=== PATIENT | female | born 1955 | race Caucasian/White ===

== ENCOUNTER → 2017-10-14 15:01 | Outpatient (REF) | payer MEDICAID, SELFPAY | LOC: NCHCN 15:01 | PROVIDERS: PCP Nurse Practitioner Family; Visit Provider Nurse Practitioner Family | DX: N39.0 Urinary tract infection, site not specified (principal) | CPT/HCPCS: 87086; 87186 ==

== ENCOUNTER → 2017-11-05 18:39 | Outpatient (REF) | payer MEDICAID, SELFPAY | LOC: NCHCN 18:39 | PROVIDERS: PCP Nurse Practitioner Family; Visit Provider Nurse Practitioner Family | DX: N39.0 Urinary tract infection, site not specified (principal); R21 Rash and other nonspecific skin eruption | CPT/HCPCS: 87077; 87086; 87186 ==

== ENCOUNTER 2017-11-29 13:40 | Outpatient (REF) | payer MEDICAID, SELFPAY | END 2017-11-29 14:00 | LOC: LBN 13:40 | PROVIDERS: PCP Nurse Practitioner Family; Visit Provider Nurse Practitioner Gerontology | DX: N39.0 Urinary tract infection, site not specified (principal) | CPT/HCPCS: 87077; 87086; 87186 ==

== ENCOUNTER 2018-02-11 18:44 | Outpatient (REF) | payer MEDICAID, SELFPAY ==
[2018-02-11 19:58] LABS: Anion Gap 9.3 mmol/L (3-11); BUN 20 mg/dL (7-18); CO2 28.7 mmol/L (21.0-32.0); CREATININE 1.63 mg/dL (0.55-1.02); Calcium 9.2 mg/dL (8.5-10.1); Chloride 102 mmol/L (98-107); Estimated GFR 31.76 (mL/min/1.73m2); Glucose 118 mg/dL (70-100); Potassium 3.3 mmol/L (3.5-5.1); Sodium 140 mmol/L (136-145)
== END 2018-02-11 19:04 ==
LOC: NCHCN 18:44
PROVIDERS: PCP Nurse Practitioner Family; Visit Provider Nurse Practitioner Family
DX: N39.0 Urinary tract infection, site not specified (principal); I10 Essential (primary) hypertension
CPT/HCPCS: 80048; 87086

== ENCOUNTER 2018-06-01 08:13 | Outpatient (CLI) | payer MEDICAID, SELFPAY ==
[2018-06-01 09:47] LABS: Anion Gap 8.4 mmol/L (3-11); BUN 18 mg/dL (7-18); CO2 28.6 mmol/L (21.0-32.0); CREATININE 1.28 mg/dL (0.55-1.02); Calcium 9.5 mg/dL (8.5-10.1); Chloride 105 mmol/L (98-107); Estimated GFR 41.98 (mL/min/1.73m2); Glucose 123 mg/dL (70-100); Potassium 4.3 mmol/L (3.5-5.1); Sodium 142 mmol/L (136-145)
== END 2018-06-01 08:33 ==
PROVIDERS: PCP Nurse Practitioner Family; Visit Provider Internal Medicine Nephrology
DX: N18.3 Chronic kidney disease, stage 3 (moderate) (principal)
CPT/HCPCS: 36415; 80048

== ENCOUNTER 2018-07-13 08:27 | Outpatient (CLI) | payer MEDICAID, SELFPAY ==
[2018-07-13 09:11] LABS: Anion Gap 7.3 mmol/L (3-11); BUN 19 mg/dL (7-18); CO2 31.7 mmol/L (21.0-32.0); CREATININE 1.22 mg/dL (0.55-1.02); Calcium 9.3 mg/dL (8.5-10.1); Chloride 102 mmol/L (98-107); Estimated GFR 44.37 (mL/min/1.73m2); Glucose 126 mg/dL (70-100); Potassium 4.1 mmol/L (3.5-5.1); Sodium 141 mmol/L (136-145)
[2018-07-13 11:43] LABS: C & S Indicated? Yes; WBC >50 HPF (0-5)
== END 2018-07-13 08:47 ==
PROVIDERS: Nurse Practitioner Gerontology; PCP Nurse Practitioner Family; Visit Provider Internal Medicine Nephrology
DX: N18.3 Chronic kidney disease, stage 3 (moderate) (principal); N39.0 Urinary tract infection, site not specified
CPT/HCPCS: 36415; 80048; 87077; 81015; 87086

== ENCOUNTER 2018-07-19 12:47 | Outpatient (REF) | payer MEDICAID, SELFPAY | END 2018-07-19 13:07 | LOC: LBN 12:47 | PROVIDERS: PCP Nurse Practitioner Family; Visit Provider Nurse Practitioner Gerontology | DX: N39.0 Urinary tract infection, site not specified (principal); N39.46 Mixed incontinence | CPT/HCPCS: 87086 ==

== ENCOUNTER 2018-08-04 18:00 | Outpatient (REF) | payer MEDICAID, SELFPAY ==
[2018-08-04 18:13] LABS: Anion Gap 8.8 mmol/L (3-11); BUN 19 mg/dL (7-18); CO2 29.2 mmol/L (21.0-32.0); CREATININE 1.26 mg/dL (0.55-1.02); Calcium 9.6 mg/dL (8.5-10.1); Chloride 102 mmol/L (98-107); Estimated GFR 42.75 (mL/min/1.73m2); Glucose 97 mg/dL (70-100); Potassium 3.8 mmol/L (3.5-5.1); Sodium 140 mmol/L (136-145)
[2018-08-04 18:15] LABS: Abs Immature Grans 0.01 k/cumm (0.0-0.09); Absolute Eosinophil Count 0.01 k/cumm (0.0-0.7); Absolute Lymphocyte Count 2.11 k/cumm (1.2-3.4); Absolute Monocyte Count 0.59 k/cumm (0.11-0.7); Absolute Neutrophil Count 3.34 k/cumm (1.2-6.7); Eosinophils % 0.2; HCT 40.6 % (36.0-46.0); HGB 13.6 g/dL (12.0-15.5); Immature Grans % 0.2; Lymphocytes % 34.8; Mean Corp. HGB Concentration 33.5 g/dL (32.0-36.0); Mean Corpuscular Hemoglobin 28.9 pg (27.0-33.0); Mean Corpuscular Volume 86.4 fL (80-95); Mean Platelet Volume 10.3 fL (8.0-11.0); Monocytes % 9.7; Neutrophils % 55.1; Platelet Count 167 x1000/uL (130-400); RBC Distribution Width 13.4 % (11.7-14.6); White Blood Cell Count 6.06 k/cumm (4.4-10.8)
== END 2018-08-04 18:20 ==
LOC: NCHCN 18:00
PROVIDERS: PCP Nurse Practitioner Family; Visit Provider Nurse Practitioner Family
DX: N18.3 Chronic kidney disease, stage 3 (moderate) (principal)
CPT/HCPCS: 80048; 85025

== ENCOUNTER 2018-08-17 00:57 | Outpatient (CLI) | payer MEDICAID, SELFPAY ==
--- NOTE | 2018-08-17 12:20 | DI.MAMMO_ITS ---
SYMPTOMS/DIAGNOSIS: SCREENING, Z12.31 MAMMOGRAM: Mammograms were interpreted according to the usual protocol including computer analysis with CAD system, tomosynthesis and C view imaging. Comparison with prior examinations. Breast density B. There is patient motion artifact on the right mediolateral oblique view. This patient should return for repeat right MLO view at no additional expense. There is a focal asymmetric density in the outer right breast seen on the craniocaudad view. Spot compression view is requested. Ultrasound may be indicated at that time. No suspicious masses or microcalcifications are seen in the left breast. IMPRESSION: 1. Additional view of the right breast. 2 Repeat right MLO view due to patient motion artifact. Category 0. MQSA ASSESSMENT OF FINDINGS: Incomplete: Needs additional imaging evaluation. Category 0. Patient will receive a letter notifying them of these results. BI-RADS category B. There are scattered areas of fibroglandular density.
== END 2018-08-17 01:17 ==
PROVIDERS: PCP Nurse Practitioner Family; Visit Provider Obstetrics & Gynecology Gynecology
DX: Z12.31 Encounter for screening mammogram for malignant neoplasm of breast (principal); R92.8 Other abnormal and inconclusive findings on diagnostic imaging of breast
CPT/HCPCS: 77063; 77067

== ENCOUNTER 2018-08-17 12:22 | Outpatient (CLI) | payer MEDICAID, SELFPAY ==
[2018-08-17 13:46] LABS: Anion Gap 8.1 mmol/L (3-11); BUN 16 mg/dL (7-18); CO2 28.9 mmol/L (21.0-32.0); CREATININE 1.36 mg/dL (0.55-1.02); Calcium 9.5 mg/dL (8.5-10.1); Chloride 103 mmol/L (98-107); Estimated GFR 39.15 (mL/min/1.73m2); Glucose 100 mg/dL (70-100); Sodium 140 mmol/L (136-145)
== END 2018-08-17 12:42 ==
PROVIDERS: PCP Nurse Practitioner Family; Visit Provider Internal Medicine Nephrology
DX: N18.3 Chronic kidney disease, stage 3 (moderate) (principal)
CPT/HCPCS: 36415; 80048

== ENCOUNTER 2018-08-26 01:43 | Outpatient (CLI) | payer MEDICAID, SELFPAY ==
--- NOTE | 2018-08-26 09:00 | DI.COMBO_ITS ---
SYMPTOM/DIAGNOSIS: REPEAT VIEW FOR MOTION ARTIFACT RT MEDIOLATERAL OBLIQUE VIEW AND FOCAL ASYMMETRIC DENSITY RT OUTER BREAST RIGHT BREAST ADDITIONAL VIEWS AND RIGHT BREAST ULTRASOUND: Additional images are interpreted according to the usual protocol including tomosynthesis and 2D imaging. Additional views of the right breast fail to show a persistent discrete mass. Repeat right mediolateral oblique views were obtained and are appropriate in technique. A right breast ultrasound was performed of the upper outer quadrant of the right breast. No suspicious cystic or solid masses are seen sonographically. IMPRESSION: No evidence for malignancy. Yearly mammography is recommended. Category 1. Breast density, Category B. MQSA ASSESSMENT OF FINDINGS: Negative. Category 1. Patient will receive a letter notifying them of these results. BI-RADS category B. There are scattered areas of fibroglandular density. The findings were discussed with the patient on the date of the examination.
== END 2018-08-26 02:03 ==
PROVIDERS: PCP Nurse Practitioner Family; Visit Provider Obstetrics & Gynecology Gynecology
DX: Z12.31 Encounter for screening mammogram for malignant neoplasm of breast (principal); R92.8 Other abnormal and inconclusive findings on diagnostic imaging of breast; N64.59 Other signs and symptoms in breast
CPT/HCPCS: 76642; 77063; 77067

== ENCOUNTER 2018-11-03 13:49 | Outpatient (CLI) | payer MEDICAID, SELFPAY ==
[2018-11-03 14:54] LABS: Hemoglobin A1C 5.8 % (4.5-6.2)
[2018-11-03 16:58] LABS: Calcium 9.3 mg/dL (8.5-10.1); Glucose 116 mg/dL (70-100)
[2018-11-03 16:59] LABS: Albumin 3.8 g/dL (3.4-5.0); Alkaline Phosphatase 108 U/L (46-116); Anion Gap 7.9 mmol/L (3-11); BUN 15 mg/dL (7-18); Bilirubin, Total 0.5 mg/dL (0.2-1.0); CO2 30.1 mmol/L (21.0-32.0); CREATININE 1.28 mg/dL (0.55-1.02); Chloride 104 mmol/L (98-107); Estimated GFR 41.98 (mL/min/1.73m2); Potassium 3.9 mmol/L (3.5-5.1); Sodium 142 mmol/L (136-145); Total Protein 7.5 g/dL (6.4-8.2)
[2018-11-03 17:00] LABS: ALT 36 U/L (12-78); AST 25 U/L (15-37)
[2018-11-03 17:01] LABS: Calculated LDL 103 mg/dL; Cholesterol 196 mg/dL (50-200); HDL Cholesterol 43 mg/dL (40-60); Triglyceride 250 mg/dL (30-150)
== END 2018-11-03 14:09 ==
PROVIDERS: PCP Nurse Practitioner Family; Visit Provider Psychiatry & Neurology Psychiatry
DX: Z79.899 Other long term (current) drug therapy (principal); N18.3 Chronic kidney disease, stage 3 (moderate)
CPT/HCPCS: 36415; 80053; 80061; 83721; 83036

== ENCOUNTER 2019-02-20 16:06 | Outpatient (REF) | payer MEDICARE, MEDICAID, SELFPAY | END 2019-02-20 16:26 | LOC: LBN 16:06 | PROVIDERS: PCP Nurse Practitioner Family; Visit Provider Nurse Practitioner Gerontology | DX: N39.0 Urinary tract infection, site not specified (principal) | CPT/HCPCS: 87077; 87086; 87186 ==

== ENCOUNTER 2019-03-10 09:36 | Outpatient (REF) | payer MEDICARE, MEDICAID, SELFPAY ==
[2019-03-10 13:00] LABS: HCT 44.9 % (36.0-46.0); HGB 14.4 g/dL (12.0-15.5); Mean Corp. HGB Concentration 32.1 g/dL (32.0-36.0); Mean Corpuscular Hemoglobin 27.9 pg (27.0-33.0); Mean Corpuscular Volume 86.8 fL (80-95); Mean Platelet Volume 10.5 fL (8.0-11.0); Platelet Count 196 x1000/uL (130-400); RBC 5.17 m/cumm (4.00-5.20); RBC Distribution Width 13.6 % (11.7-14.6); White Blood Cell Count 5.15 k/cumm (4.4-10.8)
[2019-03-10 13:04] LABS: Anion Gap 7.1 mmol/L (3-11); BUN 14 mg/dL (7-18); CO2 31.9 mmol/L (21.0-32.0); CREATININE 1.05 mg/dL (0.55-1.02); Calcium 9.6 mg/dL (8.5-10.1); Chloride 105 mmol/L (98-107); Glucose 106 mg/dL (74-106); Potassium 4.1 mmol/L (3.5-5.1); Sodium 144 mmol/L (136-145); TSH (W/Ref FT4) 5.11 uIU/mL (0.36-3.74)
[2019-03-10 13:21] LABS: FREE T4 0.78 ng/dL (0.76-1.46)
== END 2019-03-10 09:56 ==
LOC: NCHCN 09:36
PROVIDERS: PCP Nurse Practitioner Family; Visit Provider Nurse Practitioner Family
DX: I10 Essential (primary) hypertension (principal); E03.9 Hypothyroidism, unspecified; N18.3 Chronic kidney disease, stage 3 (moderate)
CPT/HCPCS: 80048; 85027; 84439; 84443

== ENCOUNTER 2019-05-11 01:57 | Outpatient (CLI) | payer MEDICARE, MEDICAID, SELFPAY ==
--- NOTE | 2019-05-11 | DI.DEXA_ITS ---
EXAM: XR DEXA BONE DENSITY W/WO SUNDAR INDICATION: POSTMENOPAUSAL Z78.0, SCREENING OSTEOPOROSIS Z13.820. COMPARISON: No exams were available for comparison TECHNIQUE: Hologic densitometer FINDINGS: SUNDAR image could not be performed due to patient weight. Bone mineral density measurements of the lum bar spine correspond to a total T-score of -3.5, in the osteoporotic range. The bone mineral density measurements of the left forearm correspond to a T-score of the distal 3rd of -2.2. Bone mineral de nsity measurements of the left hip correspond to a total T-score of -1.0 and femoral neck T-score of -0.4. IMPRESSION: Normal bone mineral density of the left hip. Osteoporosis of the lumbar spine. Osteopenia of the le ft forearm. DATA REPOSITORY: RADIATION DOSE DELIVERED:
== END 2019-05-11 02:17 ==
PROVIDERS: PCP Nurse Practitioner Family; Visit Provider Nurse Practitioner Family
DX: M81.0 Age-related osteoporosis without current pathological fracture (principal); M85.88 Other specified disorders of bone density and structure, other site; Z78.0 Asymptomatic menopausal state
CPT/HCPCS: 77080

== ENCOUNTER 2019-09-01 11:10 | Outpatient (REF) | payer MEDICARE, MEDICAID, SELFPAY ==
[2019-09-01 18:34] LABS: PHOSPHORUS 3.2 mg/dL (2.6-4.7)
[2019-09-01 20:47] LABS: Bilirubin Negative (Negative); Blood Trace-intact (Negative); Clarity Clear (Clear); Glucose Negative (Negative); Ketones Negative (Negative); Leukocyte Esterase Small (Negative); Nitrite Negative (Negative); Urobilinogen 0.2 EU/dL (Up TO 0.2); pH 5.5 (5-8)
[2019-09-01 21:01] LABS: Bacteria Few HPF (Negative); C & S Indicated? Yes; Casts Negative LPF (Negative); Crystals Negative HPF (Negative); Epithelial Cells Few HPF (Negative); Mucus Negative (Negative); RBC 0-2 HPF (0-2)
[2019-09-04 06:52] LABS: Vitamin D 25 Total 25.7 ng/ml (30-100)
[2019-09-04 10:42] LABS: Parathyroid Hormone,Intact 64 pg/mL (19-88)
== END 2019-09-01 11:30 ==
LOC: NCHCN 11:10
PROVIDERS: PCP Nurse Practitioner Family; Visit Provider Nurse Practitioner Family
DX: R31.9 Hematuria, unspecified (principal); N39.41 Urge incontinence; M81.0 Age-related osteoporosis without current pathological fracture
CPT/HCPCS: 82306; 87077; 81003; 81015; 83970; 84100; 87086; 87186

== ENCOUNTER 2019-09-22 09:56 | Outpatient (REF) | payer MEDICARE, MEDICAID, SELFPAY ==
[2019-09-22 18:24] LABS: Creatinine,Urine 88.57 mg/dL
[2019-09-22 18:25] LABS: PROTEIN 10.2 mg/dL
[2019-09-22 18:27] LABS: COMMENT (LAB VIEW ONLY) 87.49 mg/dL; Microalb ug/mg Crea 23.4 ug/mg Cr
[2019-09-22 18:47] LABS: COMMENT (LAB VIEW ONLY) 87.22 mg/dL; Prot/Crea Ur Ratio 0.11
[2019-09-22 20:24] LABS: Bacteria Many HPF (Negative); C & S Indicated? Yes; Casts Negative LPF (Negative); Crystals Negative HPF (Negative); Epithelial Cells Rare HPF (Negative); Mucus Negative (Negative); Other Cells Rare Renal (Negative); RBC 0-2 HPF (0-2); WBC >50 HPF (0-5)
== END 2019-09-22 10:16 ==
LOC: NCHCN 09:56
PROVIDERS: PCP Nurse Practitioner Family; Visit Provider Nurse Practitioner Family
DX: R31.9 Hematuria, unspecified (principal)
CPT/HCPCS: 87077; 81015; 82043; 82565; 82570; 84156; 87086; 87186

== ENCOUNTER 2019-09-28 14:13 | Outpatient (REF) | payer MEDICARE, MEDICAID, SELFPAY ==
[2019-09-28 18:58] LABS: Bilirubin Negative (Negative); Blood Trace-intact (Negative); Clarity Clear (Clear); Glucose Negative (Negative); Ketones Negative (Negative); Leukocyte Esterase Trace (Negative); Nitrite Negative (Negative); Specific Gravity 1.025 (1.005-1.025); Urobilinogen 0.2 EU/dL (Up TO 0.2); pH 5.5 (5-8)
[2019-09-28 19:07] LABS: BUN 16 mg/dL (7-18); CREATININE 1.27 mg/dL (0.55-1.02); Calcium 9.4 mg/dL (8.5-10.1); Chloride 104 mmol/L (98-107); Estimated GFR 42.23 (mL/min/1.73m2); Glucose 118 mg/dL (74-106); Potassium 3.9 mmol/L (3.5-5.1); Sodium 142 mmol/L (136-145)
[2019-09-28 19:28] LABS: Bacteria Few HPF (Negative); Epithelial Cells Few HPF (Negative); Other Cells Few Renal (Negative)
[2019-09-28 19:29] LABS: C & S Indicated? C&S Done As Ordered; Casts Negative LPF (Negative); Crystals Negative HPF (Negative); Mucus Negative (Negative)
== END 2019-09-28 14:33 ==
LOC: NCHCN 14:13
PROVIDERS: PCP Nurse Practitioner Family; Visit Provider Nurse Practitioner Family
DX: R31.9 Hematuria, unspecified (principal); N18.3 Chronic kidney disease, stage 3 (moderate)
CPT/HCPCS: 80048; 87077; 81003; 81015; 87086; 87186

== ENCOUNTER 2019-10-05 00:17 | Outpatient (CLI) | payer MEDICARE, MEDICAID, SELFPAY ==
--- NOTE | 2019-10-05 16:31 | DI.MAMMO_ITS ---
EXAM: MG MAMMO SCREENING CLINICAL HISTORY: SCREENING, FAMILY H/O BREAST CA, [facility],Z00.00 TECHNIQUE: Bilateral full field digital CC and MLO mammographic images were obtained with 3D tomosyn thesis and utilizing computer aided detection (CAD). COMPARISON: Available for comparison. FINDINGS: The patient was unable to hold completely still. Masses/Architectural Distortion: None seen. Microcalcifications: No suspicious pleomorphic-type are seen. Skin Thickening/Nipple Retraction: None. IMPRESSION: 1. No significant interval change with no specific features of malignancy noted. 2. Unless there is more urgent need, screening mammography is recommended, as per [employer] guidelines. BI-RADS Category 1 - Negative Breast Density - Category B - Scattered areas of fibroglandular density A negative radiographic report should not delay biopsy if a dominant or clinically suspicious mass is present. Up to ten percent of cancers are not identified on mammography. A negative report may reinforce clinical impression. Adenosis and dense breasts may obscure an underlying neoplasm. False positive reports average 6 to 10%. Patient will receive a letter notifying them of these results.
== END 2019-10-05 00:37 ==
PROVIDERS: PCP Nurse Practitioner Family; Visit Provider Nurse Practitioner Family
DX: Z12.31 Encounter for screening mammogram for malignant neoplasm of breast (principal); Z00.00 Encounter for general adult medical examination without abnormal findings; Z80.3 Family history of malignant neoplasm of breast; R92.2 Inconclusive mammogram
CPT/HCPCS: 77063; 77067

== ENCOUNTER 2019-11-22 02:30 | Outpatient (CLI) | payer MEDICARE, MEDICAID, SELFPAY ==
[2019-11-22 13:05] LABS: Anion Gap 11.1 mmol/L (3-11); BUN 17 mg/dL (7-18); CO2 25.9 mmol/L (21.0-32.0); CREATININE 1.34 mg/dL (0.55-1.02); Calcium 9.7 mg/dL (8.5-10.1); Chloride 102 mmol/L (98-107); Glucose 126 mg/dL (74-106); Potassium 3.9 mmol/L (3.5-5.1); Sodium 139 mmol/L (136-145)
== END 2019-11-22 02:50 ==
PROVIDERS: PCP Nurse Practitioner Family; Visit Provider Internal Medicine Nephrology
DX: N18.3 Chronic kidney disease, stage 3 (moderate) (principal)
CPT/HCPCS: 36415; 80048

== ENCOUNTER 2020-02-19 22:15 | Outpatient (REF) | payer MEDICARE, MEDICAID, SELFPAY ==
[2020-02-19 19:39] LABS: Bilirubin Negative (Negative); Blood Negative (Negative); Clarity Clear (Clear); Glucose Negative (Negative); Ketones Negative (Negative); Leukocyte Esterase Small (Negative); Nitrite Negative (Negative); Specific Gravity 1.025 (1.005-1.025); Urobilinogen 0.2 EU/dL (Up TO 0.2); pH 5.5 (5-8)
[2020-02-19 21:03] LABS: Bacteria Rare HPF (Negative); C & S Indicated? Yes; Crystals Negative HPF (Negative); Epithelial Cells Few HPF (Negative); Mucus Negative (Negative); RBC 0-2 HPF (0-2); WBC >50 HPF (0-5)
== END 2020-02-19 22:35 ==
LOC: NCHCN 22:15
PROVIDERS: PCP Nurse Practitioner Family; Visit Provider Nurse Practitioner Family
DX: N31.9 Neuromuscular dysfunction of bladder, unspecified (principal); N39.41 Urge incontinence
CPT/HCPCS: 87077; 81003; 81015; 87086; 87186

== ENCOUNTER 2020-03-11 16:23 | Outpatient (REF) | payer MEDICARE, MEDICAID, SELFPAY ==
[2020-03-11 15:25] LABS: BUN 13 mg/dL (7-18); CREATININE 1.18 mg/dL (0.55-1.02); Calcium 9.7 mg/dL (8.5-10.1); Chloride 103 mmol/L (98-107); Estimated GFR 45.83 (mL/min/1.73m2); Glucose 99 mg/dL (74-106); Potassium 4.1 mmol/L (3.5-5.1); Sodium 141 mmol/L (136-145)
== END 2020-03-11 16:43 ==
LOC: NCHCN 16:23
PROVIDERS: PCP Nurse Practitioner Family; Visit Provider Nurse Practitioner Family
DX: N18.30 Chronic kidney disease, stage 3 unspecified (principal)
CPT/HCPCS: 80048

== ENCOUNTER 2020-04-16 21:40 | Outpatient (REF) | payer MEDICARE, MEDICAID, SELFPAY ==
[2020-04-16 13:41] LABS: Bilirubin Negative (Negative); Blood Trace-intact (Negative); Clarity Sl Cloudy (Clear); Glucose Negative (Negative); Ketones Negative (Negative); Leukocyte Esterase Moderate (Negative); Nitrite Negative (Negative); Urobilinogen 0.2 EU/dL (Up TO 0.2); pH 5.5 (5-8)
[2020-04-16 13:59] LABS: Bacteria Few HPF (Negative); Epithelial Cells Moderate HPF (Negative); Other Cells Few Renal (Negative); RBC 0-2 HPF (0-2)
[2020-04-16 14:00] LABS: C & S Indicated? No/Sq. Contamination; Casts Negative LPF (Negative); Crystals Negative HPF (Negative); Mucus Negative (Negative); WBC 20-50 HPF (0-5)
== END 2020-04-16 21:41 | disposition home or self-care (01) ==
LOC: NCHCN 21:40
PROVIDERS: PCP Nurse Practitioner Family; Visit Provider Nurse Practitioner Family
DX: R31.9 Hematuria, unspecified (principal)
CPT/HCPCS: 81003; 81015

== ENCOUNTER 2020-04-22 14:31 | Outpatient (REF) | payer MEDICARE, MEDICAID, SELFPAY ==
[2020-04-22 19:54] LABS: Bacteria Few HPF (Negative); C & S Indicated? C&S Done As Ordered; Casts Negative LPF (Negative); Crystals Negative HPF (Negative); Epithelial Cells Few HPF (Negative); Mucus Negative (Negative)
== END 2020-04-22 14:32 | disposition home or self-care (01) ==
LOC: NCHCN 14:31
PROVIDERS: PCP Nurse Practitioner Family; Visit Provider Nurse Practitioner Family
DX: R31.9 Hematuria, unspecified (principal); N93.8 Other specified abnormal uterine and vaginal bleeding
CPT/HCPCS: 81015; 87086

== ENCOUNTER 2020-05-03 19:06 | Outpatient (CLI) | payer MEDICARE, MEDICAID, SELFPAY ==
--- NOTE | 2020-05-03 | DI.US_ITS ---
EXAM: US PELVIS TRANSVAGINAL CLINICAL HISTORY: VAGINAL BLEEDING, N93.9 TECHNIQUE: Transabdominal and transvaginal imaging was performed using standard protocol. COMPARISON: No exams were available for comparison FINDINGS: KIDNEYS: Kidneys are symmetric in size. No evidence of renal calculi. No evidence of hydronephrosis. Cyst midpole left kidney. UTERUS: Anteverted. 7.6 x 4.3 x 5.9 cm. Endometrium: Markedly thickened for the patient's age at 12.6 millimeters. It appears homogeneous. No focal mass is seen. Myometrium: 2.6 centimeter anterior lower uterine segment fibroid with calcifications. Cervix: Unremarkable. OVARIES: Right: Cyst or mass: None. Left: Cyst or mass: None. Seen only transabdominally. DOPPLER: Color: Symmetric and uniform flow to both ovaries. No hyperemia. Duplex: Normal ovarian arterial waveforms visualized. CUL-DE-SAC: Free fluid: None. IMPRESSION: Abnormally thickened endometrium. Small fibroid. DATA REPOSITORY:
== END 2020-05-03 19:07 ==
LOC: DI 05-09 19:06
PROVIDERS: PCP Nurse Practitioner Family; Visit Provider Nurse Practitioner Family
DX: N93.9 Abnormal uterine and vaginal bleeding, unspecified (principal); D25.9 Leiomyoma of uterus, unspecified; R93.89 Abnormal findings on diagnostic imaging of other specified body structures
CPT/HCPCS: 76830; 76856

== ENCOUNTER 2020-05-16 15:43 | Outpatient (REF) | payer MEDICARE, MEDICAID, SELFPAY ==
[2020-05-16 13:38] LABS: HCT 43.2 % (36.0-46.0); HGB 14.3 g/dL (11.2-15.7); MCH 29.4 pg (27.0-33.0); MCHC 33.1 % (32.0-36.0); MCV 88.9 fL (80-95); MPV 10.1 fL (8.0-11.0); Platelet Count 162 10^3/uL (130-400); RBC 4.86 10^6/uL (3.93-5.22); RDW 13.2 % (11.7-14.6); RDW-SD 42.6 fL; WBC 6.19 10^3/uL (4.4-10.8)
[2020-05-16 14:00] LABS: ALT 45 U/L (14-59); AST 29 U/L (15-37); Albumin 3.8 g/dL (3.4-5.0); Alkaline Phosphatase 91 U/L (46-116); Anion Gap 7.3 mmol/L (3-11); BUN 18 mg/dL (7-18); Bilirubin, Total 0.5 mg/dL (0.2-1.0); CO2 29.7 mmol/L (21.0-32.0); CREATININE 1.2 mg/dL (0.55-1.02); Calcium 9.3 mg/dL (8.5-10.1); Chloride 103 mmol/L (98-107); Estimated GFR 44.95 (mL/min/1.73m2); Glucose 147 mg/dL (74-106); Potassium 4.5 mmol/L (3.5-5.1); Sodium 140 mmol/L (136-145); Total Protein 7.4 g/dL (6.4-8.2)
== END 2020-05-16 15:44 | disposition home or self-care (01) ==
LOC: NCHCN 15:43
PROVIDERS: PCP Nurse Practitioner Family; Visit Provider Nurse Practitioner Family
DX: I10 Essential (primary) hypertension (principal); N18.30 Chronic kidney disease, stage 3 unspecified; N93.9 Abnormal uterine and vaginal bleeding, unspecified
CPT/HCPCS: 80053; 85027

== ENCOUNTER 2020-05-27 03:13 | Outpatient (CLI) | payer MEDICARE, MEDICAID, SELFPAY ==
[2020-05-27 10:54] LABS: HCT 42.7 % (36.0-46.0); HGB 13.8 g/dL (11.2-15.7); MCH 28.7 pg (27.0-33.0); MCHC 32.3 % (32.0-36.0); MCV 88.8 fL (80-95); MPV 9.7 fL (8.0-11.0); Platelet Count 169 10^3/uL (130-400); RBC 4.81 10^6/uL (3.93-5.22); RDW 13.2 % (11.7-14.6); RDW-SD 43.2 fL; WBC 5.62 10^3/uL (4.4-10.8)
[2020-05-27 11:47] LABS: Source Nasal/Nares
[2020-05-27 16:11] LABS: COVID-19 PCR Negative (Negative)
== END 2020-05-27 03:14 | disposition home or self-care (01) ==
LOC: LBO 03:14
PROVIDERS: PCP Nurse Practitioner Family; Visit Provider Obstetrics & Gynecology
DX: N95.0 Postmenopausal bleeding (principal); R93.89 Abnormal findings on diagnostic imaging of other specified body structures; Z01.818 Encounter for other preprocedural examination; Z01.812 Encounter for preprocedural laboratory examination
CPT/HCPCS: 36415; 85027; 86850; 86900; 86901

== ENCOUNTER 2020-05-29 06:02 | Day surgery (SDC) | payer MEDICARE, MEDICAID, SELFPAY ==
[2020-05-29] VITALS (7 sets, daily range): BP systolic 96–109; BP diastolic 57–72; PULSE 70–78; RESP 14–23; TEMP 36–36.7; O2SAT 93–100
[2020-05-29] MEDS: Lactated Ringers 1,000 ML 125 ML IV (07:10)
--- NOTE | 2020-05-29 07:57 | ENDO_PTH ---
PATIENT: Belle Jonas LOC: [facility] U#:[id number] AGE/SX: 65/F ROOM: RE05/29/[address]: Nanci Mercado DO : 1955 BED: DIS: 05/29/2020 SPEC #: [id number] RECD: 05/29/20 12:27 STATUS: RACH REQ #: [id number] DIGNA: 05/29/20 07:[address]: Nanci Mercado DEPT: Surgical Specimen RECD BY: Cris Han ENTERED: 05/29/20 12:30 SP TYPE: Endo OTHR DR: Víctor Golden Tissues: 1 - ENDOCERVICAL BX/CURRETTE 2 - ENDOMETRIUM BX/CURRETTE Procedures: GROSS AND MICRO LEVEL 4 Comments: [id number]
--- NOTE | 2020-05-29 08:22 | W.PM.OP ---
Date of service: 05/29/20 Time of Service: 08:22 Operative Note Operative Note DATE OF PROCEDURE: 05/29/20 PRE-OP DIAGNOSIS: Postmenopausal bleeding PROCEDURE: Hysteroscopy with dilation and curettage, fractional. Placement of a Mirena IUD ANESTHESIA TYPE: General:No Airway Refer to Anesthesia Record ESTIMATED BLOOD LOSS: 20 PATHOLOGY: other (1. Endocervical curetting 2. Endometrial curetting) COMPLICATIONS: Other (Oxygen desaturation, possible aspiration) Patient was transported to: PACU Patient's condition: stable Implants: Mirena IUD, Expiration 06/2022 Lot # [id number] Indications: Postmenopausal bleeding Findings: Significantly anteflexed uterus, normal-appearing cervix, atrophic appearing endometrium, endometrial polyp, fundal. Procedure Description: Patient was taken the operating suite with IV running where she is placed in the dorsal supine position and anesthesia reviewed monitored anesthesia care performed. She was prepped and draped in usual sterile fashion and exam under anesthesia revealed a uterus that is somewhat fixed anteriorly and significantly anteverted. She has atrophic vaginal mucosa and normal-appearing cervix. Speculum was placed and single-tooth tenaculum used to grasp the anterior and posterior lips of the cervix and assistance of stabilization of the uterus. Cervical os was dilated to the point that a 5 mm hysteroscope could be passed with ease. With visualization of the endometrial and endocervical cavity cavity appeared smooth and regular with a very smooth regular appearing fundal uterine polyp. At this point endocervical curettage was performed with sharp curette and followed by endometrial curettage. Attempt was made to grasp the endometrial polyp, however during that time patient had a significant coughing episode and the potential for aspiration. At this point Trendelenburg was reversed and due to respiratory issues decision was made to place the Mirena system and not attempted to retrieve benign-appearing fundal polyp. At this point Mirena system inserted to the previously sounding depth of 7 cm and deployed. Strings were cut at 3 cm. Patient was then returned to the dorsal supine position in reverse Trendelenburg after instrumentation was removed. Patient was transferred to postanesthesia care unit for observation, supplemental oxygen and was alert and oriented post procedure. EBL: 20 mL Pathology: 1. Endocervical curetting 2. Endometrial curetting Implant: Mirena intrauterine device with lot number: [id number] expiration: June 2022. Complications: Inability to retrieve Endo atrial polyp due to respiratory status, possible aspiration
[2020-05-29] MEDS: Acetaminophen 500 MG TAB 1000 MG PO (10:08)
[2020-05-29] MEDS: Ketorolac 15 MG/ML VIAL 10 MG IVP (10:11)
[2020-05-29] MEDS: Normal Saline Flush 10 ML SYR IV (10:11)
== END 2020-05-29 10:51 | disposition home or self-care (01) ==
PROVIDERS: PCP Nurse Practitioner Family; Visit Provider Obstetrics & Gynecology
PROC: 0UDB8ZZ Extraction of Endometrium, Via Natural or Artificial Opening Endoscopic (ICD-10-PCS; CPT 58558; principal; 2020-05-29 07:30)
PROC: (CPT 58558; 2020-05-29 07:30)
DX: N84.0 Polyp of corpus uteri (principal); N95.0 Postmenopausal bleeding; R93.89 Abnormal findings on diagnostic imaging of other specified body structures; E03.9 Hypothyroidism, unspecified; I10 Essential (primary) hypertension; G47.33 Obstructive sleep apnea (adult) (pediatric); J95.88 Other intraoperative complications of respiratory system, not elsewhere classified; R09.02 Hypoxemia
CPT/HCPCS: 58558; 58300; 88305; J1885; J2001; J2405

== ENCOUNTER 2020-07-10 15:26 | Outpatient (REF) | payer MEDICARE, MEDICAID, SELFPAY ==
[2020-07-10 19:18] LABS: Anion Gap 6.3 mmol/L (3-11); BUN 16 mg/dL (7-18); CO2 27.7 mmol/L (21.0-32.0); CREATININE 1.1 mg/dL (0.55-1.02); Calcium 9.3 mg/dL (8.5-10.1); Chloride 107 mmol/L (98-107); Estimated GFR 49.69 (mL/min/1.73m2); Glucose 104 mg/dL (74-106); Potassium 4.3 mmol/L (3.5-5.1); Sodium 141 mmol/L (136-145); Uric Acid 9.1 mg/dL (2.6-6.0)
[2020-07-10 19:20] LABS: Hemoglobin A1C 5.8 % (<5.7)
== END 2020-07-10 15:27 | disposition home or self-care (01) ==
LOC: NCHCN 15:26
PROVIDERS: PCP Nurse Practitioner Family; Visit Provider Family Medicine
DX: M10.9 Gout, unspecified (principal); R73.09 Other abnormal glucose; I10 Essential (primary) hypertension
CPT/HCPCS: 80048; 83036; 84550

== ENCOUNTER 2020-08-09 09:20 | Outpatient (REF) | payer MEDICARE, MEDICAID, SELFPAY ==
[2020-08-09 15:44] LABS: Anion Gap 6.3 mmol/L (3-11); BUN 16 mg/dL (7-18); CO2 30.7 mmol/L (21.0-32.0); CREATININE 1.2 mg/dL (0.55-1.02); Calcium 9.3 mg/dL (8.5-10.1); Chloride 105 mmol/L (98-107); Estimated GFR 44.95 (mL/min/1.73m2); Glucose 127 mg/dL (74-106); Potassium 3.9 mmol/L (3.5-5.1); Sodium 142 mmol/L (136-145); Uric Acid 5.7 mg/dL (2.6-6.0)
== END 2020-08-09 09:21 | disposition home or self-care (01) ==
LOC: NCHCN 09:20
PROVIDERS: PCP Nurse Practitioner Family; Visit Provider Family Medicine
DX: I10 Essential (primary) hypertension (principal); M10.9 Gout, unspecified
CPT/HCPCS: 80048; 84550

== ENCOUNTER → 2020-09-11 14:18 | Outpatient (BNVA) | payer MEDICARE, MEDICAID, SELFPAY | PROVIDERS: PCP Family Medicine; Referring Provider Nurse Practitioner Family; Visit Provider Nurse Practitioner Gerontology | DX: N32.81 Overactive bladder (principal); N39.46 Mixed incontinence; N39.0 Urinary tract infection, site not specified; R31.29 Other microscopic hematuria; Z79.899 Other long term (current) drug therapy | CPT/HCPCS: 81003; 99214 ==

== ENCOUNTER 2020-09-12 10:09 | Outpatient (REF) | payer MEDICARE, MEDICAID, SELFPAY ==
[2020-09-11 22:52] LABS: Bilirubin Negative (Negative); Blood Large (Negative); Clarity Clear (Clear); Glucose Negative (Negative); Ketones Negative (Negative); Leukocyte Esterase Large (Negative); Nitrite Negative (Negative); Urobilinogen 0.2 EU/dL (Up TO 0.2); pH 5.5 (5-8)
[2020-09-11 23:07] LABS: Bacteria Many HPF (Negative); C & S Indicated? C&S Done As Ordered; Casts Negative LPF (Negative); Crystals Negative HPF (Negative); Mucus Negative (Negative); RBC Negative HPF (0-2); WBC >50 HPF (0-5)
[2020-09-11 23:08] LABS: Epithelial Cells Rare HPF (Negative); Other Cells Rare Renal (Negative)
== END 2020-09-12 10:10 | disposition home or self-care (01) ==
LOC: LBN 10:09
PROVIDERS: PCP Family Medicine; Visit Provider Nurse Practitioner Gerontology
DX: N39.0 Urinary tract infection, site not specified (principal)
CPT/HCPCS: 87077; 81003; 81015; 87086; 87186

== ENCOUNTER → 2020-10-09 08:15 | Outpatient (BNVA) | payer MEDICARE, MEDICAID, SELFPAY | PROVIDERS: PCP Family Medicine; Referring Provider Family Medicine; Visit Provider Nurse Practitioner Gerontology | DX: N39.46 Mixed incontinence (principal); N39.0 Urinary tract infection, site not specified | CPT/HCPCS: 99214 ==

== ENCOUNTER 2020-11-06 01:18 | Outpatient (CLI) | payer MEDICARE, MEDICAID, SELFPAY ==
--- NOTE | 2020-11-06 | DI.CT_ITS ---
Exam(s) CT SINUS WO EXAM: CT SINUS WO CLINICAL HISTORY: POSTNASAL DRIP, ALLERGIC RHINITIS, NASAL SINUS CYST, R09.82, J30.9, J34.1. TECHNIQUE: Imaging Protocol: Axial computed tomography images with coronal and sagittal reformatted images were created and reviewed. No IV Contrast COMPARISON: No exams were available for comparison FINDINGS: MAXILLARY SINUSES: There are no endoscopic surgical defects evident. There is a large post inflammatory retention cysts in the left maxillary sinus, this measuring 2.5 cm craniocaudal by 2.0 cm wide by 3 cm AP. This exhibits typical con vx superior surface and homogeneo us density. There is no associated fluid level in the maxillary sinus. There is no evidence of bone dehiscence. The opposite-right maxillary sinus is clear. OSTIOMEATAL UNITS: Patent bilaterally ETHMOIDAL AIR CELLS: Well aerated. No mucosal thickening nor fluid levels. SPHENOID SINUSES: Well aerated. No mucosal thickening nor fluid levels. FRONTAL SINUSES: Well aerated. No mucosal thickening nor fluid levels. NASAL SEPTUM AND TURBINATES:Nasal septum is midline with no evidence of significant nasal septal spur . There is no evidence of sridhar bullosa. MASTOID AIR CELLS: There is sclerosis of the right mastoid air cells, probably related to the chronic mastoiditis. Left mastoid air cells are aerated. IMPRESSION: 1. There is a 25 x 20 x 30 millimeter post inflammatory retention cyst in the left maxillary sinus, not associated with fluid level nor other mucosal thickening in the left maxillary sinus nor evidence of bone dehiscence. The opposite-right maxillary sinus is clear. Both ostiomeatal units are widely patent as are the nasal passages. 2. Ethmoidal air cells, sphenoid sinuses, and frontal sinuses are clear. There is sclerosis of right mastoid air cells, probably related to remote chronic inflammatory change . There is no fluid in the middle ear cavities. RADIATION DOSE DELIVERED: 145.85mGy.cm Total DLP DATA REPOSITORY: All CT scans at this facility are submitted to the National Radiology Data Registry (NRDR) Dose Index Registry (DIR) with the [employer] (A[employer]). RADIATION OPTIMIZATION: All CT scans at this facility use at least one of these dose optimization te chniques: automated exposure control; mA and/or kV adjustment per patient size (includes targeted exa ms where dose is matched to clinical indication); or iterative reconstruction.
== END 2020-11-06 01:38 ==
PROVIDERS: PCP Family Medicine; Visit Provider Physician Assistant
DX: J34.1 Cyst and mucocele of nose and nasal sinus (principal); J30.9 Allergic rhinitis, unspecified; R09.82 Postnasal drip; H70.11 Chronic mastoiditis, right ear
CPT/HCPCS: 70486

== ENCOUNTER 2020-12-09 02:00 | Outpatient (CLI) | payer MEDICARE, MEDICAID, SELFPAY ==
--- NOTE | 2020-12-09 09:07 | DI.MAMMO_ITS ---
Exam(s) MG MAMMO SCREENING 60 MIN DUR EXAM: MG MAMMO SCREENING 60 MIN DUR CLINICAL HISTORY: SCREENING,Z12.39. TECHNIQUE: Bilateral full field digital CC and MLO mammographic images were obtained with 3D tomosyn thesis and utilizing computer aided detection (CAD). COMPARISON: Prior mammograms dating back to 2018, the most recent being September 2019. Mammograms prior to 2019 are not in the PACS system. FINDINGS: There has been no significant change in the appearance and distribution of the fibroglandular tissue. Skin retraction in the right breast is unchanged and related to prior surgery. There are no new spiculated masses nor malignant appearing microcalcification groups. There is no significant architectural distortion nor skin thickening-retraction. IMPRESSION: Stable benign findings. No radiographic evidence of malignancy. BI-RADS Category 2 - Benign Findings Breast Density - Category B - Scattered areas of fibroglandular density Breast density Category C or D implies that the patient has dense breast tissue. Dense breast tissue can make it harder to find cancer on a mammogram. Dense breast tissue is also associated with an incr eased risk of breast cancer. This information about the result of the mammogram report was provided to the patient to raise their awareness. Use this report when you speak with the patient about their risks for breast cancer, which includes their family history. At that time, you may recommend additional screening tests (Ultrasoun d or MRI) as these tests may add significant information. A negative radiographic report should not delay biopsy if a dominant or clinically suspicious mass is present. Up to ten percent of cancers are not identified on mammography. A negative report may reinforce clinical impression. Adenosis and dense breasts may obscure an underlying neoplasm. False positive reports average 6 to 10%. Patient will receive a letter notifying them of these results.
== END 2020-12-09 02:20 ==
PROVIDERS: PCP Family Medicine; Visit Provider Nurse Practitioner
DX: Z12.31 Encounter for screening mammogram for malignant neoplasm of breast (principal)
CPT/HCPCS: 77063; 77067

== ENCOUNTER 2020-12-09 02:01 | Outpatient (CLI) | payer MEDICARE, MEDICAID, SELFPAY ==
--- NOTE | 2020-12-09 06:40 | DI.US_ITS ---
Exam(s) US PELVIS TRANSVAGINAL EXAM: US PELVIS TRANSVAGINAL CLINICAL HISTORY: re-check STRIPE,IUD,MIXED INCONTINENCE,POSTMENOPAUSAL BLEEDING,N95.0,N39.46 TECHNIQUE: Ultrasound of the pelvis was performed both transabdominal and transvaginal. COMPARISON: US US PELVIS TRANSVAGINAL from 05/03/2020 FINDINGS: UTERUS: There is an IUD which is noted in the lower uterine segment. Measures 7.9 cm length x 3.8 cm AP x 5.9 cm wide. There are no uterine fibroids. Endometrial thickness measures 12 mm. There is no fluid in the endometrial canal. CERVIX: Tiny nabothian cysts noted RIGHT OVARY: Measures 1.3 x 0.6 x 1.3 cm No significant cysts nor masses evident in the right ovary. Vascular flow is demonstrated in the rig ht ovary. LEFT OVARY: Left ovary was not identified on this study CUL-DE-SAC: No free fluid evident. IMPRESSION: 1. There is an IUD noted in the lower uterine segment. Slightly thickened endometrium, measuring 12 millimeters. No fluid in the endometrial canal. 2. Left ovary was not identified on this study. Right ovary appears unremarkable. 3. No free fluid evident in the adnexal regions and cul-de-sac. DATA REPOSITORY:
== END 2020-12-09 02:21 ==
PROVIDERS: PCP Family Medicine; Visit Provider Obstetrics & Gynecology
DX: N39.46 Mixed incontinence (principal); N95.0 Postmenopausal bleeding; Z97.5 Presence of (intrauterine) contraceptive device
CPT/HCPCS: 76830; 76856

== ENCOUNTER 2021-01-29 01:12 | Outpatient (CLI) | payer MEDICARE, MEDICAID, SELFPAY ==
--- NOTE | 2021-01-29 | DI.RAD_ITS ---
Exam(s) XR KNEE RT 3V AP,LAT,ENRIQUE EXAM: XR KNEE RT 3V AP,LAT,ENRIQUE CLINICAL HISTORY: RT KNEE PAIN, M25.561 TECHNIQUE: COMPARISON: No exams were available for comparison FINDINGS: Three views were obtained. There is a question of narrowing of the cartilaginous joint space of the patellofemoral joint, additional evaluation Merchant view could be obtained to evaluate this joint. There are mild marginal osteophytes at the patellofemoral joint noted as well. No gross joint effusion seen. No other significant bony abnormality. 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 Additional evaluation with Merchant view may be obtained if clinically appropriate. RADIATION DOSE DELIVERED: Total DLP
== END 2021-01-29 01:32 ==
PROVIDERS: PCP Family Medicine; Visit Provider Nurse Practitioner
DX: M25.561 Pain in right knee (principal); M17.11 Unilateral primary osteoarthritis, right knee
CPT/HCPCS: 73562

== ENCOUNTER 2021-03-10 22:12 | Emergency (ER) | payer MEDICARE, MEDICAID, SELFPAY ==
[2021-03-10] VITALS (19 sets, daily range): BP systolic 94–128; BP diastolic 52–93; PULSE 94–106; RESP 8–31; TEMP 37–37.7; O2SAT 91–97
--- NOTE | 2021-03-10 22:30 | RT.EKG_ITS ---
APPROVED REPORT Exam: Resting ECG Reason for Exam: short of breath Patient Location: E HR:103 bpm ECG Measurements Heart Rate 103 AXIS MI 193 P 27 QRSd 94 QRS 43 QT 343 T 57 QTc 449 Conclusion Sinus tachycardia...rate> 99. Sinus. No STEMI. I have reviewed and interpreted ECG and agree with software generated interpretation.
--- NOTE | 2021-03-10 23:00 | DI.RAD_ITS ---
Exam(s) XR PORTABLE CHEST AP EXAM: XR PORTABLE CHEST AP CLINICAL HISTORY: cough, sob, r/o acute disease TECHNIQUE: COMPARISON: No exams were available for comparison FINDINGS: Portable AP chest at 2318 hours. The heart appears mildly enlarged. The lungs are grossly clear. P robable under penetration of the lungs due to the patient's size, minimal peripheral infiltrates not entirely excluded. PA and lateral chest may be obtained for follow up if clinically indicated. IMPRESSION: Probably negative chest radiograph. Underpenetration due to the patient's body habitus. RADIATION DOSE DELIVERED: Total DLP
--- NOTE | 2021-03-10 23:03 | ED.GENADUL_ITS ---
Discharge Plan Disposition Patient Disposition: HOME Condition: Stable Discharge Details Clinical Impression: Shortness of breath, Headache, Diarrhea, Acute UTI, Respiratory syncytial virus (RSV) infection Primary Care Provider: Perla Bae ED Provider: Eben Caal [place] Meds and New Rx's Prescriptions: New levofloxacin 750 mg tablet 750 mg PO DAILY Qty: 5 RF: 0 Continued furosemide [Lasix] 20 mg tablet 20 mg PO DAILY RF: 0 levothyroxine 75 mcg tablet 100 mcg PO DAILY RF: 0 pantoprazole 40 mg tablet,delayed release (DR/EC) 40 mg PO HS RF: 0 allopurinol 100 mg tablet 100 mg PO DAILY RF: 0 Myrbetriq 50 mg tablet extended release 24 hr 50 mg PO HS Qty: 90 RF: 3 aspirin [Aspirin Low-Strength] 81 MG tablet,chewable 81 mg PO DAILY RF: 0 metoprolol succinate 25 MG tablet extended release 24 hr 50 mg PO DAILY RF: 0 multivitamin [Daily Multiple] 1 EACH tablet 1 ea PO DAILY RF: 0 sumatriptan succinate [Imitrex] 100 MG tablet 100 mg PO DIRECTED PRNQty: 12 RF: 0 triamterene-hydrochlorothiazid 1 EACH tablet 1 tab-cap PO DAILY Qty: 90 RF: 0 paroxetine HCl [Paxil] 10 MG/5 ML suspension 37.5 mg PO HS RF: 0 trazodone 50 mg Tablet 100 mg PO QHS RF: 0 quetiapine 200 mg Tablet 200 mg PO QHS RF: 0 cholecalciferol (vitamin D3) [Vitamin D3] 25 mcg (1,000 unit) Tablet 1,000 unit PO DAILY RF: 0 Discharge Instructions Instructions: Urinary Tract Infection in Women (ED) Additional Instructions: your xray showed a small amount of fluid in the lung and you have evidence of a urinary tract infection increase your lasix (furosemide) to 40mg daily and follow up with your primary care provider within a week if you feel more ill, have worsening shortness of breath or fevers return to the emergency department Medical Decision Making <Pamela Guevara DO - Last Filed: 03/10/21 23:15> 66-year-old female with a history of hypertension, migraines, depression, OCD, obesity, recurrent UTI, hypothyroidism, and obstructive sleep apnea on CPAP at night presents for dry cough, shortness of breath, headache, nausea and diarrhea since yesterday. She lives with multiple residents who had a positive Covid contacts. Patient has had 2 Covid vaccines but no booster yet. Heart rate mid 100s. Oral temp 99.9. Oxygen saturation 91% on room air. She has diminished breath sounds throughout. No focal deficits. No meningeal signs. Differential diagnosis includes bronchitis, viral illness, coronavirus, pneumonia, electrolyte abnormality, dehydration, UTI. Will place an IV, bolus IV fluids, screening labs, urinalysis, portable chest x-ray and give nebs, steroids and IV toradol and tylenol. In-house Covid swab already obtained by nursing. Case endorsed to Dr. Caal to follow-up on labs and imaging and final disposition. Medical Records Medical records reviewed: Yes I reviewed the patient's medical records. <Eben Caal MD - Last Filed: 03/11/21 00:26> Patient's xray shows faint ill defined peripheral opacities likely due to edema, blood work unremarkable and does have evidence of a uti and has had some urinary burning per patient, will treat with antibiotics given symptomatic. Her covid was negative and lab called and reported she is positive for rsv which would explain her mild temp and cough/uri symptoms. She is stable, feels better now and has no headache and o2 ranges from 90-94%. She is stable for outpatient management, will have her increase her furosemide and have her follow up with her pcp, return precautions given Imaging Data Radiologic Study: Attestation: I personally reviewed and interpreted this imaging study as follows: Imaging: X-Ray Radiologist's impression: PROCEDURE INFORMATION: Exam: XR Chest Exam date and time: 03/10/2021 11:03 PM Age: 66 years old Clinical indication: Cough and shortness of breath; Patient HX: Cough, SOB, R/O acute disease TECHNIQUE: Imaging protocol: XR of the chest. Views: 1 view. COMPARISON: No relevant prior studies available. FINDINGS: Lungs: Mild cephalization of pulmonary vasculature. Faint ill-defined opacities peripherally are favored to represent edema. Pleural spaces: Unremarkable. No pleural effusion. No pneumothorax. Heart/Mediastinum: Mild cardiac enlargement. Bones/joints: Unremarkable. IMPRESSION: Faint ill-defined opacities peripherally are favored to represent edema. Lab Data Lab results reviewed: Yes I reviewed the patient's lab results. HPI <Pamela Guevara DO - Last Filed: 03/10/21 23:15> General Mode of arrival: ambulatory . Date/Time Provider Initiated Documentation: 03/10/21 22:18 . Limitations to Documentation: no limitations . Information obtained by: patient . HPI Narrative: Pt is a 66yo F w/ a h/o hypertension, depression, hypothyroidism, OCD, migraine, obesity, recurrent UTI, obstructive sleep apnea who presents to the ED with a complaint of dry cough, shortness of breath, headache, nausea and diarrhea since yesterday. Patient states the shortness of breath is bothering her the most. She states she feels more short of breath with exertion. She states she uses a walker for ambulation at times. She states she has had a few episodes of watery brown diarrhea. She admits to nausea but denies any vomiting or loss of sense of smell or taste. She states she has a history of chronic migraines and has headaches most days but states her headache is worse this evening. He states the headache is in her forehead which is her usual and location just more intense than usual. She did take Imitrex this evening with some relief of her headache. She also admits to some lightheadedness. She denies known fever, chest pain, abdominal pain. She did admit to the nurse that she had some urinary frequency recently. Patient was seen at [facility] last week for a polypectomy and IUD placement. Patient lives in a care home with 6 other residents and she states one of the resident's was diagnosed with Covid last week. Patient states she has 2 Covid vaccines but has not yet received her booster Related Data Home Medications Medication Instructions Recorded Confirmed aspirin [Aspirin Low-Strength] 81 mg PO DAILY tab-cap 09/02/12 03/10/21 metoprolol succinate 50 mg PO DAILY tab-cap 09/02/12 03/10/21 multivitamin [Daily Multiple] 1 ea PO DAILY 02/01/17 03/10/21 sumatriptan succinate [Imitrex] 100 mg PO DIRECTED PRN #12 tab 03/18/17 03/10/21 triamterene-hydrochlorothiazid 1 tab-cap PO DAILY #90 tab-cap 03/18/17 03/10/21 furosemide 20 mg tablet 20 mg PO DAILY 08/28/19 03/10/21 levothyroxine 75 mcg tablet 100 mcg PO DAILY tab-cap 08/28/19 03/10/21 pantoprazole 40 mg tablet,delayed 40 mg PO HS 08/28/19 03/10/21 release paroxetine HCl [Paxil] 37.5 mg PO HS 05/27/20 03/10/21 cholecalciferol (vitamin D3) 1,000 unit PO DAILY 05/29/20 03/10/21 [Vitamin D3] quetiapine 200 mg PO QHS 05/29/20 03/10/21 trazodone 100 mg PO QHS 05/29/20 03/10/21 allopurinol 100 mg tablet 100 mg PO DAILY 09/11/20 03/10/21 mirabegron 50 mg tablet,extended 50 mg PO HS #90 tab 09/11/20 10/09/20 release 24 hr levofloxacin 750 mg PO DAILY #5 tab 03/11/21 Previous Rx's Medication Instructions Recorded triamterene-hydrochlorothiazid 1 tab-cap PO DAILY #90 tab-cap 03/18/17 mirabegron 50 mg tablet,extended 50 mg PO HS #90 tab 09/11/20 release 24 hr levofloxacin 750 mg PO DAILY #5 tab 03/11/21 Allergies Allergy/AdvReac Type Severity Reaction Status Date / Time perphenazine [From Trilafon] AdvReac Severe Other (See Verified 03/10/21 22:34 Comment) General Stated Complaint: SOB YUKI: 2 Review of Systems <Pamela Guevara DO - Last Filed: 03/10/21 23:15> All systems reviewed & are unremarkable except as noted in HPI and below Constitutional Constitutional: Reports as per HPI, Denies chills, Denies fever(s) and Reports headache(s) Eyes Eyes: Denies blurry vision ENT Ears, Nose, Mouth, and Throat: Reports dizziness, Reports headache(s), Denies sore throat and Denies throat swelling Cardiovascular Cardiovascular: Denies chest pain and Reports dyspnea Respiratory Respiratory: Reports cough and Reports dyspnea Gastrointestinal Gastrointestinal: Denies abdominal pain, Reports diarrhea, Reports nausea and Denies vomiting Genitourinary Genitourinary: Denies hematuria and Denies dysuria Musculoskeletal Musculoskeletal: Denies back pain and Denies numbness Integumentary/Breasts Skin/Breast: Denies lesions and Denies rash Neurologic Neurologic: Reports dizziness, Reports headache(s), Denies localized weakness and Denies numbness Allergic/Immunologic Allergic/Immunologic: Denies throat swelling PFSH <Pamela Guevara DO - Last Filed: 03/10/21 23:15> All Active Problems (Updated 03/11/21 @ 00:15 by Eben Caal MD) Shortness of breath (Acute) Headache (Acute) Diarrhea (Acute) Acute UTI (Acute) Respiratory syncytial virus (RSV) infection (Acute) IUD complication (Acute) Sleep apnea (Acute) Tongue lesion (Acute) Mixed incontinence (Chronic) Atrophic vaginitis (Chronic) Recurrent major depressive disorder (Acute 06/01/17) Psoriasis (Acute 06/01/17) Post-menopausal bleeding (Acute 02/01/17) D&C 03/10/17. Inactive endometrium. No episodes since. Headache (Acute 06/01/17) Functional urinary incontinence (Acute 06/01/17) Essential hypertension (Acute 06/01/17) Chronic nonintractable headache (Acute 06/01/17) BMI 45.0-49.9, adult (Acute 06/01/17) Acquired hypothyroidism (Acute 06/01/17) Endometrial thickening on ultrasound (Acute) BMI 45.0-49.9, adult (Acute) 07/2018 BMI 48 Chronic pruritus (Chronic) Insomnia (Chronic) Overactive bladder (Chronic) Wears adult diapers. Bilateral lower extremity edema (Chronic) Depression (Chronic) External hemorrhoids (Chronic) Gait disturbance (Chronic) Migraine (Chronic) Hypothyroidism (Chronic) Recurrent UTI (Chronic) Obsessive-compulsive disorder (Chronic) Panic disorder (Chronic) Psoriasis (Chronic) Urge incontinence (Chronic) Hypertension (Chronic) Obesity (Chronic) Medical History (Updated 03/11/21 @ 00:15 by Eben Caal MD) Dermatosis Functional urinary incontinence Obstructive sleep apnea Does not use CPAP Surgical History (Updated 05/29/20 @ 06:41 by Laly Hernandez) Hx of dilation and curettage 2016 Social History Smoking/Tobacco Use Status: Never Smoking risk assessment performed?: Yes Alcohol Intake: current Alcohol Intake frequency: a few times a month Drug use: Never Substance use type: does not use Caregiver/Support person: Yes (Accompanies her to her office visits) Number of Children: 3 current occupation: Disabled Seatbelt use: always Do you feel safe at home: Yes Do you feel safe in your relationship?: Yes Additional Social history: Unable to asses privately. Female Reproductive History Menstrual Menopause type: natural History History 5 Para 3 Hx # Term Pregnancies 3 Multiple births Hx # Pregnancies Ectopic pregnancies AB induced Hx Number of Living Children 3 AB spontaneous 2 Exam <Pamela Guevara DO - Last Filed: 03/10/21 23:15> Const General: cooperative and no acute distress HENMT Head: normal to inspection Ears: hearing grossly normal bilaterally, external ears normal and TM's normal bilaterally Face and sinus: normal facial exam Mouth: mucous membranes dry Throat: posterior oropharynx normal Eyes General: appearance normal, both eyes and all related structures Pupils: PERRL EOM: EOM intact bilaterally Neck Neck: normal visual inspection and No submandibular swelling Lymphatic: no lymphadenopathy noted Chest Chest: normal inspection of the chest and no tenderness Resp Effort & Inspection: normal respiratory effort and able to speak in complete sentences Auscultation: diminished lung sounds bilaterally throughout Cardio Rate: tachycardic Rhythm: regular rhythm GI Inspection: normal to inspection and obesity Palpation: soft, not firm, not rigid and nontender Auscultation: no hypoactive bowel sounds Skin General skin exam: no rashes or lesions noted Neuro General: patient alert, patient awake, patient oriented x3, moves all extremities, no meningeal signs and no focal motor deficits Cranial Nerves: CN's II-XI intact bilaterally Cognition: normal cognition Speech: speech normal Motor: muscle tone normal throughout and strength not 5/5 throughout Sensory Exam: no sensory deficits noted Extrem General: normal to inspection, full ROM, capillary refill normal, no calf tenderness bilaterally and no edema Psych Appearance: grossly normal Mental Status: mental status grossly normal Speech and Movement: speech and movement normal Affect: normal affect Course <Pamela Guevara DO - Last Filed: 03/10/21 23:15> Vital Signs Vital signs: Vital Signs Temperature 98.6 F 03/10/21 22:23 Pulse 106 H 03/10/21 22:23 Respiratory Rate 28 H 03/10/21 22:23 Blood Pressure 117/52 L 03/10/21 22:23 Pulse Oximetry 93 03/10/21 22:23 Temperature 98.6 F 03/10/21 22:23 Temperature Source Skin 03/10/21 22:23 Pulse 106 H 03/10/21 22:23 Respiratory Rate 28 H 03/10/21 22:23 Respiratory Effort Non-Labored 03/10/21 22:52 Respiratory Depth Normal 03/10/21 22:52 Respiratory Pattern Normal 03/10/21 22:52 Blood Pressure 117/52 L 03/10/21 22:23 Blood Pressure Position Supine 03/10/21 22:23 Pulse Oximetry 93 03/10/21 22:23 Oxygen Delivery Method Room Air 03/10/21 22:23 Oxygen Flow Rate 0 03/10/21 22:23 Pain Level 6 03/10/21 22:23 Sign Out <Pamela Guevara DO - Last Filed: 03/10/21 23:15> Sign Out Data: Sign Out Comment: Follow-up on labs and imaging and final disposition. Last updated by Pamela Guevara DO at 03/10/21 23:15
[2021-03-10 23:10] LABS: Source Nasal/Nares
[2021-03-10] MEDS: Normal Saline 500 ML IV (23:11)
[2021-03-10 23:12] LABS: Abs Immature Grans 0.02 10^3/uL (0.0-0.06); Absolute Lymphocyte Count 1.15 10^3/uL (1.2-3.4); Absolute Monocyte Count 0.49 10^3/uL (0.1-0.8); Absolute Neutrophil Count 4.19 10^3/uL (1.2-6.7); HCT 41.7 % (36.0-46.0); HGB 13.6 g/dL (11.2-15.7); Immature Grans % 0.3; Lymphocytes % 19.7; MCH 28.7 pg (27.0-33.0); MCHC 32.6 % (32.0-36.0); MPV 9.7 fL (8.0-11.0); Monocytes % 8.4; Neutrophils % 71.6; Nucleated RBC 0 %; Platelet Count 162 10^3/uL (130-400); RBC 4.74 10^6/uL (3.93-5.22); RDW 13.1 % (11.7-14.6); RDW-SD 41.8 fL; WBC 5.85 10^3/uL (4.4-10.8)
[2021-03-10] MEDS: methylPREDNISolone SUCC 125 MG VIAL IVP (23:12)
[2021-03-10 23:13] LABS: Bilirubin Negative (Negative); Blood Moderate (Negative); Clarity Sl Cloudy (Clear); Glucose Negative (Negative); Ketones 15 mg/dL (Negative); Leukocyte Esterase Small (Negative); Nitrite Negative (Negative); Specific Gravity 1.025 (1.005-1.025)
[2021-03-10] MEDS: ACETAMINOPHEN 1,000 MG/100 ML BTL 400 MG IVPB (23:14)
[2021-03-10] MEDS: Albuterol/Ipratropium 3 ML UPD VIAL UPD (23:20)
[2021-03-10] MEDS: Albuterol 2.5 MG/3 ML INH SOLN VIAL 5 MG UPD (23:21)
[2021-03-10 23:24] LABS: Bacteria Few HPF (Negative); C & S Indicated? No/Sq. Contamination; Casts Negative LPF (Negative); Crystals Negative HPF (Negative); Epithelial Cells Many HPF (Negative); Mucus Trace (Negative); WBC >50 HPF (0-5)
[2021-03-10 23:32] LABS: ALT 46 U/L (14-59); AST 31 U/L (15-37); Albumin 3.5 g/dL (3.4-5.0); Alkaline Phosphatase 99 U/L (46-116); Anion Gap 9.2 mmol/L (3-11); BUN 16 mg/dL (7-18); Bilirubin, Total 0.7 mg/dL (0.2-1.0); CO2 25.8 mmol/L (21.0-32.0); CREATININE 1.2 mg/dL (0.55-1.02); Calcium 8.5 mg/dL (8.5-10.1); Chloride 102 mmol/L (98-107); Estimated GFR 44.81 (mL/min/1.73m2); Glucose 157 mg/dL (74-106); Magnesium 1.9 mg/dL (1.8-2.4); Potassium 3.5 mmol/L (3.5-5.1); Sodium 137 mmol/L (136-145); Total Protein 7.1 g/dL (6.4-8.2); Troponin I < 50 ng/L (<or=60)
[2021-03-10] MEDS: Ketorolac 30 MG/ML VIAL IVP (23:35)
--- NOTE | 2021-03-10 23:41 | DI.VRAD_ITS ---
PROCEDURE INFORMATION: Exam: XR Chest Exam date and time: 03/10/2021 11:03 PM Age: 66 years old Clinical indication: Cough and shortness of breath; Patient HX: Cough, SOB, R/O acute disease TECHNIQUE: Imaging protocol: XR of the chest. Views: 1 view. COMPARISON: No relevant prior studies available. FINDINGS: Lungs: Mild cephalization of pulmonary vasculature. Faint ill-defined opacities peripherally are favored to represent edema. Pleural spaces: Unremarkable. No pleural effusion. No pneumothorax. Heart/Mediastinum: Mild cardiac enlargement. Bones/joints: Unremarkable. IMPRESSION: Faint ill-defined opacities peripherally are favored to represent edema. Dictated and Authenticated by: Tirso Barrios MD. Ordering:DAWIT Santiago MD
[2021-03-10 23:50] LABS: COVID-19 PCR Negative (Negative)
[2021-03-11] VITALS: BP 110/76; PULSE 100; PULSE 95; RESP 30; O2SAT 91
[2021-03-11 00:01] VITALS: PULSE 97; RESP 30; O2SAT 92
[2021-03-11 00:10] VITALS: PULSE 101; RESP 29; O2SAT 90
[2021-03-11 00:15] VITALS: BP 125/112; PULSE 101; PULSE 91; RESP 29; O2SAT 87
[2021-03-11 00:20] VITALS: PULSE 99; RESP 30; O2SAT 89
[2021-03-11] MEDS: levoFLOXacin 500 MG, levoFLOXacin 250 MG 750 MG PO (00:23)
[2021-03-11] MEDS: Furosemide 20 MG TAB PO (00:27)
--- NOTE | 2021-03-13 09:25 | NUR.NOTE ---
Nursing Note: Sharon Gonzalez called stating she is the public guardian for this patient and that she was not contacted and did not give permission to treat for this visit. She is calling to find out information about the visit. There is a guardianship form in scanned documents and America Hobbs RN spoke with her and gave her the information of diagnosis. Eboni Almodovar
--- NOTE | 2021-03-13 09:26 | NUR.NOTE ---
Sharon Gonzalez (legal guardian) called. wanted to know why pt was here. she was not contacted for permisson to treat.Nursing Note:
== END 2021-03-11 00:44 | disposition home or self-care (01) ==
PROVIDERS: Physician Assistant; Emergency Provider Emergency Medicine; PCP Family Medicine
DX: R06.02 Shortness of breath (principal); R51.9 Headache, unspecified; R19.7 Diarrhea, unspecified; N39.0 Urinary tract infection, site not specified; B96.20 Unspecified Escherichia coli [E. coli] as the cause of diseases classified elsewhere; B97.4 Respiratory syncytial virus as the cause of diseases classified elsewhere; R05.1 Acute cough
CPT/HCPCS: 36415; 51701; 80053; 87077; 87635; 93005; 94640; 96361; 96365; 96375; 99284; 71045; 81003; 81015; 83735; 84484; 85025; 87086; 87186; 93010; J0131; J1885; J2930; J7613; J7620

== ENCOUNTER 2021-03-14 14:49 | Outpatient (REF) | payer MEDICARE, MEDICAID, SELFPAY ==
[2021-03-14 13:29] LABS: Anion Gap 8.4 mmol/L (3-11); BUN 18 mg/dL (7-18); CO2 28.6 mmol/L (21.0-32.0); CREATININE 1.3 mg/dL (0.55-1.02); Calcium 9.2 mg/dL (8.5-10.1); Chloride 104 mmol/L (98-107); Estimated GFR 40.86 (mL/min/1.73m2); Glucose 104 mg/dL (74-106); Potassium 4.1 mmol/L (3.5-5.1); Sodium 141 mmol/L (136-145)
== END 2021-03-14 14:50 | disposition home or self-care (01) ==
LOC: LBN 14:49
PROVIDERS: PCP Family Medicine; Visit Provider Physician Assistant Medical
DX: Z13.228 Encounter for screening for other metabolic disorders (principal)
CPT/HCPCS: 80048

== ENCOUNTER 2021-04-01 01:25 | Outpatient (CLI) | payer MEDICARE, MEDICAID, SELFPAY ==
[2021-04-01 08:39] VITALS: BP 135/81; PULSE 82; RESP 24; TEMP 36.6; O2SAT 95
[2021-04-01 08:41] VITALS: BP 135/81; PULSE 82; RESP 24; TEMP 36.6; O2SAT 95
[2021-04-01] MEDS: Normal Saline 250 ML 30 ML IV (08:44)
[2021-04-01] MEDS: Normal Saline Flush 10 ML SYR IVP (08:45)
[2021-04-01 08:52] VITALS: BP 101/71; PULSE 80; RESP 18; TEMP 36.7; O2SAT 95
[2021-04-01 10:00] VITALS: BP 121/74; PULSE 69; RESP 20; TEMP 36.9; O2SAT 92
== END 2021-04-01 01:26 | disposition home or self-care (01) ==
LOC: INF 01:25
PROVIDERS: PCP Family Medicine; Visit Provider Family Medicine
DX: U07.1 COVID-19 (principal)
CPT/HCPCS: 96365; Q0047

== ENCOUNTER 2021-04-09 09:39 | Outpatient (CLI) | payer MEDICARE, MEDICAID, SELFPAY ==
--- NOTE | 2021-04-09 09:50 | DI.RAD_ITS ---
Exam(s) XR LUMBAR SPINE AP, LAT EXAM: XR LUMBAR SPINE AP, LAT CLINICAL HISTORY: low back pain. TECHNIQUE: 2D digital imaging was performed. COMPARISON: CR XR DEXA BONE DENSITY W/WO SUNDAR from 05/11/2019 FINDINGS: No evidence of fracture. Advanced disc space narrowing at L5-S1 level is noted as well as vacuum phe nomenon seen within this diminished disc space. Also anterior osseous lipping at this level evident. Other disc spaces exhibit preserved height although there is mild anterolisthesis of L4 upon L5, this related to facet arthropathy. There is mild scoliosis convex right in the upper lumbar spine noted. Mild disc space narrowing at L1-2 level noted. No osseous lesions. Sacroiliac joints appear unrem arkable. IUD noted in the central pelvis. IMPRESSION: Degenerative findings as above. IUD is noted in the pelvis DATA REPOSITORY: RADIATION DOSE DELIVERED:
== END 2021-04-09 09:40 | disposition home or self-care (01) ==
LOC: DIORS 09:39
PROVIDERS: PCP Family Medicine; Referring Provider Nurse Practitioner; Visit Provider Student in an Organized Health Care Education/Training Program
DX: M54.50 Low back pain, unspecified (principal); M25.561 Pain in right knee; M48.061 Spinal stenosis, lumbar region without neurogenic claudication; M23.91 Unspecified internal derangement of right knee
CPT/HCPCS: 20610; 99214; 72100; J1040

== ENCOUNTER 2021-04-14 00:27 | Outpatient (CLI) | payer MEDICARE, MEDICAID, SELFPAY ==
--- NOTE | 2021-04-14 06:30 | DI.MRI_ITS ---
Exam(s) MR LUMBAR SPINE WO EXAM: MR LUMBAR SPINE WO CLINICAL HISTORY: LOW BACK PAIN,spinal stenosis, m48.061. TECHNIQUE: Multiplanar multisequence MRI of the Lumbar spine was performed. COMPARISON: CR XR LUMBAR SPINE AP, LAT from 04/09/2021 FINDINGS: Bones: The last intervertebral disc space is designated the L5/S1 level for the numbering purpose of this examination. The vertebral body heights are well maintained. There is mild dextroscoliosis. Th e signal characteristics are unremarkable. Cord: The conus tip ends at the T12 level. It is of normal size and signal intensity. T12-L1: No disc herniations or bulges are present. L1-2: No disc herniations or bulges are present. L2-3: Minimal right-sided disc bulging. L3-4: No disc herniations or bulges are present. L4-5: No disc herniations or bulges are present. Facet degenerative changes, mild. L5-S1: Moderate loss of disc height. Endplate osteophytes and degenerative signal changes. Focal ro unded area of low signal seen inferior to the disc level, eccentric toward the right measuring 10 mil limeters transverse by 6 millimeters AP x 9 millimeters cephalo caudad. Findings are suspicious for a n extruded disc fragment. It appears to impinge on the right S1 nerve root. There are facet degenerat johny changes but no significant central canal stenosis. There is mild right neural foraminal narrowing secondary to a combination of disc osteophyte and facet degenerative changes. Soft tissues: The visualized SI joints and sacrum are well maintained. The paraspinal soft tissues ar e unremarkable. IMPRESSION: Degenerative disc changes at L5-S1. Inferior extruded disc fragment with impingement on the right S1 nerve root. mild rightneural foraminal narrowing. DATA REPOSITORY:
== END 2021-04-14 00:47 ==
PROVIDERS: PCP Family Medicine; Visit Provider Student in an Organized Health Care Education/Training Program
DX: M51.17 Intervertebral disc disorders with radiculopathy, lumbosacral region (principal); M48.061 Spinal stenosis, lumbar region without neurogenic claudication; M47.27 Other spondylosis with radiculopathy, lumbosacral region
CPT/HCPCS: 72148

== ENCOUNTER → 2021-04-22 13:53 | Outpatient (BNVA) | payer MEDICARE, MEDICAID, SELFPAY | PROVIDERS: PCP Family Medicine; Referring Provider Family Medicine; Visit Provider Nurse Practitioner Gerontology | DX: R30.0 Dysuria (principal); B37.9 Candidiasis, unspecified | CPT/HCPCS: 51702; 81003; 99213 ==

== ENCOUNTER 2021-05-05 09:15 | Outpatient (CLI) | payer MEDICARE, MEDICAID, SELFPAY ==
--- NOTE | 2021-05-05 08:45 | DI.RAD_ITS ---
Exam(s) XR HIP RT COMPLETE AP PELVIS EXAM: XR HIP RT COMPLETE AP PELVIS CLINICAL HISTORY: Right leg pain, ?hip pathology. TECHNIQUE: 2D digital imaging was performed. COMPARISON: CR XR DEXA BONE DENSITY W/WO SUNDAR from 05/11/2019 FINDINGS: No evidence of pelvic nor hip fracture. Additional lateral view of the right hip does not reveal sig nificant findings. There are no degenerative changes in the hips. Visualized sacroiliac joints appe ar unremarkable. Incidentally noted is an IUD in the central pelvis in this 66-year-old patient IMPRESSION: DATA REPOSITORY: RADIATION DOSE DELIVERED:
== END 2021-05-05 09:16 | disposition home or self-care (01) ==
LOC: DIORS 09:16
PROVIDERS: PCP Family Medicine; Referring Provider Family Medicine; Visit Provider Student in an Organized Health Care Education/Training Program
DX: M79.604 Pain in right leg (principal); M23.91 Unspecified internal derangement of right knee; R53.81 Other malaise; E66.9 Obesity, unspecified; Z68.42 Body mass index [BMI] 45.0-49.9, adult; M79.605 Pain in left leg
CPT/HCPCS: 99213; 73502

== ENCOUNTER 2021-06-17 14:59 | Outpatient (REF) | payer MEDICARE, MEDICAID, SELFPAY ==
[2021-06-17 15:52] LABS: Anion Gap 5.4 mmol/L (3-11); BUN 13 mg/dL (7-18); CO2 30.6 mmol/L (21.0-32.0); CREATININE 1.1 mg/dL (0.55-1.02); Calcium 9.5 mg/dL (8.5-10.1); Chloride 104 mmol/L (98-107); Estimated GFR 49.54 (mL/min/1.73m2); Glucose 87 mg/dL (74-106); Potassium 4.1 mmol/L (3.5-5.1); Sodium 140 mmol/L (136-145); TSH (W/Ref FT4) 2.17 uIU/mL (0.36-3.74); Uric Acid 7.6 mg/dL (2.6-6.0)
== END 2021-06-17 15:00 | disposition home or self-care (01) ==
LOC: NCHCN 14:59
PROVIDERS: PCP Family Medicine; Visit Provider Nurse Practitioner Family
DX: E03.9 Hypothyroidism, unspecified (principal); N18.30 Chronic kidney disease, stage 3 unspecified; M10.9 Gout, unspecified
CPT/HCPCS: 80048; 84443; 84550

== ENCOUNTER 2021-08-01 02:18 | Outpatient (CLI) | payer MEDICARE, MEDICAID, SELFPAY ==
[2021-08-01 09:47] LABS: Abs Immature Grans 0.02 10^3/uL (0.0-0.06); Absolute Basophil Count 0.01 10^3/uL (0.0-0.2); Absolute Eosinophil Count 0.02 10^3/uL (0.0-0.7); Absolute Lymphocyte Count 2.42 10^3/uL (1.2-3.4); Absolute Monocyte Count 0.63 10^3/uL (0.1-0.8); Absolute Neutrophil Count 3.87 10^3/uL (1.2-6.7); Basophils % 0.1; Eosinophils % 0.3; HCT 43.7 % (36.0-46.0); HGB 14.2 g/dL (11.2-15.7); Immature Grans % 0.3; Lymphocytes % 34.7; MCH 28.3 pg (27.0-33.0); MCHC 32.5 % (32.0-36.0); MCV 87 fL (80-95); MPV 9.8 fL (8.0-11.0); Neutrophils % 55.6; Platelet Count 201 10^3/uL (130-400); RBC 5.01 10^6/uL (3.93-5.22); RDW 12.9 % (11.7-14.6); RDW-SD 40.9 fL; WBC 6.97 10^3/uL (4.4-10.8)
[2021-08-01 10:08] LABS: Hemoglobin A1C 5.6 % (<5.7)
[2021-08-01 10:51] LABS: ALT 37 U/L (14-59); AST 22 U/L (15-37); Albumin 3.9 g/dL (3.4-5.0); Alkaline Phosphatase 102 U/L (46-116); Anion Gap 10.1 mmol/L (3-11); BUN 17 mg/dL (7-18); Bilirubin, Total 0.5 mg/dL (0.2-1.0); CO2 27.9 mmol/L (21.0-32.0); CREATININE 1.2 mg/dL (0.55-1.02); Calcium 9.2 mg/dL (8.5-10.1); Calculated LDL 91 mg/dL (<100); Chloride 106 mmol/L (98-107); Cholesterol 187 mg/dL (<200); Estimated GFR 44.81 (mL/min/1.73m2); Glucose 94 mg/dL (74-106); HDL Cholesterol 47 mg/dL (40-60); Potassium 4.4 mmol/L (3.5-5.1); Sodium 144 mmol/L (136-145); TSH 2.36 uIU/mL (0.36-3.74); Total Protein 7.2 g/dL (6.4-8.2); Triglyceride 249 mg/dL (<150)
[2021-08-01 11:16] LABS: FREE T4 1.03 ng/dL (0.76-1.46)
== END 2021-08-01 02:19 | disposition home or self-care (01) ==
LOC: LBO 02:18
PROVIDERS: PCP Family Medicine
DX: Z79.899 Other long term (current) drug therapy (principal)
CPT/HCPCS: 36415; 80053; 80061; 83036; 84439; 84443; 85025

== ENCOUNTER 2021-09-19 02:15 | Outpatient (CLI) | payer MEDICARE, MEDICAID, SELFPAY ==
[2021-09-19 13:58] LABS: Abs Immature Grans 0.01 10^3/uL (0.0-0.06); Absolute Eosinophil Count 0.01 10^3/uL (0.0-0.7); Absolute Lymphocyte Count 2.06 10^3/uL (1.2-3.4); Absolute Monocyte Count 0.46 10^3/uL (0.1-0.8); Absolute Neutrophil Count 2.93 10^3/uL (1.2-6.7); Eosinophils % 0.2; HCT 41.5 % (36.0-46.0); HGB 13.7 g/dL (11.2-15.7); Immature Grans % 0.2; Lymphocytes % 37.7; MCH 28.4 pg (27.0-33.0); MCV 86 fL (80-95); Monocytes % 8.4; Neutrophils % 53.5; Platelet Count 168 10^3/uL (130-400); RBC 4.83 10^6/uL (3.93-5.22); RDW-SD 39.8 fL; WBC 5.47 10^3/uL (4.4-10.8)
[2021-09-19 14:25] LABS: Albumin 3.7 g/dL (3.4-5.0); Anion Gap 9.9 mmol/L (3-11); BUN 17 mg/dL (7-18); CO2 28.1 mmol/L (21.0-32.0); CREATININE 1.2 mg/dL (0.55-1.02); Calcium 9.1 mg/dL (8.5-10.1); Chloride 104 mmol/L (98-107); Estimated GFR 44.81 (mL/min/1.73m2); Glucose 122 mg/dL (74-106); PHOSPHORUS 3.1 mg/dL (2.6-4.7); Sodium 142 mmol/L (136-145)
[2021-09-22 05:59] LABS: Vitamin D 25 Total 32.2 ng/mL (30-100)
[2021-09-22 10:23] LABS: Parathyroid Hormone,Intact 176 pg/mL (19-88)
== END 2021-09-19 02:16 | disposition home or self-care (01) ==
LOC: LBO 02:15
PROVIDERS: PCP Family Medicine; Visit Provider Nurse Practitioner
DX: N18.31 Chronic kidney disease, stage 3a (principal)
CPT/HCPCS: 36415; 80048; 82306; 82040; 83970; 84100; 85025

== ENCOUNTER 2021-09-22 10:20 | Outpatient (CLI) | payer MEDICARE, MEDICAID, SELFPAY ==
--- NOTE | 2021-09-22 10:00 | DI.RAD_ITS ---
Exam(s) XR KNEE LT 3V AP,LAT,ENRIQUE EXAM: XR KNEE LT 3V AP,LAT,ENRIQUE CLINICAL HISTORY: pain. TECHNIQUE: 2D digital imaging was performed. COMPARISON: CR XR KNEE RT 3V AP,LAT,ENRIQUE from 01/29/2021 FINDINGS: 3 views No evidence of fracture nor prominent joint effusion. There is some degenerative changes in the late ral patellofemoral compartments, and there is a bony excrescence coming off of the lateral aspect of patella, measuring 1.7 x 1.4 cm. IMPRESSION: Degenerative changes the lateral patellofemoral compartments. Also bony excrescence off the lateral aspect of the patella. DATA REPOSITORY: RADIATION DOSE DELIVERED:
== END 2021-09-22 10:21 | disposition home or self-care (01) ==
LOC: DIORS 10:20
PROVIDERS: PCP Family Medicine; Referring Provider Family Medicine; Visit Provider Physician Assistant Surgical
DX: M23.92 Unspecified internal derangement of left knee (principal); M23.91 Unspecified internal derangement of right knee
CPT/HCPCS: 20610; 73562; J1040

== ENCOUNTER 2021-10-20 12:21 | Outpatient (REF) | payer MEDICARE, MEDICAID, SELFPAY ==
[2021-10-20 13:18] LABS: Bilirubin Negative (Negative); Blood Trace-intact (Negative); Clarity Sl Cloudy (Clear); Glucose Negative (Negative); Ketones Negative (Negative); Leukocyte Esterase Small (Negative); Nitrite Negative (Negative); Urobilinogen 0.2 EU/dL (Up TO 0.2)
[2021-10-20 13:27] LABS: Bacteria Rare HPF (Negative); C & S Indicated? C&S Done As Ordered; Casts Negative LPF (Negative); Crystals Negative HPF (Negative); Epithelial Cells Few HPF (Negative); Mucus Negative (Negative); RBC 0-2 HPF (0-2)
== END 2021-10-20 12:22 | disposition home or self-care (01) ==
LOC: LBN 12:21
PROVIDERS: PCP Family Medicine; Visit Provider Nurse Practitioner Gerontology
DX: R30.0 Dysuria (principal)
CPT/HCPCS: 81003; 81015; 87086

== ENCOUNTER → 2021-10-22 12:43 | Outpatient (BNVA) | payer MEDICARE, MEDICAID, SELFPAY | PROVIDERS: PCP Family Medicine; Referring Provider Family Medicine; Visit Provider Nurse Practitioner Gerontology | DX: N39.46 Mixed incontinence (principal); N39.0 Urinary tract infection, site not specified | CPT/HCPCS: 51798; 99214 ==

== ENCOUNTER → 2022-01-13 02:37 | Outpatient (CLI) | payer MEDICARE, MEDICAID, SELFPAY ==
--- NOTE | 2022-01-13 11:29 | DI.MAMMO_ITS ---
Exam(s) MG MAMMO SCREENING 60 MIN DUR EXAM: MG MAMMO SCREENING 60 MIN DUR CLINICAL HISTORY: SCREENING, Z12.39. TECHNIQUE: Bilateral full field digital CC and MLO mammographic images were obtained with 3D tomosyn thesis and utilizing computer aided detection (CAD). COMPARISON: Prior mammograms were reviewed. These date back to 2019 in our PACS FINDINGS: There has been no significant change in the appearance and distribution of the fibroglandular tissue. Indrawing of the anterior right breast-right breast nipple is unchanged from prior mammograms dating back to 2019. This is not associated with no obvious mass. No new spiculated masses in the left breast. There is a group of microcalcifications in left breast noted, more prominent than previous. Six-julio h follow-up recommended. No significant architectural distortion or skin thickening-traction in the left breast. IMPRESSION: 1. Left breast microcalcification group which requires repeat mammogram follow-up in 6 months. 2. Chronic retraction of the anterior aspect of the right breast which is unchanged from prior mammog zyada dating back to 2019, with the 2019 mammogram being the most remote mammogram in our PACS. Corre lation with past surgical history in the right breast recommended. BI-RADS Category 3 - 6 month - Probably Benign Finding: Recommend follow-up mammography in 6 months Breast Density - Category B - Scattered areas of fibroglandular density Breast density Category C or D implies that the patient has dense breast tissue. Dense breast tissue can make it harder to find cancer on a mammogram. Dense breast tissue is also associated with an incr eased risk of breast cancer. This information about the result of the mammogram report was provided to the patient to raise their awareness. Use this report when you speak with the patient about their risks for breast cancer, which includes their family history. At that time, you may recommend additional screening tests (Ultrasoun d or MRI) as these tests may add significant information. A negative radiographic report should not delay biopsy if a dominant or clinically suspicious mass is present. Up to ten percent of cancers are not identified on mammography. A negative report may reinforce clinical impression. Adenosis and dense breasts may obscure an underlying neoplasm. False positive reports average 6 to 10%. Patient will receive a letter notifying them of these results.
== END ==
PROVIDERS: PCP Family Medicine; Visit Provider Nurse Practitioner Family
DX: Z12.31 Encounter for screening mammogram for malignant neoplasm of breast (principal); R92.0 Mammographic microcalcification found on diagnostic imaging of breast; N60.81 Other benign mammary dysplasias of right breast
CPT/HCPCS: 77063; 77067

== ENCOUNTER → 2022-02-11 10:29 | Outpatient (BNVA) | payer MEDICARE, MEDICAID, SELFPAY | PROVIDERS: PCP Family Medicine; Referring Provider Family Medicine; Visit Provider Nurse Practitioner Gerontology | DX: Z87.440 Personal history of urinary (tract) infections (principal); N39.46 Mixed incontinence | CPT/HCPCS: 81003; 99214 ==

== ENCOUNTER 2022-02-11 15:36 | Outpatient (REF) | payer MEDICARE, MEDICAID, SELFPAY | END 2022-02-11 15:37 | disposition home or self-care (01) | LOC: LBN 15:36 | PROVIDERS: PCP Family Medicine; Visit Provider Nurse Practitioner Gerontology | DX: N39.0 Urinary tract infection, site not specified (principal) | CPT/HCPCS: 87077; 87086; 87186 ==

== ENCOUNTER 2022-03-17 19:02 | Outpatient (REF) | payer MEDICARE, MEDICAID, SELFPAY ==
[2022-03-17 20:02] LABS: HCT 42.5 % (36.0-46.0); HGB 14.5 g/dL (11.2-15.7); MCH 29.1 pg (27.0-33.0); MCHC 34.1 % (32.0-36.0); MCV 85 fL (80-95); MPV 10.9 fL (8.0-11.0); Platelet Count 346 10^3/uL (130-400); RBC 4.98 10^6/uL (3.93-5.22); RDW 13.2 % (11.7-14.6); RDW-SD 40.1 fL
[2022-03-17 20:36] LABS: ALT 44 U/L (14-59); AST 31 U/L (15-37); Albumin 3.9 g/dL (3.4-5.0); Alkaline Phosphatase 101 U/L (46-116); Anion Gap 11.5 mmol/L (3-11); BUN 15 mg/dL (7-18); Bilirubin, Total 0.7 mg/dL (0.2-1.0); CO2 27.5 mmol/L (21.0-32.0); CREATININE 1.4 mg/dL (0.55-1.02); Calcium 9.5 mg/dL (8.5-10.1); Chloride 103 mmol/L (98-107); Estimated GFR 40.98 (mL/min/1.73m2); Glucose 144 mg/dL (74-106); Potassium 3.8 mmol/L (3.5-5.1); Sodium 142 mmol/L (136-145); Total Protein 7.2 g/dL (6.4-8.2); Vitamin B12 606 pg/mL (193-986)
[2022-03-17 21:13] LABS: Vitamin D 25 Total 36.1 ng/mL (30-100)
[2022-03-17 22:24] LABS: Hemoglobin A1C 5.7 % (<5.7)
== END 2022-03-17 19:03 | disposition home or self-care (01) ==
LOC: NCHCN 19:02
PROVIDERS: PCP Family Medicine; Visit Provider Nurse Practitioner Family
DX: E03.9 Hypothyroidism, unspecified (principal); N18.31 Chronic kidney disease, stage 3a; R79.89 Other specified abnormal findings of blood chemistry; R60.0 Localized edema; Z79.899 Other long term (current) drug therapy; Z00.00 Encounter for general adult medical examination without abnormal findings
CPT/HCPCS: 80053; 82306; 85027; 82607; 83036

== ENCOUNTER → 2022-04-22 10:13 | Outpatient (BNVA) | payer MEDICARE, MEDICAID, SELFPAY | PROVIDERS: PCP Family Medicine; Referring Provider Family Medicine; Visit Provider Nurse Practitioner Gerontology | DX: Z87.440 Personal history of urinary (tract) infections (principal); N89.8 Other specified noninflammatory disorders of vagina; N39.46 Mixed incontinence | CPT/HCPCS: 81003; 99214 ==

== ENCOUNTER 2022-08-04 01:11 | Outpatient (CLI) | payer MEDICARE, MEDICAID, SELFPAY ==
--- NOTE | 2022-08-04 10:22 | DI.MAMMO_ITS ---
Exam(s) MAMMO DIAGNOSTIC UNI EXAM: MAMMO DIAGNOSTIC UNI CLINICAL HISTORY: MAMMOGRAPHIC LT BREAST MICROCALCIFICATION, R92.0, 6-MO F/U. TECHNIQUE: Craniocaudal and mediolateral oblique Full Field Digital Mammography views of the left br east with Computer Aided Diagnosis followed by Tomosynthesis. COMPARISON: Comparison is made with prior examinations. FINDINGS: Mammography/Tomosynthesis: Masses/Architectural Distortion: None seen. Microcalcifictions: No suspicious pleomorphic-type are seen. The tiny punctate benign-type calcificat ions in the retroareolar region of the left breast are unchanged. Skin Thickening/Nipple Retraction: None. IMPRESSION: 1. No evidence of malignancy is noted. 2. Unless there is more urgent need, follow-up screening mammography is recommended, as per [place] [employer] guidelines. 3. The findings were discussed with the patient on the date of the examination. BI-RADS Category 2 - Benign Findings Breast Density - Category B - Scattered areas of fibroglandular density Breast density Category C or D implies that the patient has dense breast tissue. Dense breast tissue can make it harder to find cancer on a mammogram. Dense breast tissue is also associated with an incr eased risk of breast cancer. This information about the result of the mammogram report was provided to the patient to raise their awareness. Use this report when you speak with the patient about their risks for breast cancer, which includes their family history. At that time, you may recommend additional screening tests (Ultrasoun d or MRI) as these tests may add significant information. A negative radiographic report should not delay biopsy if a dominant or clinically suspicious mass is present. Up to ten percent of cancers are not identified on mammography. A negative report may reinforce clinical impression. Adenosis and dense breasts may obscure an underlying neoplasm. False positive reports average 6 to 10%. Patient will receive a letter notifying them of these results.
== END 2022-08-04 01:31 ==
LOC: DI 01:11
PROVIDERS: PCP Family Medicine; Visit Provider Family Medicine
DX: R92.0 Mammographic microcalcification found on diagnostic imaging of breast (principal)
CPT/HCPCS: 77061; 77065; G0279

== ENCOUNTER 2022-08-06 14:39 | Outpatient (REF) | payer MEDICARE, MEDICAID, SELFPAY ==
[2022-08-06 19:05] LABS: Abs Immature Grans 0.01 10^3/uL (0.0-0.06); Absolute Eosinophil Count 0.02 10^3/uL (0.0-0.7); Absolute Lymphocyte Count 1.91 10^3/uL (1.2-3.4); Absolute Monocyte Count 0.47 10^3/uL (0.1-0.8); Absolute Neutrophil Count 2.82 10^3/uL (1.2-6.7); Eosinophils % 0.4; HCT 42.9 % (36.0-46.0); Immature Grans % 0.2; Lymphocytes % 36.5; MCH 28.3 pg (27.0-33.0); MCHC 32.6 % (32.0-36.0); MCV 87 fL (80-95); MPV 10.5 fL (8.0-11.0); Neutrophils % 53.9; Platelet Count 160 10^3/uL (130-400); RBC 4.95 10^6/uL (3.93-5.22); RDW 13.2 % (11.7-14.6); RDW-SD 41.1 fL; WBC 5.23 10^3/uL (4.4-10.8)
[2022-08-06 19:28] LABS: ALT 38 U/L (14-59); AST 26 U/L (15-37); Albumin 3.6 g/dL (3.4-5.0); Alkaline Phosphatase 87 U/L (46-116); Anion Gap 9.8 mmol/L (3-11); BUN 16 mg/dL (7-18); Bilirubin, Total 0.6 mg/dL (0.2-1.0); CO2 27.2 mmol/L (21.0-32.0); CREATININE 1.3 mg/dL (0.55-1.02); Calcium 9.3 mg/dL (8.5-10.1); Chloride 104 mmol/L (98-107); Estimated GFR 44.79 (mL/min/1.73m2); Glucose 127 mg/dL (74-106); Potassium 4.1 mmol/L (3.5-5.1); Sodium 141 mmol/L (136-145); TSH (W/Ref FT4) 2.86 uIU/mL (0.36-3.74); Total Protein 6.8 g/dL (6.4-8.2)
== END 2022-08-06 14:40 | disposition home or self-care (01) ==
LOC: LBN 14:39
PROVIDERS: PCP Family Medicine; Visit Provider Nurse Practitioner Family
DX: R06.09 Other forms of dyspnea (principal)
CPT/HCPCS: 80053; 84443; 85025

== ENCOUNTER → 2022-08-24 10:23 | Outpatient (BNVA) | payer MEDICARE, MEDICAID, SELFPAY | PROVIDERS: PCP Family Medicine; Referring Provider Family Medicine | DX: M23.91 Unspecified internal derangement of right knee (principal); M23.92 Unspecified internal derangement of left knee | CPT/HCPCS: 20610; J1040 ==

== ENCOUNTER 2022-10-08 18:38 | Outpatient (REF) | payer MEDICARE, MEDICAID, SELFPAY ==
[2022-10-08 19:43] LABS: Bilirubin Negative (Negative); Blood Negative (Negative); Clarity Clear (Clear); Glucose Negative (Negative); Ketones Negative (Negative); Leukocyte Esterase Small (Negative); Nitrite Negative (Negative); Specific Gravity 1.025 (1.005-1.025); Urobilinogen 0.2 mg/dL (Up to 0.2); pH 5.5 (5-8)
[2022-10-08 19:45] LABS: Anion Gap 9.5 mmol/L (3-11); BUN 20 mg/dL (7-18); CO2 27.5 mmol/L (21.0-32.0); CREATININE 1.2 mg/dL (0.55-1.02); Calcium 9.7 mg/dL (8.5-10.1); Chloride 106 mmol/L (98-107); Estimated GFR 49.31 (mL/min/1.73m2); Glucose 122 mg/dL (74-106); Potassium 3.9 mmol/L (3.5-5.1); Sodium 143 mmol/L (136-145)
[2022-10-08 19:47] LABS: Bacteria Rare HPF (Negative); C & S Indicated? Yes; Casts Negative LPF (Negative); Crystals Negative HPF (Negative); Epithelial Cells Rare HPF (Negative); Mucus Negative (Negative); RBC Negative HPF (0-2)
== END 2022-10-08 18:39 | disposition home or self-care (01) ==
LOC: NCHCN 18:38
PROVIDERS: PCP Family Medicine; Visit Provider Nurse Practitioner Family
DX: I10 Essential (primary) hypertension (principal); N39.41 Urge incontinence; R82.998 Other abnormal findings in urine; R79.89 Other specified abnormal findings of blood chemistry
CPT/HCPCS: 80048; 87077; 81003; 81015; 87086; 87186

== ENCOUNTER → 2023-03-17 08:58 | Outpatient (BNVA) | payer MEDICARE, MEDICAID, SELFPAY | PROVIDERS: PCP Nurse Practitioner Family; Referring Provider Nurse Practitioner Family; Visit Provider Podiatrist | DX: N18.1 Chronic kidney disease, stage 1 (principal); L60.3 Nail dystrophy; M10.072 Idiopathic gout, left ankle and foot; R60.0 Localized edema; R20.2 Paresthesia of skin; R23.1 Pallor; R09.89 Other specified symptoms and signs involving the circulatory and respiratory systems; L65.9 Nonscarring hair loss, unspecified | CPT/HCPCS: 11721 ==

== ENCOUNTER → 2023-03-22 08:21 | Outpatient (BNVA) | payer MEDICARE, MEDICAID, SELFPAY | PROVIDERS: PCP Nurse Practitioner Family; Referring Provider Family Medicine; Visit Provider Student in an Organized Health Care Education/Training Program | DX: M23.91 Unspecified internal derangement of right knee (principal); M23.92 Unspecified internal derangement of left knee | CPT/HCPCS: 20610; J1040 ==

== ENCOUNTER 2023-04-03 17:36 | Inpatient (IN) | payer MEDICARE, MEDICAID, SELFPAY ==
[2023-04-03] VITALS (119 sets, daily range): BP systolic 84–155; BP diastolic 24–119; PULSE 72–106; RESP 10–40; TEMP 36.3; O2SAT 88–97
--- NOTE | 2023-04-03 17:45 | ED.GENADUL_ITS ---
[facility] General Date/Time Provider Initiated Documentation: 04/03/23 17:38 . Information obtained by: patient . HPI Narrative: Time seen was on arrival in bed 4. The history was obtained primarily from the caregiver. The patient is a 68-year-old female with a history of chronic kidney disease, OCD panic disorder migraines hypertension and acquired hypothyroidism and no prior history of heart disease who presents with 2 days of diarrhea and heartburn as well as right upper quadrant pain. She has also had fatigue and shakiness. She has had decreased p.o. intake as well as diarrhea. She has no known sick contacts or foreign travel. No unusual foods. She is also noted shortness of breath with exertion. According to her old records she does have a history of pulmonary hypertension but did not give that history to me. 911 was called and when they arrived they noticed that her room air O2 sat was 88%. She does not use home O2. She does have a history of sleep apnea but has not used her CPAP in over a year. She does take 20 mg of Lasix in the morning and 40 mg of Lasix at night for fluid retention in her legs. She does have a history of hypertension but no diabetes. Her mother of a heart attack in her 70s. She denies any sick contacts. She does not smoke. She has never had any tests on her heart including stress testing. She does have chronic fluid retention which is unchanged. She has had 3 doses of her COVID-vaccine but not the most recent immunization. She has had subjective fever and has had a headache which feels like her usual migraine but has not responded to sumatriptan which she has been taking at home. She has had increased sleepiness and fatigue. She is keeping down liquids but has decreased p.o. solid intake. She has had 2-3 episodes of diarrhea and has taken Pepto-Bismol. She says that spicy food aggr avates her abdominal pain. She tells me she had a similar episode last year. Her shortness of breath is worse with exertion but not worse with recumbency. She has had a nonproductive cough as well. She denies any past abdominal surgeries. She has not tested for COVID at home. She is not currently experiencing any heartburn. Related Data Home Medications Medication Instructions Recorded Confirmed aspirin 81 mg chewable tablet 81 mg PO DAILY 09/02/12 04/03/23 (Aspirin Low-Strength) multivitamin (Daily Multiple 1 ea PO DAILY 02/01/17 04/03/23 tablet) sumatriptan succinate 100 mg 100 mg PO DIRECTED PRN #12 tabs 03/18/17 04/03/23 tablet (Imitrex) levothyroxine 75 mcg tablet 100 mcg PO DAILY 08/28/19 04/03/23 pantoprazole 40 mg tablet,delayed 40 mg PO HS 08/28/19 04/03/23 release cholecalciferol (vitamin D3) 25 1,000 unit PO DAILY 05/29/20 04/03/23 mcg (1,000 unit) tablet (Vitamin D3) allopurinol 100 mg tablet 100 mg PO DAILY 09/11/20 04/03/23 metoprolol succinate 25 mg 25 mg PO DAILY 10/22/21 04/03/23 tablet,extended release 24 hr calcitriol 0.25 mcg capsule 0.25 mcg PO Q OTHER DAY 01/09/22 04/03/23 albuterol sulfate 90 mcg/actuation 2 puff inhalation Q6H PRN 04/07/22 04/03/23 aerosol inhaler aripiprazole 2 mg tablet 2 mg PO DAILY 04/07/22 04/03/23 docusate sodium 100 mg capsule 100 mg PO BID PRN 07/07/22 04/03/23 (DOK) furosemide 20 mg tablet (Lasix) See Rx Instructions PO BID 07/07/22 04/03/23 loratadine 10 mg tablet 10 mg PO DAILY PRN 07/07/22 04/03/23 quetiapine 50 mg tablet 50 mg PO DAILY 07/07/22 04/03/23 trazodone 50 mg tablet 100 mg PO QHS 07/07/22 04/03/23 conjugated estrogens 0.625 mg/gram See Rx Instructions .Route 08/24/22 04/03/23 vaginal cream (Premarin) .COMPLEX #60 grams paroxetine HCl 30 mg tablet 30 mg PO DAILY 12/17/22 04/03/23 Previous Rx's Medication Instructions Recorded conjugated estrogens 0.625 mg/gram See Rx Instructions .Route 08/24/22 vaginal cream (Premarin) .COMPLEX #60 grams Allergies Allergy/AdvReac Type Severity Reaction Status Date / Time sulfamethoxazole Allergy Intermediate rash Verified 04/03/23 18:53 [From Sulfamethoxazole-Trimethoprim] trimethoprim Allergy Intermediate rash Verified 04/03/23 18:53 [From Sulfamethoxazole-Trimethoprim] perphenazine [From Trilafon] AdvReac Severe Other (See Verified 04/03/23 18:53 Comment) General Stated Complaint: Abd Prob YUKI: 2 Review of Systems Narrative: see hpi Integumentary/Breasts Comments: The patient has a history of picking at her skin and has been taking her legs. The patient attributed this to fleabites but her caregiver says that although they have animals they do not have any fleas, Psychiatric Comments: Please see past medical history Exam Narrative Exam Narrative: The patient is a well-developed well-nourished female who does not appear in acute distress. She is mildly hypertensive. She is slightly tachycardic with a heart rate of 105. Respiratory rate is 22 she is afebrile and her room air O2 sat is 89%. She is able to speak in full sentences. She is awake and alert. Const General: comfortable Nutritional Appearance: obese Orientation: alert, awake and oriented x3 HENMT Face and sinus: normal facial exam and face symmetric Mouth: other (Poor dentition. Slightly dry mucous membranes. Mucous membranes are sligh) Teeth and gingiva: poor dentition Throat: posterior oropharynx normal, uvula midline and no peritonsillar masses Eyes Periorbital: periorbital findings normal Eyelids: eyelids normal Conjunctivae: conjunctivae normal Direct ophthalmoscopy: normal light reflex, no photophobia and no papilledema Other: Discs are sharp Neck Neck: normal visual inspection, full ROM, no lymphadenopathy, no meningeal signs, trachea midline and supple Lymphatic: no lymphadenopathy noted Chest Chest: normal inspection of the chest Resp Effort & Inspection: normal respiratory effort and able to speak in complete sentences Auscultation: no rales, no rhonchi, no wheezes and no rubs Tactile Fremitus: tactile fremitus absent Cardio Jugular venous pressure: no JVD Palpation: normal PMI Rate: tachycardic Rhythm: regular rhythm Heart Sounds: S1 normal, S2 normal, normal, physiologic split S2, no gallops, no murmurs and no rubs Pulses: normal peripheral pulses GI Other: Her abdomen is obese soft nontender, mildly distended. No rebound no guarding n o masses normal active bowel sounds Other: No CVA tenderness Skin Other: Her skin is warm and dry normal for ethnicity. She has some superficial 3 mm lacerations that appear to be healing well on the anterior aspects of both legs on the lower part of the right leg and on the upper part of the left leg Neuro General: patient alert, patient awake, patient oriented x3 and CN's II-XI intact bilaterally DTR's: Rt Biceps: 2+, Lt Biceps: 2+, Rt Brachioradialis: 1+, Lt Brachioradialis: 1+, Rt Patellar: 2+, Lt Patellar: 2+ and Rt Ankle: 1+ Plantar Reflexes: Downgoing: bilateral Pupils: Normal pupillary reactivity/response: bilateral Extrem Other: Please see above. No edema cyanosis or clubbing. She is moving all of her extremities normally Psych Appearance: grossly normal Other: The patient appears to have some mild cognitive delay. Course The patient remained stable in the emergency department. Medical Decision Making This is a 68-year-old female who presents for shortness of breath and chest discomfort which she describes as heartburn. I am concerned because her shortness of breath is worse with exertion and she does have some risk factors including hypertension and family history. Her O2 sats levels in the upper 80s. She also has a headache but has sharp disks and her lungs are clear to auscultation. This certainly could be a viral or bacterial pneumonia. She has also had diarrhea and could have colitis. She will likely require admission because she has an oxygen requirement.. She does appear slightly dehydrated. My plan is to obtain blood work and an EKG we will check cardiac enzymes. Will check a CBC for anemia and leukocytosis. I will order a CT of the chest abdomen pelvis with IV contrast if she has normal renal function and noncontrast head CT for her headache. She does have a normal neurologic exam but does appear to have some mild cognitive impairment at baseline. We will also check her for COVID flu and RSV. I will also check a BNP and D-dimer. I will cover her with Zosyn and we will get a catheterized urinalysis to check for urinary tract infection. Differential Diagnosis Differential Diagnosis: Viral respiratory infection, viral gastroenteritis, colitis, diverticulitis Medical Records Medical records reviewed: Yes I reviewed the patient's medical records. Imaging Data Radiologic Study: Imaging: CT Scan (CT head Noncon) Radiologist's impression: No hydrocephalus, acute intracranial hemorrhage, or mass effect. Radiologic Study #2: Imaging: CT Scan (CTA chest abdomen and pelvis) Radiologist's impression: 1. No pulmonary embolism or aortic dissection. 2. Diffuse inner mucosal enhancement of the large bowel which contains fluid suspicious of mild pancolitis. There is no bowel obstruction. 3. Mild mucosal thickening of the bladder wall suspicious of cystitis. 4. Mild nonspecific hazy ground-glass densities in the bilateral lungs, possibly due to images acquired in expiration and atelectasis, mild pneumonitis or edema cannot be excluded. No pleural effusion or gross consolidation. 5. Hepatic steatosis. 6. Pulmonary arteries are mildly dilated suspicious of pulmonary hypertension. Lab Data Lab results reviewed: Yes I reviewed the patient's lab results. Lab results narrative: Elevated lactate, decreased renal function. Elevated D-dimer. Hypokalemia. Hypomagnesemia ECG Data Attestation: I personally reviewed and interpreted this ECG (s) as follows: Prior ECG tracings: available for review Quality:SDOH Health Related Social Needs: No Data to Display Critical Care Time Critical Care Time Critical Care Time: Yes Total Critical Care Time: 45 Attestation: This includes time at the bedside, discussion with combat systems engineer, review of EKG and labs. Review of radiographs, discussion with hospitalist and multiple reassessments. PFSH All Active Problems Hypokalemia (Acute) Hypomagnesemia (Acute) Pneumonitis (Acute) UTI (urinary tract infection) (Acute) Pancolitis (Acute) Headache (Acute) Colitis (Acute) Pulmonary hypertension (Chronic) Hypoxemia (Acute) Acute pyelonephritis (Acute) Estrogen deficiency (Acute) CKD (chronic kidney disease), stage III (Chronic) Obstructive sleep apnea (Chronic) Does not use CPAP Osteoporosis (Chronic) Vitamin D deficiency (Acute) Prediabetes (Acute) Gout (Chronic) Venous stasis dermatitis (Acute) Cellulitis (Acute) PVD (peripheral vascular disease) (Chronic) Idiopathic gout, unspecified site (Acute) Edema (Chronic) Nail dystrophy (Acute) Physical deconditioning (Acute) Sleep apnea (Acute) BMI 45.0-49.9, adult (Acute) 07/2018 BMI 48 Acquired hypothyroidism (Acute 06/01/17) Chronic nonintractable headache (Acute 06/01/17) Essential hypertension (Chronic 06/01/17) Psoriasis (Acute 06/01/17) Recurrent major depressive disorder (Acute 06/01/17) Mixed incontinence (Chronic) Obesity (Chronic) Hypertension (Chronic) Panic disorder (Chronic) Obsessive-compulsive disorder (Chronic) Hypothyroidism (Chronic) Migraine (Chronic) Gait disturbance (Chronic) Depression (Chronic) Bilateral lower extremity edema (Chronic) Overactive bladder (Chronic) Wears adult diapers. Insomnia (Chronic) Chronic pruritus (Chronic) Medical History TMJ tenderness, bilateral Paronychia of great toe, left Toe pain, left Internal derangement of left knee DEPO MEDROL 08/24/2022; 09/22/21 Right leg pain Internal derangement of right knee DEPO MEDROL 08/24/2022; 09/22/21 IUD complication Tongue lesion Endometrial thickening on ultrasound PMB (postmenopausal bleeding) 2016. D&C for postmenopausal bleeding. Benign inactive endometrium. No recurrences. Functional urinary incontinence (06/01/17) Headache (06/01/17) Post-menopausal bleeding (02/01/17) D&C 03/10/17. Inactive endometrium. No episodes since. Atrophic vaginitis Urge incontinence Psoriasis Recurrent UTI External hemorrhoids Hematuria Dermatosis Surgical History Colonoscopy - MAC (07/12/17) Hx of dilation and curettage 2016 Social History Smoking/Tobacco Use Status: Never Smoking risk assessment performed?: Yes Alcohol Intake: current Alcohol Intake frequency: a few times a month Drug use: Never Substance use type: does not use Caregiver/Support person: Yes (Accompanies her to her office visits) Number of Children: 3 current occupation: Disabled Current gender identity: female Seatbelt use: always Do you feel safe at home: Yes Do you feel safe in your relationship?: Yes Additional Social history: Unable to asses privately. Female Reproductive History Menstrual Menopause type: natural History History 5 Para 3 Hx # Term Pregnancies 3 Multiple births Hx # Pregnancies Ectopic pregnancies AB induced Hx Number of Living Children 3 AB spontaneous 2 Discharge Plan Disposition Patient Disposition: Admit to [facility] Discharge Details Clinical Impression: CKD (chronic kidney disease), stage III, Acute pyelonephritis, Hypoxemia, Pulmonary hypertension, Colitis, Headache Admit Date/Time: 04/03/23 22:24 Primary Care Provider: Vianca Gilmore ED Provider: Priscila Falk Home Meds and New Rx's Prescriptions: No Action levothyroxine 75 mcg tablet 100 mcg PO DAILY Rx Instructions: 1 tab PO daily pantoprazole 40 mg tablet,delayed release (DR/EC) 40 mg PO HS allopurinol 100 mg tablet 100 mg PO DAILY aripiprazole 2 mg tablet 2 mg PO DAILY albuterol sulfate 90 mcg/actuation HFA aerosol inhaler 2 puff inhalation Q6H PRN calcitriol 0.25 mcg capsule 0.25 mcg PO Q OTHER DAY furosemide [Lasix] 20 mg tablet See Rx Instructions PO BID Rx Instructions: orally twice a day; 40 mg AM, 20 MG PM loratadine 10 mg tablet 10 mg PO DAILY PRN docusate sodium [DOK] 100 mg capsule 100 mg PO BID PRN trazodone 50 mg tablet 100 mg PO QHS quetiapine 50 mg tablet 50 mg PO DAILY paroxetine HCl 30 mg tablet 30 mg PO DAILY aspirin [Aspirin Low-Strength] 81 MG tablet,chewable 81 mg PO DAILY multivitamin [Daily Multiple] 1 EACH tablet 1 ea PO DAILY sumatriptan succinate [Imitrex] 100 MG tablet 100 mg PO DIRECTED PRNQty: 12 Rx Instructions: 1 tab PO q6h prn headache metoprolol succinate 25 mg tablet extended release 24 hr 25 mg PO DAILY Premarin 0.625 mg/gram cream See Rx Instructions .ROUTE .COMPLEX Qty: 60 0RF Dose Instruction: APPLY A PEA SIZED AMOUNT OF CREAM TO VAGINAL AREA NEEDED Rx Instructions: APPLY A PEA SIZED AMOUNT OF CREAM TO VAGINAL AREA NEEDED cholecalciferol (vitamin D3) [Vitamin D3] 25 mcg (1,000 unit) Tablet 1,000 unit PO DAILY Discharge Data Discharge Physician: Priscila Falk
--- NOTE | 2023-04-03 18:15 | RT.EKG_ITS ---
APPROVED REPORT Exam: Resting ECG Reason for Exam: HEART BURN Patient Location: E HR:99 bpm ECG Measurements Heart Rate 99 AXIS NC 239 P 68 QRSd 100 QRS 52 QT 364 T 261 QTc 467 Conclusion Sinus rhythm...normal P axis, V-rate 60- 99 Ventricular premature complex...V complex w/ short R-R interval Prolonged NC interval...NC >215, V-rate 91-120 Nonspecific repol abnormality, diffuse leads...ST dep, T flat/neg, ant/lat/inf significant artifact, diffuse ST TW flattening , normal axis , no STEMI, mild changes noted from prev ious
--- NOTE | 2023-04-03 18:15 | DI.CT_ITS ---
Exam(s) CT THORAX ABD/PEL CTA EXAM: CT THORAX ABD/PEL CTA CLINICAL HISTORY: short of breath, chest pain, abdominal pain. TECHNIQUE: Imaging Protocol: Axial CT angiography was performed with multi-slice acquisition and mu lti-planar and/or 3D reconstructions. CONTRAST MATERIAL: Intravenous: Omnipaque 350 Contrast volume:100 ml COMPARISON: No exams were available for comparison FINDINGS: CHEST: Limited by respiratory motion. Pulmonary Arteries: No evidence of filling defects to suggest pulmonary emboli. Dilated main pulmon jc artery with some maximal dimension 3.8 cm. Tracheobronchial tree: No bronchiectasis or mucus plugging. Mediastinum and Thalia: No dominant adenopathy or fluid collection. Small hiatal hernia. Pulmonary parenchyma: Limited evaluation due to respiratory motion and expiratory changes. No consol idation or dominant measurable mass. Pleura: No effusion. No pneumothorax. Heart: The heart is mildly dilated. No coronary artery calcifications are seen. Aorta: Thoracic aorta non-dilated. No significant atherosclerotic changes. Bones: Mild dextro scoliosis. Degenerative changes with prominent at anteriorly projecting osteophyt es. Tubes, Catheters, and Lines: None. Soft tissues: Small fatty containing umbilical hernia. ABDOMEN and PELVIS: Exam somewhat limited by body habitus. Liver: Normal size. Mild hepatic steatosis. No suspicious measurable mass. Portal, Superior Mesenteric, and Splenic Veins: Unremarkable. Gallbladder and Biliary Tract: No radiodense calculus. No biliary dilatation. Pancreas: Normal density, no abnormal calcifications or inflammatory process. Spleen: Normal. Adrenals: No masses seen. Kidneys: Normal size, contour and axis. No radiodense stones. No obstructive uropathy. No masses seen . Vasculature: Abdominal aorta non-dilated. Bowel: The colon is distended with fluid, consistent with diarrheal illness. There is mural enhancem ent. No visible mass. No obstruction or bowel wall thickening. Appendix is unremarkable. Peritoneal Cavity: No ascites, collection or mesenteric inflammatory response. Lymph Nodes: Within normal limits. Soft Tissues: Unremarkable. Bladder: Empty. Unable to be evaluated. Reproductive Organs: IUD present within uterus. Bones: Degenerative changes, greatest at L5-S1. Mild scoliosis. IMPRESSION: 1. Chest CT: No evidence of pulmonary embolism. No significant atherosclerotic changes. Dilated pu lmonary artery could indicate pulmonary hypertension. Lungs not well evaluated due to respiratory mo tion and dependent changes. 2. Abdomen pelvic CT: Distended, fluid-filled colon with mural enhancement which could be secondary t o a diarrheal type illness. No evidence of obstruction. RADIATION DOSE DELIVERED: Total DLP DATA REPOSITORY: All CT scans at this facility are submitted to the National Radiology Data Registry (NRDR) Dose Index Registry (DIR) with the [employer] (A[employer]). RADIATION OPTIMIZATION: All CT scans at this facility use at least one of these dose optimization te chniques: automated exposure control; mA and/or kV adjustment per patient size (includes targeted exa ms where dose is matched to clinical indication); or iterative reconstruction.
--- NOTE | 2023-04-03 18:15 | DI.CT_ITS ---
Exam(s) CT HEAD WO EXAM: CT HEAD WO CLINICAL HISTORY: headache. TECHNIQUE: Imaging Protocol: Axial computed tomography images with coronal and sagittal reformatted images were created and reviewed COMPARISON: CT CT SINUS WO from 11/06/2020 FINDINGS: Ventricles and Extra axial spaces: Normal in size and morphology for the patient's age. Hemorrhage: None. Cerebral parenchyma: No evidence of acute infarct or mass. Midline shift: None. Brainstem/Cerebellum: Normal. Calvarium: Normal. Visualized Paranasal sinuses/Mastoids: Large mucous retention cyst in the right maxillary sinus. Sma ll mucous retention cyst floor of left maxillary sinus. Soft Tissues: Sebaceous cyst in high right parietal scalp. IMPRESSION: No acute intracranial process. RADIATION DOSE DELIVERED: Total DLP DATA REPOSITORY: All CT scans at this facility are submitted to the National Radiology Data Registry (NRDR) Dose Index Registry (DIR) with the [employer] (ACR). RADIATION OPTIMIZATION: All CT scans at this facility use at least one of these dose optimization te chniques: automated exposure control; mA and/or kV adjustment per patient size (includes targeted exa ms where dose is matched to clinical indication); or iterative reconstruction.
--- NOTE | 2023-04-03 18:15 | RT.EKG_ITS ---
APPROVED REPORT Exam: Resting ECG Reason for Exam: heart burn Patient Location: E HR:95 bpm ECG Measurements Heart Rate 95 AXIS AR 168 P 36 QRSd 93 QRS 46 QT 299 T 223 QTc 376 Conclusion Sinus rhythm...normal P axis, V-rate 60- 99 Diffuse STTW changes, and T wave flattening. Minor changes from previous, no STEMI
[2023-04-03 18:43] LABS: Lactate 2.2 mmol/L (0.6-1.4)
[2023-04-03 18:44] LABS: Abs Immature Grans 0.03 10^3/uL (0.0-0.06); Absolute Basophil Count 0.01 10^3/uL (0.0-0.2); Absolute Lymphocyte Count 1.34 10^3/uL (1.2-3.4); Absolute Monocyte Count 0.77 10^3/uL (0.1-0.8); Absolute Neutrophil Count 7.61 10^3/uL (1.2-6.7); Basophils % 0.1; HGB 14.8 g/dL (11.2-15.7); Immature Grans % 0.3; Lymphocytes % 13.7; MCH 28.4 pg (27.0-33.0); MCHC 33.6 % (32.0-36.0); MCV 84 fL (80-95); MPV 10.3 fL (8.0-11.0); Monocytes % 7.9; Platelet Count 144 10^3/uL (130-400); RBC 5.22 10^6/uL (3.93-5.22); RDW 13.3 % (11.7-14.6); RDW-SD 41.1 fL; WBC 9.76 10^3/uL (4.4-10.8)
[2023-04-03 18:56] LABS: INR 1.1 (0.9-1.1); PTT Activated 28.2 sec (23.6-32.8); Prothrombin Time 11.3 sec (9.1-11.1)
[2023-04-03] MEDS: Aspirin 81 MG CHEW 243 MG CH (19:04)
[2023-04-03 19:07] LABS: ALT 29 U/L (14-59); AST 24 U/L (15-37); Albumin 3.5 g/dL (3.4-5.0); Alkaline Phosphatase 90 U/L (46-116); Anion Gap 10.5 mmol/L (3-11); BUN 15 mg/dL (7-18); CO2 26.5 mmol/L (21.0-32.0); CREATININE 1.6 mg/dL (0.55-1.02); Calcium 9.4 mg/dL (8.5-10.1); Chloride 100 mmol/L (98-107); Glucose 148 mg/dL (74-106); Magnesium 1.6 mg/dL (1.8-2.4); Potassium 3.1 mmol/L (3.5-5.1); Sodium 137 mmol/L (136-145); Total Protein 7.4 g/dL (6.4-8.2); Troponin I < 50 ng/L (< or =60)
[2023-04-03 19:09] LABS: Bilirubin Small (Negative); Blood Moderate (Negative); Clarity Sl Cloudy (Clear); Glucose Negative (Negative); Ketones Trace mg/dL (Negative); Leukocyte Esterase Small (Negative); Nitrite Negative (Negative); Urobilinogen 0.2 mg/dL (Up to 0.2); pH 5.5 (5-8)
[2023-04-03] MEDS: Normal Saline 1,000 ML 1000 ML IV ×2 (19:11→21:15)
[2023-04-03 19:13] LABS: NT-proBNP 967 pg/mL (<300)
[2023-04-03 19:14] LABS: Bacteria Few HPF (Negative); C & S Indicated? Yes; Casts Negative LPF (Negative); Crystals Negative HPF (Negative); Epithelial Cells Few HPF (Negative); Mucus Heavy (Negative); WBC >50 HPF (0-5)
[2023-04-03 19:16] LABS: D-Dimer 4992 ng/mlFEU (<500)
[2023-04-03 19:21] LABS: Procalcitonin 0.2 ng/mL
[2023-04-03] MEDS: PIPERACILLIN/TAZO 4.5 GM in Normal Saline 100 ML IVPB (19:34)
[2023-04-03 19:55] LABS: COVID-19 PCR Negative (Negative); Influenza A PCR Negative (Negative); Influenza B PCR Negative (Negative); RSV PCR Negative (Negative)
[2023-04-03] MEDS: Omnipaque 350 MG/ML 100 ML BTL IJ (20:05)
[2023-04-03] MEDS: Normal Saline - Diluent 50 ML VIAL IJ (20:08)
[2023-04-03 20:09] LABS: Source Nasopharynx
--- NOTE | 2023-04-03 20:34 | DI.VRAD_ITS ---
PROCEDURE INFORMATION: Exam: CT Head Without Contrast Exam date and time: 04/03/2023 7:54 PM Age: 68 years old Clinical indication: Headache TECHNIQUE: Imaging protocol: Computed tomography of the head without contrast. COMPARISON: CT SINUS WO 11/06/2020 12:57 PM FINDINGS: Brain: Age-related involutional changes and chronic microvascular ischemic disease. No evidence for acute transcortical infarct. No mass effect or midline shift. No extra-axial collection. No acute intracranial hemorrhage. Basal cisterns are patent. Cerebral ventricles: No ventriculomegaly. Paranasal sinuses: Visualized sinuses are unremarkable. No fluid levels. Mastoid air cells: Visualized mastoid air cells are well aerated. Bones/joints: Unremarkable. No acute fracture. Soft tissues: Unremarkable. IMPRESSION: No hydrocephalus, acute intracranial hemorrhage, or mass effect. Dictated and Authenticated by: Ole Teixeira MD. Ordering:REBECCA Francois MD
[2023-04-03] MEDS: Furosemide 40 MG/4 ML VIAL IVP (20:37)
[2023-04-03] MEDS: MAGNESIUM SULFATE 1 GM/100 ML BAG IVPB (20:42)
--- NOTE | 2023-04-03 20:58 | DI.VRAD_ITS ---
PROCEDURE INFORMATION: Exam: CTA Chest With Contrast CTA Abdomen and Pelvis With Contrast Exam date and time: 04/03/2023 7:56 PM Age: 68 years old Clinical indication: Shortness of breath and other: SOB, chest pain, abd pain TECHNIQUE: Imaging protocol: Computed tomographic angiography of the chest with contrast. Exam focused on the arteries. Computed tomographic angiography of the abdomen and pelvis with contrast. Exam focused on the arteries. 3D rendering (Not supervised by radiologist): MIP and/or 3D reconstructed images were created by the technologist. Contrast material: OMNIPAQUE 350; Contrast volume: 125 ml; Contrast route: INTRAVENOUS (IV); COMPARISON: CR XR PORTABLE CHEST AP 03/10/2021 11:09 PM FINDINGS: VASCULATURE: Pulmonary arteries: Pulmonary artery is dilated measuring up to 3.8 cm. No pulmonary embolism identified. Aorta: No aortic aneurysm. No aortic dissection. Celiac trunk and mesenteric arteries: No occlusion or significant stenosis. Renal arteries: No occlusion or significant stenosis. Right iliac arteries: No occlusion or significant stenosis. Left iliac arteries: No occlusion or significant stenosis. CHEST: Lungs: Mild ground-glass densities in the bilateral lungs and posterior lungs which may represent atelectasis or images acquired in expiration. There is subsegmental atelectasis in the lingula. No focal consolidation. Pleural spaces: Unremarkable. No pneumothorax. No pleural effusion. Heart: Heart at the upper limits of normal in size. Diaphragm: There is small hiatal hernia. ABDOMEN AND PELVIS: Liver: Mild hepatic steatosis. Gallbladder and bile ducts: Gallbladder is mildly distended, otherwise unremarkable. Pancreas: Unremarkable. No mass. No ductal dilation. Spleen: Unremarkable. No splenomegaly. Adrenal glands: Unremarkable. No mass. Kidneys and ureters: Unremarkable. No solid mass. No hydronephrosis. Stomach and bowel: There is fluid noted throughout the large bowel with mild inner mucosal enhancement suspicious of colitis. There is no bowel obstruction. Appendix: No evidence of appendicitis. Intraperitoneal space: Unremarkable. No free air. No significant fluid collection. Urinary bladder: Urinary bladder is under distended with mild thickening of the wall. Reproductive: There is IUD in the endometrial cavity. Lymph nodes: Unremarkable. No enlarged lymph nodes. Bones/joints: There is mild dextroscoliosis of the thoracic spine and mild dextroscoliosis of the lumbar spine. Disc degenerative changes with severe loss disc height at L5-S1. And a heart at the upper limits of normal in size. Soft tissues: Small fat containing umbilical hernia. IMPRESSION: 1. No pulmonary embolism or aortic dissection. 2. Diffuse inner mucosal enhancement of the large bowel which contains fluid suspicious of mild pancolitis. There is no bowel obstruction. 3. Mild mucosal thickening of the bladder wall suspicious of cystitis. 4. Mild nonspecific hazy ground-glass densities in the bilateral lungs, possibly due to images acquired in expiration and atelectasis, mild pneumonitis or edema cannot be excluded. No pleural effusion or gross consolidation. 5. Hepatic steatosis. 6. Pulmonary arteries are mildly dilated suspicious of pulmonary hypertension. Dictated and Authenticated by: Paul Mcmahon MD. Ordering:REBECCA Francois MD
[2023-04-03 21:18] LABS: Lactate 0.7 mmol/L (0.6-1.4)
[2023-04-03 21:38] LABS: Troponin I < 50 ng/L (< or =60)
[2023-04-03] MEDS: Potassium Chloride Liquid 20 MEQ PKT PO (21:46)
--- NOTE | 2023-04-03 22:09 | W.PM.HP.N ---
Date of service: 04/03/23 Time of Service: 22:09 Assessment and Plan Assessment and plan (1) Pancolitis: Start date: 04/03/23 Status: Acute Assessment and plan: This is a 68-year-old lady who has had symptoms of diarrhea and abdominal symptoms several days along with a headache and imaging revealed possible pancolitis. Zosyn was initiated and will be continued. Follow-up cultures. Convert to oral therapy as appropriate. Patient will continue on clear fluid diet for now with GI symptoms prior to admission (2) UTI (urinary tract infection): Start date: 04/03/23 Status: Acute Assessment and plan: Urinalysis was positive for possible UTI with patient on Zosyn recovering abdominal process. Follow-up cultures and adjust to oral medications for Qualifiers: Hematuria presence: with hematuria Urinary tract infection type: acute cystitis Qualified Code(s): N30.01 - Acute cystitis with hematuria (3) Hypoxemia: Start date: 04/03/23 Status: Acute Assessment and plan: Patient did have symptoms of chills and cough with borderline imaging or pneumonitis if not pneumonia. Oxygen supplementation as needed and wean to room air the patient chronically not on home O2. Weight loss would be appropriate and will also treat her STEPHEN. (4) Pneumonitis: Start date: 04/03/23 Status: Acute Assessment and plan: Suggestion of infiltrates on CT imaging but no definite consolidations. Patient will be covered with Zosyn for treatment of other possible infections and follow-up imaging of chest as needed. Respiratory care with nebulizer treatments with patient chronically on handheld inhalers. (5) Hypomagnesemia: Start date: 04/03/23 Status: Acute Assessment and plan: Repleted with IV magnesium in the ED and follow-up lab with further repletion IV or orally as needed. (6) Hypokalemia: Start date: 04/03/23 Status: Acute Assessment and plan: Patient is chronically on Lasix and not potassium supplementation. Oral potassium was given and follow-up lab with further oral supplementation if needed on chronic diuretic as mentioned. (7) CKD (chronic kidney disease), stage III: Status: Chronic Assessment and plan: Slightly exacerbated with present situation and patient will have gentle IV hydration with follow-up echocardiogram and monitoring lab. Qualifiers: Chronic kidney disease stage 3 subtype: stage 3b (GFR 30-44) Qualified Code(s): N18.32 - Chronic kidney disease, stage 3b (8) Pulmonary hypertension: Status: Chronic Assessment and plan: Patient elevated BNP most likely secondary to pulmonary hypertension and lung disease. She has no echocardiogram on record and this should be updated. (9) Edema: Status: Chronic Assessment and plan: Lasix will be held for now with patient appearing slightly dry but will be restarted once stabilized. She was given a one-time dose of Lasix in the ED. Qualifiers: Edema type: localized Qualified Code(s): R60.0 - Localized edema (10) Essential hypertension: Status: Chronic Assessment and plan: Continue outpatient medical therapy while hospitalized. (11) Obstructive sleep apnea: Status: Chronic Assessment and plan: Not on CPAP treatment at night with obesity still an issue. (12) Obsessive-compulsive disorder: Status: Chronic Assessment and plan: On multiple medical therapy which will be continued during her hospital stay. She does live in a supervised living situation chronically. Qualifiers: Obsessive-compulsive disorder type: other Qualified Code(s): F42.8 - Other obsessive-compulsive disorder History of Present Illness History of Present Illness Chief Complaint: Chills and shortness of breath with decreased oxygen saturations, diarrhea Narrative: This is a 68-year-old female patient who lives with a assembly line leader because of chronic psychiatric disease who presents with a several day history of diarrhea with abdominal discomfort and nausea as well as headache which was unrelenting and not responding to treatment for migraine headaches. She also had cough with some chills the day prior to presentation and in the ED was evaluated and found to have possible pneumonitis at least with oxygen needs which were new along with pancolitis by CT and UTI with labs performed on cath urine specimen though she has no urinary complaints. Urine culture is pending. Patient was initiated on Zosyn which will be continued. At the time I saw the patient she was doing somewhat better with no vomiting with less nausea and abdominal symptoms. She will be on IV hydration with slight exacerbation of her CKD but because of history of pulmonary hypertension she will need an echocardiogram with one of the thing until the first of next week. The patient has had no fever measured in the ED and her procalcitonin and lactate were normal along with a normal WBC. This all may be a viral process that is being treated bacterial infection until cultures are obtained. The patient appears chronically deconditioned and morbidly obese with STEPHEN untreated. She has been compliant with medical therapy with patient. She is a full code Review of Systems Narrative: 13 point review of systems otherwise unrevealing or stable. PFSH All Active Problems Hypokalemia (Acute) Hypomagnesemia (Acute) Pneumonitis (Acute) UTI (urinary tract infection) (Acute) Pancolitis (Acute) Headache (Acute) Colitis (Acute) Pulmonary hypertension (Chronic) Hypoxemia (Acute) Acute pyelonephritis (Acute) Estrogen deficiency (Acute) CKD (chronic kidney disease), stage III (Chronic) Obstructive sleep apnea (Chronic) Does not use CPAP Osteoporosis (Chronic) Vitamin D deficiency (Acute) Prediabetes (Acute) Gout (Chronic) Venous stasis dermatitis (Acute) Cellulitis (Acute) PVD (peripheral vascular disease) (Chronic) Idiopathic gout, unspecified site (Acute) Edema (Chronic) Nail dystrophy (Acute) Physical deconditioning (Acute) Sleep apnea (Acute) BMI 45.0-49.9, adult (Acute) 07/2018 BMI 48 Acquired hypothyroidism (Acute 06/01/17) Chronic nonintractable headache (Acute 06/01/17) Essential hypertension (Chronic 06/01/17) Psoriasis (Acute 06/01/17) Recurrent major depressive disorder (Acute 06/01/17) Mixed incontinence (Chronic) Obesity (Chronic) Hypertension (Chronic) Panic disorder (Chronic) Obsessive-compulsive disorder (Chronic) Hypothyroidism (Chronic) Migraine (Chronic) Gait disturbance (Chronic) Depression (Chronic) Bilateral lower extremity edema (Chronic) Overactive bladder (Chronic) Wears adult diapers. Insomnia (Chronic) Chronic pruritus (Chronic) Medical History TMJ tenderness, bilateral Paronychia of great toe, left Toe pain, left Internal derangement of left knee DEPO MEDROL 08/24/2022; 09/22/21 Right leg pain Internal derangement of right knee DEPO MEDROL 08/24/2022; 09/22/21 IUD complication Tongue lesion Endometrial thickening on ultrasound PMB (postmenopausal bleeding) 2016. D&C for postmenopausal bleeding. Benign inactive endometrium. No recurrences. Functional urinary incontinence (06/01/17) Headache (06/01/17) Post-menopausal bleeding (02/01/17) D&C 03/10/17. Inactive endometrium. No episodes since. Atrophic vaginitis Urge incontinence Psoriasis Recurrent UTI External hemorrhoids Hematuria Dermatosis Surgical History Colonoscopy - MAC (07/12/17) Hx of dilation and curettage 2016 Social History Smoking/Tobacco Use Status: Never Smoking risk assessment performed?: Yes Alcohol Intake: current Alcohol Intake frequency: a few times a month Drug use: Never Substance use type: does not use Caregiver/Support person: Yes (Accompanies her to her office visits) Housing: house Number of Children: 3 current occupation: Disabled Current gender identity: female Seatbelt use: always Do you feel safe at home: Yes Do you feel safe in your relationship?: Yes Additional Social history: Unable to asses privately. Female Reproductive History Menstrual Menopause type: natural History History 5 Para 3 Hx # Term Pregnancies 3 Multiple births Hx # Pregnancies Ectopic pregnancies AB induced Hx Number of Living Children 3 AB spontaneous 2 Meds Allergies and Home Medications Allergies Allergy/AdvReac Type Severity Reaction Status Date / Time sulfamethoxazole Allergy Intermediate rash Verified 04/03/23 18:53 [From Sulfamethoxazole-Trimethoprim] trimethoprim Allergy Intermediate rash Verified 04/03/23 18:53 [From Sulfamethoxazole-Trimethoprim] perphenazine [From Trilafon] AdvReac Severe Other (See Verified 04/03/23 18:53 Comment) Home Medications Medication Instructions Recorded Confirmed Type aspirin 81 mg chewable tablet 81 mg PO DAILY 09/02/12 04/03/23 History (Aspirin Low-Strength) multivitamin (Daily Multiple 1 ea PO DAILY 02/01/17 04/03/23 History tablet) sumatriptan succinate 100 mg 100 mg PO DIRECTED PRN #12 tabs 03/18/17 04/03/23 History tablet (Imitrex) levothyroxine 75 mcg tablet 100 mcg PO DAILY 08/28/19 04/03/23 History pantoprazole 40 mg tablet,delayed 40 mg PO HS 08/28/19 04/03/23 History release cholecalciferol (vitamin D3) 25 1,000 unit PO DAILY 05/29/20 04/03/23 History mcg (1,000 unit) tablet (Vitamin D3) allopurinol 100 mg tablet 100 mg PO DAILY 09/11/20 04/03/23 History metoprolol succinate 25 mg 25 mg PO DAILY 10/22/21 04/03/23 History tablet,extended release 24 hr calcitriol 0.25 mcg capsule 0.25 mcg PO Q OTHER DAY 01/09/22 04/03/23 History albuterol sulfate 90 mcg/actuation 2 puff inhalation Q6H PRN 04/07/22 04/03/23 History aerosol inhaler aripiprazole 2 mg tablet 2 mg PO DAILY 04/07/22 04/03/23 History docusate sodium 100 mg capsule 100 mg PO BID PRN 07/07/22 04/03/23 History (DOK) furosemide 20 mg tablet (Lasix) See Rx Instructions PO BID 07/07/22 04/03/23 History loratadine 10 mg tablet 10 mg PO DAILY PRN 07/07/22 04/03/23 History quetiapine 50 mg tablet 50 mg PO DAILY 07/07/22 04/03/23 History trazodone 50 mg tablet 100 mg PO QHS 07/07/22 04/03/23 History conjugated estrogens 0.625 mg/gram See Rx Instructions .Route 08/24/22 04/03/23 Rx vaginal cream (Premarin) .COMPLEX #60 grams paroxetine HCl 30 mg tablet 30 mg PO DAILY 12/17/22 04/03/23 History Exam Narrative Exam Narrative: General: Patient appears older than stated age. She is alert and oriented x 3 in no acute distress. She is morbidly obese. HEENT: Normocephalic, coarsened facial features. Eyes with pupils equal and react to light symmetrically, extraocular movement intact and sclera anicteric. Oropharynx with dry mucosa and poor dentition with spaced and missing teeth with remaining teeth discolored. Neck: Supple without JVD. Back: Kyphotic without CVA tenderness. Patient has difficulty sitting up in bed. Lungs: Fair aeration and clear to auscultation with bronchovesicular breath sounds diffusely. No focalizing rales or rhonchi. No expiratory wheeze. Breast: Exam deferred. Heart: Regular rate and rhythm with no murmurs or gallops appreciated. Distant heart sounds. Abdomen: Obese contour, soft nontender palpation no palpable hepatosplenomegaly. Bowel sounds positive all quadrants and slightly hyperactive. No guarding or rebound with deep palpation over the epigastrium. Genitalia/rectal: Exam deferred. Extremities: Nonpitting edema with obesity over lower extremities having trace pitting over the ankles and feet. Capillary refill. No cyanosis or clubbing. Skin: Normal color, warm and dry. Neuro: Cranial nerves II through XII gross intact, no focal motor deficits. No tremor. Psych: Normal affect and mood. No abnormal thought processes manifested. Remote risk memory. Grossly intact. Results Imaging Imaging Studies: Exam: CTA Chest With Contrast CTA Abdomen and Pelvis With Contrast Exam date and time: 04/03/2023 7:56 PM Age: 68 years old Clinical indication: Shortness of breath and other: SOB, chest pain, abd pain TECHNIQUE: Imaging protocol: Computed tomographic angiography of the chest with contrast. Exam focused on the arteries. Computed tomographic angiography of the abdomen and pelvis with contrast. Exam focused on the arteries. 3D rendering (Not supervised by radiologist): MIP and/or 3D reconstructed images were created by the technologist. Contrast material: OMNIPAQUE 350; Contrast volume: 125 ml; Contrast route: INTRAVENOUS (IV); COMPARISON: CR XR PORTABLE CHEST AP 03/10/2021 11:09 PM FINDINGS: VASCULATURE: Pulmonary arteries: Pulmonary artery is dilated measuring up to 3.8 cm. No pulmonary embolism identified. Aorta: No aortic aneurysm. No aortic dissection. Celiac trunk and mesenteric arteries: No occlusion or significant stenosis. Renal arteries: No occlusion or significant stenosis. Right iliac arteries: No occlusion or significant stenosis. Left iliac arteries: No occlusion or significant stenosis. CHEST: Lungs: Mild ground-glass densities in the bilateral lungs and posterior lungs which may represent atelectasis or images acquired in expiration. There is subsegmental atelectasis in the lingula. No focal consolidation. Pleural spaces: Unremarkable. No pneumothorax. No pleural effusion. Heart: Heart at the upper limits of normal in size. Diaphragm: There is small hiatal hernia. ABDOMEN AND PELVIS: Liver: Mild hepatic steatosis. Gallbladder and bile ducts: Gallbladder is mildly distended, otherwise unremarkable. Pancreas: Unremarkable. No mass. No ductal dilation. Spleen: Unremarkable. No splenomegaly. Adrenal glands: Unremarkable. No mass. Kidneys and ureters: Unremarkable. No solid mass. No hydronephrosis. Stomach and bowel: There is fluid noted throughout the large bowel with mild inner mucosal enhancement suspicious of colitis. There is no bowel obstruction. Appendix: No evidence of appendicitis. Intraperitoneal space: Unremarkable. No free air. No significant fluid collection. Urinary bladder: Urinary bladder is under distended with mild thickening of the wall. Reproductive: There is IUD in the endometrial cavity. Lymph nodes: Unremarkable. No enlarged lymph nodes. Bones/joints: There is mild dextroscoliosis of the thoracic spine and mild dextroscoliosis of the lumbar spine. Disc degenerative changes with severe loss disc height at L5-S1. And a heart at the upper limits of normal in size. Soft tissues: Small fat containing umbilical hernia. IMPRESSION: 1. No pulmonary embolism or aortic dissection. 2. Diffuse inner mucosal enhancement of the large bowel which contains fluid suspicious of mild pancolitis. There is no bowel obstruction. 3. Mild mucosal thickening of the bladder wall suspicious of cystitis. 4. Mild nonspecific hazy ground-glass densities in the bilateral lungs, possibly due to images acquired in expiration and atelectasis, mild pneumonitis or edema cannot be excluded. No pleural effusion or gross consolidation. 5. Hepatic steatosis. 6. Pulmonary arteries are mildly dilated suspicious of pulmonary hypertension. Exam: CT Head Without Contrast Exam date and time: 04/03/2023 7:54 PM Age: 68 years old Clinical indication: Headache TECHNIQUE: Imaging protocol: Computed tomography of the head without contrast. COMPARISON: CT SINUS WO 11/06/2020 12:57 PM FINDINGS: Brain: Age-related involutional changes and chronic microvascular ischemic disease. No evidence for acute transcortical infarct. No mass effect or midline shift. No extra-axial collection. No acute intracranial hemorrhage. Basal cisterns are patent. Cerebral ventricles: No ventriculomegaly. Paranasal sinuses: Visualized sinuses are unremarkable. No fluid levels. Mastoid air cells: Visualized mastoid air cells are well aerated. Bones/joints: Unremarkable. No acute fracture. Soft tissues: Unremarkable. IMPRESSION: No hydrocephalus, acute intracranial hemorrhage, or mass effect. Labs 04/03/23 18:10 04/03/23 18:10 Labs: Laboratory Results - last 24 hr 04/03/23 04/03/23 04/03/23 18:10 18:24 18:55 WBC 9.76 RBC 5.22 Hgb 14.8 Hct 44.0 MCV 84 MCH 28.4 MCHC 33.6 RDW 13.3 Plt Count 144 MPV 10.3 Immature Gran % 0.3 Neutrophils % 78.0 Lymphocytes % 13.7 Monocytes % 7.9 Eosinophils % 0.0 Basophils % 0.1 Nucleated RBC % 0.0 Absolute Neutrophils 7.61 H Absolute Lymphocytes 1.34 Absolute Monocytes 0.77 Absolute Eosinophils 0.00 Absolute Basophils 0.01 PT 11.3 H INR 1.1 APTT 28.2 D-Dimer 4992 H VBG Lactate 2.2 H* Sodium 137 Potassium 3.1 L Chloride 100 Carbon Dioxide 26.5 Anion Gap 10.5 BUN 15 Creatinine 1.6 H Est GFR (CKD-EPI 2020) 34.70 Glucose 148 H Calcium 9.4 Magnesium 1.6 L Total Bilirubin 1.0 AST 24 ALT 29 Alkaline Phosphatase 90 Troponin I < 50 NT-Pro-B Natriuret Pep 967 H Total Protein 7.4 Albumin 3.5 Procalcitonin 0.2 Urine Color Dark Yellow Urine Clarity Sl Cloudy Urine pH 5.5 Ur Specific [place] 1.020 Urine Protein 100 H Urine Ketones Trace H Urine Blood Moderate H Urine Nitrite Negative Urine Bilirubin Small H Urine Urobilinogen 0.2 Ur Leukocyte Esterase Small H Urine RBC 5-10 H Urine WBC >50 H Ur Epithelial Cells Few Urine Crystals Negative Urine Bacteria Few Urine Casts Negative Urine Mucus Heavy Ur Culture Indicated? Yes Urine Glucose Negative COVID-19 Source Cancelled SARS-CoV-2 (PCR) Cancelled Influenza Type A (PCR) Cancelled Influenza Type B (PCR) Cancelled RSV (PCR) Cancelled 04/03/23 04/03/23 19:12 21:10 WBC RBC Hgb Hct MCV MCH MCHC RDW Plt Count MPV Immature Gran % Neutrophils % Lymphocytes % Monocytes % Eosinophils % Basophils % Nucleated RBC % Absolute Neutrophils Absolute Lymphocytes Absolute Monocytes Absolute Eosinophils Absolute Basophils PT INR APTT D-Dimer VBG Lactate 0.7 Sodium Potassium Chloride Carbon Dioxide Anion Gap BUN Creatinine Est GFR (CKD-EPI 2020) Glucose Calcium Magnesium Total Bilirubin AST ALT Alkaline Phosphatase Troponin I < 50 NT-Pro-B Natriuret Pep Total Protein Albumin Procalcitonin Urine Color Urine Clarity Urine pH Ur Specific [place] Urine Protein Urine Ketones Urine Blood Urine Nitrite Urine Bilirubin Urine Urobilinogen Ur Leukocyte Esterase Urine RBC Urine WBC Ur Epithelial Cells Urine Crystals Urine Bacteria Urine Casts Urine Mucus Ur Culture Indicated? Urine Glucose COVID-19 Source Nasopharynx SARS-CoV-2 (PCR) Negative Influenza Type A (PCR) Negative Influenza Type B (PCR) Negative RSV (PCR) Negative Last Vital Signs Temp 36.3 C L 04/03/23 17:53 Pulse 90 04/03/23 21:46 Resp 27 H 04/03/23 22:00 BP 117/87 04/03/23 21:46 Pulse Ox 96 04/03/23 21:50 Time Spent Time spent with Patient: >75 minutes Time was spent: preparing to see the patient(eg.review tests), obtaining and/or reviewing separately otained hiistory, ordering medications,tests, procedures, referring, communicating with other health assistant child care teacher, indepentently interpreting results and counseling the patient
[2023-04-04] VITALS (25 sets, daily range): BP systolic 101–129; BP diastolic 68–85; PULSE 21–86; RESP 16–35; TEMP 36.6–37.9; O2SAT 92–95
[2023-04-04 00:17] LABS: TSH (W/Ref FT4) 1.74 uIU/mL (0.36-3.74)
[2023-04-04] MEDS: Normal Saline 1,000 ML 125 ML IV (01:39)
[2023-04-04] MEDS: Enoxaparin 40 MG/0.4 ML SYR SC (01:40)
[2023-04-04] MEDS: Pantoprazole 40 MG TABCR PO ×2 (01:58→20:56)
[2023-04-04] MEDS: traZODone 50 MG TAB 100 MG PO ×2 (01:58→20:48)
[2023-04-04] MEDS: QUEtiapine 50 MG TAB PO ×2 (01:59→20:47)
[2023-04-04] MEDS: PIPERACILLIN/TAZO 2.25 GM in Normal Saline 50 ML IVPB (02:05)
[2023-04-04] MEDS: Levothyroxine 75 MCG TAB 100 MCG PO (06:19)
[2023-04-04 06:49] LABS: HCT 39.6 % (36.0-46.0); HGB 12.9 g/dL (11.2-15.7); MCH 27.9 pg (27.0-33.0); MCHC 32.6 % (32.0-36.0); MCV 86 fL (80-95); MPV 9.7 fL (8.0-11.0); Platelet Count 123 10^3/uL (130-400); RBC 4.63 10^6/uL (3.93-5.22); RDW 13.4 % (11.7-14.6); RDW-SD 41.8 fL; WBC 5.43 10^3/uL (4.4-10.8)
[2023-04-04 07:16] LABS: ALT 23 U/L (14-59); AST 23 U/L (15-37); Alkaline Phosphatase 77 U/L (46-116); Anion Gap 10.7 mmol/L (3-11); BUN 15 mg/dL (7-18); Bilirubin, Total 0.9 mg/dL (0.2-1.0); CO2 26.3 mmol/L (21.0-32.0); CREATININE 1.4 mg/dL (0.55-1.02); Calcium 8.5 mg/dL (8.5-10.1); Chloride 103 mmol/L (98-107); Estimated GFR 40.73 (mL/min/1.73m2); Glucose 118 mg/dL (74-106); Magnesium 1.9 mg/dL (1.8-2.4); NT-proBNP 801 pg/mL (<300); Sodium 140 mmol/L (136-145); Total Protein 6.5 g/dL (6.4-8.2)
[2023-04-04 07:20] LABS: Potassium 2.7 mmol/L (3.5-5.1)
[2023-04-04] MEDS: POTASSIUM CHLORIDE 20 MEQ/100 ML BAG 50 MEQ IVPB ×3 (08:23→14:09)
[2023-04-04] MEDS: PARoxetine 10 MG TAB 30 MG PO (08:24)
[2023-04-04] MEDS: Metoprolol CR 25 MG TABCR PO (08:24)
[2023-04-04] MEDS: Aspirin 81 MG CHEW PO (08:24)
[2023-04-04] MEDS: Cholecalciferol (Vitamin D3) 1,000 UNIT TAB 1000 UNITS PO (08:24)
[2023-04-04] MEDS: Allopurinol 100 MG TAB PO (08:24)
[2023-04-04] MEDS: Calcitriol 0.25 MCG CAP PO (08:24)
[2023-04-04] MEDS: Multivitamin TAB 1 TAB PO (08:24)
[2023-04-04] MEDS: ARIPiprazole 2 MG TAB PO (08:24)
[2023-04-04] MEDS: Normal Saline Flush 10 ML SYR ×2 (09:01→20:48)
[2023-04-04] MEDS: PIPERACILLIN/TAZO 3.375 GM in Normal Saline 50 ML IV ×3 (09:55→20:48)
--- NOTE | 2023-04-04 11:12 | INITIAL_ITS ---
Date of service: 04/04/23 Time of Service: 11:12 Care Management Initial Assmt Initial Assessment REASON FOR HOSPITALIZATION:: pancolitis, UTI, pneumonitis with hypoxemia PREVIOUS FUNCTIONAL STATUS/SOCIAL/FAMILY SUPPORTS:: Lenore lives in an AFC home with AUTOMATIC LINE SET UP MECHANIC Jenelle, who provides all necessary care. Lenore has three children. She has a state appointed guardian, Sharon Gonzalez, who should be consulted for any medical decision making. CURRENT FUNCTIONAL STATUS:: Lenore was sitting up in bed when CM met with her. She stated that she is doing ok today. She remains on 4LO2; she confirms that she is not on supplemental O2 at home. Lenore reports that she is working with her continuous pillowcase cutter, Desiree, from [facility] [employer] [facility] to be transitioned to a different AF home. CM discussed her discharge plan with her, stated that o nce she is medically cleared, she will return to her current AFC home; she expressed understanding and is agreeable to this plan. CM called Sharon Gonzalez, her guardian, to provide an update; CM left message. CM will continue to follow. ADVANCE DIRECTIVES:: On file. Need review due to concerns about validity. Has patient been provided with info about the portal/API?: Yes Did the patient sign up for the portal?: Yes CODE STATUS:: Full Code INSURANCE COVERAGE / FINANCIAL ISSUES:: [facility] MCR replacement. [place]. CURRENT HOME/COMMUNITY SERVICES/EQUIPMENT:: AFC home with 24/ care PRIMARY CARE PHYSICIAN:: Vianca Gilmore POTENTIAL DISCHARGE NEEDS:: Evaluations for further needs, follow up appointments. PATIENT/FAMILY EDUCATION NEEDS:: Review discharge instructions and limitations, discussion of self care needs including ask me three. ANTICIPATED BARRIERS TO DISCHARGE:: None identified. TRANSPORTATION:: Via private vehicle by AUTOMAT[employer] SET UP MECHANIC/caregiver. PLAN:: Anticipate Lenore will return home once medically cleared. Her caregiver will drive her home via private vehicle when ready. She will follow up with her PCP and discharge plan of care. CM will continue to follow. PFSH All Active Problems Hypokalemia (Acute) Hypomagnesemia (Acute) Pneumonitis (Acute) UTI (urinary tract infection) (Acute) Pancolitis (Acute) Headache (Acute) Colitis (Acute) Pulmonary hypertension (Chronic) Hypoxemia (Acute) Acute pyelonephritis (Acute) Estrogen deficiency (Acute) CKD (chronic kidney disease), stage III (Chronic) Obstructive sleep apnea (Chronic) Does not use CPAP Osteoporosis (Chronic) Vitamin D deficiency (Acute) Prediabetes (Acute) Gout (Chronic) Venous stasis dermatitis (Acute) Cellulitis (Acute) PVD (peripheral vascular disease) (Chronic) Idiopathic gout, unspecified site (Acute) Edema (Chronic) Nail dystrophy (Acute) Physical deconditioning (Acute) Sleep apnea (Acute) BMI 45.0-49.9, adult (Acute) 07/2018 BMI 48 Acquired hypothyroidism (Acute 06/01/17) Chronic nonintractable headache (Acute 06/01/17) Essential hypertension (Chronic 06/01/17) Psoriasis (Acute 06/01/17) Recurrent major depressive disorder (Acute 06/01/17) Mixed incontinence (Chronic) Obesity (Chronic) Hypertension (Chronic) Panic disorder (Chronic) Obsessive-compulsive disorder (Chronic) Hypothyroidism (Chronic) Migraine (Chronic) Gait disturbance (Chronic) Depression (Chronic) Bilateral lower extremity edema (Chronic) Overactive bladder (Chronic) Wears adult diapers. Insomnia (Chronic) Chronic pruritus (Chronic) Medical History TMJ tenderness, bilateral Paronychia of great toe, left Toe pain, left Internal derangement of left knee DEPO MEDROL 08/24/2022; 09/22/21 Right leg pain Internal derangement of right knee DEPO MEDROL 08/24/2022; 09/22/21 IUD complication Tongue lesion Endometrial thickening on ultrasound PMB (postmenopausal bleeding) 2016. D&C for postmenopausal bleeding. Benign inactive endometrium. No recurrences. Functional urinary incontinence (06/01/17) Headache (06/01/17) Post-menopausal bleeding (02/01/17) D&C 03/10/17. Inactive endometrium. No episodes since. Atrophic vaginitis Urge incontinence Psoriasis Recurrent UTI External hemorrhoids Hematuria Dermatosis Surgical History Colonoscopy - MAC (07/12/17) Hx of dilation and curettage 2016 Social History Smoking/Tobacco Use Status: Never Smoking risk assessment performed?: Yes Alcohol Intake: current Alcohol Intake frequency: a few times a month Drug use: Never Substance use type: does not use Caregiver/Support person: Yes (Accompanies her to her office visits) Housing: house Number of Children: 3 current occupation: Disabled Current gender identity: female Seatbelt use: always Do you feel safe at home: Yes Do you feel safe in your relationship?: Yes Additional Social history: Unable to asses privately. Female Reproductive History Menstrual Menopause type: natural History History 5 Para 3 Hx # Term Pregnancies 3 Multiple births Hx # Pregnancies Ectopic pregnancies AB induced Hx Number of Living Children 3 AB spontaneous 2 SDOH(Care Management) Screening Will the Patient Participate in the Screening?: Yes Do you worry about having a steady place to live?: choose not to answer In the past 12 months, have you had to go without electric, gas, oil or water in your home?: no Have you or anyone in your house had to go without enough food to eat?: no Has lack of transportation kept you from medical appointments or from doing things needed for daily living?: no Has anyone in your support network made you feel unsafe for any reason?: no Social Determinants of Health Comments(SDOH Details): refused to answer some personal questions, patient stated that she has a counsellor. Health Related Social Needs Health related social needs details: choose not to answer this time.
--- NOTE | 2023-04-04 17:13 | W.PM.PROGNOT ---
Date of Service Date of service: 04/04/23 Time of Service: 17:13 Assessment and Plan Assessment and plan (1) Acute hypoxemic respiratory failure: Status: Acute Assessment and plan: In setting of pneumonia/pneumonitis clinically, though this was not well seen on CT. Also, in setting of pulmonary hypertension. Continue diuresis, continue furosemide. Encourage pulmonary toilet, provide mucinex. Wean O2 as tolerated. PE ruled out. Obtain an echocardiogram. (2) Pancolitis: Start date: 04/03/23 Status: Acute Assessment and plan: Continue zosyn. Obtain stool studies. Start probiotics. Rx loperamide (3) UTI (urinary tract infection): Start date: 04/03/23 Status: Acute Assessment and plan: Present on admission. Await urine C&S. Continue empiric zosyn. Qualifiers: Urinary tract infection type: acute cystitis Hematuria presence: with hematuria Qualified Code(s): N30.01 - Acute cystitis with hematuria (4) Pneumonitis: Start date: 04/03/23 Status: Suspected Assessment and plan: Final CT read is not definitive on this. Continue abx as above. Diurese. Would not start steroids at this time. As above. (5) Hypomagnesemia: Start date: 04/03/23 Status: Resolved Assessment and plan: Recheck in am (6) Hypokalemia: Start date: 04/03/23 Status: Acute Assessment and plan: Repleted. Recheck level. (7) CKD (chronic kidney disease), stage III: Status: Chronic Assessment and plan: Cr now near baseline, 1.4. Monitor with diuresis. Qualifiers: Chronic kidney disease stage 3 subtype: stage 3b (GFR 30-44) Qualified Code(s): N18.32 - Chronic kidney disease, stage 3b (8) Pulmonary hypertension: Status: Chronic Assessment and plan: As above - diurese, obtain echo. (9) Edema: Status: Chronic Assessment and plan: Diurese. Obtain echo and venos dopplers of BLEs. Qualifiers: Edema type: localized Qualified Code(s): R60.0 - Localized edema (10) Essential hypertension: Status: Chronic Assessment and plan: Not written for any antihypertensives currently. Will monitor. (11) Obstructive sleep apnea: Status: Chronic Assessment and plan: Will need a sleep study as outpatient. (12) Obsessive-compulsive disorder: Status: Chronic Assessment and plan: Continue outpatient therapy. Qualifiers: Obsessive-compulsive disorder type: other Qualified Code(s): F42.8 - Other obsessive-compulsive disorder (13) DVT prophylaxis: Status: Acute Assessment and plan: SC enoxaparin (14) Discharge planning issues: Status: Acute Assessment and plan: Full code C/s PT Continues to require hospitalization. Subjective Subjective Interval history since last seen: Ms Jonas says she is still having a lot of diarrhea. She felt dizzy earlier today, feels better now. No CP. Does feel SOB. Has been coughing but unable to bring up sputum - feels like it's in her throat. Denies n/v. Continues to have diarrhea. Requests that her diet be advanced. Exam Narrative Exam Narrative: General: A pleasant obese female who is sitting up in bed, on 3.5 L of O2 by NC (does not use at home), HEENT: EOMI, MMM, a large lower lip Heart: RRR, no m/r/g Lungs: Crackles at B bases Abdomen: soft, nontender, nondistended Extremities: trace edema BLEs, L>R. Objective Last Vital Signs Temp 37.9 C H 04/04/23 15:51 Pulse 86 04/04/23 15:51 Resp 19 04/04/23 15:51 BP 123/80 04/04/23 15:51 Pulse Ox 95 04/04/23 15:51 Laboratory Results - last 24 hr 04/03/23 04/03/23 04/03/23 18:10 18:24 18:55 WBC 9.76 RBC 5.22 Hgb 14.8 Hct 44.0 MCV 84 MCH 28.4 MCHC 33.6 RDW 13.3 Plt Count 144 MPV 10.3 Immature Gran % 0.3 Neutrophils % 78.0 Lymphocytes % 13.7 Monocytes % 7.9 Eosinophils % 0.0 Basophils % 0.1 Nucleated RBC % 0.0 Absolute Neutrophils 7.61 H Absolute Lymphocytes 1.34 Absolute Monocytes 0.77 Absolute Eosinophils 0.00 Absolute Basophils 0.01 PT 11.3 H INR 1.1 APTT 28.2 D-Dimer 4992 H VBG Lactate 2.2 H* Sodium 137 Potassium 3.1 L Chloride 100 Carbon Dioxide 26.5 Anion Gap 10.5 BUN 15 Creatinine 1.6 H Est GFR (CKD-EPI 2020) 34.70 Glucose 148 H Calcium 9.4 Magnesium 1.6 L Total Bilirubin 1.0 AST 24 ALT 29 Alkaline Phosphatase 90 Troponin I < 50 NT-Pro-B Natriuret Pep 967 H Total Protein 7.4 Albumin 3.5 Procalcitonin 0.2 TSH Urine Color Dark Yellow Urine Clarity Sl Cloudy Urine pH 5.5 Ur Specific [place] 1.020 Urine Protein 100 H Urine Ketones Trace H Urine Blood Moderate H Urine Nitrite Negative Urine Bilirubin Small H Urine Urobilinogen 0.2 Ur Leukocyte Esterase Small H Urine RBC 5-10 H Urine WBC >50 H Ur Epithelial Cells Few Urine Crystals Negative Urine Bacteria Few Urine Casts Negative Urine Mucus Heavy Ur Culture Indicated? Yes Urine Glucose Negative COVID-19 Source Cancelled SARS-CoV-2 (PCR) Cancelled Influenza Type A (PCR) Cancelled Influenza Type B (PCR) Cancelled RSV (PCR) Cancelled 04/03/23 04/03/23 04/04/23 19:12 21:10 06:39 WBC 5.43 RBC 4.63 Hgb 12.9 Hct 39.6 MCV 86 MCH 27.9 MCHC 32.6 RDW 13.4 Plt Count 123 L MPV 9.7 Immature Gran % Neutrophils % Lymphocytes % Monocytes % Eosinophils % Basophils % Nucleated RBC % Absolute Neutrophils Absolute Lymphocytes Absolute Monocytes Absolute Eosinophils Absolute Basophils PT INR APTT D-Dimer VBG Lactate 0.7 Sodium 140 Potassium 2.7 L* Chloride 103 Carbon Dioxide 26.3 Anion Gap 10.7 BUN 15 Creatinine 1.4 H Est GFR (CKD-EPI 2020) 40.73 Glucose 118 H Calcium 8.5 Magnesium 1.9 Total Bilirubin 0.9 AST 23 ALT 23 Alkaline Phosphatase 77 Troponin I < 50 NT-Pro-B Natriuret Pep 801 H Total Protein 6.5 Albumin 3.0 L Procalcitonin TSH 1.74 Urine Color Urine Clarity Urine pH Ur Specific [place] Urine Protein Urine Ketones Urine Blood Urine Nitrite Urine Bilirubin Urine Urobilinogen Ur Leukocyte Esterase Urine RBC Urine WBC Ur Epithelial Cells Urine Crystals Urine Bacteria Urine Casts Urine Mucus Ur Culture Indicated? Urine Glucose COVID-19 Source Nasopharynx SARS-CoV-2 (PCR) Negative Influenza Type A (PCR) Negative Influenza Type B (PCR) Negative RSV (PCR) Negative Time Spent with Patient Time Spent with Patient: 35-49 minutes Time was spent: preparing to see the patient(eg.review tests), obtaining and/or reviewing separately otained hiistory, ordering medications,tests, procedures, referring, communicating with other health healthcare marketer, indepentently interpreting results, counseling the patient and care coordination
[2023-04-04] MEDS: Loperamide 2 MG CAP PO (17:55)
[2023-04-04] MEDS: guaiFENesin 600 MG TABCR PO (20:47)
[2023-04-04] MEDS: traZODone 100 MG TAB (20:49)
--- NOTE | 2023-04-05 | DI.US_ITS ---
Exam(s) US EXTREMITY VENOUS BI EXAM: US EXTREMITY VENOUS BI CLINICAL HISTORY: elevated d-dimer, concern for DVT. TECHNIQUE: Bilateral lower extremity venous ultrasound performed using grayscale, color-flow, and sp ectral Doppler analysis. COMPARISON: No exams were available for comparison FINDINGS: Right lower extremity: The bilateral common femoral, femoral and popliteal veins demonstrate normal c ompressibility, augmentation, and color Doppler. The posterior tibial veins are patent. The saphenou s vein is free of thrombus. Left lower extremity: The bilateral common femoral, femoral and popliteal veins demonstrate normal c ompressibility, augmentation, and color Doppler. Thrombus is visible in 1 of the posterior tibial ve ins and both peroneal veins. The saphenous vein is free of thrombus. IMPRESSION: Right: Negative for DVT Left: Thrombus in the peroneal veins and 1 of the posterior tibial veins. DATA REPOSITORY:
[2023-04-05 03:25] VITALS: BP 115/76; PULSE 82; RESP 16; TEMP 37; O2SAT 92
[2023-04-05] MEDS: PIPERACILLIN/TAZO 3.375 GM in Normal Saline 50 ML IV ×4 (04:28→21:05)
[2023-04-05] MEDS: Enoxaparin 40 MG/0.4 ML SYR SC (05:37)
[2023-04-05] MEDS: Levothyroxine 100 MCG TAB PO (05:37)
[2023-04-05] MEDS: SUMAtriptan 50 MG TAB 100 MG PO (06:23)
[2023-04-05 07:03] LABS: Abs Immature Grans 0.01 10^3/uL (0.0-0.06); Absolute Basophil Count 0.01 10^3/uL (0.0-0.2); Absolute Eosinophil Count 0.01 10^3/uL (0.0-0.7); Absolute Lymphocyte Count 1.45 10^3/uL (1.2-3.4); Absolute Monocyte Count 0.79 10^3/uL (0.1-0.8); Absolute Neutrophil Count 1.47 10^3/uL (1.2-6.7); Basophils % 0.3; Eosinophils % 0.3; HCT 36.4 % (36.0-46.0); HGB 12.4 g/dL (11.2-15.7); Immature Grans % 0.3; Lymphocytes % 38.8; MCH 28.8 pg (27.0-33.0); MCHC 34.1 % (32.0-36.0); MCV 85 fL (80-95); MPV 10.1 fL (8.0-11.0); Monocytes % 21.1; Neutrophils % 39.2; Platelet Count 115 10^3/uL (130-400); RDW 13.4 % (11.7-14.6); RDW-SD 41.6 fL; WBC 3.74 10^3/uL (4.4-10.8)
[2023-04-05 07:19] LABS: Anion Gap 10.5 mmol/L (3-11); BUN 12 mg/dL (7-18); CO2 25.5 mmol/L (21.0-32.0); CREATININE 1.3 mg/dL (0.55-1.02); Calcium 8.8 mg/dL (8.5-10.1); Chloride 103 mmol/L (98-107); Estimated GFR 44.51 (mL/min/1.73m2); Glucose 128 mg/dL (74-106); Magnesium 1.8 mg/dL (1.8-2.4); Potassium 3.1 mmol/L (3.5-5.1); Sodium 139 mmol/L (136-145)
--- NOTE | 2023-04-05 08:00 | DI.US_ITS ---
APPROVED REPORT EXAM: Comprehensive 2D, Doppler, and color-flow Echocardiogram Patient Location: In-Patient Room/Bed: 226 [employer]otive Consultant: Se Hein RDCS (AE) Indications: pulmonary HTN Other Information Study Quality: Technically Limited. Technically limited study due to body habitus, inability to posit ion patient. Conclusion A technically limited study. 1. LA appears upper limits, other chambers normal sizes. 2. Normal LV function, EF estimated at 55%. Normal RV function. 3. Valves not optimally visualized. No significant regurgitation or stenosis. Unable to estimate righ t heart pressures. 4. No pericardial effusion. Wall motion Left Ventricle The left ventricle is grossly normal size. Left ventricular systolic function is borderline. Unable t o assess LV wall thickness. There is no ventricular septal defect visualized. LVEF is 50-52%. Right Ventricle The right ventricle is normal size. Right ventricular systolic function could not be assessed. Atria Left atrium is borderline dilated. The right atrium size is normal. The interatrial septum is intact with no evidence for an atrial septal defect. Aortic Valve Aortic valve is grossly normal in structure. The aortic valve is not well visualized. Number of aorti c valve leaflets could not be assessed. There is no aortic valvular stenosis. No aortic regurgitation is present. Mitral Valve The mitral valve is normal in structure. No evidence of mitral valve stenosis. There is no mitral bobbi ve regurgitation noted. Tricuspid Valve The tricuspid valve is normal in structure. There is no tricuspid valve stenosis. Trace tricuspid reg urgitation. Unable to assess PA pressure. Pulmonic Valve Pulmonic valve is not well visualized. There is no pulmonic valvular stenosis. There is no pulmonic v alvular regurgitation. Great Vessels Aortic root is not well visualized. Ascending aorta is not well visualized. Aortic arch is normal in caliber. The IVC collapses <50% with inspiration. Pericardium There is no pericardial effusion.
[2023-04-05] MEDS: PARoxetine 10 MG TAB 30 MG PO (08:29)
[2023-04-05] MEDS: Furosemide 40 MG/4 ML VIAL IVP ×2 (08:29→16:46)
[2023-04-05] MEDS: Cholecalciferol (Vitamin D3) 1,000 UNIT TAB 1000 UNITS PO (08:30)
[2023-04-05] MEDS: Metoprolol CR 25 MG TABCR PO (08:30)
[2023-04-05] MEDS: Allopurinol 100 MG TAB PO (08:30)
[2023-04-05] MEDS: guaiFENesin 600 MG TABCR PO ×2 (08:30→20:58)
[2023-04-05] MEDS: ARIPiprazole 2 MG TAB PO (08:30)
[2023-04-05] MEDS: Multivitamin TAB 1 TAB PO (08:30)
[2023-04-05] MEDS: Aspirin 81 MG CHEW PO (08:30)
[2023-04-05 08:45] VITALS: BP 121/82; PULSE 82; RESP 16; TEMP 37.3; O2SAT 92
[2023-04-05] MEDS: Potassium Chloride Liquid 20 MEQ PKT 40 MEQ PO (10:09)
[2023-04-05] MEDS: Loperamide 2 MG CAP PO ×2 (10:14→17:40)
[2023-04-05 11:00] LABS: C Diff PCR Negative (Negative)
[2023-04-05 11:44] VITALS: BP 124/76; PULSE 65; RESP 17; TEMP 37.2; O2SAT 92
[2023-04-05 14:47] VITALS: BP 108/68; PULSE 82; RESP 18; TEMP 37.3; O2SAT 92
--- NOTE | 2023-04-05 15:51 | PDOC.CMPRO ---
Date of service: 04/05/23 Time of Service: 15:51 Care Management Progress Note Progress Note Text Progress Note Text: S/O: Lenore was sitting up in bed when CM met with her. She stated that she is doing ok today. Per report, her O2 has been weaned down to 2LO2, which is an improvement from yesterday. Earlier today, CM attempted to meet with her and she was having an echo. She was tested for C.Diff today, due to her diarrhea, which was negative. Lenore stated that she spoke to her guardian today over the phone. CM reviewed her discharge plan, which will be for her to return to her AF home with her shared living provider, Jenelle. CM will continue to follow. A: Lenore is a 68 year old female admitted to [facility] on 04/03/23 with pancolitis, UTI, pneumonitis. P: Anticipate Lenore will return home once medically cleared. Her caregiver will drive her home via private vehicle when ready. She will follow up with her PCP and discharge plan of care. CM will continue to follow.
[2023-04-05] MEDS: Mylanta Suspension 30 ML CUP PO (17:40)
[2023-04-05 20:15] VITALS: BP 129/85; PULSE 93; RESP 18; TEMP 37.8; O2SAT 88
[2023-04-05] MEDS: QUEtiapine 50 MG TAB PO (20:58)
[2023-04-05] MEDS: traZODone 50 MG TAB 100 MG PO (20:59)
[2023-04-05] MEDS: Pantoprazole 40 MG TABCR PO (20:59)
--- NOTE | 2023-04-05 22:12 | W.PM.PROGNOT ---
Date of Service Date of service: 04/05/23 Time of Service: 18:45 Assessment and Plan Assessment and plan (1) Acute hypoxemic respiratory failure: Status: Acute Assessment and plan: In setting of pneumonia/pneumonitis clinically, though this was not well seen on CT. Also, in setting of pulmonary hypertension, though echo today was unable to estimate pressure RV pressures. Continue diuresis. Encourage pulmonary toilet, continue mucinex. Wean O2 as tolerated. PE ruled out. (2) Pancolitis: Status: Acute Assessment and plan: Continue zosyn. C. Diff negative. Remainder of stool studies pending. Continue probiotics, loperamide (3) UTI (urinary tract infection): Status: Acute Assessment and plan: Present on admission. Urine C&S with 2 spp of E. Coli, only 1 onf them >100,000 CFU. Await sensitivities. Continue empiric zosyn. Qualifiers: Urinary tract infection type: acute cystitis Hematuria presence: with hematuria Qualified Code(s): N30.01 - Acute cystitis with hematuria (4) Pneumonitis: Status: Suspected Assessment and plan: Final CT read is not definitive on this. Continue abx as above. Diurese. Would not start steroids at this time. As above. (5) Hypomagnesemia: Status: Resolved Assessment and plan: Recheck in am (6) Hypokalemia: Status: Acute Assessment and plan: Repleted. Recheck level. (7) CKD (chronic kidney disease), stage III: Status: Chronic Assessment and plan: Cr at baseline. Monitor with diuresis. Qualifiers: Chronic kidney disease stage 3 subtype: stage 3b (GFR 30-44) Qualified Code(s): N18.32 - Chronic kidney disease, stage 3b (8) Pulmonary hypertension: Status: Chronic Assessment and plan: As above Echo was unable to estimate RV pressures. (9) Edema: Status: Chronic Assessment and plan: Diurese. Venous doppler w/ thrombus in the peroneal vein and 1 of the posterior tibial veins. Typically, distal LE thrombi do not require anticoagulation. Will need follow up ultrasound. Qualifiers: Edema type: localized Qualified Code(s): R60.0 - Localized edema (10) Essential hypertension: Status: Chronic Assessment and plan: Not written for any antihypertensives currently. Will monitor. (11) Obstructive sleep apnea: Status: Chronic Assessment and plan: Will need a sleep study as outpatient. (12) Obsessive-compulsive disorder: Status: Chronic Assessment and plan: Continue outpatient therapy. Qualifiers: Obsessive-compulsive disorder type: other Qualified Code(s): F42.8 - Other obsessive-compulsive disorder (13) DVT prophylaxis: Status: Acute Assessment and plan: SC enoxaparin (14) Discharge planning issues: Status: Acute Assessment and plan: Full code Continue PT. Continues to require hospitalization. Subjective Subjective Interval history since last seen: Ms Jonas states that she is still having diarrhea. She denies dizziness, chest pain, states that the shortness of breath is better, denies n/v. She would like to walk but not while attached to the IV pole. Exam Narrative Exam Narrative: General: A pleasant obese female who is sitting up in bed, on 2 L of O2 by NC (does not use at home), HEENT: EOMI, MMM, a large lower lip Heart: RRR, no m/r/g Lungs: Diminished breath sounds B Abdomen: soft, nontender, nondistended Extremities: trace edema BLEs, L>R. Objective Last Vital Signs Temp 37.8 C H 04/05/23 20:15 Pulse 93 H 04/05/23 20:15 Resp 18 04/05/23 20:15 BP 129/85 04/05/23 20:15 Pulse Ox 88 L 04/05/23 20:15 Laboratory Results - last 24 hr 04/05/23 04/05/23 06:45 09:15 WBC 3.74 L RBC 4.30 Hgb 12.4 Hct 36.4 MCV 85 MCH 28.8 MCHC 34.1 RDW 13.4 Plt Count 115 L MPV 10.1 Immature Gran % 0.3 Neutrophils % 39.2 Lymphocytes % 38.8 Monocytes % 21.1 Eosinophils % 0.3 Basophils % 0.3 Nucleated RBC % 0.0 Absolute Neutrophils 1.47 Absolute Lymphocytes 1.45 Absolute Monocytes 0.79 Absolute Eosinophils 0.01 Absolute Basophils 0.01 Sodium 139 Potassium 3.1 L Chloride 103 Carbon Dioxide 25.5 Anion Gap 10.5 BUN 12 Creatinine 1.3 H Est GFR (CKD-EPI 2020) 44.51 Glucose 128 H Calcium 8.8 Magnesium 1.8 Stl C.difficile Tox PCR Negative Time Spent with Patient Time Spent with Patient: 35-49 minutes Time was spent: preparing to see the patient(eg.review tests), obtaining and/or reviewing separately otained hiistory, ordering medications,tests, procedures, referring, communicating with other health health care facilities inspector, indepentently interpreting results, counseling the patient and care coordination
[2023-04-06] VITALS (10 sets, daily range): BP systolic 113–133; BP diastolic 70–85; PULSE 74–83; RESP 18–20; TEMP 36.3–37; O2SAT 90–94
[2023-04-06] MEDS: Normal Saline Flush 10 ML SYR (00:10)
[2023-04-06] MEDS: PIPERACILLIN/TAZO 3.375 GM in Normal Saline 50 ML IV ×3 (04:55→15:26)
[2023-04-06] MEDS: Levothyroxine 100 MCG TAB PO (05:07)
[2023-04-06] MEDS: Enoxaparin 40 MG/0.4 ML SYR SC (05:08)
[2023-04-06 07:55] LABS: Abs Immature Grans 0.01 10^3/uL (0.0-0.06); Absolute Basophil Count 0.01 10^3/uL (0.0-0.2); Absolute Lymphocyte Count 1.56 10^3/uL (1.2-3.4); Absolute Monocyte Count 0.71 10^3/uL (0.1-0.8); Absolute Neutrophil Count 1.47 10^3/uL (1.2-6.7); Basophils % 0.3; HCT 38.7 % (36.0-46.0); HGB 12.9 g/dL (11.2-15.7); Immature Grans % 0.3; Lymphocytes % 41.5; MCH 27.9 pg (27.0-33.0); MCHC 33.3 % (32.0-36.0); MCV 84 fL (80-95); MPV 10.3 fL (8.0-11.0); Monocytes % 18.9; Platelet Count 141 10^3/uL (130-400); RBC 4.62 10^6/uL (3.93-5.22); RDW 13.2 % (11.7-14.6); WBC 3.76 10^3/uL (4.4-10.8)
[2023-04-06 08:14] LABS: Anion Gap 9.9 mmol/L (3-11); BUN 12 mg/dL (7-18); CO2 30.1 mmol/L (21.0-32.0); CREATININE 1.2 mg/dL (0.55-1.02); Calcium 9.3 mg/dL (8.5-10.1); Chloride 99 mmol/L (98-107); Glucose 133 mg/dL (74-106); Magnesium 1.9 mg/dL (1.8-2.4); Sodium 139 mmol/L (136-145)
[2023-04-06 08:18] LABS: Potassium 2.8 mmol/L (3.5-5.1)
[2023-04-06] MEDS: SUMAtriptan 50 MG TAB 100 MG PO (09:02)
[2023-04-06] MEDS: Potassium Chloride Liquid 20 MEQ PKT 40 MEQ PO (09:03)
[2023-04-06] MEDS: PARoxetine 10 MG TAB 30 MG PO (09:03)
[2023-04-06] MEDS: Calcitriol 0.25 MCG CAP PO (09:03)
[2023-04-06] MEDS: Cholecalciferol (Vitamin D3) 1,000 UNIT TAB 1000 UNITS PO (09:03)
[2023-04-06] MEDS: Loperamide 2 MG CAP PO ×2 (09:04→15:25)
[2023-04-06] MEDS: guaiFENesin 600 MG TABCR PO (09:04)
[2023-04-06] MEDS: Furosemide 40 MG/4 ML VIAL IVP ×2 (09:04→15:26)
[2023-04-06] MEDS: Metoprolol CR 25 MG TABCR PO (09:04)
[2023-04-06] MEDS: Aspirin 81 MG CHEW PO (09:04)
[2023-04-06] MEDS: Multivitamin TAB 1 TAB PO (09:04)
[2023-04-06] MEDS: POTASSIUM CHLORIDE 20 MEQ/100 ML BAG 25 MEQ IVPB ×2 (09:04→12:55)
[2023-04-06] MEDS: ARIPiprazole 2 MG TAB PO (09:04)
[2023-04-06] MEDS: Allopurinol 100 MG TAB PO (09:04)
--- NOTE | 2023-04-06 11:12 | IN_ITS ---
PT Notes Visit Reasons: Pancolitis, UTI, Pneumonitis with hypoxemia Physical Therapy Inpatient Initial Evaluation Date: 04/06/2023 Referring Doctor: Karen Murillo MD PT Orders: PT CONSULT: Limited ability Precautions: Fall. Standard. Activity as tolerated. Patient Profile/Admitting Diagnosis: Lenore is a 68-year-old female admitted to the ED on 04/03/2023 due to 2 days worth of diarrhea and heartburn, abdominal pain, fatigue, increased shakiness, decreased p.o. intake, shortness of breath with exertion, and generalized weakness. Patient is admitted to [facility] of care for management of acute hypoxemic respiratory failure, UTI, hypoxemia, pneumonitis, hypomagnesemia, and hypokalemia. PMHX: All Active Problems Hypokalemia (Acute) Hypomagnesemia (Acute) Pneumonitis (Acute) UTI (urinary tract infection) (Acute) Pancolitis (Acute) Headache (Acute) Colitis (Acute) Pulmonary hypertension (Chronic) Hypoxemia (Acute) Acute pyelonephritis (Acute) Estrogen deficiency (Acute) CKD (chronic kidney disease), stage III (Chronic) Obstructive sleep apnea (Chronic) Does not use CPAPOsteoporosis (Chronic) Vitamin D deficiency (Acute) Prediabetes (Acute) Gout (Chronic) Venous stasis dermatitis (Acute) Cellulitis (Acute) PVD (peripheral vascular disease) (Chronic) Idiopathic gout, unspecified site (Acute) Edema (Chronic) Nail dystrophy (Acute) Physical deconditioning (Acute) Sleep apnea (Acute) BMI 45.0-49.9, adult (Acute) 07/2018 BMI 48Acquired hypothyroidism (Acute 06/01/17) Chronic nonintractable headache (Acute 06/01/17) Essential hypertension (Chronic 06/01/17) Psoriasis (Acute 06/01/17) Recurrent major depressive disorder (Acute 06/01/17) Mixed incontinence (Chronic) Obesity (Chronic) Hypertension (Chronic) Panic disorder (Chronic) Obsessive-compulsive disorder (Chronic) Hypothyroidism (Chronic) Migraine (Chronic) Gait disturbance (Chronic) Depression (Chronic) Bilateral lower extremity edema (Chronic) Overactive bladder (Chronic) Wears adult diapers.Insomnia (Chronic) Chronic pruritus (Chronic) Medical History TMJ tenderness, bilateral Paronychia of great toe, left Toe pain, left Internal derangement of left knee DEPO MEDROL 08/24/2022; 09/22/21 Right leg pain Internal derangement of right knee DEPO MEDROL 08/24/2022; 09/22/21 IUD complication Tongue lesion Endometrial thickening on ultrasound PMB (postmenopausal bleeding) 2016. D&C for postmenopausal bleeding. Benign inactive endometrium. No recurrences. Functional urinary incontinence (06/01/17) Headache (06/01/17) Post-menopausal bleeding (02/01/17) D&C 03/10/17. Inactive endometrium. No episodes since. Atrophic vaginitis Urge incontinence Psoriasis Recurrent UTI External hemorrhoids Hematuria Dermatosis Surgical History Colonoscopy - MAC (07/12/17) Hx of dilation and curettage 2016 Social History/Home Situation: Lives in an [facility] home in [place] with 24/7 caregivers, been here for over 6 years. Modified independent with use of four-wheeled walker indoors. No falls in the past 12 months. Able to navigate household distances of about 20-25 feet using 4WW. Equipment Owned/DME: 4WW Subjective: Patient states that she is on the process of moving to another [facility] home. Agreeable to getting out of bed this morning. Reported being mildly dizzy upon sitting up and standing up but did not worsen with completion of tasks. Objective: General Observation: Resting in bed. Oxygen supplementation at 4 L/min via NC. IV through right UE. High BMI. Mental Status: Alert and oriented as to person, place, time, and purpose. Able to pay attention, focus, and respond appropriately. Pain: Denies Vital Signs: Oxygen saturation between 90-93% on oxygen supp ROM: Right Upper Extremity: Shoulder Flexion lacks the last 25% of AROM. Shoulder abduction lacks the last 25% of AROM. Elbow flexion WFL. Wrist flexion WFL. Functional opening and closing of hand WFL. Left Upper Extremity: Shoulder Flexion lacks the last 25% of AROM. Shoulder abduction lacks the last 25% of AROM. Elbow flexion WFL. Wrist flexion WFL. Functional opening and closing of hand WFL. Right Lower Extremity: Hip flexion lacks the last 50% of AROM. Hip abduction lacks the last 25% of AROM. Knee flexion 20 degrees to 90 degrees. Knee extension -20 degrees. Ankle dorsiflexion to neutral only. Ankle plantarflexion WFL. Left Lower Extremity: Hip flexion lacks the last 50% of AROM. Hip abduction lacks the last 25% of AROM. Knee flexion 20 degrees to 90 degrees. Knee extension -20 degrees. Ankle dorsiflexion to neutral only. Ankle plantarflexion WFL. Strength: Right Upper Extremity: Shoulder flexors 3-/5. Shoulder abductors 3-/5. Elbow flexors 4-/5. Elbow extensors 4-/5. Tattoo And Body Artist strong. Left Upper Extremity: Shoulder flexors 3-/5. Shoulder abductors 3-/5. Elbow flexors 4-/5. Elbow extensors 4-/5. Tattoo And Body Artist strong. Right Lower Extremity: Hip flexors 3-/5. Hip abductors 3-/5. Knee flexors 4-/5. Knee extensors 4-/5. Ankle dorsiflexors 3-/5. Ankle plantarflexors 4-/5. Left Lower Extremity: Hip flexors 3-/5. Hip abductors 3-/5. Knee flexors 4-/5. Knee extensors 4-/5. Ankle dorsiflexors 3-/5. Ankle plantarflexors 4-/5. Bed Mobility/Transfers: Moderate cueing provided for use of B hands as needed for support, movement sequence, Ad management, and and posture to reduce fall risk and minimize pain report Rolling minimal assist Supine to sit minimal assist with HOB at 30 degrees Sit to supine minimal assist Sit to stand minimal assist Stand to sit minimal assist Bed to reclining minimal assist Gait: Tolerated 5 small steps requiring minimal assist of 2 using bariatric front wheeled walker with a noticeable increase shakiness, anxiety, and generalized weakness throughout but no LOB. Steps small and cautious. Balance: Static Sitting: Fair Dynamic Sitting: Fair Static Standing: Poor Dynamic Standing: Poor Special Tests: Mobility Limitations Standardized Measure [facility] AM-PAC 6 clicks Basic Mobility Inpatient Short Form: Raw Score: 18 CMS Score: 47% deficit Informed Consent/Education: Patient was instructed in purpose of PT consult and plan of care. Agreeable to proceed with established PT POC to achieve personal goals. ASSESSMENT: Patient requires the use of a front-wheeld walker for transfers and short distance ambulation. Patient presents with clinical signs and symptoms consistent with current/admitting diagnoses that have resulted to mobility limitations, gait instability, generalized weakness, and overall ADL decline as demonstrated by the following impairment level findings: 1. Generalized weakness 2. Impaired sitting/standing balance 3. Impaired activity tolerance 4. Limitation of joint range of motion in B shoulders and B hips 5. Shortness of breath 6. Shakiness in B legs Impairments are contributing to the following functional limitations: 1. Decline in bed mobility skills 2. Decline in transfer skills 3. Difficulty with ambulation without assistive device and physical assistance 4. Increased completion time for mobility ADL performance 5. Increased risk for falls 6. Difficulty with managing steps alone safely Patient is assessed as a 80372 moderate complexity based on the following: History: 68-year-old female with past medical history as indicated above Examination: Demonstrable impairment in strength, balance, and mobility level with underlying impairments and functional limitations as exhibited above as well as deficit score of 47% utilizing the [facility] Mobility I npatient Short Form Presentation: Evolving Decision Makin moderate complexity Goals: Goals X1 week 1. Supine-Sit independent 2. Sit-Supine independent 3. Sit-Stand independent 4. Stand-Sit independent with bariatric FWW 5. Bed-Chair independent with bariatric FWW 6. Chair-Bed independent with bariatric FWW 7. Independent gait on level surface with use of with bariatric FWW for at least 30 feet without report of pain nor dyspnea 8. Fair static and dynamic standing balance/tolerance Plan of Care/Treatment Plan: 1-2x/day, 7 days/week x 1 week. Plan of care has been reviewed with the POLICY DIRECTOR providing the service under Physical Therapy direction. Initiate Physical Therapy intervention for pain management as needed, strengthening, bed mobility, transfers, gait, stairs, balance training, and use of assistive device. DISCHARGE RECOMMENDATIONS: [] Home with no services [] [X] Home with services. Patient will benefit from home health PT services in order to progress mobility level using least restrictive assistive ambulatory device, assess home safety, identify additional equipment needs, and establish a functional maintenance program that will increase ability of patient to remain at home. [] Home with outpatient PT [] [] SNF for continued rehabilitation [] [] Temporary Staff Accountant Care [] [] SNF versus LTC based on ability to participate and progress [] TREATMENT CODE/TIME: 96174 x 27 minutes for 1 unit beginning at 10:44 AM. Thank you for the opportunity to participate in the care of this patient. Belle Garcia PT, DPT, CLT [facility] [place], [place]
--- NOTE | 2023-04-06 13:56 | CMPROGNOTE_ITS ---
Date of service: 04/06/23 Time of Service: 13:56 Care Management Progress Note Progress Note Text Progress Note Text: S/O: Lenore continues to improve, she was evaluated by PT who are recommending home health for discharge. Sorin called for update, CM forwarded to MD. CM spoke with guardianSharon who shared concerns re: discharge planning reportedly due to information in patient chart. Upon further discussion, Sharon advised that Lenore's home provider had given her notice last November, and Lenore's team was feeling it may be time to look at LTC placement. CM reviewed difference in drying unit felting machine operator care-vs-LTC Facility as Lenore will not have one-on-one care in a detention setting. CM agreeable to sending referral to begin process as aligned with patient wishes; [facility] to [facility], [facility], as well as [facility] though admission reports they are not reviewing senior living referrals at this time. CM will continue to follow. A: Lenore is a 68 year old female admitted to [facility] on 04/03/23 with pancolitis, UTI, pneumonitis. P: Anticipate Lenore will return home once medically cleared to her [facility] home with her shared living provider, Jenelle. Her caregiver will drive her home via private vehicle when ready. Physical Therapy recommending home PT for discharge. She will also follow up with her PCP and discharge plan of care. CM will continue to follow.
--- NOTE | 2023-04-06 14:21 | PTTR_ITS ---
Date of service: 04/06/23 Time of Service: 14:00 PT Notes Visit Reasons: Pancolitis, UTI, Pneumonitis with hypoxemia Inpatient Physical Therapy Treatment Note [facility] Date: 04/06/23 PRECAUTIONS: Fall, standard, activity as tolerated. SUBJECTIVE: Patient reports feeling spent, fatigued. States that she already worked with PT once today, doesn't think she requires a second session. Inquires what causes our legs to get weak as we get older? Reports getting plenty of exercise when she runs errands once or sometimes twice a month. Education provided on necessity of daily activity to build or preserve strength. OBJECTIVE: Supine in bed, agreeable to therapy but not to walking too far. Clarifies that 12 feet to the door and 12 feet back is too far. ? PAIN: none reported. VITALS: monitored by nursing staff. ? BED MOBILITY/TRANSFERS? Rolling L/R: modified independent with bilateral side rails Supine-sit: modified independent with elevated HOB? Sit-supine: Min assist to raise trailing leg (left leg) into bed. Max assist of one with HOB tilted downward and verbal cues for patient to push with legs to scoot up in bed. ? Sit-stand: CGA with extra time. Patient takes multiple attempts to stand up. ? Stand-sit: CGA? Bed-Chair: CGA, assist managing O2 tubing and IV pole ? Chair-bed: CGA, assist managing O2 tubing and IV pole ? Therapeutic Exercises ([id number]): Direct one-on-one instruction in therapeutic exercises to develop strength, endurance, range of motion and flexibility. ? Exercises: * LAQ's x10 * seated marching x10 * seated heel/toe raises x10 * sit to stand x2 Ambulation ? Assistive Device: bariatric FWW? Weight bearing: full Assist: ? ? CGA, assist managing O2 tubing and IV pole ? Distance:? 5 feet, 5 feet? Deviation: posture hinged forward at hip, patient becomes noticeably short of breath. Reduced step height, reduced step length. ? Provided skilled instruction in proper exercise performance Provided skilled manual cues to facilitate proper muscle recruitment and/or form. ASSESSMENT:? Patient reports fatigue, some muscle soreness at close of treatment session. Education provided around building strength and how part of that process is fatiguing the muscles, and then allowing them to rest and repair. Patient verbalizes understanding. PLAN: Continue global strengthening, patient education per plan of care until patient is medically cleared for discharge. TREATMENT CODE/TIME: 19 minutes beginning at 14:00
--- NOTE | 2023-04-06 16:39 | CHAPLAIN ---
Lenore was sitting up in bed doing word searches when I stopped in. I introduced myself and explained my role. Lenore told me she is fine and doesn't need anything. Lenore lives at [facility] home and will be returning there. She has a legal guardian who makes medical decision with her.
--- NOTE | 2023-04-06 17:15 | PGE_ITS ---
Date of Service Date of service: 04/06/23 Time of Service: 17:23 Assessment and Plan Assessment and plan (1) Acute hypoxemic respiratory failure: Status: Acute Assessment and plan: In setting of pneumonia/pneumonitis clinically, though this was not well seen on CT. CT does show evidence of pulmonary hypertension, which the echo did not. Continue diuresis. Encourage pulmonary toilet, increase mucinex. I do not see an acapella in her room - she should have it - discussed with her nurse. Wean O2 as tolerated. PE ruled out. (2) Pancolitis: Status: Acute Assessment and plan: Change abx to ceftriaxone + flagyl. C. Diff negative. Apparently, the rest of the stool studies are still showing up as not received in the computer - I discussed this with the nurse. Continue probiotics, trial lomotil instead of loperamide. (3) UTI (urinary tract infection): Status: Acute Assessment and plan: Present on admission. Urine C&S with 2 spp of E. Coli, only 1 onf them >100,000 CFU. Pansensitive. Change abx to ceftriaxone (+ flagyl) Qualifiers: Urinary tract infection type: acute cystitis Hematuria presence: with hematuria Qualified Code(s): N30.01 - Acute cystitis with hematuria (4) Pneumonitis: Status: Suspected Assessment and plan: Final CT read is not definitive on this. Continue abx as above. Diurese. ?role for steroids. As above. (5) Hypomagnesemia: Status: Resolved Assessment and plan: Recheck in am (6) Hypokalemia: Status: Acute Assessment and plan: Repleted. Recheck level. (7) CKD (chronic kidney disease), stage III: Status: Chronic Assessment and plan: Cr at baseline. Monitor with diuresis. Qualifiers: Chronic kidney disease stage 3 subtype: stage 3b (GFR 30-44) Qualified Code(s): N18.32 - Chronic kidney disease, stage 3b (8) Pulmonary hypertension: Status: Chronic Assessment and plan: As above Echo was unable to estimate RV pressures. (9) Edema: Status: Chronic Assessment and plan: Diurese. Venous doppler w/ thrombus in the peroneal vein and 1 of the posterior tibial veins. Typically, distal LE thrombi do not require anticoagulation. Will need follow up ultrasound in a couple of days. Qualifiers: Edema type: localized Qualified Code(s): R60.0 - Localized edema (10) Essential hypertension: Status: Chronic Assessment and plan: Not written for any antihypertensives currently. Will monitor. (11) Obstructive sleep apnea: Status: Chronic Assessment and plan: Will need a sleep study as outpatient. (12) Obsessive-compulsive disorder: Status: Chronic Assessment and plan: Continue outpatient therapy. Qualifiers: Obsessive-compulsive disorder type: other Qualified Code(s): F42.8 - Other obsessive-compulsive disorder (13) DVT prophylaxis: Status: Acute Assessment and plan: SC enoxaparin (14) Discharge planning issues: Status: Acute Assessment and plan: Full code Continue PT. Continues to require hospitalization. Subjective Subjective Interval history since last seen: Ms Jonas states that she is still having a lot of diarrhea and is still queezy. She, however, does not want me to downgrade her diet. Her breathing is ok except with exertion. She is on 2L of O2. She told me about her provoked PE in the past after a surgery and how she had to be on coumadin. We discussed her ultrasound results. We spoke about how not all blood clots require anticoagulation and that she would need a follow up ultrasound. Denies dizziness, CP, abdominal pain. Would like something to help with the cough. Exam Narrative Exam Narrative: General: A pleasant obese female who is sitting up in bed, on 2 L of O2 by NH (does not use at home), appears comfortable, eating dinner. HEENT: EOMI, MMM, a large lower lip Heart: RRR, no m/r/g Lungs: Diminished breath sounds B Abdomen: soft, nontender, nondistended Extremities: trace edema BLEs, L>R. Objective Last Vital Signs Temp 37.0 C 04/06/23 15:36 Pulse 82 04/06/23 15:36 Resp 18 04/06/23 15:36 BP 113/77 04/06/23 15:36 Pulse Ox 94 04/06/23 15:36 Laboratory Results - last 24 hr 04/06/23 07:04 WBC 3.76 L RBC 4.62 Hgb 12.9 Hct 38.7 MCV 84 MCH 27.9 MCHC 33.3 RDW 13.2 Plt Count 141 MPV 10.3 Immature Gran % 0.3 Neutrophils % 39.0 Lymphocytes % 41.5 Monocytes % 18.9 Eosinophils % 0.0 Basophils % 0.3 Nucleated RBC % 0.0 Absolute Neutrophils 1.47 Absolute Lymphocytes 1.56 Absolute Monocytes 0.71 Absolute Eosinophils 0.00 Absolute Basophils 0.01 Sodium 139 Potassium 2.8 L* Chloride 99 Carbon Dioxide 30.1 Anion Gap 9.9 BUN 12 Creatinine 1.2 H Est GFR (CKD-EPI 2020) 49.00 Glucose 133 H Calcium 9.3 Magnesium 1.9 Time Spent with Patient Time Spent with Patient: 35-49 minutes Time was spent: preparing to see the patient(eg.review tests), obtaining and/or reviewing separately otained hiistory, ordering medications,tests, procedures, referring, communicating with other health behavioral health care manager, indepentently interpreting results, counseling the patient and care coordination
[2023-04-06] MEDS: cefTRIAXone 2 GM/50 ML BAG IVPB (18:03)
[2023-04-06] MEDS: metroNIDAZOLE 500 MG/100 ML BAG 100 MG IVPB (18:53)
[2023-04-06] MEDS: traZODone 50 MG TAB 100 MG PO (20:25)
[2023-04-06] MEDS: guaiFENesin 600 MG TABCR 1200 MG PO (20:25)
[2023-04-06] MEDS: QUEtiapine 50 MG TAB PO (20:26)
[2023-04-06] MEDS: Pantoprazole 40 MG TABCR PO (20:26)
[2023-04-06] MEDS: Benzonatate 200 MG CAP PO (20:26)
--- NOTE | 2023-04-06 20:33 | RESPIRATORY ---
RT seen pt. for STEPHEN diagnosis. pt. advised rt that currently, pt. does not use any CPAP machine, had one but quited 2-3 years ago due to discomfort.
[2023-04-07] VITALS (11 sets, daily range): BP systolic 107–127; BP diastolic 68–95; PULSE 70–88; RESP 2–20; TEMP 35.7–36.8; O2SAT 90–94
[2023-04-07] MEDS: Levalbuterol 1.25 MG/3 ML UPD VIAL UPD (00:46)
[2023-04-07] MEDS: metroNIDAZOLE 500 MG/100 ML BAG 100 MG IVPB ×3 (02:43→19:03)
[2023-04-07] MEDS: Levothyroxine 100 MCG TAB PO (05:12)
[2023-04-07] MEDS: Enoxaparin 40 MG/0.4 ML SYR SC (05:12)
[2023-04-07 07:09] LABS: Abs Immature Grans 0.03 10^3/uL (0.0-0.06); Absolute Basophil Count 0.01 10^3/uL (0.0-0.2); Absolute Eosinophil Count 0.01 10^3/uL (0.0-0.7); Absolute Lymphocyte Count 1.56 10^3/uL (1.2-3.4); Absolute Monocyte Count 0.45 10^3/uL (0.1-0.8); Absolute Neutrophil Count 2.52 10^3/uL (1.2-6.7); Basophils % 0.2; Eosinophils % 0.2; HCT 37.6 % (36.0-46.0); HGB 12.5 g/dL (11.2-15.7); Immature Grans % 0.7; Lymphocytes % 34.1; MCH 28.1 pg (27.0-33.0); MCHC 33.2 % (32.0-36.0); MCV 85 fL (80-95); MPV 10.7 fL (8.0-11.0); Monocytes % 9.8; Platelet Count 155 10^3/uL (130-400); RBC 4.45 10^6/uL (3.93-5.22); RDW 13.2 % (11.7-14.6); WBC 4.58 10^3/uL (4.4-10.8)
[2023-04-07 07:30] LABS: Anion Gap 8.9 mmol/L (3-11); BUN 13 mg/dL (7-18); CO2 30.1 mmol/L (21.0-32.0); Calcium 9.3 mg/dL (8.5-10.1); Chloride 100 mmol/L (98-107); Estimated GFR 60.98 (mL/min/1.73m2); Glucose 161 mg/dL (74-106); Magnesium 1.8 mg/dL (1.8-2.4); Sodium 139 mmol/L (136-145)
[2023-04-07] MEDS: Furosemide 40 MG/4 ML VIAL IVP ×2 (07:52→15:45)
[2023-04-07] MEDS: Pantoprazole 40 MG TABCR PO ×2 (07:52→21:27)
[2023-04-07] MEDS: SUMAtriptan 50 MG TAB 100 MG PO (07:55)
[2023-04-07] MEDS: Normal Saline Flush 10 ML SYR ×3 (07:55→18:11)
[2023-04-07] MEDS: Cholecalciferol (Vitamin D3) 1,000 UNIT TAB 1000 UNITS PO (09:10)
[2023-04-07] MEDS: Aspirin 81 MG CHEW PO (09:10)
[2023-04-07] MEDS: PARoxetine 10 MG TAB 30 MG PO (09:10)
[2023-04-07] MEDS: guaiFENesin 600 MG TABCR 1200 MG PO ×2 (09:11→21:27)
[2023-04-07] MEDS: Multivitamin TAB 1 TAB PO (09:11)
[2023-04-07] MEDS: Metoprolol CR 25 MG TABCR PO (09:11)
[2023-04-07] MEDS: Benzonatate 200 MG CAP PO ×3 (09:11→21:27)
[2023-04-07] MEDS: ARIPiprazole 2 MG TAB PO (09:12)
[2023-04-07] MEDS: Allopurinol 100 MG TAB PO (09:12)
[2023-04-07] MEDS: Potassium Chloride Liquid 20 MEQ PKT 40 MEQ PO (10:49)
--- NOTE | 2023-04-07 12:06 | PT.INTREAT ---
Date of service: 04/07/23 Time of Service: 11:36 PT Notes Visit Reasons: Pancolitis, UTI, Pneumonitis with hypoxemia Inpatient Physical Therapy Treatment Note [facility] Date: 04/07/23 PRECAUTIONS: Fall, standard, activity as tolerated. SUBJECTIVE: Patient reports having just gotten back from a bath, feels much better. OBJECTIVE: Patient sitting in transport chair, nasal cannula in place. Agreeable to transfer only. ? PAIN: none reported. VITALS: monitored by nursing staff. Therapeutic Activities ([id number]): Direct one-on-one instruction in dynamic activities to improve functional performance. ? BED MOBILITY/TRANSFERS? Rolling L/R: not assessed Supine-sit: not assessed ? Sit-supine: not assessed ? Sit-stand x3: CGA with extended time, verbal cues for limb placement.? Stand-sit: CGA ? Transport chair-Bedside chair: CGA, assist managing O2 tubing, verbal cues for safe task sequencing and limb placement. Patient ambulates ~8 feet from transport chair to bedside chair. Patient declines to participate in therapy further, stating that she was worn out from her shower. Agreeable to participate in therapy further this afternoon. Provided skilled cues and instruction on performance and technique throughout. ASSESSMENT:? Patient lacks motivation to participate in therapy. Further exploration needed to find additional ways to motivate patient to participate. PLAN: Continue global strengthening per plan of care until patient is medically cleared for discharge and obtains a safe discharge plan. Currently patient is only willing to ambulate <10 feet, which would make most houses inaccessible. TREATMENT CODE/TIME: 8 minutes beginning at 11:36
[2023-04-07] MEDS: Potassium Chloride Liquid 20 MEQ PKT PO ×2 (13:29→21:26)
[2023-04-07 14:32] LABS: Potassium 4.2 mmol/L (3.5-5.1)
--- NOTE | 2023-04-07 14:49 | PDOC.CMPRO ---
Date of service: 04/07/23 Time of Service: 14:49 Care Management Progress Note Progress Note Text Progress Note Text: S/O: Lenore was offered a bed at the [facility]; Rosalie of admissions reports submitting prior authorization to Lenore's insurance for review. CM notified Guardian, Sharon who was agreeable to this plan, CM will continue to follow. Home provider: Lolis: Eloina# called to inquire about discharge plan, CM will update once plan is known, CM continues to follow. A: Lenore is a 68 year old female admitted to [facility] on 04/03/23 with pancolitis, UTI, pneumonitis. P: Anticipate Lenore will return home once medically cleared to her [facility] home with her shared living provider, [id number] to SNF for ongoing short term rehab, transitioning to predatory animal exterminator care. Her caregiver will drive her home via private vehicle when ready. She will also follow up with her PCP and discharge plan of care. CM will continue to follow.
--- NOTE | 2023-04-07 15:33 | PTTR_ITS ---
PT Notes Visit Reasons: Pancolitis, UTI, Pneumonitis with hypoxemia Pt in bed when approached for therapy tis afternoon, pt refused all attempts from this therapist to get pt to participate wit session, reports she already exercised this morning and that se is not interested in doing anything else. pt nasal cannula at pt chin, with wall O2 supply at zero, reported pt refusal to participate with transplant case manager Rachel and oxygen status to nurse White. pt Sa02 at 89% at room air and at rest.
--- NOTE | 2023-04-07 15:38 | NT_ITS ---
PT Notes Visit Reasons: Pancolitis, UTI, Pneumonitis with hypoxemia Pt in bed when approached for therapy this afternoon, pt refused all attempts from this therapist to get pt to participate with session, reports she already exercised this morning and that she is not interested in doing anything else. pt nasal cannula at pt chin, with wall O2 supply at zero, reported pt refusal to participate with PT to telehealth case manager Rachel and oxygen status to nurse Christopher. pt Sa02 at 89% at room air and at rest. Pt reports she would be willing to partic ipate tomorrow morning.
[2023-04-07] MEDS: Ondansetron 4 MG/2 ML VIAL IVP (15:45)
--- NOTE | 2023-04-07 17:04 | PGE_ITS ---
Date of Service Date of service: 04/07/23 Time of Service: 17:04 Assessment and Plan Assessment and plan (1) Acute hypoxemic respiratory failure: Status: Acute Assessment and plan: multiple contributing factors including STEPHEN/OHS; doubt pnuemonitis (not supported by CT findings), +/- CHF, she apparently was edematous and in hypervolemic state on admission; hard to determine how well she is diuresing as she has no gaffney, she is incontinent, daily weights are not being recorded and d/t her obesity and difficult echo it is difficult to record her LV inflow velocities to estimate her LA pressures; will try to clinically correlate based on her exam findings; ask nursing to weigh daily and place gaffney continue diuresis, oxgyen, use of IS; I will ask RT to trial her on nocturnal CPAP (2) Obstructive sleep apnea: Status: Chronic (3) Pulmonary hypertension: Status: Suspected Assessment and plan: echo technically difficult and right heart pressures could not be estimated. (4) Pneumonitis: Status: Suspected Assessment and plan: but not supported by CT findings, suspect her hypoxemia is secondary to STEPHEN/OHS, may or may not have PHTN, (can not diagnose this based on CT findings, can only dx w/ right heart cath or echo doppler findings which were not able to be obtained on most recent echo. (5) Pancolitis: Status: Acute Assessment and plan: no recorded diarrhea documented today. (6) UTI (urinary tract infection): Status: Acute Assessment and plan: blood cultures no growth, urine positive for E coli. currently on Rocephin but can transition to oral antibiotic and dc home tomorrow. Qualifiers: Hematuria presence: with hematuria Urinary tract infection type: acute cystitis Qualified Code(s): N30.01 - Acute cystitis with hematuria (7) Hypomagnesemia: Status: Resolved Assessment and plan: corrected, on supplementation (8) Hypokalemia: Status: Acute Assessment and plan: corrected and on supplementation (9) Essential hypertension: Status: Chronic (10) Obsessive-compulsive disorder: Status: Chronic Qualifiers: Obsessive-compulsive disorder type: other Qualified Code(s): F42.8 - Other obsessive-compulsive disorder (11) DVT prophylaxis: Status: Acute Assessment and plan: SC enoxaparin (12) Discharge planning issues: Status: Acute Assessment and plan: Full code Continue PT. Continues to require hospitalization. Anticipate dc home tomorrow Objective Last Vital Signs Temp 35.7 C L 04/07/23 12:10 Pulse 88 04/07/23 12:10 Resp 20 04/07/23 12:10 BP 120/90 04/07/23 12:10 Pulse Ox 92 04/07/23 12:15 Laboratory Results - last 24 hr 04/07/23 04/07/23 06:08 14:10 WBC 4.58 RBC 4.45 Hgb 12.5 Hct 37.6 MCV 85 MCH 28.1 MCHC 33.2 RDW 13.2 Plt Count 155 MPV 10.7 Immature Gran % 0.7 Neutrophils % 55.0 Lymphocytes % 34.1 Monocytes % 9.8 Eosinophils % 0.2 Basophils % 0.2 Nucleated RBC % 0.0 Absolute Neutrophils 2.52 Absolute Lymphocytes 1.56 Absolute Monocytes 0.45 Absolute Eosinophils 0.01 Absolute Basophils 0.01 Sodium 139 Potassium 3.0 L 4.2 D Chloride 100 Carbon Dioxide 30.1 Anion Gap 8.9 BUN 13 Creatinine 1.0 Est GFR (CKD-EPI 2020) 60.98 Glucose 161 H Calcium 9.3 Magnesium 1.8 Time Spent with Patient Time Spent with Patient: 25-34 minutes Time was spent: preparing to see the patient(eg.review tests), ordering medications,tests, procedures, referring, communicating with other health health care / medical job titles, indepentently interpreting results, counseling the patient and care coordination
[2023-04-07] MEDS: cefTRIAXone 2 GM/50 ML BAG IVPB (17:39)
[2023-04-07] MEDS: Spironolactone 25 MG TAB PO (17:59)
[2023-04-07] MEDS: Normal Saline Flush 10 ML SYR IVP (21:26)
[2023-04-07] MEDS: traZODone 50 MG TAB 100 MG PO (21:26)
[2023-04-07] MEDS: QUEtiapine 50 MG TAB PO (21:27)
[2023-04-08] VITALS (7 sets, daily range): BP systolic 103–133; BP diastolic 57–79; PULSE 83–94; RESP 18–24; TEMP 36.1–37.6; O2SAT 90–97
[2023-04-08] MEDS: metroNIDAZOLE 500 MG/100 ML BAG 100 MG IVPB ×3 (03:18→18:20)
[2023-04-08] MEDS: Levothyroxine 100 MCG TAB PO (05:55)
[2023-04-08] MEDS: Enoxaparin 40 MG/0.4 ML SYR SC (05:56)
[2023-04-08 06:30] LABS: Abs Immature Grans 0.06 10^3/uL (0.0-0.06); Absolute Basophil Count 0.02 10^3/uL (0.0-0.2); Absolute Eosinophil Count 0.01 10^3/uL (0.0-0.7); Absolute Lymphocyte Count 1.63 10^3/uL (1.2-3.4); Absolute Monocyte Count 0.61 10^3/uL (0.1-0.8); Basophils % 0.3; Eosinophils % 0.2; HCT 39.2 % (36.0-46.0); HGB 12.9 g/dL (11.2-15.7); Lymphocytes % 28.4; MCH 28.1 pg (27.0-33.0); MCHC 32.9 % (32.0-36.0); MCV 85 fL (80-95); MPV 11.1 fL (8.0-11.0); Monocytes % 10.6; Neutrophils % 59.5; RBC 4.59 10^6/uL (3.93-5.22); RDW-SD 41.1 fL; WBC 5.73 10^3/uL (4.4-10.8)
[2023-04-08 06:40] LABS: Anion Gap 8.2 mmol/L (3-11); BUN 14 mg/dL (7-18); CO2 29.8 mmol/L (21.0-32.0); CREATININE 0.9 mg/dL (0.55-1.02); Calcium 9.5 mg/dL (8.5-10.1); Chloride 100 mmol/L (98-107); Glucose 136 mg/dL (74-106); Sodium 138 mmol/L (136-145)
[2023-04-08 06:51] LABS: Diff Comment Diff Reviewed; RBC Morphology Normal
[2023-04-08] MEDS: guaiFENesin 600 MG TABCR 1200 MG PO ×2 (08:37→19:38)
[2023-04-08] MEDS: Cholecalciferol (Vitamin D3) 1,000 UNIT TAB 1000 UNITS PO (08:37)
[2023-04-08] MEDS: Furosemide 40 MG/4 ML VIAL IVP (08:37)
[2023-04-08] MEDS: SUMAtriptan 50 MG TAB 100 MG PO ×2 (08:38→19:37)
[2023-04-08] MEDS: Aspirin 81 MG CHEW PO (08:38)
[2023-04-08] MEDS: Spironolactone 25 MG TAB PO ×2 (08:38→14:17)
[2023-04-08] MEDS: Pantoprazole 40 MG TABCR PO ×2 (08:38→19:38)
[2023-04-08] MEDS: Metoprolol CR 25 MG TABCR PO (08:38)
[2023-04-08] MEDS: ARIPiprazole 2 MG TAB PO (08:39)
[2023-04-08] MEDS: Multivitamin TAB 1 TAB PO (08:39)
[2023-04-08] MEDS: Calcitriol 0.25 MCG CAP PO (08:39)
[2023-04-08] MEDS: Allopurinol 100 MG TAB PO (08:39)
[2023-04-08] MEDS: Benzonatate 200 MG CAP PO ×3 (08:39→19:38)
[2023-04-08] MEDS: Potassium Chloride Liquid 20 MEQ PKT PO (08:39)
[2023-04-08] MEDS: Normal Saline Flush 10 ML SYR IVP ×2 (08:41→14:19)
--- NOTE | 2023-04-08 09:46 | CMDISCH_ITS ---
Date of service: 04/09/23 Time of Service: 12:23 LACE Index Scoring Tool Questions: Length of Stay (in days): 4 - 6 Was the patient admitted via the E.D.?: Yes Comorbidities: Liver or Renal Disease E.D. Visits: 0 Answers: Total Score: 12 Risk of Readmission: High Risk Care Management Discharge Plan Reason for Hospitalization: pancolitis, UTI, pneumonitis with hypoxemia Discharge Plan: Lenore will transfer to the [facility] today for short term rehab prior to returning home. CM informed her guardian of her discharge. She will transport via private vehicle by her caregiver, coordinated by DONELL. She will follow up with her PCP and discharge plan of care. She is happy to be going to [facility]. Patient/Family Education Needs: Review discharge instructions and limitations, discussion of self care needs including ask me three. Services Needed at Discharge: Nursing Home Facility ([facility]) and Transportation ([facility] w/c [place]) SDOH Health Related Social Needs: Health related social needs details choose not to answ er this time. Health related social needs details: choose not to answer this time.
--- NOTE | 2023-04-08 10:29 | PT.INTREAT ---
PT Notes Visit Reasons: Pancolitis, UTI, Pneumonitis with hypoxemia Date: 04/08/23 PRECAUTIONS: Fall. Standard. Activity as tolerated. SUBJECTIVE: Pt approached for therapy at 8am, 9am, and 10am with pt finally agreeing to participate, pt initially trying to avoid getting out of bed was able to motivate after multiple extensive motivating from this therapist. OBJECTIVE: ? NC @ 0.5L 02, IV line @ Left antecubital ? PAIN: BLE moderate pain VITALS: monitored by nursing. Therapeutic Activities [id number] 25mins: Direct one-on-one instruction in dynamic activities to improve functional performance. ?? BED MOBILITY/TRANSFERS? Rolling L/R: min A Supine-sit: ? min A? Sit-supine: ? ?min A ? Sit-stand: ? ? min A? Stand-sit: ??min A ? Bed-Chair:? Stand pivot transfer min A ? Chair-bed: Stand pivot transfer min a Room Commode Transfer: min A Provided skilled cues and instruction on performance and technique throughout. Gait Training [id number] 10mins: Direct one-on-one instruction and skilled instruction in: Employing an assistive device Modified weight-bearing status Movement sequencing Turning and movement with proper form Provided verbal cues for equipment management and technique Provided instruction in gait pattern Patient education regarding pacing and breathing techniques to maximize activity tolerance? GAIT? Assistive Device: ?? FWW? Weight bearing: WBAT Assist: ?Min A ? Distance:?? 15'x2 seated rest break in between distance? Deviation: ? WBOS, slow shuffling, stoop forward posture, tube management for IV and O2 support.? ASSESSMENT:?pt very resistant to participating with therapy earlier in the morning, pt questioning why she needs PT when she did not come here for it. pt eventually agreed and was able to show good effort wit accomplishing distance pre-establish by pt and therapist. PLAN: Continue with global strengthening and general conditioning for improved mobility and activity tolerance until pt is ready for DC TREATMENT CODE/TIME: [id number], [id number] 25mins ( 10:10-10:35am)
--- NOTE | 2023-04-08 12:44 | W.PM.PROGNOT ---
Date of Service Date of service: 04/08/23 Time of Service: 12:44 Assessment and Plan Assessment and plan (1) Acute hypoxemic respiratory failure: Status: Acute Assessment and plan: multiple contributing factors including STEPHEN/OHS; doubt pnuemonitis (not supported by CT findings), POCUS lungs shows diffuse bilateral B line patter, w/ only some sparing in apices bilaterally. Give her edema and her lung findings, she needs further diuresis prior to dc to SNF. [facility] a bed [facility] her but I told CM and nursing supervisor speech that we need another day of iv diuretics. I got nursing to get a weight on her today. She is 133.4 kg which is only 1 kg below her admission weight. She now has a gaffney in place since last night so we can monitor her U.O. more accurately. Per RT, patient has refused CPAP, apparently was tried on this at home and could not tolerate. I have increased her lasix to 80 mg IV q12h and given one time dose of Diuril 1000 mg and increased her spironolactone. She should also go on Jardiance and a trial of Entresto once she is euvolemic. (2) Obstructive sleep apnea: Status: Chronic (3) Pulmonary hypertension: Status: Suspected Assessment and plan: echo technically difficult and right heart pressures could not be estimated. (4) Pneumonitis: Status: Suspected Assessment and plan: but not supported by CT findings, suspect her hypoxemia is secondary to STEPHEN/OHS, may or may not have PHTN, (can not diagnose this based on CT findings, can only dx w/ right heart cath or echo doppler findings which were not able to be obtained on most recent echo. (5) Pancolitis: Status: Acute Assessment and plan: no recorded diarrhea documented today. currently on flagyl and ceftriaxone. (6) UTI (urinary tract infection): Status: Acute Assessment and plan: blood cultures no growth, urine positive for E coli. currently on Rocephin but can transition to oral antibiotic , hopefully dc to SNF in the next 24 to 48 hr. Qualifiers: Urinary tract infection type: acute cystitis Hematuria presence: with hematuria Qualified Code(s): N30.01 - Acute cystitis with hematuria (7) Hypomagnesemia: Status: Resolved Assessment and plan: corrected, on supplementation (8) Hypokalemia: Status: Acute Assessment and plan: corrected and on supplementation (9) Essential hypertension: Status: Chronic (10) Obsessive-compulsive disorder: Status: Chronic Qualifiers: Obsessive-compulsive disorder type: other Qualified Code(s): F42.8 - Other obsessive-compulsive disorder (11) DVT prophylaxis: Status: Acute Assessment and plan: SC enoxaparin (12) Discharge planning issues: Status: Acute Assessment and plan: Full code Continue PT. Continues to require hospitalization. dc to [facility] once she is euvolemic. hopefully can wean her off oxygen before discharge. Objective Last Vital Signs Temp 36.1 C L 04/08/23 07:35 Pulse 84 04/08/23 07:35 Resp 22 04/08/23 07:35 BP 133/79 04/08/23 07:35 Pulse Ox 92 04/08/23 08:28 Laboratory Results - last 24 hr 04/07/23 04/08/23 14:10 06:05 WBC 5.73 RBC 4.59 Hgb 12.9 Hct 39.2 MCV 85 MCH 28.1 MCHC 32.9 RDW Plt Count MPV 11.1 H Immature Gran % 1.0 Neutrophils % 59.5 Lymphocytes % 28.4 Monocytes % 10.6 Eosinophils % 0.2 Basophils % 0.3 Nucleated RBC % 0.0 Absolute Neutrophils 3.40 Absolute Lymphocytes 1.63 Absolute Monocytes 0.61 Absolute Eosinophils 0.01 Absolute Basophils 0.02 RBC Morphology Normal Sodium 138 Potassium 4.2 D 4.0 Chloride 100 Carbon Dioxide 29.8 Anion Gap 8.2 BUN 14 Creatinine 0.9 Est GFR (CKD-EPI 2020) 69.20 Glucose 136 H Calcium 9.5 Time Spent with Patient Time Spent with Patient: 35-49 minutes Time was spent: preparing to see the patient(eg.review tests), ordering medications,tests, procedures, referring, communicating with other health med care manager, indepentently interpreting results, counseling the patient and care coordination
--- NOTE | 2023-04-08 12:58 | W.POCUS ---
Pocus Exam Limited Thoracic Lung Exam DATE OF EXAM: 04/08/23 TIME OF EXAM: 12:22 PROVIDER THAT PERFORMED THE STUDY: Cedric Lewis IS THIS A REPEAT EXAM DURING THIS ENCOUNTER: No REASON FOR EXAM: Hypoxia and Shortness ofBreath VISUALIZED STRUCTURES: right anterior, left anterior, right lateral, left lateral, right posterior, left posterior, right subcostal and left subcostal PERTINENT FINDINGS/IMPRESSION: B-lines/left side thoracis location: lateral and posterior and B-lines/right side thoracis location: lateral and posterior; no pneumonia noted, no pleural effusion on the left and no pleural effusion on the right
[2023-04-08] MEDS: Potassium Chloride 10 MEQ CAPCR 20 MEQ PO ×2 (14:17→19:37)
[2023-04-08] MEDS: Fosfomycin Tromethamine 3 GM PACKET PO (14:17)
--- NOTE | 2023-04-08 14:52 | PT.INNT ---
Date of service: 04/08/23 Time of Service: 14:47 PT Notes Visit Reasons: Pancolitis, UTI, Pneumonitis with hypoxemia Patient refuses to work with this clinician this date because she has been up moving around with nursing. Per LAVELL Simon, patient has refused hygiene care stating that physical therapy cleaned her up and got her back into bed. DONELL Zavala and LAVELL Simon aware. Will resume therapy in the morning.
--- NOTE | 2023-04-08 16:06 | PDOC.CMPRO ---
Date of service: 04/08/23 Time of Service: 16:06 Care Management Progress Note Progress Note Text Progress Note Text: S/O: Lenore was sitting up in her chair when CM met with her. She engaged in conversation, as CM discussed her potential discharge today to [facility], where she will go to short term rehab. [facility] admissions stated that her PA was approved today. Per MD, she is not ready for discharge today, as she remains on 0.5LO2, and she will likely be weaned off supplemental O2. She will likely be ready for discharge tomorrow. CM notified [facility], who stated that her PA is good through tomorrow. CM informed her guardian of the update to her plan. CM will continue to follow. A: Lenore is a 68 year old female admitted to [facility] on 04/03/23 with pancolitis, UTI, pneumonitis. P: Anticipate Lenore will return home once medically cleared to her [facility] home with her shared living provider, [id number] SNF for ongoing short term rehab, transitioning to shelter care. Her caregiver will drive her home via private vehicle when ready. She will also follow up with her PCP and discharge plan of care. CM will continue to follow.
[2023-04-08] MEDS: Furosemide 40 MG/4 ML VIAL 80 MG IVP (16:09)
[2023-04-08] MEDS: cefTRIAXone 2 GM/50 ML BAG IVPB (17:46)
[2023-04-08] MEDS: traZODone 50 MG TAB 100 MG PO (21:04)
[2023-04-08] MEDS: QUEtiapine 50 MG TAB PO (21:04)
[2023-04-08] MEDS: PARoxetine 10 MG TAB 30 MG PO (21:04)
[2023-04-09] MEDS: metroNIDAZOLE 500 MG/100 ML BAG 100 MG IVPB ×2 (01:37→10:06)
[2023-04-09] MEDS: Enoxaparin 40 MG/0.4 ML SYR SC (05:11)
[2023-04-09] MEDS: Levothyroxine 100 MCG TAB PO (05:11)
[2023-04-09 07:36] VITALS: BP 117/77; PULSE 81; RESP 17; TEMP 36.3; O2SAT 93
[2023-04-09 07:41] LABS: Anion Gap 4.4 mmol/L (3-11); BUN 14 mg/dL (7-18); CO2 36.6 mmol/L (21.0-32.0); CREATININE 1.2 mg/dL (0.55-1.02); Chloride 97 mmol/L (98-107); Glucose 133 mg/dL (74-106); NT-proBNP 355 pg/mL (<300); Potassium 3.4 mmol/L (3.5-5.1); Sodium 138 mmol/L (136-145)
--- NOTE | 2023-04-09 08:00 | DI.RAD_ITS ---
Exam(s) XR CHEST 2V PA LATERAL EXAM: XR CHEST 2V PA LATERAL CLINICAL HISTORY: follow up CHF, hypoxemia TECHNIQUE: 2D digital imaging was performed. COMPARISON: CR,XR XR PORTABLE CHEST AP from 03/10/[address] THORAX ABD/PEL CTA from 04/03/2023 FINDINGS: Exam limited by under penetration and poor pulmonary inflation. HEART: Normal size. Aorta: Not dilated. PULMONARY VASCULATURE: Mildly prominent. LUNGS: No visible focal infiltrate. No overt pulmonary edema. PLEURAL SPACE: No pleural effusion or pneumothorax. BONE:Unremarkable for age. Soft tissues: Unremarkable. IMPRESSION: Limited exam. No acute abnormality. DATA REPOSITORY: RADIATION DOSE DELIVERED:
[2023-04-09 08:20] VITALS: O2SAT 97
[2023-04-09] MEDS: Furosemide 40 MG/4 ML VIAL 80 MG IVP (08:28)
[2023-04-09] MEDS: ARIPiprazole 2 MG TAB PO (08:29)
[2023-04-09] MEDS: Aspirin 81 MG CHEW PO (08:29)
[2023-04-09] MEDS: Spironolactone 25 MG TAB 50 MG PO (08:29)
[2023-04-09] MEDS: Pantoprazole 40 MG TABCR PO (08:29)
[2023-04-09] MEDS: guaiFENesin 600 MG TABCR 1200 MG PO (08:29)
[2023-04-09] MEDS: Potassium Chloride 10 MEQ CAPCR 20 MEQ PO (08:30)
[2023-04-09] MEDS: Multivitamin TAB 1 TAB PO (08:30)
[2023-04-09] MEDS: Allopurinol 100 MG TAB PO (08:30)
[2023-04-09] MEDS: Benzonatate 200 MG CAP PO (08:30)
[2023-04-09] MEDS: Metoprolol CR 25 MG TABCR PO (08:30)
[2023-04-09] MEDS: Cholecalciferol (Vitamin D3) 1,000 UNIT TAB 1000 UNITS PO (08:30)
[2023-04-09] MEDS: Normal Saline Flush 10 ML SYR IVP (08:31)
[2023-04-09 09:10] VITALS: O2SAT 93
[2023-04-09 09:33] VITALS: O2SAT 97
[2023-04-09 09:54] VITALS: PULSE 108; PULSE 94; PULSE 96; RESP 16; RESP 20; RESP 22; O2SAT 89; O2SAT 92; O2SAT 93
[2023-04-09 10:01] VITALS: O2SAT 92
--- NOTE | 2023-04-09 10:05 | PTTR_ITS ---
PT Notes Visit Reasons: Pancolitis, UTI, Pneumonitis with hypoxemia Date: 04/09/23 PRECAUTIONS: Fall. Standard. Activity as tolerated. SUBJECTIVE: Scheduled PT session for 929 with patient, to allow for Respiratory Therapy to monitor O2 sats during ambulation. OBJECTIVE: ? PT session performed without supplemental O2, with RT present for O2 monitoring. ? PAIN: BLE moderate pain VITALS: monitored by nursing. Therapeutic Activities [id number]: Direct one-on-one instruction in dynamic activities to improve functional performance. ?? BED MOBILITY/TRANSFERS? Sit-stand: ? ?CGA and cues? Stand-sit: ??min A. Cues for hand placement. ? Provided skilled cues and instruction on performance and technique throughout. Therapeutic Exercises ([id number]): ?Instructed in seated exercises: seated march 10x seated LAQ 10x each ankle pumps 10x each shoulder press 10x bicep curls 10x Declines standing exercises. ? Ambulation for improved activity tolerance: Assistive Device: ?? FWW? Weight bearing: WBAT Assist: ?Min A initially, CGA as she progresses? Distance:?? 10'x1, declines further ambulation Deviation: ? WBOS, slow shuffling, stoop forward posture? ASSESSMENT:?Continues to require assist for ambulation. Was more agreeable to participating in PT today to a point; encouraged participation for necessary gains in mobility. PLAN: Continue with global strengthening and general conditioning for improved mobility and activity tolerance until pt is medically ready for DC TREATMENT CODE/TIME: 35745 ([id number]) Kyung Dixon, PT, DPT [facility]
--- NOTE | 2023-04-09 12:02 | DSE_ITS ---
Date of service: 04/09/23 Time of Service: 12:03 DS: Diagnosis Discharge Diagnosis (1) Acute hypoxemic respiratory failure: Status: Acute Asessment and Plan: multifactorial including STEPHEN/OHS, and CHF from suspected diastolic heart failure and suspected pulmonary hypertension. Echocardiogram was of poor quality and therefore unable to rule out either of these diagnoses. Pulmonary HTN suspected based on her long standing hx of STEPHEN and inability to correct w/ CPAP. (2) Obstructive sleep apnea: Status: Chronic (3) Pulmonary hypertension: Status: Suspected Asessment and Plan: CTA chest demonstrated enlarge PA but echocardiogram was technically limited and did not obtain estimated right heart pressures. See below: Study Quality: Technically Limited. Technically limited study due to body habitus, inability to position patient. Conclusion A technically limited study. 1. LA appears upper limits, other chambers normal sizes. 2. Normal LV function, EF estimated at 55%. Normal RV function. 3. Valves not optimally visualized. No significant regurgitation or stenosis. Unable to estimate right heart pressures. 4. No pericardial effusion. Wall motion Left Ventricle The left ventricle is grossly normal size. Left ventricular systolic function is borderline. Unable to assess LV wall thickness. There is no ventricular septal defect visualized. LVEF is 50-52%. Right Ventricle The right ventricle is normal size. Right ventricular systolic function could not be assessed. Atria Left atrium is borderline dilated. The right atrium size is normal. The interatrial septum is intact with no evidence for an atrial septal defect. Aortic Valve Aortic valve is grossly normal in structure. The aortic valve is not well visualized. Number of aortic valve leaflets could not be assessed. There is no aortic valvular stenosis. No aortic regurgitation is present. Mitral Valve The mitral valve is normal in structure. No evidence of mitral valve stenosis. There is no mitral valve regurgitation noted. Tricuspid Valve The tricuspid valve is normal in structure. There is no tricuspid valve stenosis. Trace tricuspid regurgitation. Unable to assess PA pressure. Pulmonic Valve Pulmonic valve is not well visualized. There is no pulmonic valvular stenosis. There is no pulmonic valvular regurgitation. Great Vessels Aortic root is not well visualized. Ascending aorta is not well visualized. Aortic arch is normal in caliber. The IVC collapses <50% with inspiration. Pericardium There is no pericardial effusion. Patient was diuresed w/ iv lasix, now converted back to her oral lasix but at increased dosing along w/ spironolactone. Recommend daily weights and monitor her BMP watching her electrolytes and any sign of azotemia. May need to decrease diuretics if losing too much weight or if she complains of dizziness or has low BP. (4) Pancolitis: Status: Acute Asessment and Plan: treated w/ iv zosyn > iv rocephin and flagyl, symptoms have resolved. (5) UTI (urinary tract infection): Status: Acute Asessment and Plan: E coli (two organisms) both senstive to all antibiotics tested. Treated w/ antibiotics as above. suggest repeat UA next week. (6) Hypomagnesemia: Status: Resolved Asessment and Plan: treated w/ supplementation. check follow up labs in one week (7) Hypokalemia: Status: Acute Asessment and Plan: treated w/ oral and iv replacements. being dc on oral supplements. also on spironolactone to treat her edema and to prevent hypokalemia from her lasix. recheck BMP in one week. (8) Essential hypertension: Status: Chronic Asessment and Plan: continue her Toprol XL along w/ spironolactone and lasix. (9) Obsessive-compulsive disorder: Status: Chronic (10) Discharge planning issues: Status: Acute Asessment and Plan: discharged to [facility] for continued rehab to improve her gait/strength, ambulation and ability to perform her own ADL's. Discharge Plan Disposition Patient Disposition: [facility]) Condition: Improving Discharge Details Reason For Visit: Pancolitis, UTI, Pneumonitis with hypoxemia Admit Date/Time: 04/03/23 22:24 Admit Provider: Hadley Marie Attending Provider: Hadley Marie Primary Care Provider: Vianca Gilmore Hospital Course Hospital Course: 68-year-old female with history of obstructive sleep apnea who has been intolerant of various CPAP devices also has a history of essential hypertension, obsessive-compulsive disorder, chronic kidney disease stage III who presented with several days of diarrhea and abdominal discomfort and nausea and headaches. She also reportedly had a cough and some chills. She underwent evaluation emergency department which included CT of the chest abdomen pelvis. CT of the chest showed no pulmonary embolism she does have a dilated pulmonary artery suggestive of pulmonary hypertension. She had no lung consolidation or masses. CT was limited due to patient movement. Abdomen pelvic CT showed distended fluid-filled colon with mural enhancement suggestive of an enterocolitis. Head CT was done because of her headaches showed no acute intracranial process. Because of her bilateral leg edema venous duplex scan was performed and showed no DVT but the left leg does did have a superficial thrombus in the peroneal vein and one of the posterior tibial veins. As part of her workup for possible pulmonary hypertension echocardiogram was performed. It was a technically limited study due to body habitus and inability to position the patient. Left atrium appeared to be upper limits of normal otherwise the rest of her chambers appear to be normal size. She had normal LV function with an ejection fraction of 55% and normal RV function. Valves were not optimally visualized. There is no significant regurgitation or stenosis and therefore right heart pressures cannot be measured. Patient was treated with Zosyn and then later changed to Flagyl and ceftriaxone to treat her colitis. Blood cultures came back no growth. Urine culture was obtained and she grew 2 organisms of E. coli which were pansensitive. She completed course of treatment with ceftriaxone which she was on for 3 days and the day prior to discharge she was given a dose of fosfomycin. She was on metronidazole from April 06 through April 09. Her diarrhea resolved. Because of the congestive failure changes as exhibited by significant bilateral leg edema along with her increased oxygen requirements and elevated proBNP of 967 it was decided to put her on IV Lasix. When she did not achieve adequate diuresis she was given Diuril and spironolactone was added to her regimen. Her net intake and output was difficult to estimate as the patient was incontinent of urine. The last [address] a Gaffney catheter so we can more accurately monitor urine output. Daily weights were ordered but they were not consistently recorded. However her admission weight of 136.4 kg came down to a weight of 131.5 kg at the time of discharge. She was feeling markedly better from her dyspnea standpoint and respiratory therapy performed an exercise pulse oximetry test on the day of discharge. Her resting oxygen saturation was 93% and with exercise which only included about 15 feet of walking over 5-minute. Her lowest saturation was 89% and she quickly recovered to 92% with rest. It was noted that with slow deep breaths her oxygen level came up to 93 to 94% on room air. It is recommended that the patient remain on oxygen with any physical activity or during sleep. Patient has been followed in the sleep lab and has been tried on various masks and appliances to try to treated with CPAP she has been intolerant of anything with been tried. Therefore patient should remain on nocturnal oxygen and also supplemental oxygen with any kind of activity. Home Meds and New Rx's Prescriptions: New furosemide [Lasix] 80 mg tablet 80 mg PO BID Qty: 60 0RF spironolactone 50 mg tablet 50 mg PO DAILY Qty: 30 0RF potassium chloride 20 mEq packet 20 meq PO BID Qty: 100 0RF enoxaparin 40 mg/0.4 mL syringe 40 mg subcut DAILY 7 Days Qty: 2.8 0RF Continued levothyroxine 75 mcg tablet 100 mcg PO DAILY Rx Instructions: 1 tab PO daily pantoprazole 40 mg tablet,delayed release (DR/EC) 40 mg PO HS allopurinol 100 mg tablet 100 mg PO DAILY aripiprazole 2 mg tablet 2 mg PO DAILY albuterol sulfate 90 mcg/actuation HFA aerosol inhaler 2 puff inhalation Q6H PRN calcitriol 0.25 mcg capsule 0.25 mcg PO Q OTHER DAY loratadine 10 mg tablet 10 mg PO DAILY PRN trazodone 50 mg tablet 100 mg PO QHS quetiapine 50 mg tablet 50 mg PO DAILY paroxetine HCl 30 mg tablet 30 mg PO HS aspirin [Aspirin Low-Strength] 81 MG tablet,chewable 81 mg PO DAILY multivitamin [Daily Multiple] 1 EACH tablet 1 ea PO DAILY sumatriptan succinate [Imitrex] 100 MG tablet 100 mg PO DIRECTED PRNQty: 12 Rx Instructions: 1 tab PO q6h prn headache metoprolol succinate 25 mg tablet extended release 24 hr 25 mg PO DAILY Premarin 0.625 mg/gram cream See Rx Instructions .ROUTE .COMPLEX Qty: 60 0RF Dose Instruction: APPLY A PEA SIZED AMOUNT OF CREAM TO VAGINAL AREA NEEDED Rx Instructions: APPLY A PEA SIZED AMOUNT OF CREAM TO VAGINAL AREA NEEDED cholecalciferol (vitamin D3) [Vitamin D3] 25 mcg (1,000 unit) Tablet 1,000 unit PO DAILY Discontinued furosemide [Lasix] 20 mg tablet See Rx Instructions PO BID Rx Instructions: orally twice a day; 40 mg AM, 20 MG PM docusate sodium [DOK] 100 mg capsule 100 mg PO BID PRN Discharge Instructions Instructions: Heart Failure (DC), Sleep Apnea (DC), Infectious Colitis (GEN), Urinary Tract Infection in Older Adults (DC) Additional Instructions: Get repeat BMP and magesium labs in one week to follow up renal function and electrolytes. results to go to nurses medical assistants phlebotomists at [facility] or to patient PCP. Weigh patient daily. Patient to wear oxy mask at 5 liter per minute while asleep, and 2 lpm NC w/ any actitivy, use pulse oximeter to titrate to SPO2 >90%, patient to follow up in sleep lab regarding her STEPHEN. continue enoxaparin 40 mg SC x one week then patient should have follow up venous duplex in one week to assess the stability of her superficial left lower leg peroneal and posterior tibial vein thrombosis. Stand Alone Forms: Nursing Discharge Form Activity:: Activity as Tolerated Equipment/Supplies:: 5 liter face mask at [facility] Diet:: Low Sodium Discharge Orders Discharge Orders: Discharge Order (Routine); Ordered 04/09/23 Ordered By: Cedric Duvall Ambulatory Orders: Basic Metabolic Panel (Routine) Timeframe: 1 Week Facility: [facility] - Location: Laboratory Outpatient - [facility] Ordered By: Cedric Lewis US lower extremity venous LT (Routine) Timeframe: 1 Week Facility: [facility] - Location: DIAGNOSTIC IMAGING DEPT Ordered By: Cedric Lewis Magnesium (Routine) Timeframe: 1 Week Facility: [facility] - Location: Laboratory Outpatient - [facility] Ordered By: Cedric Lewis DS: Summary Time Spent with Patient providing and/or coordinating discharge services: Greater than 30 minutes Status at Discharge Functional status at discharge: uses cane/walker Overall status at discharge: patient is progressing back to baseline Mental Status: mental status grossly normal Speech and Movement: speech and movement normal Mood: congruent mood Affect: normal affect Quality:SDOH Health Related Social Needs: Health related social needs details choose not to answ er this time. Health related social needs details: choose not to answer this time. Exam Narrative Exam Narrative: Belle sitting up in her bed she is alert and oriented x 3 no acute distress. Lungs are clear to auscultation anteriorly posteriorly there is some diminished breath sounds at the bases no rhonchi or wheezing Heart is regular rate and rhythm no appreciable murmur rub Abdomen obese soft and nontender Lower extremities no pitting edema Psych Mental Status: mental status grossly normal Speech and Movement: speech and movement normal Mood: congruent mood Affect: normal affect DS: Data Vitals/I&O Vitals and I&O: Vital Signs Temperature 36.3 C L 04/09/23 07:36 Temperature Source Tympanic 04/09/23 07:36 Pulse 81 04/09/23 07:36 Pulse Rhythm Regular 04/09/23 08:30 Pulse 87 04/03/23 23:00 Respiratory Rate 17 04/09/23 07:36 Respiratory Effort Normal 04/09/23 08:30 Respiratory Depth Shallow 04/09/23 08:30 Respiratory Pattern Normal 04/09/23 08:30 Blood Pressure 117/77 04/09/23 07:36 Blood Pressure Mean 95 04/03/23 21:46 Blood Pressure Position Supine 04/03/23 17:53 Pulse Oximetry 92 04/09/23 10:01 Oxygen Delivery Method Room Air 04/09/23 10:01 Oxygen Flow Rate 0 04/09/23 10:01 Pain Level 0 04/09/23 07:36 Comment 88% on RA, 1L NC was necessary 04/09/23 09:10 Intake & Output 04/08/23 04/09/23 04/09/23 23:59 11:59 23:59 Intake Total 340 / 550 100 / 100 Output Total 1775 / 3225 1900 / 1900 Balance -1435 / -2675 -1800 / -1800 Weight 133.4 kg 131.5 kg Intake: IV 100 / 310 100 / 100 Oral 240 / 240 Output: Urine 1775 / 3225 1900 / 1900 Stool 0 / 0 Other: Urine Color Pale Light Sarah Urine Appearance Clear Clear Comment gaffney leaking, RN notified Voiding Methods Diaper Incontinent Data Completed and Pending Labs on day of discharge: Labs from last 24 hours 04/09/23 06:30 Sodium 138 Potassium 3.4 L Chloride 97 L Carbon Dioxide 36.6 H Anion Gap 4.4 BUN 14 Creatinine 1.2 H Est GFR (CKD-EPI 2020) 49.00 Glucose 133 H Calcium 10.0 NT-Pro-B Natriuret Pep 355 H PFSH All Active Problems (Updated 04/09/23 @ 12:25 by Cedric Lewis MD) Phlebitis of left posterior tibial vein (Acute) Diastolic heart failure (Acute) Discharge planning issues (Acute) DVT prophylaxis (Acute) Acute hypoxemic respiratory failure (Acute) Hypokalemia (Acute) UTI (urinary tract infection) (Acute) Pancolitis (Acute) Headache (Acute) Colitis (Acute) Hypoxemia (Acute) Acute pyelonephritis (Acute) Estrogen deficiency (Acute) CKD (chronic kidney disease), stage III (Chronic) Obstructive sleep apnea (Chronic) Does not use CPAP Osteoporosis (Chronic) Vitamin D deficiency (Acute) Prediabetes (Acute) Gout (Chronic) Venous stasis dermatitis (Acute) Cellulitis (Acute) PVD (peripheral vascular disease) (Chronic) Idiopathic gout, unspecified site (Acute) Edema (Chronic) Nail dystrophy (Acute) Physical deconditioning (Acute) Sleep apnea (Acute) BMI 45.0-49.9, adult (Acute) 07/2018 BMI 48 Acquired hypothyroidism (Acute 06/01/17) Chronic nonintractable headache (Acute 06/01/17) Essential hypertension (Chronic 06/01/17) Psoriasis (Acute 06/01/17) Recurrent major depressive disorder (Acute 06/01/17) Mixed incontinence (Chronic) Obesity (Chronic) Hypertension (Chronic) Panic disorder (Chronic) Obsessive-compulsive disorder (Chronic) Hypothyroidism (Chronic) Migraine (Chronic) Gait disturbance (Chronic) Depression (Chronic) Bilateral lower extremity edema (Chronic) Overactive bladder (Chronic) Wears adult diapers. Insomnia (Chronic) Chronic pruritus (Chronic) Medical History TMJ tenderness, bilateral Paronychia of great toe, left Toe pain, left Internal derangement of left knee DEPO MEDROL 08/24/2022; 09/22/21 Right leg pain Internal derangement of right knee DEPO MEDROL 08/24/2022; 09/22/21 IUD complication Tongue lesion Endometrial thickening on ultrasound PMB (postmenopausal bleeding) 2016. D&C for postmenopausal bleeding. Benign inactive endometrium. No recurrences. Functional urinary incontinence (06/01/17) Headache (06/01/17) Post-menopausal bleeding (02/01/17) D&C 03/10/17. Inactive endometrium. No episodes since. Atrophic vaginitis Urge incontinence Psoriasis Recurrent UTI External hemorrhoids Hematuria Dermatosis Surgical History Colonoscopy - MAC (07/12/17) Hx of dilation and curettage 2017 Social History Smoking/Tobacco Use Status: Never Smoking risk assessment performed?: Yes Alcohol Intake: current Alcohol Intake frequency: a few times a month Drug use: Never Substance use type: does not use Caregiver/Support person: Yes (Accompanies her to her office visits) Housing: house Number of Children: 3 current occupation: Disabled Current gender identity: female Seatbelt use: always Do you feel safe at home: Yes Do you feel safe in your relationship?: Yes Additional Social history: Unable to asses privately. Female Reproductive History Menstrual Menopause type: natural History History 5 Para 3 Hx # Term Pregnancies 3 Multiple births Hx # Pregnancies Ectopic pregnancies AB induced Hx Number of Living Children 3 AB spontaneous 2 Time Spent with Patient Time Spent with Patient: 45-69 minutes Time was spent: preparing to see the patient(eg.review tests), ordering medications,tests, procedures, referring, communicating with other health career development counselor, indepentently interpreting results, counseling the patient and care coordination
== END 2023-04-09 13:18 | disposition skilled nursing facility (03) | DRG 385 ==
LOC: ER 23:04 → MS 04-04 00:25
PROVIDERS: Internal Medicine; Admitting Provider Family Medicine; Emergency Provider Emergency Medicine Emergency Medical Services; PCP Nurse Practitioner Family; Visit Provider Family Medicine
DX: K51.00 Ulcerative (chronic) pancolitis without complications (principal); J96.01 Acute respiratory failure with hypoxia; N30.01 Acute cystitis with hematuria; I13.0 Hypertensive heart and chronic kidney disease with heart failure and stage 1 through stage 4 chronic kidney disease, or unspecified chronic kidney disease; I50.30 Unspecified diastolic (congestive) heart failure; I82.812 Embolism and thrombosis of superficial veins of left lower extremity; Z68.41 Body mass index [BMI] 40.0-44.9, adult; E83.42 Hypomagnesemia; E87.6 Hypokalemia; N18.32 Chronic kidney disease, stage 3b; R60.0 Localized edema; G47.33 Obstructive sleep apnea (adult) (pediatric); F42.8 Other obsessive-compulsive disorder; M81.0 Age-related osteoporosis without current pathological fracture; E55.9 Vitamin D deficiency, unspecified; R73.03 Prediabetes; M10.9 Gout, unspecified; I87.2 Venous insufficiency (chronic) (peripheral); I73.9 Peripheral vascular disease, unspecified; E03.9 Hypothyroidism, unspecified; L40.9 Psoriasis, unspecified; E66.9 Obesity, unspecified; F41.0 Panic disorder [episodic paroxysmal anxiety]; B96.20 Unspecified Escherichia coli [E. coli] as the cause of diseases classified elsewhere
CPT/HCPCS: 00123; 36410; 36415; 51701; 71275; 80048; 80053; 84145; 85027; 87040; 87077; 87493; 87637; 93005; 94618; 96365; 96366; 96367; 96375; 97110; 97116; 97161; 97162; 97530; 99285; J1650; 70450; 71046; 74174; 81003; 81015; 83605; 83735; 83880; 84132; 84443; 84484; 85025; 85379; 85610; 85730; 87086; 87186; 93010; 93306; 93970; 94640; 94668; 94760; 99223; 99232; 99233; 99239; J0696; J1205; J1836; J1940; J2405; J2543; J3475; J3480; J3490; J7614

== ENCOUNTER 2023-04-12 17:18 | Outpatient (REF) | payer MEDICARE, MEDICAID, SELFPAY ==
[2023-04-12 19:03] LABS: HCT 43.7 % (36.0-46.0); HGB 13.7 g/dL (11.2-15.7); MCHC 31.4 % (32.0-36.0); MCV 89 fL (80-95); MPV 9.9 fL (8.0-11.0); Platelet Count 286 10^3/uL (130-400); RBC 4.89 10^6/uL (3.93-5.22); RDW 14.1 % (11.7-14.6); RDW-SD 45.1 fL; WBC 8.13 10^3/uL (4.4-10.8)
[2023-04-12 19:21] LABS: Iron 59 ug/dL (50-170); Total Iron Binding Capacity 279 ug/dL (250-450); Transferrin Sat 21 % (15-50)
[2023-04-12 19:45] LABS: Vitamin D 25 Total 38.4 ng/mL (30-100)
[2023-04-12 19:58] LABS: ALT 40 U/L (14-59); AST 36 U/L (15-37); Albumin 3.5 g/dL (3.4-5.0); Alkaline Phosphatase 84 U/L (46-116); Anion Gap 6.7 mmol/L (3-11); BUN 18 mg/dL (7-18); Bilirubin, Total 0.6 mg/dL (0.2-1.0); CO2 33.3 mmol/L (21.0-32.0); CREATININE 1.3 mg/dL (0.55-1.02); Calcium 10.2 mg/dL (8.5-10.1); Chloride 99 mmol/L (98-107); Estimated GFR 44.51 (mL/min/1.73m2); Glucose 105 mg/dL (74-106); Magnesium 2.2 mg/dL (1.8-2.4); NT-proBNP 341 pg/mL (<300); Potassium 4.3 mmol/L (3.5-5.1); Sodium 139 mmol/L (136-145); TSH (W/Ref FT4) 5.79 uIU/mL (0.36-3.74); Total Protein 7.1 g/dL (6.4-8.2)
[2023-04-12 20:04] LABS: Hemoglobin A1C 5.7 % (<5.7)
[2023-04-12 20:59] LABS: Ferritin 141 ng/mL (8-252); Folate > 20.0 ng/mL (8.6-20.0); Vitamin B12 628 pg/mL (193-986)
[2023-04-12 21:24] LABS: FREE T4 1.37 ng/dL (0.76-1.46)
== END 2023-04-12 17:19 | disposition home or self-care (01) ==
LOC: LBN 17:18
PROVIDERS: PCP Nurse Practitioner Family; Visit Provider Nurse Practitioner Gerontology
DX: I50.30 Unspecified diastolic (congestive) heart failure (principal); R53.82 Chronic fatigue, unspecified; N18.30 Chronic kidney disease, stage 3 unspecified; E87.6 Hypokalemia; E83.42 Hypomagnesemia
CPT/HCPCS: 80053; 82306; 85027; 82607; 82728; 82746; 83036; 83540; 83550; 83735; 83880; 84439; 84443

== ENCOUNTER → 2023-04-16 01:16 | Outpatient (CLI) | payer MEDICARE, MEDICAID, SELFPAY ==
--- NOTE | 2023-04-16 08:00 | DI.US_ITS ---
Exam(s) US LOWER EXTREMITY VENOUS LT EXAM: US LOWER EXTREMITY VENOUS LT CLINICAL HISTORY: left calf venous thrombosis,I80.232,phlebitis tibial vein TECHNIQUE: Left lower extremity venous ultrasound performed using grayscale, color-flow, and spectra l Doppler analysis. COMPARISON: US US EXTREMITY VENOUS BI from 04/05/2023 FINDINGS: The left common femoral, femoral and popliteal veins demonstrate normal compressibility, augmentation , and color Doppler. There is again seen occlusive thrombus in both peroneal veins and 1 of the poste rior tibialis veins. There is also now thrombus in a deep intramuscular vein in the calf. The saphe nofemoral junction is unremarkable. There is no evidence of a Nash cyst. The soft tissues are unre markable. IMPRESSION: Persistent thrombus seen in the peroneal veins and 1 of the posterior tibialis veins. There is now v isualized thrombus and a deep intramuscular vein in the calf. DATA REPOSITORY:
== END ==
PROVIDERS: PCP Nurse Practitioner Family; Visit Provider Internal Medicine
DX: I80.232 Phlebitis and thrombophlebitis of left tibial vein (principal)
CPT/HCPCS: 93971

== ENCOUNTER 2023-05-31 17:48 | Outpatient (REF) | payer MEDICARE, MEDICAID, SELFPAY ==
[2023-05-31 19:10] LABS: TSH (W/Ref FT4) 0.27 uIU/mL (0.36-3.74)
[2023-05-31 20:03] LABS: FREE T4 1.14 ng/dL (0.76-1.46)
== END 2023-05-31 17:49 | disposition home or self-care (01) ==
LOC: LBN 17:48
PROVIDERS: Visit Provider Nurse Practitioner Gerontology
DX: E03.9 Hypothyroidism, unspecified (principal); I50.30 Unspecified diastolic (congestive) heart failure
CPT/HCPCS: 84439; 84443

== ENCOUNTER 2023-07-19 18:10 | Outpatient (REF) | payer MEDICARE, MEDICAID, SELFPAY ==
[2023-07-19 19:23] LABS: TSH (W/Ref FT4) 1.72 uIU/mL (0.36-3.74)
[2023-07-19 20:31] LABS: Vitamin D 25 Total 36.5 ng/mL (30-100)
== END 2023-07-19 18:11 | disposition home or self-care (01) ==
LOC: LBN 18:10
PROVIDERS: Visit Provider Nurse Practitioner Gerontology
DX: E03.9 Hypothyroidism, unspecified (principal); E55.9 Vitamin D deficiency, unspecified; R53.82 Chronic fatigue, unspecified; G89.4 Chronic pain syndrome
CPT/HCPCS: 82306; 84443

== ENCOUNTER → 2023-08-10 11:18 | Outpatient (BNVA) | payer MEDICARE, MEDICAID, SELFPAY | PROVIDERS: Referring Provider Podiatrist; Visit Provider Physical Therapy Assistant | DX: I73.9 Peripheral vascular disease, unspecified (principal) | CPT/HCPCS: 93922 ==

== ENCOUNTER → 2023-11-05 09:05 | Outpatient (BNVA) | payer MEDICARE, MEDICAID, SELFPAY | PROVIDERS: Visit Provider Physician Assistant | DX: M23.91 Unspecified internal derangement of right knee (principal); M23.92 Unspecified internal derangement of left knee; M25.561 Pain in right knee; M25.562 Pain in left knee | CPT/HCPCS: 20610; J1010 ==

== ENCOUNTER 2023-12-27 18:26 | Outpatient (REF) | payer MEDICARE, MEDICAID, SELFPAY ==
[2023-12-27 19:51] LABS: Abs Immature Grans 0.04 10^3/uL (0.0-0.06); Absolute Basophil Count 0.02 10^3/uL (0.0-0.2); Absolute Eosinophil Count 0.01 10^3/uL (0.0-0.7); Absolute Lymphocyte Count 1.74 10^3/uL (1.2-3.4); Absolute Monocyte Count 0.56 10^3/uL (0.1-0.8); Absolute Neutrophil Count 4.24 10^3/uL (1.2-6.7); Basophils % 0.3 %; Eosinophils % 0.2 %; HCT 42.3 % (36.0-46.0); HGB 13.7 g/dL (11.2-15.7); Immature Grans % 0.6 %; Lymphocytes % 26.3 %; MCHC 32.4 % (32.0-36.0); MCV 89 fL (80-95); MPV 9.7 fL (8.0-11.0); Monocytes % 8.5 %; Neutrophils % 64.1 %; Platelet Count 224 10^3/uL (130-400); RBC 4.73 10^6/uL (3.93-5.22); RDW 13.8 % (11.7-14.6); RDW-SD 44.8 fL; WBC 6.61 10^3/uL (4.4-10.8)
[2023-12-27 20:05] LABS: ALT 21 U/L (14-59); AST 18 U/L (15-37); Albumin 3.8 g/dL (3.4-5.0); Alkaline Phosphatase 102 U/L (46-116); Anion Gap 7.9 mmol/L (3-11); BUN 15 mg/dL (7-18); Bilirubin, Total 0.63 mg/dL (0.2-1.0); CO2 33.1 mmol/L (21.0-32.0); CREATININE 1.1 mg/dL (0.55-1.02); Calcium 10.1 mg/dL (8.5-10.1); Chloride 102 mmol/L (98-107); Estimated GFR 54.39 (mL/min/1.73m2); Glucose 160 mg/dL (74-106); Magnesium 1.9 mg/dL (1.8-2.4); Potassium 4.1 mmol/L (3.5-5.1); Sodium 143 mmol/L (136-145); Total Protein 7.1 g/dL (6.4-8.2)
== END 2023-12-27 18:27 | disposition home or self-care (01) ==
LOC: LBN 18:26
PROVIDERS: Visit Provider Nurse Practitioner Gerontology
DX: I82.409 Acute embolism and thrombosis of unspecified deep veins of unspecified lower extremity (principal)
CPT/HCPCS: 80053; 83735; 85025

== ENCOUNTER 2024-02-24 17:43 | Outpatient (REF) | payer MEDICARE, MEDICAID, SELFPAY ==
[2024-02-24 17:58] LABS: Abs Immature Grans 0.07 10^3/uL (0.0-0.06); Absolute Basophil Count 0.01 10^3/uL (0.0-0.2); Absolute Lymphocyte Count 1.63 10^3/uL (1.2-3.4); Absolute Monocyte Count 0.58 10^3/uL (0.1-0.8); Absolute Neutrophil Count 4.27 10^3/uL (1.2-6.7); Basophils % 0.2 %; HCT 41.7 % (36.0-46.0); HGB 13.5 g/dL (11.2-15.7); Immature Grans % 1.1 %; Lymphocytes % 24.8 %; MCH 28.3 pg (27.0-33.0); MCHC 32.4 % (32.0-36.0); MCV 87 fL (80-95); MPV 9.7 fL (8.0-11.0); Monocytes % 8.8 %; Neutrophils % 65.1 %; Platelet Count 233 10^3/uL (130-400); RBC 4.77 10^6/uL (3.93-5.22); RDW 13.6 % (11.7-14.6); RDW-SD 43.3 fL; WBC 6.56 10^3/uL (4.4-10.8)
[2024-02-24 18:16] LABS: Sodium, Urine 78 mmol/L
[2024-02-24 18:19] LABS: ALT 23 U/L (14-59); AST 21 U/L (15-37); Albumin 2.9 g/dL (3.4-5.0); Alkaline Phosphatase 87 U/L (46-116); Anion Gap 9.3 mmol/L (3-11); BUN 12 mg/dL (7-18); Bilirubin, Total 0.49 mg/dL (0.2-1.0); CO2 30.7 mmol/L (21.0-32.0); CREATININE 1.2 mg/dL (0.55-1.02); Calcium 8.8 mg/dL (8.5-10.1); Chloride 100 mmol/L (98-107); Glucose 143 mg/dL (74-106); Potassium 3.5 mmol/L (3.5-5.1); Sodium 140 mmol/L (136-145); TSH (W/Ref FT4) 5.56 uIU/mL (0.36-3.74); Total Protein 5.7 g/dL (6.4-8.2)
[2024-02-24 18:35] LABS: FREE T4 1.19 ng/dL (0.76-1.46)
[2024-02-25 17:49] LABS: Osmolality, Urine 296 mOsm/kg (150-1150)
[2024-03-04 01:30] LABS: Creatinine, Random Ur 50 mg/dL (16 - 326)
== END 2024-02-24 17:44 | disposition home or self-care (01) ==
LOC: LBN 17:43
PROVIDERS: Visit Provider Nurse Practitioner Gerontology
DX: E03.9 Hypothyroidism, unspecified (principal); E87.8 Other disorders of electrolyte and fluid balance, not elsewhere classified
CPT/HCPCS: 80053; 82530; 83935; 84300; 84439; 84443; 85025

== ENCOUNTER 2024-05-01 19:25 | Outpatient (REF) | payer MEDICARE, MEDICAID, SELFPAY ==
[2024-05-01 19:30] LABS: ALT 20 U/L (14-59); AST 13 U/L (15-37); Albumin 3.4 g/dL (3.4-5.0); Alkaline Phosphatase 92 U/L (46-116); Anion Gap 5.1 mmol/L (3-11); BUN 14 mg/dL (7-18); Bilirubin, Total 0.54 mg/dL (0.2-1.0); CO2 31.9 mmol/L (21.0-32.0); CREATININE 1.1 mg/dL (0.55-1.02); Calcium 9.4 mg/dL (8.5-10.1); Chloride 104 mmol/L (98-107); Estimated GFR 54.06 (mL/min/1.73m2); Glucose 177 mg/dL (74-106); NT-proBNP 369 pg/mL (<300); Potassium 4.1 mmol/L (3.5-5.1); Sodium 141 mmol/L (136-145); TSH (W/Ref FT4) 1.85 uIU/mL (0.36-3.74); Total Protein 6.3 g/dL (6.4-8.2)
== END 2024-05-01 19:26 | disposition home or self-care (01) ==
LOC: LBN 19:25
PROVIDERS: Visit Provider Nurse Practitioner Gerontology
DX: I27.20 Pulmonary hypertension, unspecified (principal)
CPT/HCPCS: 80053; 83880; 84443

== ENCOUNTER → 2024-06-01 14:19 | Outpatient (BNVA) | payer MEDICARE, MEDICAID, SELFPAY | PROVIDERS: Visit Provider Student in an Organized Health Care Education/Training Program | DX: M23.91 Unspecified internal derangement of right knee (principal); M23.92 Unspecified internal derangement of left knee | CPT/HCPCS: 20610; J1010 ==

== ENCOUNTER 2024-06-26 17:48 | Outpatient (REF) | payer MEDICARE, MEDICAID, SELFPAY ==
[2024-06-26 17:59] LABS: Abs Immature Grans 0.03 10^3/uL (0.0-0.06); Absolute Basophil Count 0.02 10^3/uL (0.0-0.2); Absolute Eosinophil Count 0.01 10^3/uL (0.0-0.7); Absolute Lymphocyte Count 2.04 10^3/uL (1.2-3.4); Absolute Monocyte Count 0.63 10^3/uL (0.1-0.8); Absolute Neutrophil Count 5.51 10^3/uL (1.2-6.7); Basophils % 0.2 %; Eosinophils % 0.1 %; HCT 45.8 % (36.0-46.0); HGB 14.4 g/dL (11.2-15.7); Immature Grans % 0.4 %; Lymphocytes % 24.8 %; MCH 28.4 pg (27.0-33.0); MCHC 31.4 % (32.0-36.0); MCV 90 fL (80-95); Monocytes % 7.6 %; Neutrophils % 66.9 %; Platelet Count 221 10^3/uL (130-400); RBC 5.07 10^6/uL (3.93-5.22); RDW 13.9 % (11.7-14.6); RDW-SD 45.3 fL; WBC 8.24 10^3/uL (4.4-10.8)
[2024-06-26 18:23] LABS: ALT 29 U/L (14-59); AST 19 U/L (15-37); Albumin 4.2 g/dL (3.4-5.0); Alkaline Phosphatase 131 U/L (46-116); Anion Gap 8.6 mmol/L (3-11); BUN 27 mg/dL (7-18); Bilirubin, Total 0.6 mg/dL (0.2-1.0); CO2 32.4 mmol/L (21.0-32.0); CREATININE 1.4 mg/dL (0.55-1.02); Calcium 10.3 mg/dL (8.5-10.1); Chloride 103 mmol/L (98-107); Estimated GFR 40.47 (mL/min/1.73m2); Glucose 149 mg/dL (74-106); Magnesium 2.2 mg/dL (1.8-2.4); Potassium 3.9 mmol/L (3.5-5.1); Sodium 144 mmol/L (136-145); TSH (W/Ref FT4) 4.03 uIU/mL (0.36-3.74); Total Protein 7.6 g/dL (6.4-8.2)
[2024-06-26 18:46] LABS: FREE T4 0.96 ng/dL (0.76-1.46)
== END 2024-06-26 17:49 | disposition home or self-care (01) ==
LOC: LBN 17:48
PROVIDERS: Visit Provider Nurse Practitioner Gerontology
DX: I50.30 Unspecified diastolic (congestive) heart failure (principal); I11.0 Hypertensive heart disease with heart failure; E87.6 Hypokalemia; E03.9 Hypothyroidism, unspecified; N18.30 Chronic kidney disease, stage 3 unspecified
CPT/HCPCS: 80053; 83735; 84439; 84443; 85025

== ENCOUNTER 2024-07-20 00:31 | Outpatient (CLI) | payer MEDICARE, MEDICAID, SELFPAY ==
--- NOTE | 2024-07-20 | DI.RAD_ITS ---
Exam(s) XR CERVICAL SPINE COMP 4-5V EXAM: XR CERVICAL SPINE COMP 4-5V CLINICAL HISTORY: Kyphosis. TECHNIQUE: 2D digital imaging was performed. Five views were performed. COMPARISON: No exams were available for comparison FINDINGS: Exam is limited by a the patient's inability to stand and kyphosis. BONES: No fracture or destructive lesion. Vertebral bodies are unremarkable. DISKS: Mild narrowing of the C5-6 and C6-7 disc spaces. Small endplate osteophytes. No visible neur al foraminal narrowing. Intervertebral disc spaces are maintained. ALIGNMENT: Cervical spinal alignment is within normal limits. The odontoid and atlantoaxial articulat ions are normal. SOFT TISSUE: Normal. The lung apices are clear. IMPRESSION: Mild degenerative changes at C5-6 and C6-7. DATA REPOSITORY: RADIATION DOSE DELIVERED:
== END 2024-07-20 00:51 ==
PROVIDERS: PCP Nurse Practitioner Gerontology; Visit Provider Nurse Practitioner Gerontology
DX: M50.122 Cervical disc disorder at C5-C6 level with radiculopathy (principal)
CPT/HCPCS: 72050

== ENCOUNTER 2024-08-08 01:36 | Outpatient (CLI) | payer MEDICARE, MEDICAID, SELFPAY ==
--- NOTE | 2024-08-08 | DI.MAMMO_ITS ---
Exam(s) MG MAMMO SCREENING 60 MIN DUR EXAM: MG MAMMO SCREENING 60 MIN DUR CLINICAL HISTORY: Screening, Preventative. TECHNIQUE: Bilateral full field digital CC and MLO mammographic images were obtained with 3D tomosyn thesis and utilizing computer aided detection (CAD). COMPARISON: Prior mammograms dating back to 2019 were reviewed. FINDINGS: No new left breast findings. Retracted right breast nipple is unchanged from prior studies dating back to 2019 In the right breast there also 3 new microcalcification groups which are located quite laterally and probably within the skin although there are no truly discernible skin moles. There are no new spiculated masses evident There is no significant architectural distortion nor skin thickening-retraction. IMPRESSION: 1. No radiographic evidence of malignancy in left breast. 2. New microcalcifications in the right breast as described above. Spot views recommended. There i s a good possibly that these are in the skin such as within skin moles but discernible moles are not obvious on these images. Therefore recommend additional right breast imaging with mole markers place d over any moles seen lateral of center in the right breast. BI-RADS Category 0 - Incomplete: Need additional imaging evaluation Breast Density - Category B - There are scattered areas of fibroglandular density. Breast density Category C or D implies that the patient has dense breast tissue. Dense breast tissue can make it harder to find cancer on a mammogram. Dense breast tissue is also associated with an incr eased risk of breast cancer. This information about the result of the mammogram report was provided to the patient to raise their awareness. Use this report when you speak with the patient about their risks for breast cancer, which includes their family history. At that time, you may recommend additional screening tests (Ultrasoun d or MRI) as these tests may add significant information. A negative radiographic report should not delay biopsy if a dominant or clinically suspicious mass is present. Up to ten percent of cancers are not identified on mammography. A negative report may reinforce clinical impression. Adenosis and dense breasts may obscure an underlying neoplasm. False positive reports average 6 to 10%. Patient will receive a letter notifying them of these results.
== END 2024-08-08 01:56 ==
PROVIDERS: PCP Nurse Practitioner Gerontology; Visit Provider Nurse Practitioner Gerontology
DX: Z12.31 Encounter for screening mammogram for malignant neoplasm of breast (principal); R92.323 Mammographic fibroglandular density, bilateral breasts
CPT/HCPCS: 77063; 77067

== ENCOUNTER 2024-08-14 18:07 | Outpatient (REF) | payer MEDICARE, MEDICAID, SELFPAY ==
[2024-08-14 18:08] LABS: Abs Immature Grans 0.02 10^3/uL (0.0-0.06); Absolute Basophil Count 0.01 10^3/uL (0.0-0.2); Absolute Eosinophil Count 0.01 10^3/uL (0.0-0.7); Absolute Lymphocyte Count 1.86 10^3/uL (1.2-3.4); Absolute Neutrophil Count 3.94 10^3/uL (1.2-6.7); Basophils % 0.2 %; Eosinophils % 0.2 %; HCT 42.4 % (36.0-46.0); HGB 13.2 g/dL (11.2-15.7); Immature Grans % 0.3 %; Lymphocytes % 28.9 %; MCHC 31.1 % (32.0-36.0); MCV 90 fL (80-95); MPV 10.2 fL (8.0-11.0); Monocytes % 9.3 %; Neutrophils % 61.1 %; Platelet Count 212 10^3/uL (130-400); RBC 4.72 10^6/uL (3.93-5.22); RDW 13.9 % (11.7-14.6); RDW-SD 45.1 fL; WBC 6.44 10^3/uL (4.4-10.8)
[2024-08-14 18:30] LABS: ALT 23 U/L (14-59); AST 18 U/L (15-37); Alkaline Phosphatase 127 U/L (46-116); BUN 24 mg/dL (7-18); Bilirubin, Total 0.6 mg/dL (0.2-1.0); CREATININE 1.2 mg/dL (0.55-1.02); Calcium 9.6 mg/dL (8.5-10.1); Chloride 101 mmol/L (98-107); Glucose 139 mg/dL (74-106); Sodium 142 mmol/L (136-145); TSH (W/Ref FT4) 5.89 uIU/mL (0.36-3.74); Total Protein 7.2 g/dL (6.4-8.2)
[2024-08-14 18:45] LABS: FREE T4 0.99 ng/dL (0.76-1.46)
== END 2024-08-14 18:08 | disposition home or self-care (01) ==
LOC: LBN 18:07
PROVIDERS: PCP Nurse Practitioner Gerontology; Visit Provider Nurse Practitioner Gerontology
DX: R53.82 Chronic fatigue, unspecified (principal); D63.1 Anemia in chronic kidney disease; E87.8 Other disorders of electrolyte and fluid balance, not elsewhere classified
CPT/HCPCS: 80053; 84439; 84443; 85025

== ENCOUNTER 2024-08-21 18:10 | Outpatient (REF) | payer MEDICARE, MEDICAID, SELFPAY ==
[2024-08-21 18:34] LABS: Abs Immature Grans 0.08 10^3/uL (0.0-0.06); Absolute Basophil Count 0.02 10^3/uL (0.0-0.2); Absolute Eosinophil Count 0.02 10^3/uL (0.0-0.7); Absolute Lymphocyte Count 2.44 10^3/uL (1.2-3.4); Absolute Monocyte Count 0.73 10^3/uL (0.1-0.8); Absolute Neutrophil Count 4.16 10^3/uL (1.2-6.7); Basophils % 0.3 %; Eosinophils % 0.3 %; HCT 40.8 % (36.0-46.0); HGB 13.1 g/dL (11.2-15.7); Immature Grans % 1.1 %; Lymphocytes % 32.8 %; MCH 28.7 pg (27.0-33.0); MCHC 32.1 % (32.0-36.0); MCV 90 fL (80-95); MPV 10.2 fL (8.0-11.0); Monocytes % 9.8 %; Neutrophils % 55.7 %; Nucleated RBC 0.3 % (0.0-0.3); Platelet Count 195 10^3/uL (130-400); RBC 4.56 10^6/uL (3.93-5.22); RDW 13.8 % (11.7-14.6); RDW-SD 44.9 fL; WBC 7.45 10^3/uL (4.4-10.8)
[2024-08-21 19:01] LABS: ALT 63 U/L (14-59); AST 15 U/L (15-37); Albumin 3.8 g/dL (3.4-5.0); Alkaline Phosphatase 126 U/L (46-116); Anion Gap 7.9 mmol/L (3-11); BUN 23 mg/dL (7-18); Bilirubin, Total 0.6 mg/dL (0.2-1.0); CO2 33.1 mmol/L (21.0-32.0); CREATININE 1.4 mg/dL (0.55-1.02); Calcium 9.1 mg/dL (8.5-10.1); Chloride 96 mmol/L (98-107); Estimated GFR 40.47 (mL/min/1.73m2); Glucose 189 mg/dL (74-106); Magnesium 1.8 mg/dL (1.8-2.4); NT-proBNP 1693 pg/mL (<300); Potassium 3.7 mmol/L (3.5-5.1); Sodium 137 mmol/L (136-145)
== END 2024-08-21 18:11 | disposition home or self-care (01) ==
LOC: LBN 18:10
PROVIDERS: PCP Nurse Practitioner Gerontology; Visit Provider Nurse Practitioner Gerontology
DX: I50.22 Chronic systolic (congestive) heart failure (principal); E87.8 Other disorders of electrolyte and fluid balance, not elsewhere classified; D63.1 Anemia in chronic kidney disease; E83.42 Hypomagnesemia
CPT/HCPCS: 80053; 83735; 83880; 85025

== ENCOUNTER 2024-08-28 18:19 | Outpatient (REF) | payer MEDICARE, MEDICAID, SELFPAY ==
[2024-08-28 21:09] LABS: Iron 47 ug/dL (50-170); Total Iron Binding Capacity 358 ug/dL (250-450); Transferrin Sat 13 % (15-50)
[2024-08-28 21:17] LABS: Anion Gap 11.1 mmol/L (3-11); BUN 19 mg/dL (7-18); CO2 28.9 mmol/L (21.0-32.0); CREATININE 1.3 mg/dL (0.55-1.02); Calcium 9.5 mg/dL (8.5-10.1); Chloride 100 mmol/L (98-107); Estimated GFR 44.24 (mL/min/1.73m2); Glucose 235 mg/dL (74-106); NT-proBNP 377 pg/mL (<300); Potassium 3.8 mmol/L (3.5-5.1); Sodium 140 mmol/L (136-145)
[2024-08-28 21:42] LABS: Ferritin 49 ng/mL (8-252)
== END 2024-08-28 18:20 | disposition home or self-care (01) ==
LOC: LBN 18:19
PROVIDERS: PCP Nurse Practitioner Gerontology; Visit Provider Nurse Practitioner Gerontology
DX: E61.1 Iron deficiency (principal); I50.22 Chronic systolic (congestive) heart failure
CPT/HCPCS: 80048; 82728; 83540; 83550; 83880

== ENCOUNTER 2024-09-01 00:41 | Outpatient (CLI) | payer MEDICARE, MEDICAID, SELFPAY ==
--- NOTE | 2024-09-01 | DI.US_ITS ---
Exam(s) US BREAST RT LIMITED EXAM: US BREAST RT LIMITED CLINICAL HISTORY: RT breast calcifications TECHNIQUE: Ultrasound right breast performed using standard protocol. COMPARISON: MG MG mammo screening from 08/17/2018 MG MG MAMMO SCREENING from 10/05/2019 MG MG MAMMO SCREENING 60 MIN DUR from 12/09/2020 MG MG MAMMO SCREENING 60 MIN DUR from 01/13/2022 MG MG MAMMO DIAGNOSTIC UNI from 08/04/[address] THORAX ABD/PEL CTA from 04/03/2023 MG MG MAMMO SCREENING 60 MIN DUR from 08/08/2024 FINDINGS: Spot magnification views were recommended on the recent exam of 08 Aug 2024 for new calcifications. The patient was unable to be positioned for the magnification views today. No solid or cystic masses, hypoechoic foci, areas of abnormal shadowing, or areas of skin thickening. IMPRESSION: The patient was unable to be positioned within the mammography unit for magnification views of calcifications. No sonographically suspicious finding. BI-RADS Category 4 - Suspicious Abnormality: Biopsy should be considered Findings were discussed with Amy Gates referring provider. DATA REPOSITORY:
== END 2024-09-01 01:01 ==
LOC: DI 00:43
PROVIDERS: PCP Nurse Practitioner Gerontology; Visit Provider Nurse Practitioner Gerontology
DX: R92.8 Other abnormal and inconclusive findings on diagnostic imaging of breast (principal)
CPT/HCPCS: 76642

== ENCOUNTER → 2024-09-08 10:41 | Outpatient (BNVA) | payer MEDICARE, MEDICAID, SELFPAY | PROVIDERS: PCP Nurse Practitioner Gerontology; Referring Provider Nurse Practitioner Gerontology; Visit Provider Physician Assistant | DX: M17.0 Bilateral primary osteoarthritis of knee (principal); M23.91 Unspecified internal derangement of right knee; M23.92 Unspecified internal derangement of left knee | CPT/HCPCS: 20610; J1010 ==

== ENCOUNTER 2024-11-21 15:18 | Outpatient (REF) | payer MEDICARE, MEDICAID, SELFPAY ==
[2024-11-21 14:53] LABS: Abs Immature Grans 0.07 10^3/uL (0.0-0.06); HCT 45.5 % (36.0-46.0); HGB 14.0 g/dL (11.2-15.7); Immature Grans % 0.7 %; MCH 28.5 pg (27.0-33.0); MCHC 30.8 % (32.0-36.0); MCV 93 fL (80-95); MPV 11.1 fL (8.0-11.0); Platelet Count 210 10^3/uL (130-400); RBC 4.92 10^6/uL (3.93-5.22); RDW 14.6 % (11.7-14.6); RDW-SD 48.9 fL; WBC 9.50 10^3/uL (4.4-10.8)
[2024-11-21 15:15] LABS: ALT 20 U/L (14-59); AST 13 U/L (15-37); Albumin 4.0 g/dL (3.4-5.0); Alkaline Phosphatase 172 U/L (46-116); Anion Gap 12.5 mmol/L (3-11); BUN 37 mg/dL (7-18); Bilirubin, Total 1.0 mg/dL (0.2-1.0); CO2 27.5 mmol/L (21.0-32.0); Calcium 9.7 mg/dL (8.5-10.1); Chloride 79 mmol/L (98-107); Estimated GFR 21.20 (mL/min/1.73m2); NT-proBNP 597 pg/mL (<300); TSH (W/Ref FT4) 0.94 uIU/mL (0.36-3.74); Total Protein 7.5 g/dL (6.4-8.2); Uric Acid 8.2 mg/dL (2.6-6.0)
[2024-11-21 15:20] LABS: Glucose 1284 mg/dL (74-106)
[2024-11-21 15:21] LABS: Potassium 6.4 mmol/L (3.5-5.1); Sodium 119 mmol/L (136-145)
== END 2024-11-21 15:19 | disposition home or self-care (01) ==
LOC: LBN 15:18
PROVIDERS: PCP Nurse Practitioner Gerontology; Visit Provider Nurse Practitioner Gerontology
DX: R53.82 Chronic fatigue, unspecified (principal); I50.22 Chronic systolic (congestive) heart failure; E87.8 Other disorders of electrolyte and fluid balance, not elsewhere classified
CPT/HCPCS: 80053; 83880; 84443; 84550; 85025

== ENCOUNTER 2024-11-21 16:27 | Inpatient (IN) | payer MEDICARE, MEDICAID, SELFPAY ==
[2024-11-21] VITALS (62 sets, daily range): BP systolic 98–131; BP diastolic 41–84; PULSE 69–85; RESP 9–33; TEMP 36.7–37.1; O2SAT 86–97
--- NOTE | 2024-11-21 16:15 | DI.RAD_ITS ---
Exam(s) XR PORTABLE CHEST AP EXAM: XR PORTABLE CHEST AP CLINICAL HISTORY: weakness TECHNIQUE: 2D digital imaging was performed. COMPARISON: CR XR CHEST 2V PA LATERAL from 04/09/2023 FINDINGS: Exam is limited by rotation, semi upright positioning and poor pulmonary inflation. Overlying monitoring leads. LUNGS: Grossly clear where visualized.. No pleural abnormality seen. HEART: Grossly normal size. AORTA: Normal diameter. BONES: Unremarkable for age. Soft tissues: Unremarkable. IMPRESSION: No acute findings. DATA REPOSITORY: RADIATION DOSE DELIVERED:
--- NOTE | 2024-11-21 16:15 | RT.EKG_ITS ---
APPROVED REPORT Exam: Resting ECG Reason for Exam: hyperkalemia Patient Location: E HR:72 bpm ECG Measurements Heart Rate 72 AXIS ID 143 P 4 QRSd 98 QRS 51 QT 423 T 50 QTc 465 Conclusion Sinus rhythm...normal P axis, V-rate 60- 99 Normal Harmony/Interval Normal ST/T wave morphorlogy compared to 04/03/2023
[2024-11-21] MEDS: Normal Saline 1,000 ML 1000 ML IV (16:55)
[2024-11-21 16:59] LABS: BE (Venous) 5 mmol/L (-2-3); HCO3 (Venous) 30 mmol/L (23-28); O2 Sat (Venous) 86 %; TCO2 (Venous) 26 mmol/L (24-29); pCO2 (Venous) 49 mmHg (41-51); pO2 (Venous) 52 mmHg
[2024-11-21 17:06] LABS: Abs Immature Grans 0.04 10^3/uL (0.0-0.06); HCT 44.2 % (36.0-46.0); HGB 14.3 g/dL (11.2-15.7); Immature Grans % 0.5 %; MCH 28.8 pg (27.0-33.0); MCHC 32.4 % (32.0-36.0); MPV 10.7 fL (8.0-11.0); Platelet Count 220 10^3/uL (130-400); RBC 4.97 10^6/uL (3.93-5.22); RDW 14.2 % (11.7-14.6); RDW-SD 45.3 fL; WBC 7.58 10^3/uL (4.4-10.8)
[2024-11-21 17:07] LABS: Lab Add On Test DONE
[2024-11-21 17:13] LABS: MCV 89 fL (80-95)
[2024-11-21 17:15] LABS: Magnesium 3.1 mg/dL (1.8-2.4)
[2024-11-21 17:21] LABS: ALT 18 U/L (14-59); AST 12 U/L (15-37); Albumin 4.0 g/dL (3.4-5.0); Alkaline Phosphatase 170 U/L (46-116); Bilirubin, Direct 0.3 mg/dL (0.0-0.2); Bilirubin, Total 0.9 mg/dL (0.2-1.0); Total Protein 7.8 g/dL (6.4-8.2)
[2024-11-21 17:32] LABS: NT-proBNP 745 pg/mL (<300)
[2024-11-21 17:34] LABS: TSH (W/Ref FT4) 0.69 uIU/mL (0.36-3.74); Troponin I 14 ng/L (<or=51)
[2024-11-21 17:39] LABS: Lab Add On Test DONE
[2024-11-21 17:48] LABS: Anion Gap 11.7 mmol/L (3-11); BUN 42 mg/dL (7-18); CO2 30.3 mmol/L (21.0-32.0); Calcium 9.7 mg/dL (8.5-10.1); Chloride 85 mmol/L (98-107); Estimated GFR 24.88 (mL/min/1.73m2); Potassium 5.1 mmol/L (3.5-5.1); Sodium 127 mmol/L (136-145)
[2024-11-21 18:03] LABS: Glucose 1195 mg/dL (74-106)
--- NOTE | 2024-11-21 18:24 | W.ED.GENAD ---
Discharge Plan Discharge Details Chief Complaint: Diabetes Admit Date/Time: 11/21/24 18:57 Admit Provider: Roberto Cade Attending Provider: Roberto Cade Primary Care Provider: Allie Gates ED Provider: Cris Waite Discharge Data Discharge Date/Time-TO BE ENTERED AT DEPARTURE: 11/21/24 20:19 HPI General Date/Time Provider Initiated Documentation: 11/21/24 16:44. HPI Narrative: This 69-year-old female presents with past medical history significant for atherosclerosis hypertension hypokalemia colitis CKD hypothyroidism prediabetes with report of increased thirst over the past week and a blood sugar of 1100 on today's labs with an elevated potassium of 6.7. Patient was tired today but otherwise has been alert and at her baseline per the [facility]. Patient states she is quite thirsty but denies any additional complaints at this time. She denies any falls or injuries or upper respiratory symptoms. Related Data Home Medications ?Medication ?Instructions ?Recorded ?Confirmed multivitamin (Daily Multiple 1 ea PO DAILY 02/01/17 11/21/24 tablet) Held on 11/21/24. Instructions: Pt Stopped/Never Started sumatriptan succinate 100 mg 100 mg PO DIRECTED PRN #12 tabs 03/18/17 11/21/24 tablet (Imitrex) Held on 11/21/24. Instructions: Prescription Finished levothyroxine 75 mcg tablet 100 mcg PO DAILY 08/28/19 11/21/24 cholecalciferol (vitamin D3) 25 2,000 unit PO DAILY 05/29/20 11/21/24 mcg (1,000 unit) tablet (Vitamin D3) quetiapine 50 mg tablet 25 mg PO QHS 07/07/22 11/21/24 trazodone 50 mg tablet 100 mg PO QHS 07/07/22 11/21/24 potassium chloride 20 mEq oral 20 meq PO BID #100 ea 04/09/23 11/21/24 packet apixaban 2.5 mg tablet (Eliquis) 2.5 mg PO BID 11/02/23 11/21/24 acetaminophen 500 mg capsule 1,000 mg PO TID 11/05/23 11/21/24 aripiprazole 2 mg tablet 2 mg PO DAILY 03/10/24 11/21/24 cetirizine 10 mg tablet 10 mg PO DAILY PRN 03/10/24 11/21/24 Held on 11/21/24. Instructions: Pt Stopped/Never Started duloxetine 60 mg capsule,delayed 60 mg PO DAILY 03/10/24 11/21/24 release allopurinol 100 mg tablet 100 mg PO DAILY 05/22/24 11/21/24 aspirin 81 mg tablet,delayed 81 mg PO DAILY 05/22/24 11/21/24 release (Adult Aspirin Regimen) loperamide 2 mg tablet 2 mg PO Q6H PRN 05/22/24 11/21/24 loratadine 10 mg tablet 10 mg PO DAILY 05/22/24 11/21/24 magnesium glycinate mg PO 05/22/24 10/06/24 Held on 11/21/24. Instructions: Pt Stopped/Never Started pantoprazole 40 mg tablet,delayed 40 mg PO DAILY 05/22/24 11/21/24 release guaifenesin 100 mg/5 mL oral liquid 200 mg PO Q4H PRN 06/16/24 11/21/24 Held on 11/21/24. Instructions: Pt Stopped/Never Started ondansetron 4 mg disintegrating 4 mg PO Q8H 06/16/24 11/21/24 tablet Held on 11/21/24. Instructions: Pt Stopped/Never Started tizanidine 4 mg capsule 4 mg PO BID PRN 06/16/24 11/21/24 ferrous sulfate 325 mg (65 mg 325 mg PO DAILY 09/08/24 11/21/24 iron) tablet metoprolol succinate 50 mg 50 mg PO DAILY 09/08/24 11/21/24 tablet,extended release 24 hr topiramate 25 mg tablet 25 mg PO BID 09/08/24 11/21/24 torsemide 20 mg tablet 80 mg PO BID 09/08/24 11/21/24 albuterol sulfate 90 mcg/actuation 2 puff inhalation QID 10/06/24 11/21/24 aerosol inhaler (Ventolin HFA) calcitriol 0.25 mcg capsule 0.25 mcg PO Q OTHER DAY 11/21/24 11/21/24 fluticasone propionate 50 1 spray intranasal DAILY 11/21/24 11/21/24 mcg/actuation nasal spray,suspension (24 Hour Allergy Relief) loratadine 10 mg capsule (Allergy 10 mg PO DAILY 11/21/24 11/21/24 Relief (loratadine)) sennosides 8.6 mg-docusate sodium 1 tab-cap PO BID 11/21/24 11/21/24 50 mg tablet (Laxative Stool Softener With Senna) spironolactone 50 mg tablet 50 mg PO BID 11/21/24 11/21/24 Previous Rx's ?Medication ?Instructions ?Recorded potassium chloride 20 mEq oral 20 meq PO BID #100 ea 04/09/23 packet Allergies Allergy/AdvReac Type Severity Reaction Status Date / Time sulfamethoxazole (From Allergy Intermediate rash Verified 11/21/24 17:00 Sulfamethoxazole-Trimethoprim) trimethoprim (From Allergy Intermediate rash Verified 11/21/24 17:00 Sulfamethoxazole-Trimethoprim) perphenazine (From Trilafon) AdvReac Severe Other (See Verified 11/21/24 17:00 Comment) General YUKI: 2 Exam Narrative Exam Narrative: 69-year-old female presenting in no acute distress alert, oriented, 2+ edema to bilateral lower extremities lungs clear to auscultation cardiac rate rhythm regular no abdominal tenderness oropharynx with dry mucous membranes answering questions appropriately Course Vital Signs Vital signs: Vital Signs Pulse 76 11/21/24 16:31 Pulse Oximetry 89 L 11/21/24 16:31 Pulse 69 11/21/24 18:01 Pulse 71 11/21/24 18:20 Respiratory Rate 27 H 11/21/24 18:20 Blood Pressure 126/56 L 11/21/24 18:01 Blood Pressure Mean 79 11/21/24 18:01 Pulse Oximetry 93 11/21/24 18:01 Respiratory End-tidal CO2 12 11/21/24 18:20 Lab/Test Results Lab/Test Results: 11/21/24 18:14 Blood Blood Culture - Pending 11/21/24 16:51 Blood Blood Culture - Pending Laboratory Tests Range/Units 11/21/24 11/21/24 11/21/24 16:19 16:51 16:51 WBC (4.4-10.8) 10^3/uL 7.58 RBC (3.93-5.22) 10^6/uL 4.97 Hgb (11.2-15.7) g/dL 14.3 Hct (36.0-46.0) % 44.2 MCV (80-95) fL 89 D MCH (27.0-33.0) pg 28.8 MCHC (32.0-36.0) % 32.4 RDW (11.7-14.6) % 14.2 Plt Count (130-400) 10^3/uL 220 MPV (8.0-11.0) fL 10.7 Immature Gran % % 0.5 Neutrophils % % 79.7 Lymphocytes % % 12.8 Monocytes % % 6.9 Eosinophils % % 0.0 Basophils % % 0.1 Nucleated RBC % (0.0-0.3) % 0.0 Absolute Neutrophils (1.2-6.7) 10^3/uL 6.04 Absolute Lymphocytes (1.2-3.4) 10^3/uL 0.97 L Absolute Monocytes (0.1-0.8) 10^3/uL 0.52 Absolute Eosinophils (0.0-0.7) 10^3/uL 0.00 Absolute Basophils (0.0-0.2) 10^3/uL 0.01 VBG pH (7.31-7.41) 7.39 VBG pCO2 (41-51) mmHg 49 VBG pO2 mmHg 52 VBG HCO3 (23-28) mmol/L 30 H VBG Total CO2 (24-29) mmol/L 26 VBG O2 Saturation % 86 VBG Base Excess (-2-3) mmol/L 5 H VBG Lactate (<or=2.0) mmol/L 2.5 H* Sodium Cancelled Cancelled 127 L Potassium Cancelled Cancelled Chloride Cancelled Carbon Dioxide Cancelled Anion Gap Cancelled BUN Cancelled Creatinine Cancelled Est GFR (CKD-EPI 2020) Cancelled Glucose Cancelled Calcium Cancelled Magnesium (1.8-2.4) mg/dL Total Bilirubin Cancelled Conjugated Bilirubin (0.0-0.2) mg/dL AST Cancelled ALT Cancelled Alkaline Phosphatase Cancelled Troponin I (<or=51) ng/L NT-Pro-B Natriuret Pep (<300) pg/mL Total Protein Cancelled Albumin Cancelled TSH (0.36-3.74) uIU/mL Add-On Test Request Range/Units 11/21/24 11/21/24 11/21/24 16:51 16:51 16:51 WBC (4.4-10.8) 10^3/uL RBC (3.93-5.22) 10^6/uL Hgb (11.2-15.7) g/dL Hct (36.0-46.0) % MCV (80-95) fL MCH (27.0-33.0) pg MCHC (32.0-36.0) % RDW (11.7-14.6) % Plt Count (130-400) 10^3/uL MPV (8.0-11.0) fL Immature Gran % % Neutrophils % % Lymphocytes % % Monocytes % % Eosinophils % % Basophils % % Nucleated RBC % (0.0-0.3) % Absolute Neutrophils (1.2-6.7) 10^3/uL Absolute Lymphocytes (1.2-3.4) 10^3/uL Absolute Monocytes (0.1-0.8) 10^3/uL Absolute Eosinophils (0.0-0.7) 10^3/uL Absolute Basophils (0.0-0.2) 10^3/uL VBG pH (7.31-7.41) VBG pCO2 (41-51) mmHg VBG pO2 mmHg VBG HCO3 (23-28) mmol/L VBG Total CO2 (24-29) mmol/L VBG O2 Saturation % VBG Base Excess (-2-3) mmol/L VBG Lactate (<or=2.0) mmol/L Sodium Potassium 5.1 D Chloride Cancelled 85 L Carbon Dioxide Cancelled 30.3 Anion Gap Cancelled BUN Creatinine Est GFR (CKD-EPI 2020) Glucose Calcium Magnesium (1.8-2.4) mg/dL Total Bilirubin Conjugated Bilirubin (0.0-0.2) mg/dL AST ALT Alkaline Phosphatase Troponin I (<or=51) ng/L NT-Pro-B Natriuret Pep (<300) pg/mL Total Protein Albumin TSH (0.36-3.74) uIU/mL Add-On Test Request Range/Units 11/21/24 11/21/24 11/21/24 16:51 16:51 16:51 WBC (4.4-10.8) 10^3/uL RBC (3.93-5.22) 10^6/uL Hgb (11.2-15.7) g/dL Hct (36.0-46.0) % MCV (80-95) fL MCH (27.0-33.0) pg MCHC (32.0-36.0) % RDW (11.7-14.6) % Plt Count (130-400) 10^3/uL MPV (8.0-11.0) fL Immature Gran % % Neutrophils % % Lymphocytes % % Monocytes % % Eosinophils % % Basophils % % Nucleated RBC % (0.0-0.3) % Absolute Neutrophils (1.2-6.7) 10^3/uL Absolute Lymphocytes (1.2-3.4) 10^3/uL Absolute Monocytes (0.1-0.8) 10^3/uL Absolute Eosinophils (0.0-0.7) 10^3/uL Absolute Basophils (0.0-0.2) 10^3/uL VBG pH (7.31-7.41) VBG pCO2 (41-51) mmHg VBG pO2 mmHg VBG HCO3 (23-28) mmol/L VBG Total CO2 (24-29) mmol/L VBG O2 Saturation % VBG Base Excess (-2-3) mmol/L VBG Lactate (<or=2.0) mmol/L Sodium Potassium Chloride Carbon Dioxide Anion Gap 11.7 H BUN Cancelled 42 H Creatinine Cancelled 2.1 H Est GFR (CKD-EPI 2020) Cancelled Glucose Calcium Magnesium (1.8-2.4) mg/dL Total Bilirubin Conjugated Bilirubin (0.0-0.2) mg/dL AST ALT Alkaline Phosphatase Troponin I (<or=51) ng/L NT-Pro-B Natriuret Pep (<300) pg/mL Total Protein Albumin TSH (0.36-3.74) uIU/mL Add-On Test Request Range/Units 11/21/24 11/21/24 11/21/24 16:51 16:51 16:51 WBC (4.4-10.8) 10^3/uL RBC (3.93-5.22) 10^6/uL Hgb (11.2-15.7) g/dL Hct (36.0-46.0) % MCV (80-95) fL MCH (27.0-33.0) pg MCHC (32.0-36.0) % RDW (11.7-14.6) % Plt Count (130-400) 10^3/uL MPV (8.0-11.0) fL Immature Gran % % Neutrophils % % Lymphocytes % % Monocytes % % Eosinophils % % Basophils % % Nucleated RBC % (0.0-0.3) % Absolute Neutrophils (1.2-6.7) 10^3/uL Absolute Lymphocytes (1.2-3.4) 10^3/uL Absolute Monocytes (0.1-0.8) 10^3/uL Absolute Eosinophils (0.0-0.7) 10^3/uL Absolute Basophils (0.0-0.2) 10^3/uL VBG pH (7.31-7.41) VBG pCO2 (41-51) mmHg VBG pO2 mmHg VBG HCO3 (23-28) mmol/L VBG Total CO2 (24-29) mmol/L VBG O2 Saturation % VBG Base Excess (-2-3) mmol/L VBG Lactate (<or=2.0) mmol/L Sodium Potassium Chloride Carbon Dioxide Anion Gap BUN Creatinine Est GFR (CKD-EPI 2020) 24.88 Glucose Cancelled 1195 H* Calcium Cancelled 9.7 Magnesium (1.8-2.4) mg/dL 3.1 H Total Bilirubin 0.9 Conjugated Bilirubin (0.0-0.2) mg/dL 0.3 H AST 12 L ALT 18 Alkaline Phosphatase 170 H Troponin I (<or=51) ng/L 14 NT-Pro-B Natriuret Pep (<300) pg/mL Total Protein 7.8 Albumin 4.0 TSH (0.36-3.74) uIU/mL 0.69 Add-On Test Request DONE Range/Units 11/21/24 16:52 WBC (4.4-10.8) 10^3/uL RBC (3.93-5.22) 10^6/uL Hgb (11.2-15.7) g/dL Hct (36.0-46.0) % MCV (80-95) fL MCH (27.0-33.0) pg MCHC (32.0-36.0) % RDW (11.7-14.6) % Plt Count (130-400) 10^3/uL MPV (8.0-11.0) fL Immature Gran % % Neutrophils % % Lymphocytes % % Monocytes % % Eosinophils % % Basophils % % Nucleated RBC % (0.0-0.3) % Absolute Neutrophils (1.2-6.7) 10^3/uL Absolute Lymphocytes (1.2-3.4) 10^3/uL Absolute Monocytes (0.1-0.8) 10^3/uL Absolute Eosinophils (0.0-0.7) 10^3/uL Absolute Basophils (0.0-0.2) 10^3/uL VBG pH (7.31-7.41) VBG pCO2 (41-51) mmHg VBG pO2 mmHg VBG HCO3 (23-28) mmol/L VBG Total CO2 (24-29) mmol/L VBG O2 Saturation % VBG Base Excess (-2-3) mmol/L VBG Lactate (<or=2.0) mmol/L Sodium Potassium Chloride Carbon Dioxide Anion Gap BUN Creatinine Est GFR (CKD-EPI 2020) Glucose Calcium Magnesium (1.8-2.4) mg/dL Total Bilirubin Conjugated Bilirubin (0.0-0.2) mg/dL AST ALT Alkaline Phosphatase Troponin I (<or=51) ng/L NT-Pro-B Natriuret Pep (<300) pg/mL 745 H Total Protein Albumin TSH (0.36-3.74) uIU/mL Add-On Test Request DONE Medical Decision Making Results, assessment, plan, chest x-ray per radiology interpretation my review without acute abnormality pseudohyponatremia of 127 likely secondary to hyper per glycemia at 1195, creatinine 2.1 baseline per patient BUN is elevated at 42, chloride of 85 no leukocytosis lactate 2.5 likely secondary to dehydration will continue to hydrate and recheck, no evidence of obvious infectious cause of symptoms on today's exam so I do suspect there is dehydration and given patient's history of CHF and pulmonary hypertension I will use caution with fluid resuscitation. She will receive 500 cc an hour insulin of 1 L an hour and will monitor closely for volume overload status. Patient has been producing urine we will monitor intake and output. Will initiate insulin drip at 0.05 units/kg/h, will give 500 cc over the course of an hour x 3 will continue to monitor intake and output, negative troponin. Case discussed with Dr. Cade, patient will require admission to this facility for continued hydration secondary to WILLIE. Patient may be [facility], however unable to check urine osmolality at this facility. Low suspicion clinically for diabetic ketoacidosis given normal CO2 and gap ketones in urine likely consistent with dehydration lactic acidosis likely secondary to dehydration will recheck. No clinical findings suspicious for infectious cause of patient's presentation. Hyperkalemia that initially presented actually improved dramatically potassium at time of my assessment was 5.1, will continue to monitor will not start potassium with infusion of fluids at this time. Of note, patient is on both spironolactone and potassium which will likely need to be held. I spoke with Gracie, public guardian for [place] and she does state that patient is full CODE STATUS at this time. Critical care time 45 minutes critical care time secondary to glycemic possibly HHS requiring insulin drip telemetry monitoring IV fluid resuscitation and admission to the intensive care unit, WILLIE, diagnostic and imaging and lab interpretation and review EKG, normal sinus rhythm no dysrhythmia no ST elevation SD Quality:SDOH Health Related Social Needs: Health related social needs details choose not to answer this time. PFSH All Active Problems (Updated 11/21/24 @ 20:33 by Roberto Cade MD) Paroxysmal A-fib (Acute) Cognitive impairment (Acute) Pseudohyponatremia (Acute) Acute kidney injury superimposed on CKD (Acute) Hyperkalemia (Acute) Type 2 diabetes mellitus with hyperosmolar hyperglycemic state (HHS) (Acute) Hyperosmolar hyperglycemic state (HHS) (Acute) Chronic daily headache (Acute) Migraine (Chronic) TMJ dysfunction (Acute) Referred otalgia (Acute) Cerumen impaction (Acute) Internal derangement of right knee (Acute) DEPO MEDROL: 09/08/24; 11/05/2023; 03/22/2023; 08/24/2022; 09/22/21 Internal derangement of left knee (Acute) DEPO MEDROL 09/08/24; 06/01/24; 11/05/2023; 03/22/2023; 08/24/2022; 09/22/21 Atherosclerosis of artery of both lower extremities (Acute) Phlebitis of left posterior tibial vein (Acute) Diastolic heart failure (Acute) Discharge planning issues (Acute) DVT prophylaxis (Acute) Acute hypoxemic respiratory failure (Acute) Hypokalemia (Acute) UTI (urinary tract infection) (Acute) Pancolitis (Acute) Headache (Acute) Colitis (Acute) Hypoxemia (Acute) Acute pyelonephritis (Acute) Estrogen deficiency (Acute) CKD (chronic kidney disease), stage III (Chronic) Obstructive sleep apnea (Chronic) Does not use CPAP Osteoporosis (Chronic) Vitamin D deficiency (Acute) Prediabetes (Acute) Gout (Chronic) Venous stasis dermatitis (Acute) Cellulitis (Acute) PVD (peripheral vascular disease) (Chronic) Idiopathic gout, unspecified site (Acute) Edema (Chronic) Nail dystrophy (Acute) Physical deconditioning (Acute) Sleep apnea (Acute) BMI 45.0-49.9, adult (Acute) 07/2018 BMI 48 Acquired hypothyroidism (Acute 06/01/17) Chronic nonintractable headache (Acute 06/01/17) Essential hypertension (Chronic 06/01/17) Psoriasis (Acute 06/01/17) Recurrent major depressive disorder (Acute 06/01/17) Mixed incontinence (Chronic) Obesity (Chronic) Hypertension (Chronic) Panic disorder (Chronic) Obsessive-compulsive disorder (Chronic) Hypothyroidism (Chronic) Migraine (Chronic) Gait disturbance (Chronic) Depression (Chronic) Bilateral lower extremity edema (Chronic) Overactive bladder (Chronic) Wears adult diapers. Insomnia (Chronic) Chronic pruritus (Chronic) Medical History TMJ tenderness, bilateral Paronychia of great toe, left Toe pain, left Internal derangement of left knee DEPO MEDROL 08/24/2022; 09/22/21 Right leg pain Internal derangement of right knee DEPO MEDROL 08/24/2022; 09/22/21 IUD complication Tongue lesion Endometrial thickening on ultrasound PMB (postmenopausal bleeding) 2016. D&C for postmenopausal bleeding. Benign inactive endometrium. No recurrences. Functional urinary incontinence (06/01/17) Headache (06/01/17) Post-menopausal bleeding (02/01/17) D&C 03/10/17. Inactive endometrium. No episodes since. Atrophic vaginitis Urge incontinence Psoriasis Recurrent UTI External hemorrhoids Hematuria Dermatosis Surgical History Colonoscopy - MAC (07/12/17) Hx of dilation and curettage 2016 Social History Smoking/Tobacco Use Status: Never Smoking risk assessment performed?: Yes Alcohol Intake: current Alcohol Intake frequency: a few times a month Drug use: Never Substance use type: does not use Caregiver/Support person: Yes (Accompanies her to her office visits) Housing: house Number of Children: 3 current occupation: Disabled Current gender identity: female Seatbelt use: always Do you feel safe at home: Yes Do you feel safe in your relationship?: Yes Additional Social history: Unable to asses privately. Female Reproductive History Menstrual Menopause type: natural History History 5 Para 3 Hx # Term Pregnancies 3 Multiple births Hx # Pregnancies Ectopic pregnancies AB induced Hx Number of Living Children 3 AB spontaneous 2
[2024-11-21 18:46] LABS: Glucose 1061 mg/dL (74-106)
[2024-11-21] MEDS: INSULIN REGULAR IN 0.9 % NACL 100 UNIT/100 ML BAG 6.505 UNIT IVINF (18:49)
[2024-11-21] MEDS: Lactated Ringers 1,000 ML 500 ML IV (18:50)
[2024-11-21 19:08] LABS: Glucose >=1000 mg/dL (Negative)
--- NOTE | 2024-11-21 19:08 | W.PM.HP.N ---
Date of service: 11/21/24 Time of Service: 19:08 Assessment and Plan Assessment and plan (1) Type 2 diabetes mellitus with hyperosmolar hyperglycemic state (HHS): Status: Acute Assessment and plan: - Patient had increased thirst over the last week and outpatient labs drawn that showed a blood sugar level of about 1200 - Associated with hyperkalemia potassium of 6.7 and pseudohyponatremia with a sodium of 119 - Was started on insulin drip in the emergency department - Will place patient on HHS protocol, continuing insulin drip and IV fluids with a goal to decrease blood sugar levels to the low 200s to high 100s - Will give appropriate IV fluids - Every 2 hour BMP - Every hour fingerstick (2) Hyperkalemia: Status: Acute Assessment and plan: - Secondary to hyperglycemia as noted above - Initially 6.7, repeat down to 5.1 - Will continue to monitor with BMPs as noted above (3) Pseudohyponatremia: Status: Acute Assessment and plan: - Secondary to hyperglycemia as noted above - Initially 119, improved to 127 - Continue to monitor on BMP as noted above (4) Acute kidney injury superimposed on CKD: Status: Acute Assessment and plan: - Secondary to hyperglycemia - Creatinine 2.4 (baseline 1.3 - Will follow on BMPs (5) Diastolic heart failure: Status: Acute Assessment and plan: - History of, without acute exacerbation - Reportedly was allowed to drink as much sole manohar as she wanted recently, likely worsening her blood sugar - Patient supposed to be on fluid restriction which will be increased to 1200 mL/day - Will continue home medication regimen including aspirin, torsemide 80 twice daily, spironolactone 50 twice da, Toprol XL 50 daily - Patient may need additional diuresis given IV fluids while treating for HHS as noted above ly, (6) Cognitive impairment: Status: Acute Assessment and plan: - Continue home Abilify 2 mg daily, duloxetine 60 mg daily, Topamax 25 mg twice daily, and Seroquel 25 mg at bedtime (7) Paroxysmal A-fib: Status: Acute Assessment and plan: - Continue home Toprol XL and Eliquis History of Present Illness History of Present Illness Chief Complaint: elevated blood sugar Narrative: 69-year-old female with a past medical history of hypertension, CKD, hypothyroidism comes from half-way with complaints of increased thirst over the last week and labs checked this morning with a blood sugar of 1100 and potassium 6.7. Patient apparently has a history of prediabetes and due to her increased thirst she had labs drawn on the morning of 11/21/2024, when they showed blood glucose of 1100 and potassium was 6.7 she was brought to the emergency department. In the emergency department the patient had normal vital signs, normal CBC, and again a CMP that showed a blood glucose of 1284, potassium of 6.4, sodium of 119 (pseudohyponatremia), BUN of 19, creatinine of 2.4. Remainder of workup was negative. Patient was started on insulin drip, at which time emergency room provider paged hospitalist for admission for patient with new insulin-dependent type 2 diabetes and HHS. Review of Systems All systems reviewed & are unremarkable except as noted in HPI and below PFSH All Active Problems (Updated 11/21/24 @ 20:33 by Roberto Cade MD) Paroxysmal A-fib (Acute) Cognitive impairment (Acute) Pseudohyponatremia (Acute) Acute kidney injury superimposed on CKD (Acute) Hyperkalemia (Acute) Type 2 diabetes mellitus with hyperosmolar hyperglycemic state (HHS) (Acute) Hyperosmolar hyperglycemic state (HHS) (Acute) Chronic daily headache (Acute) Migraine (Chronic) TMJ dysfunction (Acute) Referred otalgia (Acute) Cerumen impaction (Acute) Internal derangement of right knee (Acute) DEPO MEDROL: 09/08/24; 11/05/2023; 03/22/2023; 08/24/2022; 09/22/21 Internal derangement of left knee (Acute) DEPO MEDROL 09/08/24; 06/01/24; 11/05/2023; 03/22/2023; 08/24/2022; 09/22/21 Atherosclerosis of artery of both lower extremities (Acute) Phlebitis of left posterior tibial vein (Acute) Diastolic heart failure (Acute) Discharge planning issues (Acute) DVT prophylaxis (Acute) Acute hypoxemic respiratory failure (Acute) Hypokalemia (Acute) UTI (urinary tract infection) (Acute) Pancolitis (Acute) Headache (Acute) Colitis (Acute) Hypoxemia (Acute) Acute pyelonephritis (Acute) Estrogen deficiency (Acute) CKD (chronic kidney disease), stage III (Chronic) Obstructive sleep apnea (Chronic) Does not use CPAP Osteoporosis (Chronic) Vitamin D deficiency (Acute) Prediabetes (Acute) Gout (Chronic) Venous stasis dermatitis (Acute) Cellulitis (Acute) PVD (peripheral vascular disease) (Chronic) Idiopathic gout, unspecified site (Acute) Edema (Chronic) Nail dystrophy (Acute) Physical deconditioning (Acute) Sleep apnea (Acute) BMI 45.0-49.9, adult (Acute) 07/2018 BMI 48 Acquired hypothyroidism (Acute 06/01/17) Chronic nonintractable headache (Acute 06/01/17) Essential hypertension (Chronic 06/01/17) Psoriasis (Acute 06/01/17) Recurrent major depressive disorder (Acute 06/01/17) Mixed incontinence (Chronic) Obesity (Chronic) Hypertension (Chronic) Panic disorder (Chronic) Obsessive-compulsive disorder (Chronic) Hypothyroidism (Chronic) Migraine (Chronic) Gait disturbance (Chronic) Depression (Chronic) Bilateral lower extremity edema (Chronic) Overactive bladder (Chronic) Wears adult diapers. Insomnia (Chronic) Chronic pruritus (Chronic) Medical History TMJ tenderness, bilateral Paronychia of great toe, left Toe pain, left Internal derangement of left knee DEPO MEDROL 08/24/2022; 09/22/21 Right leg pain Internal derangement of right knee DEPO MEDROL 08/24/2022; 09/22/21 IUD complication Tongue lesion Endometrial thickening on ultrasound PMB (postmenopausal bleeding) 2016. D&C for postmenopausal bleeding. Benign inactive endometrium. No recurrences. Functional urinary incontinence (06/01/17) Headache (06/01/17) Post-menopausal bleeding (02/01/17) D&C 03/10/17. Inactive endometrium. No episodes since. Atrophic vaginitis Urge incontinence Psoriasis Recurrent UTI External hemorrhoids Hematuria Dermatosis Surgical History Colonoscopy - MAC (07/12/17) Hx of dilation and curettage 2016 Social History Smoking/Tobacco Use Status: Never Smoking risk assessment performed?: Yes Alcohol Intake: current Alcohol Intake frequency: a few times a month Drug use: Never Substance use type: does not use Caregiver/Support person: Yes (Accompanies her to her office visits) Housing: house Number of Children: 3 current occupation: Disabled Current gender identity: female Seatbelt use: always Do you feel safe at home: Yes Do you feel safe in your relationship?: Yes Additional Social history: Unable to asses privately. Female Reproductive History Menstrual Menopause type: natural History History 5 Para 3 Hx # Term Pregnancies 3 Multiple births Hx # Pregnancies Ectopic pregnancies AB induced Hx Number of Living Children 3 AB spontaneous 2 Meds Allergies and Home Medications Allergies Allergy/AdvReac Type Severity Reaction Status Date / Time sulfamethoxazole (From Allergy Intermediate rash Verified 11/21/24 17:00 Sulfamethoxazole-Trimethoprim) trimethoprim (From Allergy Intermediate rash Verified 11/21/24 17:00 Sulfamethoxazole-Trimethoprim) perphenazine (From Trilafon) AdvReac Severe Other (See Verified 11/21/24 17:00 Comment) Home Medications ?Medication ?Instructions ?Recorded ?Confirmed ?Type multivitamin (Daily Multiple 1 ea PO DAILY 02/01/17 11/21/24 History tablet) Held on 11/21/24. Instructions: Pt Stopped/Never Started sumatriptan succinate 100 mg 100 mg PO DIRECTED PRN #12 tabs 03/18/17 11/21/24 History tablet (Imitrex) Held on 11/21/24. Instructions: Prescription Finished levothyroxine 75 mcg tablet 100 mcg PO DAILY 08/28/19 11/21/24 History cholecalciferol (vitamin D3) 25 2,000 unit PO DAILY 05/29/20 11/21/24 History mcg (1,000 unit) tablet (Vitamin D3) quetiapine 50 mg tablet 25 mg PO QHS 07/07/22 11/21/24 History trazodone 50 mg tablet 100 mg PO QHS 07/07/22 11/21/24 History potassium chloride 20 mEq oral 20 meq PO BID #100 ea 04/09/23 11/21/24 Rx packet apixaban 2.5 mg tablet (Eliquis) 2.5 mg PO BID 11/02/23 11/21/24 History acetaminophen 500 mg capsule 1,000 mg PO TID 11/05/23 11/21/24 History aripiprazole 2 mg tablet 2 mg PO DAILY 03/10/24 11/21/24 History cetirizine 10 mg tablet 10 mg PO DAILY PRN 03/10/24 11/21/24 History Held on 11/21/24. Instructions: Pt Stopped/Never Started duloxetine 60 mg capsule,delayed 60 mg PO DAILY 03/10/24 11/21/24 History release allopurinol 100 mg tablet 100 mg PO DAILY 05/22/24 11/21/24 History aspirin 81 mg tablet,delayed 81 mg PO DAILY 05/22/24 11/21/24 History release (Adult Aspirin Regimen) loperamide 2 mg tablet 2 mg PO Q6H PRN 05/22/24 11/21/24 History loratadine 10 mg tablet 10 mg PO DAILY 05/22/24 11/21/24 History magnesium glycinate mg PO 05/22/24 10/06/24 History Held on 11/21/24. Instructions: Pt Stopped/Never Started pantoprazole 40 mg tablet,delayed 40 mg PO DAILY 05/22/24 11/21/24 History release guaifenesin 100 mg/5 mL oral liquid 200 mg PO Q4H PRN 06/16/24 11/21/24 History Held on 11/21/24. Instructions: Pt Stopped/Never Started ondansetron 4 mg disintegrating 4 mg PO Q8H 06/16/24 11/21/24 History tablet Held on 11/21/24. Instructions: Pt Stopped/Never Started tizanidine 4 mg capsule 4 mg PO BID PRN 06/16/24 11/21/24 History ferrous sulfate 325 mg (65 mg 325 mg PO DAILY 09/08/24 11/21/24 History iron) tablet metoprolol succinate 50 mg 50 mg PO DAILY 09/08/24 11/21/24 History tablet,extended release 24 hr topiramate 25 mg tablet 25 mg PO BID 09/08/24 11/21/24 History torsemide 20 mg tablet 80 mg PO BID 09/08/24 11/21/24 History albuterol sulfate 90 mcg/actuation 2 puff inhalation QID 10/06/24 11/21/24 History aerosol inhaler (Ventolin HFA) calcitriol 0.25 mcg capsule 0.25 mcg PO Q OTHER DAY 11/21/24 11/21/24 History fluticasone propionate 50 1 spray intranasal DAILY 11/21/24 11/21/24 History mcg/actuation nasal spray,suspension (24 Hour Allergy Relief) loratadine 10 mg capsule (Allergy 10 mg PO DAILY 11/21/24 11/21/24 History Relief (loratadine)) sennosides 8.6 mg-docusate sodium 1 tab-cap PO BID 11/21/24 11/21/24 History 50 mg tablet (Laxative Stool Softener With Senna) spironolactone 50 mg tablet 50 mg PO BID 11/21/24 11/21/24 History Exam Narrative Exam Narrative: Fatigued appearing older female laying in bed in no acute distress, awake, alert, oriented to person only, which is baseline, heart regular rhythm, lungs good auscultation bilaterally, abdomen obese, soft, nontender, nondistended Results Labs 11/21/24 16:51 11/21/24 18:05 Labs: Laboratory Results - last 24 hr 11/21/24 11/21/24 11/21/24 16:19 16:51 16:51 WBC 7.58 RBC 4.97 Hgb 14.3 Hct 44.2 MCV 89 D MCH 28.8 MCHC 32.4 RDW 14.2 Plt Count 220 MPV 10.7 Immature Gran % 0.5 Neutrophils % 79.7 Lymphocytes % 12.8 Monocytes % 6.9 Eosinophils % 0.0 Basophils % 0.1 Nucleated RBC % 0.0 Absolute Neutrophils 6.04 Absolute Lymphocytes 0.97 L Absolute Monocytes 0.52 Absolute Eosinophils 0.00 Absolute Basophils 0.01 VBG pH 7.39 VBG pCO2 49 VBG pO2 52 VBG HCO3 30 H VBG Total CO2 26 VBG O2 Saturation 86 VBG Base Excess 5 H VBG Lactate 2.5 H* Sodium Cancelled Cancelled 127 L Potassium Cancelled Cancelled Chloride Cancelled Carbon Dioxide Cancelled Anion Gap Cancelled BUN Cancelled Creatinine Cancelled Est GFR (CKD-EPI 2020) Cancelled Glucose Cancelled Glucose 1 Hour Calcium Cancelled Magnesium Total Bilirubin Cancelled Conjugated Bilirubin AST Cancelled ALT Cancelled Alkaline Phosphatase Cancelled Troponin I NT-Pro-B Natriuret Pep Total Protein Cancelled Albumin Cancelled TSH Add-On Test Request 11/21/24 11/21/24 11/21/24 16:51 16:51 16:51 WBC RBC Hgb Hct MCV MCH MCHC RDW Plt Count MPV Immature Gran % Neutrophils % Lymphocytes % Monocytes % Eosinophils % Basophils % Nucleated RBC % Absolute Neutrophils Absolute Lymphocytes Absolute Monocytes Absolute Eosinophils Absolute Basophils VBG pH VBG pCO2 VBG pO2 VBG HCO3 VBG Total CO2 VBG O2 Saturation VBG Base Excess VBG Lactate Sodium Potassium 5.1 D Chloride Cancelled 85 L Carbon Dioxide Cancelled 30.3 Anion Gap Cancelled BUN Creatinine Est GFR (CKD-EPI 2020) Glucose Glucose 1 Hour Calcium Magnesium Total Bilirubin Conjugated Bilirubin AST ALT Alkaline Phosphatase Troponin I NT-Pro-B Natriuret Pep Total Protein Albumin TSH Add-On Test Request 11/21/24 11/21/24 11/21/24 16:51 16:51 16:51 WBC RBC Hgb Hct MCV MCH MCHC RDW Plt Count MPV Immature Gran % Neutrophils % Lymphocytes % Monocytes % Eosinophils % Basophils % Nucleated RBC % Absolute Neutrophils Absolute Lymphocytes Absolute Monocytes Absolute Eosinophils Absolute Basophils VBG pH VBG pCO2 VBG pO2 VBG HCO3 VBG Total CO2 VBG O2 Saturation VBG Base Excess VBG Lactate Sodium Potassium Chloride Carbon Dioxide Anion Gap 11.7 H BUN Cancelled 42 H Creatinine Cancelled 2.1 H Est GFR (CKD-EPI 2020) Cancelled Glucose Glucose 1 Hour Calcium Magnesium Total Bilirubin Conjugated Bilirubin AST ALT Alkaline Phosphatase Troponin I NT-Pro-B Natriuret Pep Total Protein Albumin TSH Add-On Test Request 11/21/24 11/21/24 11/21/24 16:51 16:51 16:51 WBC RBC Hgb Hct MCV MCH MCHC RDW Plt Count MPV Immature Gran % Neutrophils % Lymphocytes % Monocytes % Eosinophils % Basophils % Nucleated RBC % Absolute Neutrophils Absolute Lymphocytes Absolute Monocytes Absolute Eosinophils Absolute Basophils VBG pH VBG pCO2 VBG pO2 VBG HCO3 VBG Total CO2 VBG O2 Saturation VBG Base Excess VBG Lactate Sodium Potassium Chloride Carbon Dioxide Anion Gap BUN Creatinine Est GFR (CKD-EPI 2020) 24.88 Glucose Cancelled 1195 H* Glucose 1 Hour Calcium Cancelled 9.7 Magnesium 3.1 H Total Bilirubin 0.9 Conjugated Bilirubin 0.3 H AST 12 L ALT 18 Alkaline Phosphatase 170 H Troponin I 14 NT-Pro-B Natriuret Pep Total Protein 7.8 Albumin 4.0 TSH 0.69 Add-On Test Request DONE 11/21/24 11/21/24 16:52 18:05 WBC RBC Hgb Hct MCV MCH MCHC RDW Plt Count MPV Immature Gran % Neutrophils % Lymphocytes % Monocytes % Eosinophils % Basophils % Nucleated RBC % Absolute Neutrophils Absolute Lymphocytes Absolute Monocytes Absolute Eosinophils Absolute Basophils VBG pH VBG pCO2 VBG pO2 VBG HCO3 VBG Total CO2 VBG O2 Saturation VBG Base Excess VBG Lactate Sodium Potassium Chloride Carbon Dioxide Anion Gap BUN Creatinine Est GFR (CKD-EPI 2020) Glucose 1061 H* Glucose 1 Hour Cancelled Calcium Magnesium Total Bilirubin Conjugated Bilirubin AST ALT Alkaline Phosphatase Troponin I NT-Pro-B Natriuret Pep 745 H Total Protein Albumin TSH Add-On Test Request DONE Last Vital Signs Temp 98.8 F 11/21/24 16:47 Pulse 69 11/21/24 18:01 Resp 27 H 11/21/24 18:20 BP 126/56 L 11/21/24 18:01 Pulse Ox 93 11/21/24 18:01 Time Spent Time spent with Patient: >75 minutes Time was spent: preparing to see the patient(eg.review tests), obtaining and/or reviewing separately otained hiistory, ordering medications,tests, procedures, referring, communicating with other health aged or disabled care worker, indepentently interpreting results, counseling the patient and care coordination
[2024-11-21 19:10] LABS: Troponin I 13 ng/L (<or=51)
[2024-11-21 19:18] LABS: WBC Negative HPF (0-5)
[2024-11-21 19:19] LABS: C & S Indicated? No
[2024-11-21 20:29] LABS: Glucose 1005 mg/dL (74-106)
[2024-11-21 20:47] LABS: Anion Gap 11.1 mmol/L (3-11); BUN 41 mg/dL (7-18); CO2 30.9 mmol/L (21.0-32.0); Calcium 9.4 mg/dL (8.5-10.1); Chloride 91 mmol/L (98-107); Estimated GFR 23.53 (mL/min/1.73m2); Potassium 4.1 mmol/L (3.5-5.1); Sodium 133 mmol/L (136-145)
[2024-11-21] MEDS: POTASSIUM CHLORIDE/0.9% NACL 1,000 ML 150 MEQ IV (21:31)
[2024-11-21 21:54] LABS: Glucose 900 mg/dL (74-106)
[2024-11-21] MEDS: traZODone 50 MG TAB 100 MG PO (22:10)
[2024-11-21] MEDS: QUEtiapine 50 MG TAB 25 MG PO (22:10)
[2024-11-21] MEDS: Normal Saline Flush 10 ML SYR IVP (22:10)
[2024-11-21 22:41] LABS: Anion Gap 8.0 mmol/L (3-11); BUN 40 mg/dL (7-18); CO2 34.0 mmol/L (21.0-32.0); Calcium 9.6 mg/dL (8.5-10.1); Chloride 95 mmol/L (98-107); Estimated GFR 24.88 (mL/min/1.73m2); Potassium 4.2 mmol/L (3.5-5.1); Sodium 137 mmol/L (136-145)
[2024-11-21 22:43] LABS: Glucose 826 mg/dL (74-106)
[2024-11-21 23:54] LABS: Glucose 818 mg/dL (74-106)
[2024-11-22] VITALS (58 sets, daily range): BP systolic 88–144; BP diastolic 55–82; PULSE 75–108; RESP 10–32; TEMP 36.6; O2SAT 83–100
[2024-11-22 00:39] LABS: COVID-19 PCR Negative (Negative); RSV PCR Negative (Negative)
[2024-11-22 00:44] LABS: Anion Gap 9.7 mmol/L (3-11); BUN 41 mg/dL (7-18); CO2 33.3 mmol/L (21.0-32.0); Calcium 9.5 mg/dL (8.5-10.1); Chloride 97 mmol/L (98-107); Estimated GFR 26.38 (mL/min/1.73m2); Potassium 4.2 mmol/L (3.5-5.1); Sodium 140 mmol/L (136-145)
[2024-11-22 00:58] LABS: Glucose 778 mg/dL (74-106)
[2024-11-22 01:58] LABS: Glucose 716 mg/dL (74-106)
[2024-11-22 02:51] LABS: Anion Gap 8.2 mmol/L (3-11); BUN 39 mg/dL (7-18); CO2 33.8 mmol/L (21.0-32.0); Calcium 9.6 mg/dL (8.5-10.1); Chloride 99 mmol/L (98-107); Estimated GFR 28.06 (mL/min/1.73m2); Potassium 4.0 mmol/L (3.5-5.1); Sodium 141 mmol/L (136-145)
[2024-11-22 03:05] LABS: Glucose 662 mg/dL (74-106)
[2024-11-22 03:54] LABS: Glucose 618 mg/dL (74-106)
[2024-11-22] MEDS: Normal Saline Flush 10 ML SYR IVP ×3 (04:22→21:19)
[2024-11-22] MEDS: POTASSIUM CHLORIDE/0.9% NACL 1,000 ML 150 MEQ IV ×2 (04:22→11:30)
[2024-11-22 04:37] LABS: Anion Gap 6.7 mmol/L (3-11); BUN 38 mg/dL (7-18); CO2 34.3 mmol/L (21.0-32.0); Calcium 9.5 mg/dL (8.5-10.1); Chloride 100 mmol/L (98-107); Estimated GFR 29.94 (mL/min/1.73m2); Potassium 4.0 mmol/L (3.5-5.1); Sodium 141 mmol/L (136-145)
[2024-11-22 04:40] LABS: Glucose 562 mg/dL (74-106)
[2024-11-22] MEDS: Levothyroxine 75 MCG TAB 100 MCG PO (06:35)
[2024-11-22 07:02] LABS: BE (Venous) 8 mmol/L (-2-3); HCO3 (Venous) 32 mmol/L (23-28); O2 Sat (Venous) 99 %; TCO2 (Venous) 28 mmol/L (24-29); pCO2 (Venous) 44 mmHg (41-51); pO2 (Venous) 93 mmHg
[2024-11-22 07:03] LABS: HCT 40.9 % (36.0-46.0); HGB 13.4 g/dL (11.2-15.7); MCH 28.1 pg (27.0-33.0); MCHC 32.8 % (32.0-36.0); MCV 86 fL (80-95); MPV 10.0 fL (8.0-11.0); Platelet Count 213 10^3/uL (130-400); RBC 4.77 10^6/uL (3.93-5.22); RDW 14.5 % (11.7-14.6); RDW-SD 45.1 fL; WBC 8.96 10^3/uL (4.4-10.8)
[2024-11-22 07:27] LABS: Anion Gap 8.2 mmol/L (3-11); BUN 34 mg/dL (7-18); CO2 32.8 mmol/L (21.0-32.0); Calcium 9.6 mg/dL (8.5-10.1); Chloride 103 mmol/L (98-107); Estimated GFR 32.06 (mL/min/1.73m2); Glucose 448 mg/dL (74-106); Potassium 3.8 mmol/L (3.5-5.1); Sodium 144 mmol/L (136-145)
[2024-11-22] MEDS: INSULIN REGULAR IN 0.9 % NACL 100 UNIT/100 ML BAG 7 UNIT IVINF (07:30)
[2024-11-22] MEDS: Albuterol HFA 8 GM 60 PUFF INH IH ×2 (08:19→12:04)
[2024-11-22] MEDS: INSULIN REGULAR IN 0.9 % NACL 100 UNIT/100 ML BAG 8.5 UNIT IVINF (08:33)
--- NOTE | 2024-11-22 08:52 | INITIAL_ITS ---
Date of service: 11/22/24 Time of Service: 08:52 Care Management Initial Assmt Initial Assessment Reason for Hospitalization: diabetes, hyperosmolar hyperglycemic state Functional Status/Living Situation Patient Presentation: Lenore presented to the ED last evening with c/o increased thirst over the last week. She had a lab draw which showed a blood sugar level of about 1200. She was also noted to have hyperkalemia, with K+ of 6.7. She was started on an insulin drip in the ER and was transferred to ICU. 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 Lenore easily conversed and was able to answer all questions, but it is clear that she has a cognitive impairment. Lenore lives at [facility] for this reason. Lenore stated that she has lived at the [facility] for almost 2 years. She likes some things about it, and doesn't like some things. Her room mate is up most of the night watching TV, but she is nice. Lenore will sometimes invol ve herself in the activities provided, and most days has her meals in the dining room. When asked, Lenore stated that she has 2 children that are not involved with her. Her legal guardian, she stated, is the recreation activities coordinator at the [facility]. CM called the number listed for her guardian, as the guardianship paper work on file lists a different person. The number listed for Gracie is the office of public guardianship, Gracie is an employee. CM left a message asking to clarify guardianship. Town of Residence: To at [facility] Resides with: Other (resides at the [facility]) Significant Other/Family: Local (Gracie Geiger is legal guardian) Caregiver/Guardian: state Guardian is Gracierex Geiger Employment Status: Unemployed Instrumental Activities of Daily Living (ADLs): Requires support Advance Directives Advance Directives: Do you have an Advance Directive: Y , 14:39 AD On File at [facility]: Y 09/16/21, 14:39 Date Asked 05/20/20 Today, 07:40 AD Date Reviewed 11/21/24 Today, 07:40 COLST On File at [facility] COLST Date Scanned Code Status Resuscitation Status Full Code Insurance Coverage/Financial Issues Insurance: Medicare Part A & B - Medicaid [facility] -? Care Team Visit Care Team Role Provider Type Kyle Matute MD MD [facility] STAFF PHYSICIAN Allie Gates NP Primary Care Provider NURSE PRACTITIONER K[facility] PHYSICIANS STATISTICAL CONSULTANT Roberot Cade MD Admit Provider [facility] STAFF PHYSICIAN Attending Provider Discharge Potential Discharge Needs: Other (facility provider) Anticipated Barriers to Discharge: None Identified Patient/Family Education Needs: Review discharge instructions, discuss Ask Me Three Plan: Lenore will return to the [facility] once she is medically cleared. She will f/u with the facility PCP and continue per her plan of care. Lenore will likely transport via [facility] wheel chair van. CM will continue to follow Social Determinants of Health Screening Will the Patient Participate in the Screening?: Unable to obtain Do you worry about having a steady place to live?: no PFSH All Active Problems (Updated 11/21/24 @ 20:33 by Roberto Cade MD) Paroxysmal A-fib (Acute) Cognitive impairment (Acute) Pseudohyponatremia (Acute) Acute kidney injury superimposed on CKD (Acute) Hyperkalemia (Acute) Type 2 diabetes mellitus with hyperosmolar hyperglycemic state (HHS) (Acute) Hyperosmolar hyperglycemic state (HHS) (Acute) Chronic daily headache (Acute) Migraine (Chronic) TMJ dysfunction (Acute) Referred otalgia (Acute) Cerumen impaction (Acute) Internal derangement of right knee (Acute) DEPO MEDROL: 09/08/24; 11/05/2023; 03/22/2023; 08/24/2022; 09/22/21 Internal derangement of left knee (Acute) DEPO MEDROL 09/08/24; 06/01/24; 11/05/2023; 03/22/2023; 08/24/2022; 09/22/21 Atherosclerosis of artery of both lower extremities (Acute) Phlebitis of left posterior tibial vein (Acute) Diastolic heart failure (Acute) Discharge planning issues (Acute) DVT prophylaxis (Acute) Acute hypoxemic respiratory failure (Acute) Hypokalemia (Acute) UTI (urinary tract infection) (Acute) Pancolitis (Acute) Headache (Acute) Colitis (Acute) Hypoxemia (Acute) Acute pyelonephritis (Acute) Estrogen deficiency (Acute) CKD (chronic kidney disease), stage III (Chronic) Obstructive sleep apnea (Chronic) Does not use CPAP Osteoporosis (Chronic) Vitamin D deficiency (Acute) Prediabetes (Acute) Gout (Chronic) Venous stasis dermatitis (Acute) Cellulitis (Acute) PVD (peripheral vascular disease) (Chronic) Idiopathic gout, unspecified site (Acute) Edema (Chronic) Nail dystrophy (Acute) Physical deconditioning (Acute) Sleep apnea (Acute) BMI 45.0-49.9, adult (Acute) 07/2018 BMI 48 Acquired hypothyroidism (Acute 06/01/17) Chronic nonintractable headache (Acute 06/01/17) Essential hypertension (Chronic 06/01/17) Psoriasis (Acute 06/01/17) Recurrent major depressive disorder (Acute 06/01/17) Mixed incontinence (Chronic) Obesity (Chronic) Hypertension (Chronic) Panic disorder (Chronic) Obsessive-compulsive disorder (Chronic) Hypothyroidism (Chronic) Migraine (Chronic) Gait disturbance (Chronic) Depression (Chronic) Bilateral lower extremity edema (Chronic) Overactive bladder (Chronic) Wears adult diapers. Insomnia (Chronic) Chronic pruritus (Chronic) Medical History TMJ tenderness, bilateral Paronychia of great toe, left Toe pain, left Internal derangement of left knee DEPO MEDROL 08/24/2022; 09/22/21 Right leg pain Internal derangement of right knee DEPO MEDROL 08/24/2022; 09/22/21 IUD complication Tongue lesion Endometrial thickening on ultrasound PMB (postmenopausal bleeding) 2016. D&C for postmenopausal bleeding. Benign inactive endometrium. No recurrences. Functional urinary incontinence (06/01/17) Headache (06/01/17) Post-menopausal bleeding (02/01/17) D&C 03/10/17. Inactive endometrium. No episodes since. Atrophic vaginitis Urge incontinence Psoriasis Recurrent UTI External hemorrhoids Hematuria Dermatosis Surgical History Colonoscopy - MAC (07/12/17) Hx of dilation and curettage 2016 Social History Smoking/Tobacco Use Status: Never Smoking risk assessment performed?: Yes Alcohol Intake: current Alcohol Intake frequency: a few times a month Drug use: Never Substance use type: does not use Caregiver/Support person: Yes (Accompanies her to her office visits) Housing: snf Number of Children: 3 current occupation: Disabled Current gender identity: female Seatbelt use: always Do you feel safe at home: Yes Do you feel safe in your relationship?: Yes Additional Social history: Unable to asses privately. Female Reproductive History Menstrual Menopause type: natural History History 5 Para 3 Hx # Term Pregnancies 3 Multiple births Hx # Pregnancies Ectopic pregnancies AB induced Hx Number of Living Children 3 AB spontaneous 2
[2024-11-22 09:03] LABS: Anion Gap 10.7 mmol/L (3-11); BUN 35 mg/dL (7-18); CO2 31.3 mmol/L (21.0-32.0); Calcium 9.8 mg/dL (8.5-10.1); Chloride 103 mmol/L (98-107); Estimated GFR 34.48 (mL/min/1.73m2); Glucose 408 mg/dL (74-106); Potassium 3.6 mmol/L (3.5-5.1); Sodium 145 mmol/L (136-145)
[2024-11-22] MEDS: Pantoprazole 40 MG TABCR PO (09:30)
[2024-11-22] MEDS: Torsemide 20 MG TAB 80 MG PO ×2 (09:30→16:12)
[2024-11-22] MEDS: Spironolactone 50 MG TAB PO ×2 (09:30→21:18)
[2024-11-22] MEDS: Aspirin E.C. 81 MG TABEC PO (09:30)
[2024-11-22] MEDS: Apixaban 2.5 MG TAB PO ×2 (09:30→21:18)
[2024-11-22] MEDS: Metoprolol CR 50 MG TABCR PO (09:30)
[2024-11-22] MEDS: DULoxetine 30 MG CAP 60 MG PO (09:30)
[2024-11-22] MEDS: Allopurinol 100 MG TAB PO (09:30)
[2024-11-22] MEDS: Miconazole 2% Topical Powder 85 GM BTL (09:44)
[2024-11-22] MEDS: Fluticasone NASAL SPRAY 16 GM BTL NS (09:45)
[2024-11-22] MEDS: POTASSIUM CHLORIDE/0.45% NACL 1,000 ML 150 MEQ IV ×2 (13:11→20:34)
[2024-11-22] MEDS: Insulin Glargine 300 UNITS/3 ML PEN 15 UNITS SC (13:53)
[2024-11-22 13:58] LABS: Anion Gap 7.6 mmol/L (3-11); BUN 28 mg/dL (7-18); CO2 32.4 mmol/L (21.0-32.0); Calcium 10.0 mg/dL (8.5-10.1); Chloride 104 mmol/L (98-107); Estimated GFR 34.48 (mL/min/1.73m2); Glucose 275 mg/dL (74-106); Potassium 3.6 mmol/L (3.5-5.1); Sodium 144 mmol/L (136-145)
--- NOTE | 2024-11-22 16:00 | RT.EKG_ITS ---
APPROVED REPORT Exam: Resting ECG Reason for Exam: query QT / QTc Patient Location: I HR:103 bpm ECG Measurements Heart Rate 103 AXIS ND 206 P 50 QRSd 88 QRS 38 QT 355 T 207 QTc 465 Conclusion Sinus tachycardia...rate> 99 Abnormal R-wave progression, early transition...QRS area>0 in V2
--- NOTE | 2024-11-22 16:29 | W.SPSTE ---
Date of service: 11/22/24 Time of Service: 16:29 Subjective Clinical (Bedside) Swallow Evaluation - Inpatient Speech Language Pathology Referred by: Kyle Matute MD Referral Type: Routine Swallow Consult Precautions: Standard, Full Code Reason for Referral/HPI: Patient is a 69 y/o F with h/o cognitive impairment, OCD, STEPHEN, CKD, TMJ dysfunction, diastolic heart failure, and paroxysmal a-fib, who presented to the ED after lab check showed blood sugar this morning of 1100, admitted with hyperosmolar hyperglycemic state (HHS) and secondary hyperkalemia, pseudohyponatremia. She did not have a previous DM2 diagnosis but was prediabetic before this incident. BUSINESS REPORTING DEVELOPER consult was requested prior to patient's first meal due to nursing observing coughing with liquids at bedside. BUSINESS REPORTING DEVELOPER IMPRESSIONS & RECOMMENDATIONS: Lenore presents with primarily oral dysphagia in setting of impulsivity with fast rate of liquid intake, as well as largely edentulous status, and TMJ dysfunction making chewing difficult and painful. No s/sx aspiration were observed during BUSINESS REPORTING DEVELOPER evaluation with patient positioned at 90 degrees, patient taking up to 4 consecutive very large sips at a time without change in voice quality or cough/throat clear, change in breath sounds, etc. Given s/sx were observed earlier, however, patient was provided with education regarding aspiration risk and was able to demonstrate independent slowed rate of intake via straw after several reminders/practice sips. She also demonstrated good tolerance of single pills x4 in spoonful puree with nursing present, followed by liquid wash, which is how she takes medications at baseline. Patient also c/o difficulty with dry solid textures in setting of dry mouth, edentulousness, and TMJ. She does demonstrate at least moderate trismus with vertical jaw excursion only about 12-15mm without significant pain. She refused to trial regular solids at bedside due to dryness, but was agreeable to trial a hybrid minced/moist and soft/bite size diet (for meats, with extra sauce - refuses ground meats). RECOMMENDATIONS Diet modification is indicated as follows for the purpose of reduced risk of choking reduced mastication abilities, reduced pharyngeal stasis, impulsive or unsafe eating behaviors, pain reduction, patient preferences/to increase nutritional intake Diet Recommendations: ? SOLIDS: 6-Soft & Bite-Sized Solids (meat only - very soft/mashable with extra sauce/gravy) 5-Minced & Moist Solids - everything else (soups/purees also ok) LIQUIDS: 0-Thin Liquids MEDICATIONS: Whole 1 at a time With 4-Purees followed by liquid wash RISK MANAGEMENT: Level of Assistance/Supervision: Provide set-up assist with initial verbal reminders for aspiration precautions as below and intermittent supervision Positioning and environment: PO intake only when awake/alert? Reduce auditory and/or visual distractions when eating [place] upright, use HOB controls/bed tilt to achieve upright positioning Oral hygiene Q3-4h/every 3-4 hours Using suction swab kits on all oral structures as tolerated Strategies/Adaptations/Assistive Equipment: Small bites Slow rate of intake - 1-2 sips via straw or cup at a time Alternate intake of liquids and solids FURTHER INPATIENT BUSINESS REPORTING DEVELOPER SERVICES: Patient to be followed while on unit via nursing check-ins for diet tolerance, will provide further direct care PRN for diet adjustments etc Discharge Recommendations: No further BUSINESS REPORTING DEVELOPER services indicated/Please re-refer as needed ---=- SUBJECTIVE: Patient received: alert/awake. Agreeable to evaluation. Pain Reported n/a Baseline Swallow Function: Patient reports difficulty (oral transit, chewing, pharyngeal stasis) with dry foods (e.g., crackers, meat, sandwiches) due to dry mouth, TMJ, and edentulousness, gum pain. Denies any other difficulty with swallowing. When probed further regarding coughing with liquids, she states It's from phlegm, not water. ----- OBJECTIVE Patient positioning: Partially reclined, BUSINESS REPORTING DEVELOPER utilizing HOB/bed tilt controls to achieve trunk angle of 90 degrees from floor Oral care: Reported recently completed Respiratory status: Room air Orientation/Mental status: Oriented to self, Oriented to situation, appears to be a reliable hansard reporter, recall of recent events is intact. Mentation/recall is reliable, but patient with some clear pragmatics differences and problem-solving, inference challenges. Speech: WFL Oral Mechanism Examination: Dentition: Very few natural teeth in poor/fair condition (only front bottom teeth present, sparsely) Oral mucosa: Dry ? Cranial Nerve Assessment: CN V ? Trigeminal Facial Sensation WNL Jaw ROM - significantly reduced, ~12-15 mm and with pain on excursion TMJ/trismus likely related to lower jaw/lip protrusion CN VII- Facial WNL labial ROM, strength, coordination. WNL lingual sensation WNL CN IX ? Glossopharyngeal WNL palatal elevation with phonation. No evidence of nasal emissions WNL CN X ? Vagus WNL Vocal quality and volume. Strong/sharp volitional cough WNL CX XII ? Hypoglossal WNL lingual ROM, strength, coordination WNL PO Intake: Trials Assessed: IDDSI 0 Thin Liquids IDDSI 4 Puree Solid Medications administered by RN Oral Phase Findings: Difficulty chewing Impulsive pacing with straw sips, refuses cup sips Pharyngeal Phase Findings: WFL Esophageal Phase Findings: ? No observed or reported symptoms at bedside ? [place] Swallow Protocol Results: PASS Complete/uninterrupted without s/sx aspiration Education Provided to: Nursing Patient Topics Addressed: anatomy/physiology of swallowing mechanism definition and impacts of aspiration overt s/sx to monitor for re: potential aspiration of food / liquids relationship between respiratory function and deglutition rationale and instruction for additional risk management strategies as below PLAN: Frequency: 1-2x weekly for 1-2 weeks Goals: Packing Tractor Machine Operator Goals: Patient will remain free from aspiration-related illness, malnutrition, and dehydration. Short Term Goals: Patient will tolerate safest/least restrictive Diet and Thin liquids without overt s/s aspiration across 2/2 visits. BUSINESS REPORTING DEVELOPER CPT Code: 95597 Clinical Swallowing Evaluation Start time: 16:30 End time: 17:00 Total patient contact: 30m
--- NOTE | 2024-11-22 16:30 | PGE_ITS ---
Date of Service Date of service: 11/22/24 Time of Service: 08:00 Assessment and Plan Assessment and plan (1) Type 2 diabetes mellitus with hyperosmolar hyperglycemic state (HHS): Status: Acute Assessment and plan: - Patient had increased thirst over the last week and outpatient labs drawn that showed a blood sugar level of about 1200 - Associated with hyperkalemia potassium of 6.7 and pseudohyponatremia with a sodium of 119 - Was started on insulin drip in the emergency department - Will place patient on HHS protocol, continuing insulin drip and IV fluids with a goal to decrease blood sugar levels to the low 200s to high 100s - Will give appropriate IV fluids - Every 2 hour BMP - Every hour fingerstick Nov 22: attempted to stop insulin drip but patient's blood glucose popped to over 300. Restarted insulin drip. She is having difficulty swallowing and speech therapy will see her. Anticipating that she will have nimo TDD over 40 units of insulin per day. (2) Hyperkalemia: Status: Resolved Assessment and plan: - Secondary to hyperglycemia as noted above - Initially 6.7, repeat down to 5.1 Resolved as of November 21 evening (3) Pseudohyponatremia: Status: Resolved Assessment and plan: - Secondary to hyperglycemia as noted above - Initially 119, improved to 127 Resolved as of November 21 evening (4) Acute kidney injury superimposed on CKD: Status: Acute Assessment and plan: - Secondary to hyperglycemia - Creatinine 2.4 (baseline 1.3 Nov 22: improving. Cr 1.6 - 1.8 today (5) Diastolic heart failure: Status: Acute Assessment and plan: - History of, without acute exacerbation - Reportedly was allowed to drink as much sole manohar as she wanted recently, likely worsening her blood sugar - Patient supposed to be on fluid restriction which will be increased to 1200 mL/day - Will continue home medication regimen including aspirin, torsemide 80 twice daily, spironolactone 50 twice da, Toprol XL 50 daily - Patient may need additional diuresis given IV fluids while treating for HHS as noted above ly, (6) Cognitive impairment: Status: Acute Assessment and plan: - Continue home Abilify 2 mg daily, duloxetine 60 mg daily, Topamax 25 mg twice daily, and Seroquel 25 mg at bedtime (7) Paroxysmal A-fib: Status: Acute Assessment and plan: - Continue home Toprol XL and Eliquis Subjective Subjective Interval history since last seen: Ms. Jonas is comfortable in bed. Awaiting swallow study. She has a wet cough. Exam Narrative Exam Narrative: General: This is an obese woman in no distress HEENT: Normocephalic, atraumatic CV: RRR Resp: CTAB Abd: soft, protruberant, nontender MSK: voluntary motion x4 Neuro: awake, alert to self only (at baseline), CN II-XII intact Objective Last Vital Signs Temp 36.6 C 11/22/24 10:00 Pulse 104 H 11/22/24 14:01 Resp 18 11/22/24 14:01 BP 140/82 11/22/24 14:01 Pulse Ox 88 L 11/22/24 14:01 Laboratory Results - last 24 hr 11/21/24 11/21/24 11/21/24 16:19 16:51 16:51 WBC 7.58 RBC 4.97 Hgb 14.3 Hct 44.2 MCV 89 D MCH 28.8 MCHC 32.4 RDW 14.2 Plt Count 220 MPV 10.7 Immature Gran % 0.5 Neutrophils % 79.7 Lymphocytes % 12.8 Monocytes % 6.9 Eosinophils % 0.0 Basophils % 0.1 Nucleated RBC % 0.0 Absolute Neutrophils 6.04 Absolute Lymphocytes 0.97 L Absolute Monocytes 0.52 Absolute Eosinophils 0.00 Absolute Basophils 0.01 VBG pH 7.39 VBG pCO2 49 VBG pO2 52 VBG HCO3 30 H VBG Total CO2 26 VBG O2 Saturation 86 VBG Base Excess 5 H VBG Lactate 2.5 H* Sodium Cancelled Cancelled 127 L Potassium Cancelled Cancelled Chloride Cancelled Carbon Dioxide Cancelled Anion Gap Cancelled BUN Cancelled Creatinine Cancelled Est GFR (CKD-EPI 2020) Cancelled Glucose Cancelled Glucose 1 Hour Hemoglobin A1c Calcium Cancelled Magnesium Total Bilirubin Cancelled Conjugated Bilirubin AST Cancelled ALT Cancelled Alkaline Phosphatase Cancelled Troponin I NT-Pro-B Natriuret Pep Total Protein Cancelled Albumin Cancelled TSH Urine Color Urine Clarity Urine pH Ur Specific [place] Urine Protein Urine Ketones Urine Blood Urine Nitrite Urine Bilirubin Urine Urobilinogen Ur Leukocyte Esterase Urine RBC Urine WBC Ur Epithelial Cells Urine Crystals Urine Bacteria Urine Casts Urine Mucus Ur Culture Indicated? Urine Glucose COVID-19 Source SARS-CoV-2 (PCR) Influenza Type A (PCR) Influenza Type B (PCR) RSV (PCR) Add-On Test Request 11/21/24 11/21/24 11/21/24 16:51 16:51 16:51 WBC RBC Hgb Hct MCV MCH MCHC RDW Plt Count MPV Immature Gran % Neutrophils % Lymphocytes % Monocytes % Eosinophils % Basophils % Nucleated RBC % Absolute Neutrophils Absolute Lymphocytes Absolute Monocytes Absolute Eosinophils Absolute Basophils VBG pH VBG pCO2 VBG pO2 VBG HCO3 VBG Total CO2 VBG O2 Saturation VBG Base Excess VBG Lactate Sodium Potassium 5.1 D Chloride Cancelled 85 L Carbon Dioxide Cancelled 30.3 Anion Gap Cancelled BUN Creatinine Est GFR (CKD-EPI 2020) Glucose Glucose 1 Hour Hemoglobin A1c Calcium Magnesium Total Bilirubin Conjugated Bilirubin AST ALT Alkaline Phosphatase Troponin I NT-Pro-B Natriuret Pep Total Protein Albumin TSH Urine Color Urine Clarity Urine pH Ur Specific [place] Urine Protein Urine Ketones Urine Blood Urine Nitrite Urine Bilirubin Urine Urobilinogen Ur Leukocyte Esterase Urine RBC Urine WBC Ur Epithelial Cells Urine Crystals Urine Bacteria Urine Casts Urine Mucus Ur Culture Indicated? Urine Glucose COVID-19 Source SARS-CoV-2 (PCR) Influenza Type A (PCR) Influenza Type B (PCR) RSV (PCR) Add-On Test Request 11/21/24 11/21/24 11/21/24 16:51 16:51 16:51 WBC RBC Hgb Hct MCV MCH MCHC RDW Plt Count MPV Immature Gran % Neutrophils % Lymphocytes % Monocytes % Eosinophils % Basophils % Nucleated RBC % Absolute Neutrophils Absolute Lymphocytes Absolute Monocytes Absolute Eosinophils Absolute Basophils VBG pH VBG pCO2 VBG pO2 VBG HCO3 VBG Total CO2 VBG O2 Saturation VBG Base Excess VBG Lactate Sodium Potassium Chloride Carbon Dioxide Anion Gap 11.7 H BUN Cancelled 42 H Creatinine Cancelled 2.1 H Est GFR (CKD-EPI 2020) Cancelled Glucose Glucose 1 Hour Hemoglobin A1c Calcium Magnesium Total Bilirubin Conjugated Bilirubin AST ALT Alkaline Phosphatase Troponin I NT-Pro-B Natriuret Pep Total Protein Albumin TSH Urine Color Urine Clarity Urine pH Ur Specific [place] Urine Protein Urine Ketones Urine Blood Urine Nitrite Urine Bilirubin Urine Urobilinogen Ur Leukocyte Esterase Urine RBC Urine WBC Ur Epithelial Cells Urine Crystals Urine Bacteria Urine Casts Urine Mucus Ur Culture Indicated? Urine Glucose COVID-19 Source SARS-CoV-2 (PCR) Influenza Type A (PCR) Influenza Type B (PCR) RSV (PCR) Add-On Test Request 11/21/24 11/21/24 11/21/24 16:51 16:51 16:51 WBC RBC Hgb Hct MCV MCH MCHC RDW Plt Count MPV Immature Gran % Neutrophils % Lymphocytes % Monocytes % Eosinophils % Basophils % Nucleated RBC % Absolute Neutrophils Absolute Lymphocytes Absolute Monocytes Absolute Eosinophils Absolute Basophils VBG pH VBG pCO2 VBG pO2 VBG HCO3 VBG Total CO2 VBG O2 Saturation VBG Base Excess VBG Lactate Sodium Potassium Chloride Carbon Dioxide Anion Gap BUN Creatinine Est GFR (CKD-EPI 2020) 24.88 Glucose Cancelled 1195 H* Glucose 1 Hour Hemoglobin A1c Calcium Cancelled 9.7 Magnesium 3.1 H Total Bilirubin 0.9 Conjugated Bilirubin 0.3 H AST 12 L ALT 18 Alkaline Phosphatase 170 H Troponin I 14 NT-Pro-B Natriuret Pep Total Protein 7.8 Albumin 4.0 TSH 0.69 Urine Color Urine Clarity Urine pH Ur Specific [place] Urine Protein Urine Ketones Urine Blood Urine Nitrite Urine Bilirubin Urine Urobilinogen Ur Leukocyte Esterase Urine RBC Urine WBC Ur Epithelial Cells Urine Crystals Urine Bacteria Urine Casts Urine Mucus Ur Culture Indicated? Urine Glucose COVID-19 Source SARS-CoV-2 (PCR) Influenza Type A (PCR) Influenza Type B (PCR) RSV (PCR) Add-On Test Request DONE 11/21/24 11/21/24 11/21/24 16:52 17:45 18:05 WBC RBC Hgb Hct MCV MCH MCHC RDW Plt Count MPV Immature Gran % Neutrophils % Lymphocytes % Monocytes % Eosinophils % Basophils % Nucleated RBC % Absolute Neutrophils Absolute Lymphocytes Absolute Monocytes Absolute Eosinophils Absolute Basophils VBG pH VBG pCO2 VBG pO2 VBG HCO3 VBG Total CO2 VBG O2 Saturation VBG Base Excess VBG Lactate Sodium Potassium Chloride Carbon Dioxide Anion Gap BUN Creatinine Est GFR (CKD-EPI 2020) Glucose 1061 H* Glucose 1 Hour Cancelled Hemoglobin A1c Calcium Magnesium Total Bilirubin Conjugated Bilirubin AST ALT Alkaline Phosphatase Troponin I 13 NT-Pro-B Natriuret Pep 745 H Total Protein Albumin TSH Urine Color Yellow Urine Clarity Clear Urine pH 6.0 Ur Specific [place] <= 1.005 Urine Protein Negative Urine Ketones 15 H Urine Blood Trace-intact H Urine Nitrite Negative Urine Bilirubin Negative Urine Urobilinogen 0.2 Ur Leukocyte Esterase Negative Urine RBC 5-10 H Urine WBC Negative Ur Epithelial Cells Few Urine Crystals Negative Urine Bacteria Many Urine Casts Negative Urine Mucus Negative Ur Culture Indicated? No Urine Glucose >=1000 H COVID-19 Source SARS-CoV-2 (PCR) Influenza Type A (PCR) Influenza Type B (PCR) RSV (PCR) Add-On Test Request DONE 11/21/24 11/21/24 11/21/24 19:08 19:58 19:58 WBC RBC Hgb Hct MCV MCH MCHC RDW Plt Count MPV Immature Gran % Neutrophils % Lymphocytes % Monocytes % Eosinophils % Basophils % Nucleated RBC % Absolute Neutrophils Absolute Lymphocytes Absolute Monocytes Absolute Eosinophils Absolute Basophils VBG pH VBG pCO2 VBG pO2 VBG HCO3 VBG Total CO2 VBG O2 Saturation VBG Base Excess VBG Lactate Sodium 133 L Potassium 4.1 D Chloride 91 L Carbon Dioxide 30.9 Anion Gap 11.1 H BUN 41 H Creatinine 2.2 H Est GFR (CKD-EPI 2020) 23.53 Glucose Cancelled 1005 H* Cancelled Glucose 1 Hour Hemoglobin A1c Calcium 9.4 Magnesium Total Bilirubin Conjugated Bilirubin AST ALT Alkaline Phosphatase Troponin I NT-Pro-B Natriuret Pep Total Protein Albumin TSH Urine Color Urine Clarity Urine pH Ur Specific [place] Urine Protein Urine Ketones Urine Blood Urine Nitrite Urine Bilirubin Urine Urobilinogen Ur Leukocyte Esterase Urine RBC Urine WBC Ur Epithelial Cells Urine Crystals Urine Bacteria Urine Casts Urine Mucus Ur Culture Indicated? Urine Glucose COVID-19 Source SARS-CoV-2 (PCR) Influenza Type A (PCR) Influenza Type B (PCR) RSV (PCR) Add-On Test Request 11/21/24 11/21/24 11/21/24 21:19 22:08 22:20 WBC RBC Hgb Hct MCV MCH MCHC RDW Plt Count MPV Immature Gran % Neutrophils % Lymphocytes % Monocytes % Eosinophils % Basophils % Nucleated RBC % Absolute Neutrophils Absolute Lymphocytes Absolute Monocytes Absolute Eosinophils Absolute Basophils VBG pH VBG pCO2 VBG pO2 VBG HCO3 VBG Total CO2 VBG O2 Saturation VBG Base Excess VBG Lactate Sodium 137 Potassium 4.2 Chloride 95 L Carbon Dioxide 34.0 H Anion Gap 8.0 BUN 40 H Creatinine 2.1 H Est GFR (CKD-EPI 2020) 24.88 Glucose 900 H* Cancelled 826 H* Glucose 1 Hour Hemoglobin A1c Calcium 9.6 Magnesium Total Bilirubin Conjugated Bilirubin AST ALT Alkaline Phosphatase Troponin I NT-Pro-B Natriuret Pep Total Protein Albumin TSH Urine Color Urine Clarity Urine pH Ur Specific [place] Urine Protein Urine Ketones Urine Blood Urine Nitrite Urine Bilirubin Urine Urobilinogen Ur Leukocyte Esterase Urine RBC Urine WBC Ur Epithelial Cells Urine Crystals Urine Bacteria Urine Casts Urine Mucus Ur Culture Indicated? Urine Glucose COVID-19 Source Cancelled SARS-CoV-2 (PCR) Cancelled Influenza Type A (PCR) Cancelled Influenza Type B (PCR) Cancelled RSV (PCR) Cancelled Add-On Test Request 11/21/24 11/22/24 11/22/24 23:25 00:27 01:25 WBC RBC Hgb Hct MCV MCH MCHC RDW Plt Count MPV Immature Gran % Neutrophils % Lymphocytes % Monocytes % Eosinophils % Basophils % Nucleated RBC % Absolute Neutrophils Absolute Lymphocytes Absolute Monocytes Absolute Eosinophils Absolute Basophils VBG pH VBG pCO2 VBG pO2 VBG HCO3 VBG Total CO2 VBG O2 Saturation VBG Base Excess VBG Lactate Sodium 140 Potassium 4.2 Chloride 97 L Carbon Dioxide 33.3 H Anion Gap 9.7 BUN 41 H Creatinine 2.0 H Est GFR (CKD-EPI 2020) 26.38 Glucose 818 H* 778 H* 716 H* Glucose 1 Hour Hemoglobin A1c Calcium 9.5 Magnesium Total Bilirubin Conjugated Bilirubin AST ALT Alkaline Phosphatase Troponin I NT-Pro-B Natriuret Pep Total Protein Albumin TSH Urine Color Urine Clarity Urine pH Ur Specific [place] Urine Protein Urine Ketones Urine Blood Urine Nitrite Urine Bilirubin Urine Urobilinogen Ur Leukocyte Esterase Urine RBC Urine WBC Ur Epithelial Cells Urine Crystals Urine Bacteria Urine Casts Urine Mucus Ur Culture Indicated? Urine Glucose COVID-19 Source Nasopharynx SARS-CoV-2 (PCR) Negative Influenza Type A (PCR) Negative Influenza Type B (PCR) Negative RSV (PCR) Negative Add-On Test Request 11/22/24 11/22/24 11/22/24 02:30 03:25 04:15 WBC RBC Hgb Hct MCV MCH MCHC RDW Plt Count MPV Immature Gran % Neutrophils % Lymphocytes % Monocytes % Eosinophils % Basophils % Nucleated RBC % Absolute Neutrophils Absolute Lymphocytes Absolute Monocytes Absolute Eosinophils Absolute Basophils VBG pH VBG pCO2 VBG pO2 VBG HCO3 VBG Total CO2 VBG O2 Saturation VBG Base Excess VBG Lactate Sodium 141 141 Potassium 4.0 4.0 Chloride 99 100 Carbon Dioxide 33.8 H 34.3 H Anion Gap 8.2 6.7 BUN 39 H 38 H Creatinine 1.9 H 1.8 H Est GFR (CKD-EPI 2020) 28.06 29.94 Glucose 662 H* 618 H* 562 H* Glucose 1 Hour Hemoglobin A1c Calcium 9.6 9.5 Magnesium Total Bilirubin Conjugated Bilirubin AST ALT Alkaline Phosphatase Troponin I NT-Pro-B Natriuret Pep Total Protein Albumin TSH Urine Color Urine Clarity Urine pH Ur Specific [place] Urine Protein Urine Ketones Urine Blood Urine Nitrite Urine Bilirubin Urine Urobilinogen Ur Leukocyte Esterase Urine RBC Urine WBC Ur Epithelial Cells Urine Crystals Urine Bacteria Urine Casts Urine Mucus Ur Culture Indicated? Urine Glucose COVID-19 Source SARS-CoV-2 (PCR) Influenza Type A (PCR) Influenza Type B (PCR) RSV (PCR) Add-On Test Request 11/22/24 11/22/24 11/22/24 06:50 08:30 13:40 WBC 8.96 RBC 4.77 Hgb 13.4 Hct 40.9 MCV 86 MCH 28.1 MCHC 32.8 RDW 14.5 Plt Count 213 MPV 10.0 Immature Gran % Neutrophils % Lymphocytes % Monocytes % Eosinophils % Basophils % Nucleated RBC % Absolute Neutrophils Absolute Lymphocytes Absolute Monocytes Absolute Eosinophils Absolute Basophils VBG pH 7.47 H VBG pCO2 44 VBG pO2 93 VBG HCO3 32 H VBG Total CO2 28 VBG O2 Saturation 99 VBG Base Excess 8 H VBG Lactate Sodium 144 145 144 Potassium 3.8 3.6 3.6 Chloride 103 103 104 Carbon Dioxide 32.8 H 31.3 32.4 H Anion Gap 8.2 10.7 7.6 BUN 34 H 35 H 28 H Creatinine 1.7 H 1.6 H 1.6 H Est GFR (CKD-EPI 2020) 32.06 34.48 34.48 Glucose 448 H 408 H 275 H Glucose 1 Hour Hemoglobin A1c Calcium 9.6 9.8 10.0 Magnesium Total Bilirubin Conjugated Bilirubin AST ALT Alkaline Phosphatase Troponin I NT-Pro-B Natriuret Pep Total Protein Albumin TSH Urine Color Urine Clarity Urine pH Ur Specific [place] Urine Protein Urine Ketones Urine Blood Urine Nitrite Urine Bilirubin Urine Urobilinogen Ur Leukocyte Esterase Urine RBC Urine WBC Ur Epithelial Cells Urine Crystals Urine Bacteria Urine Casts Urine Mucus Ur Culture Indicated? Urine Glucose COVID-19 Source SARS-CoV-2 (PCR) Influenza Type A (PCR) Influenza Type B (PCR) RSV (PCR) Add-On Test Request 11/22/24 14:02 WBC RBC Hgb Hct MCV MCH MCHC RDW Plt Count MPV Immature Gran % Neutrophils % Lymphocytes % Monocytes % Eosinophils % Basophils % Nucleated RBC % Absolute Neutrophils Absolute Lymphocytes Absolute Monocytes Absolute Eosinophils Absolute Basophils VBG pH VBG pCO2 VBG pO2 VBG HCO3 VBG Total CO2 VBG O2 Saturation VBG Base Excess VBG Lactate Sodium Potassium Chloride Carbon Dioxide Anion Gap BUN Creatinine Est GFR (CKD-EPI 2020) Glucose Glucose 1 Hour Hemoglobin A1c Cancelled Calcium Magnesium Total Bilirubin Conjugated Bilirubin AST ALT Alkaline Phosphatase Troponin I NT-Pro-B Natriuret Pep Total Protein Albumin TSH Urine Color Urine Clarity Urine pH Ur Specific [place] Urine Protein Urine Ketones Urine Blood Urine Nitrite Urine Bilirubin Urine Urobilinogen Ur Leukocyte Esterase Urine RBC Urine WBC Ur Epithelial Cells Urine Crystals Urine Bacteria Urine Casts Urine Mucus Ur Culture Indicated? Urine Glucose COVID-19 Source SARS-CoV-2 (PCR) Influenza Type A (PCR) Influenza Type B (PCR) RSV (PCR) Add-On Test Request Time Spent with Patient Time Spent with Patient: 25-34 minutes Time was spent: preparing to see the patient(eg.review tests), obtaining and/or reviewing separately otained hiistory, ordering medications,tests, procedures, referring, communicating with other health geriatric personal care aide, indepentently interpreting results, counseling the patient and care coordination
[2024-11-22] MEDS: tiZANidine 4 MG TABLET PO (16:47)
[2024-11-22] MEDS: INSULIN REGULAR IN 0.9 % NACL 100 UNIT/100 ML BAG IVINF (17:30)
[2024-11-22] MEDS: QUEtiapine 50 MG TAB 25 MG PO (21:18)
[2024-11-22] MEDS: traZODone 50 MG TAB 100 MG PO (21:19)
[2024-11-22 21:28] LABS: Anion Gap 7.6 mmol/L (3-11); BUN 28 mg/dL (7-18); CO2 29.4 mmol/L (21.0-32.0); Calcium 9.3 mg/dL (8.5-10.1); Chloride 100 mmol/L (98-107); Estimated GFR 32.06 (mL/min/1.73m2); Glucose 480 mg/dL (74-106); Potassium 3.7 mmol/L (3.5-5.1); Sodium 137 mmol/L (136-145)
[2024-11-23] VITALS (34 sets, daily range): BP systolic 110–156; BP diastolic 59–96; PULSE 60–96; RESP 16–34; TEMP 35.9–37.1; O2SAT 73–98
[2024-11-23 01:28] LABS: Anion Gap 6.8 mmol/L (3-11); BUN 25 mg/dL (7-18); CO2 30.2 mmol/L (21.0-32.0); Calcium 9.2 mg/dL (8.5-10.1); Chloride 102 mmol/L (98-107); Estimated GFR 37.26 (mL/min/1.73m2); Glucose 325 mg/dL (74-106); Potassium 3.5 mmol/L (3.5-5.1); Sodium 139 mmol/L (136-145)
[2024-11-23] MEDS: POTASSIUM CHLORIDE/0.45% NACL 1,000 ML 150 MEQ IV ×2 (03:18→10:07)
[2024-11-23] MEDS: Albuterol HFA 8 GM 60 PUFF INH IH (04:30)
[2024-11-23 05:27] LABS: Anion Gap 6.1 mmol/L (3-11); BUN 23 mg/dL (7-18); CO2 27.9 mmol/L (21.0-32.0); Calcium 9.3 mg/dL (8.5-10.1); Chloride 102 mmol/L (98-107); Estimated GFR 44.24 (mL/min/1.73m2); Glucose 207 mg/dL (74-106); Potassium 3.5 mmol/L (3.5-5.1); Sodium 136 mmol/L (136-145)
[2024-11-23 05:48] LABS: Hemoglobin A1C 12.2 % (<5.7)
[2024-11-23] MEDS: INSULIN REGULAR IN 0.9 % NACL 100 UNIT/100 ML BAG 8.5 UNIT IVINF (07:26)
[2024-11-23] MEDS: Normal Saline Flush 10 ML SYR IVP ×2 (08:18→20:08)
[2024-11-23] MEDS: DULoxetine 30 MG CAP 60 MG PO (08:18)
[2024-11-23] MEDS: Apixaban 2.5 MG TAB PO ×2 (08:19→20:00)
[2024-11-23] MEDS: Aspirin E.C. 81 MG TABEC PO (08:19)
[2024-11-23] MEDS: Pantoprazole 40 MG TABCR PO (08:19)
[2024-11-23] MEDS: Metoprolol CR 50 MG TABCR PO (08:19)
[2024-11-23] MEDS: Spironolactone 50 MG TAB PO ×2 (08:19→20:01)
[2024-11-23] MEDS: Allopurinol 100 MG TAB PO (08:19)
[2024-11-23] MEDS: Insulin Aspart 300 UNITS/3 ML PEN SC ×3 (08:32→22:34)
[2024-11-23] MEDS: Insulin Glargine 300 UNITS/3 ML PEN 15 UNITS SC ×2 (08:34→12:41)
[2024-11-23] MEDS: Fluticasone NASAL SPRAY 16 GM BTL NS (08:35)
[2024-11-23] MEDS: Torsemide 20 MG TAB 80 MG PO ×2 (09:18→16:28)
[2024-11-23] MEDS: Levothyroxine 100 MCG TAB PO (09:20)
[2024-11-23 09:47] LABS: Anion Gap 7.1 mmol/L (3-11); BUN 20 mg/dL (7-18); CO2 29.9 mmol/L (21.0-32.0); Calcium 9.3 mg/dL (8.5-10.1); Chloride 102 mmol/L (98-107); Estimated GFR 44.24 (mL/min/1.73m2); Glucose 177 mg/dL (74-106); Potassium 3.6 mmol/L (3.5-5.1); Sodium 139 mmol/L (136-145)
[2024-11-23] MEDS: Acetaminophen 325 MG TAB 650 MG PO (10:12)
--- NOTE | 2024-11-23 13:45 | SPP_ITS ---
Date of service: 11/23/24 Time of Service: 12:30 Subjective Subjective: Patient received alert/awake, conversant, expressing feeling hungry. Objective: Patient Positioning: upright in bed Oxygen Tolerance: tolerating nasal canula initially, transitioned to room air at 92 SPO2 Oral Hygiene: Patient completed independently with swab at end of meal. PO Trials Assessed: IDDSI 0 Thin Liquids via straw and cup IDDSI 4 Puree Solid - Mashed potatoes IDDSI 5 Minced and Moist Solid - carrots, beef Oral Phase Findings: Difficulty chewing Impulsive pacing with straw sips and solids Expressed I can't get it chewed up but continued bringing more food into her mouth Pharyngeal Phase Findings: Intermittent transient wet vocal quality No coughing, throat clearing Assessment/Impression: Patient seen for EARLY CHILDHOOD SPECIAL EDUCATOR re-assessment with noon meal per nursing request. Patient evaluated by EARLY CHILDHOOD SPECIAL EDUCATOR last evening and diet modifications were provided. The patient was held NPO this morning for unclear reasoning; no new reports of aspiration concern. Lenore continues to present with chronic oral and cognitive dysphagia in the setting of impulsivity with fast rate/large bolus size. In addition, patient's sparse dentition and TMJ dysfunction further impact mastication. Verbal prompting provided, but patient insight is judged to be fair to poor as she stated I can't chew it but continued to bring more food to her mouth. Per nursing, patient has expressed not liking minced foods however she was unable to successfully masticate the minced meat today and expectorated it into a napkin. In discussion with this clinician, patient is agreeable to current diet modifications and requesting additional gravies and butters and sauces. Continue to recommend diet modifications and aspiration precautions as outlined below. Plan: Will monitor for further needs, though anticipate no further acute EARLY CHILDHOOD SPECIAL EDUCATOR services indicated Recommendation at Discharge: N/A Diet modification is indicated as follows for the purpose of reduced risk of choking reduced mastication abilities, reduced pharyngeal stasis, impulsive or unsafe eating behaviors, pain reduction, patient preferences/to increase nutritional intake Diet Recommendations: ? SOLIDS: 6-Soft & Bite-Sized Solids (meat only - very soft/mashable with extra sauce/gravy) 5-Minced & Moist Solids - everything else (soups/purees also ok) LIQUIDS: 0-Thin Liquids MEDICATIONS: Whole 1 at a time With Purees followed by liquid wash Level of Assistance/Supervision: Provide set-up assist with initial verbal reminders for aspiration precautions as below and intermittent supervision Positioning and environment: Inlet upright, use HOB controls/bed tilt to achieve upright positioning Oral hygiene Q3-4h/every 3-4 hours Using suction swab kits on all oral structures as tolerated Strategies/Adaptations/Assistive Equipment: Small bites Slow rate of intake - 1-2 sips via straw or cup at a time Alternate intake of liquids and solids Education Provided to: Nursing, patient, DATABASE SPECIALIST Topics Addressed: aspiration precautions, diet recommendations Total Time: 25 minutes [id number] [place] [address]
--- NOTE | 2024-11-23 16:16 | PDOC.CMPRO ---
Date of service: 11/23/24 Time of Service: 11:30 Care Management Progress Note Progress Note Text Progress Note Text: Lenore was sitting up in her bed when CM met with her today. She was very friendly with CM. She looked brighter today than yesterday, and stated that she is starting to feel better. She was able to have something to eat today, and she was very happy about that. It was planned that her IV insulin would be d/c'd, and she would have a PO challenge, to see where her blood sugars would balance out. She will likely need to be started on home therapy of daily insulin with sliding scale coverage. CM was able to obtain Lenore's updated guardianship and AD paperwork. This was sent to medical records. DONELL also was able to speak with Gracie Geiger, who stated that she will be going to court to change Lenore's code status, as this has been her stated wish. Lenore will have a palliative care consult tomorrow to define these goals. Gracie also asked CM to help her with a guardianship portal for Lenore's [facility] record. CM left a message with medical records, and will f/u on this tomorrow. Discharge Potential Discharge Needs: Other (facility provider follow up) Anticipated Barriers to Discharge: None Identified Patient/Family Education Needs: Review discharge instructions, discuss Ask Me Three Transportation: RCT RCT Transportation: Wheel chair van Plan: Lenore will return to the [facility], where she resides, once she is medically stable. She will f/u with the facility provider and continue per her plan of care. CM will coordinate and RCT wheelchair van to transport her home. CM will continue to follow. Social Determinants of Health Screening Will the Patient Participate in the Screening?: Unable to obtain Do you worry about having a steady place to live?: no
--- NOTE | 2024-11-23 18:37 | PGE_ITS ---
Date of Service Date of service: 11/23/24 Time of Service: 09:00 Assessment and Plan Assessment and plan (1) Type 2 diabetes mellitus with hyperosmolar hyperglycemic state (HHS): Status: Acute Assessment and plan: - Patient had increased thirst over the last week and outpatient labs drawn that showed a blood sugar level of about 1200 - Associated with hyperkalemia potassium of 6.7 and pseudohyponatremia with a sodium of 119 - Was started on insulin drip in the emergency department - Will place patient on HHS protocol, continuing insulin drip and IV fluids with a goal to decrease blood sugar levels to the low 200s to high 100s - Will give appropriate IV fluids - Every 2 hour BMP - Every hour fingerstick Nov 22: attempted to stop insulin drip but patient's blood glucose popped to over 300. Restarted insulin drip. She is having difficulty swallowing and speech therapy will see her. Anticipating that she will have nimo TDD over 40 units of insulin per day. Nov 23: insulin drip stopped at mid-day. TDD 60-80. Gave basal insulin 30u with [facility] correctional. Likely will need basal BID insulin at discharge. (2) Dysphagia: Status: Acute Assessment and plan: Appreciate ST recommendations to prevent aspiration (3) Upper respiratory symptom: Status: Acute Assessment and plan: Wet cough, started guaifenesin (4) Hyperkalemia: Status: Resolved Assessment and plan: - Secondary to hyperglycemia as noted above - Initially 6.7, repeat down to 5.1 Resolved as of November 21 evening (5) Pseudohyponatremia: Status: Resolved Assessment and plan: - Secondary to hyperglycemia as noted above - Initially 119, improved to 127 Resolved as of November 21 evening (6) Acute kidney injury superimposed on CKD: Status: Acute Assessment and plan: - Secondary to hyperglycemia - Creatinine 2.4 (baseline 1.3 Nov 22: improving. Cr 1.6 - 1.8 today Nov 23: At baseline, Cr 1.3. Can resume diuresis tomorrow as needed. (7) Diastolic heart failure: Status: Acute Assessment and plan: - History of, without acute exacerbation - Reportedly was allowed to drink as much sole manohar as she wanted recently, likely worsening her blood sugar - Patient supposed to be on fluid restriction which will be increased to 1200 mL/day - Will continue home medication regimen including aspirin, torsemide 80 twice daily, spironolactone 50 twice da, Toprol XL 50 daily - Patient may need additional diuresis given IV fluids while treating for HHS as noted above ly, (8) Cognitive impairment: Status: Acute Assessment and plan: - Continue home Abilify 2 mg daily, duloxetine 60 mg daily, Topamax 25 mg twice daily, and Seroquel 25 mg at bedtime (9) Paroxysmal A-fib: Status: Acute Assessment and plan: - Continue home Toprol XL and Eliquis Subjective Subjective Interval history since last seen: Ms. Jonas is again having difficulty swallowing pills with water, coughing after swallowing. She is not able to communicate clearly but she denies pain. Exam Narrative Exam Narrative: General: This is an obese woman in no distress HEENT: Normocephalic, atraumatic CV: RRR Resp: CTAB Abd: soft, protruberant, nontender MSK: voluntary motion x4 Neuro: awake, alert to self only (at baseline), CN II-XII intact Objective Last Vital Signs Temp 35.9 C L 11/23/24 16:01 Pulse 91 H 11/23/24 16:01 Resp 29 H 11/23/24 18:00 BP 156/74 H 11/23/24 16:01 Pulse Ox 98 11/23/24 16:01 Laboratory Results - last 24 hr 11/22/24 11/22/24 11/23/24 20:19 21:05 01:05 Sodium Cancelled 137 139 Potassium Cancelled 3.7 3.5 Chloride Cancelled 100 102 Carbon Dioxide Cancelled 29.4 30.2 Anion Gap Cancelled 7.6 6.8 BUN Cancelled 28 H 25 H Creatinine Cancelled 1.7 H 1.5 H Est GFR (CKD-EPI 2020) Cancelled 32.06 37.26 Glucose Cancelled 480 H 325 H Hemoglobin A1c Calcium Cancelled 9.3 9.2 11/23/24 11/23/24 05:12 09:20 Sodium 136 139 Potassium 3.5 3.6 Chloride 102 102 Carbon Dioxide 27.9 29.9 Anion Gap 6.1 7.1 BUN 23 H 20 H Creatinine 1.3 H 1.3 H Est GFR (CKD-EPI 2020) 44.24 44.24 Glucose 207 H 177 H Hemoglobin A1c 12.2 H Calcium 9.3 9.3 Time Spent with Patient Time Spent with Patient: 35-49 minutes Time was spent: preparing to see the patient(eg.review tests), obtaining and/or reviewing separately otained hiistory, ordering medications,tests, procedures, referring, communicating with other health medicare interviewer, indepentently interpreting results, counseling the patient and care coordination
[2024-11-23] MEDS: tiZANidine 4 MG TABLET PO (20:00)
[2024-11-23] MEDS: traZODone 50 MG TAB 100 MG PO (20:00)
[2024-11-23] MEDS: QUEtiapine 50 MG TAB 25 MG PO (20:01)
[2024-11-23] MEDS: guaiFENesin 200 MG/10 ML CUP PO (20:02)
[2024-11-24] VITALS (7 sets, daily range): BP systolic 91–136; BP diastolic 64–89; PULSE 73–91; RESP 16–30; TEMP 35.8–36.7; O2SAT 94–100
--- NOTE | 2024-11-24 02:27 | W.PC.ACHO ---
Registration Status: ADM IN Primary Language: Preferred Language: Wolof ED Information & Data Chief Complaint Diabetes 11/21/24 19:05 Chief Complaint Diabetes 11/21/24 16:47 Triage Note BIBA for lab results taken 11/21/24 16:47 earlier today from [facility] showing BGL 1200+. Arrives alert, oriented x 2. Follws commands. Has been noted to be drinking a lot of sole manohar per [facility]. No hx diabetes. Medical / Surgical History (Last Reviewed 04/09/23 @ 12:03 by Cedric Lewis MD) TMJ tenderness, bilateral Paronychia of great toe, left Toe pain, left Right leg pain IUD complication Tongue lesion Endometrial thickening on ultrasound PMB (postmenopausal bleeding) Functional urinary incontinence (06/01/17) Headache (06/01/17) Post-menopausal bleeding (02/01/17) Atrophic vaginitis Urge incontinence Psoriasis Recurrent UTI External hemorrhoids Hematuria Dermatosis (Last Reviewed 04/09/23 @ 12:03 by Cedric Lewis MD) Colonoscopy - MAC (07/12/17) Hx of dilation and curettage Most Recent Vital Signs Temperature 36.5 C 11/24/24 01:39 Temperature Source Tympanic 11/24/24 01:39 Pulse 89 11/24/24 01:39 Pulse 86 11/24/24 00:01 Respiratory Rate 18 11/24/24 01:39 Respiratory Effort Normal, Non-Labored 11/21/24 20:15 Respiratory Depth Normal 11/21/24 20:15 Respiratory Pattern Normal 11/21/24 20:15 Blood Pressure 131/77 11/24/24 01:39 Blood Pressure Mean 95 11/24/24 01:39 Blood Pressure Position Supine 11/21/24 19:47 Pulse Oximetry 97 11/24/24 01:39 Respiratory End-tidal CO2 31 11/21/24 20:01 Oxygen Delivery Method Nasal Cannula 11/24/24 01:39 Oxygen Flow Rate 2 11/24/24 01:39 Pain Level 10 11/23/24 12:05 Comment baseline 2L/min 11/24/24 01:39 Allergies sulfamethoxazole (From Sulfamethoxazole-Trimethoprim) Allergy (Intermediate, Verified 11/21/24 17:00) rash trimethoprim (From Sulfamethoxazole-Trimethoprim) Allergy (Intermediate, Verified 11/21/24 17:00) rash perphenazine (From Trilafon) Adverse Reaction (Severe, Verified 11/21/24 17:00) Other (See Comment) eyes roll back to head Active Medications Generic Name Dose Route Start Last Admin Trade Name Freq PRN Reason Stop Dose Admin Acetaminophen 650 mg 11/21/24 20:24 11/23/24 10:12 Acetaminophen 325 Mg Tab PO 650 mg Q4H PRN PRN Administration Albuterol Sulfate 2 puff 11/22/24 16:50 11/23/24 04:30 Albuterol Hfa 8 Gm 60 Puff Inh IH 2 puff QID PRN PRN Administration Wheezing, Shortness of Breath Allopurinol 100 mg 11/22/24 08:30 11/23/24 08:19 Allopurinol 100 Mg Tab PO 100 mg DAILY ARIEL Administration Apixaban 2.5 mg 11/22/24 08:30 11/23/24 20:00 Apixaban 2.5 Mg Tab PO 2.5 mg BID ARIEL Administration Aripiprazole 2 mg 11/22/24 08:30 11/23/24 08:19 Aripiprazole 2 Mg Tab PO 2 mg DAILY ARIEL Administration Aspirin 81 mg 11/22/24 08:30 11/23/24 08:19 Aspirin E.C. 81 Mg Tabec PO 81 mg DAILY ARIEL Administration Benzocaine/Menthol 78 gm 11/23/24 12:00 11/23/24 20:01 Benzocaine/Menthol [place] 78 Gm Can TP 1 spray Q8H ARIEL Administration Duloxetine HCl 60 mg 11/22/24 08:30 11/23/24 08:18 Duloxetine 30 Mg Cap PO 60 mg DAILY ARIEL Administration Fluticasone Propionate 0 gm 11/22/24 08:30 11/23/24 08:35 Fluticasone Nasal [place] 16 Gm Btl NS 2 sprays DAILY ARIEL Administration Guaifenesin 200 mg 11/23/24 11:45 11/23/24 20:02 Guaifenesin 200 Mg/10 Ml Cup PO 200 mg Q4H PRN PRN Administration Insulin Aspart 0 units 11/23/24 16:30 11/23/24 22:34 Insulin Aspart 300 Units/3 Ml Pen SC 5 unit AC & HS ARIEL Administration Protocol Levothyroxine Sodium 100 mcg 11/23/24 06:00 11/23/24 09:20 Levothyroxine 100 Mcg Tab PO 100 mcg 0600 ARIEL Administration Metoprolol Succinate 50 mg 11/22/24 08:30 11/23/24 08:19 Metoprolol Cr 50 Mg Tabcr PO 50 mg DAILY ARIEL Administration Quetiapine Fumarate 25 mg 11/23/24 20:00 11/23/24 20:01 Quetiapine 50 Mg Tab PO 25 mg HS ARIEL Administration Sodium Chloride 0 ml 11/21/24 16:19 11/22/24 04:22 Normal Saline Flush 10 Ml Syr IVP 70 ml PRN PRN Administration Sodium Chloride 0 ml 11/21/24 20:00 11/23/24 20:08 Normal Saline Flush 10 Ml Syr IVP 10 ml BID ARIEL Administration Spironolactone 50 mg 11/22/24 08:30 11/23/24 20:01 Spironolactone 50 Mg Tab PO 50 mg BID ARIEL Administration Tizanidine HCl 4 mg 11/22/24 16:41 11/23/24 20:00 Tizanidine 4 Mg Tablet PO 4 mg BID PRN PRN Administration Topiramate 25 mg 11/22/24 08:30 11/23/24 20:01 Topiramate 25 Mg Tab PO 25 mg BID ARIEL Administration Torsemide 80 mg 11/22/24 08:30 11/23/24 16:28 Torsemide 20 Mg Tab PO 80 mg BID DIURETIC ARIEL Administration Trazodone HCl 100 mg 11/23/24 20:00 11/23/24 20:00 Trazodone 50 Mg Tab PO 100 mg HS ARIEL Administration IV IV Catheter Type [Right Peripheral IV Forearm] IV Catheter Type [Right Hand] Saline Lock IV Catheter Type [Right Peripheral IV Antecubital] IV Catheter Type [Left Wrist] Saline Lock IV Catheter Gauge [Right 18 Forearm] IV Catheter Gauge [Right 20 Antecubital] IV Catheter Gauge [Left Wrist] 20 Diagnostics 11/24/24 11/23/24 11/23/24 Range/Units 05:35 09:20 05:12 WBC Pending RBC Pending Hgb Pending Hct Pending MCV Pending MCH Pending MCHC Pending RDW Pending Plt Count Pending MPV Pending Immature Gran % Pending Neutrophils % Pending Lymphocytes % Pending Monocytes % Pending Eosinophils % Pending Basophils % Pending Absolute Neutrophils Pending Absolute Lymphocytes Pending Absolute Monocytes Pending Absolute Eosinophils Pending Absolute Basophils Pending Sodium Pending 139 136 (136-145) mmol/L Potassium Pending 3.6 3.5 (3.5-5.1) mmol/L Chloride Pending 102 102 (98-107) mmol/L Carbon Dioxide Pending 29.9 27.9 (21.0-32.0) mmol/L Anion Gap Pending 7.1 6.1 (3-11) mmol/L BUN Pending 20 H 23 H (7-18) mg/dL Creatinine Pending 1.3 H 1.3 H (0.55-1.02) mg/dL Est GFR (CKD-EPI 2020) Pending 44.24 44.24 (mL/min/1.73m2) Glucose Pending 177 H 207 H (74-106) mg/dL Hemoglobin A1c 12.2 H (<5.7) % Calcium Pending 9.3 9.3 (8.5-10.1) mg/dL Total Bilirubin Pending AST Pending ALT Pending Alkaline Phosphatase Pending Total Protein Pending Albumin Pending 11/21/24 18:14 Blood Culture - Preliminary Blood NO GROWTH 48 HOURS 11/21/24 16:51 Blood Culture - Preliminary Blood NO GROWTH 48 HOURS [id number] Documentation Fingerstick Glucose Start: 11/21/24 20:24 Freq: .Q1H Status: Complete Protocol: Activity Type Activity Date Activity User E-sign Co-sign Detail Recorded Client Recorded Date Recorded By Document 11/22/24 13:32 BKG DAEMON(10) NVT-BG05 11/22/24 13:33 BKG DAEMON(10) Fingerstick Glucose Start: 11/22/24 13:38 Freq: AC & HS Status: Complete Protocol: Activity Type Activity Date Activity User E-sign Co-sign Detail Recorded Client Recorded Date Recorded By Document 11/22/24 19:06 BKG DAEMON(10) NVT-BG05 11/22/24 19:07 BKG DAEMON(10) Fingerstick Glucose Start: 11/22/24 19:29 Freq: .Q1H Status: Complete Protocol: Activity Type Activity Date Activity User E-sign Co-sign Detail Recorded Client Recorded Date Recorded By Document 11/23/24 11:55 BKG DAEMON(10) NVT-BG05 11/23/24 11:56 BKG DAEMON(10) Fingerstick Glucose Start: 11/23/24 12:25 Freq: .Q6H Status: Complete Protocol: Activity Type Activity Date Activity User E-sign Co-sign Detail Recorded Client Recorded Date Recorded By Document 11/23/24 14:48 BKG DAEMON(10) NVT-BG05 11/23/24 14:49 BKG DAEMON(10) Fingerstick Glucose Start: 11/23/24 16:23 Freq: .ACHS Status: Active Protocol: Activity Type Activity Date Activity User E-sign Co-sign Detail Recorded Client Recorded Date Recorded By Document 11/23/24 22:29 BKG DAEMON(10) NVT-BG05 11/23/24 22:30 BKG DAEMON(10) Intake and Output - 24 Hour Total 11/21/24 16:18 thru 11/24/24 01:39 Intake Total 83756.125 Output Total 4380 Balance 7508.125 Weight 126.4 kg Intake: IV 8568.125 Oral 3320 Output: Urine 4380 Other: Urine Color Yellow Urine Appearance Clear Urine Odor None Comment Device repositioned Stool Size Smear Stool Characteristics Soft Brown Falls Risk Assessment History of Falls No History 11/21/24 20:15 Contributing Factors Confusion,Incontinence, 11/21/24 20:15 Medications Ambulatory Aids Uses ambulatory device + 11/21/24 20:15 Tubes/Lines With any additional score 11/21/24 20:15 Gait Evaluation No gait disturbance 11/21/24 20:15 Cognition Cognitive impairment 11/21/24 20:15 Fall Total Score 74 11/21/24 20:15 Level of Risk High Risk 11/21/24 20:15 Problems (Last Reviewed 04/09/23 @ 12:03 by Cedric Lewis MD) Dysphagia (Acute) Upper respiratory symptom (Acute) Paroxysmal A-fib (Acute) Cognitive impairment (Acute) Acute kidney injury superimposed on CKD (Acute) Type 2 diabetes mellitus with hyperosmolar hyperglycemic state (HHS) (Acute) Diastolic heart failure (Acute) v v v v v v v v v Sending and/or Receiving Nurses: Please use comment section below to note any information pertinent to the patient hand-off not included above. Information pt pt lives in [facility], visited ER for increased thursty and urination, BG 1200, new diagnostic on diabetes, pt A&O, ON 2L/min NC oxygen,WC bound, runing NSR on tele. Report received from: Hadley ADHIKARI RN
[2024-11-24] MEDS: Levothyroxine 100 MCG TAB PO (06:05)
[2024-11-24] MEDS: Pantoprazole 40 MG TABCR PO (06:40)
[2024-11-24 06:54] LABS: Abs Immature Grans 0.11 10^3/uL (0.0-0.06); HCT 42.1 % (36.0-46.0); HGB 13.8 g/dL (11.2-15.7); Immature Grans % 1.8 %; MCH 28.4 pg (27.0-33.0); MCHC 32.8 % (32.0-36.0); MCV 87 fL (80-95); MPV 10.0 fL (8.0-11.0); Platelet Count 177 10^3/uL (130-400); RBC 4.86 10^6/uL (3.93-5.22); RDW 14.3 % (11.7-14.6); RDW-SD 45.3 fL; WBC 6.15 10^3/uL (4.4-10.8)
[2024-11-24 07:37] LABS: ALT 22 U/L (14-59); AST 27 U/L (15-37); Albumin 3.1 g/dL (3.4-5.0); Alkaline Phosphatase 125 U/L (46-116); Anion Gap 9.4 mmol/L (3-11); BUN 20 mg/dL (7-18); Bilirubin, Total 0.8 mg/dL (0.2-1.0); CO2 29.6 mmol/L (21.0-32.0); Calcium 9.5 mg/dL (8.5-10.1); Chloride 97 mmol/L (98-107); Estimated GFR 40.47 (mL/min/1.73m2); Glucose 393 mg/dL (74-106); Potassium 3.8 mmol/L (3.5-5.1); Sodium 136 mmol/L (136-145); Total Protein 6.5 g/dL (6.4-8.2)
[2024-11-24] MEDS: Allopurinol 100 MG TAB PO (07:52)
[2024-11-24] MEDS: Torsemide 20 MG TAB 80 MG PO ×2 (07:53→17:00)
[2024-11-24] MEDS: DULoxetine 30 MG CAP 60 MG PO (07:53)
[2024-11-24] MEDS: Spironolactone 50 MG TAB PO ×2 (07:53→19:52)
[2024-11-24] MEDS: Aspirin E.C. 81 MG TABEC PO (07:53)
[2024-11-24] MEDS: Apixaban 2.5 MG TAB PO ×2 (07:53→20:25)
[2024-11-24] MEDS: Metoprolol CR 50 MG TABCR PO (07:53)
[2024-11-24] MEDS: Insulin Aspart 300 UNITS/3 ML PEN SC ×4 (07:54→22:06)
[2024-11-24] MEDS: Insulin Glargine 300 UNITS/3 ML PEN 20 UNITS SC ×2 (07:54→22:03)
[2024-11-24] MEDS: Normal Saline Flush 10 ML SYR IVP ×2 (07:55→20:26)
--- NOTE | 2024-11-24 10:23 | PT.INIE ---
PT Notes Visit Reasons: [facility] Inpatient Physical Therapy Evaluation Date: 11/24/24 Referring Doctor: Kyle Matute Precautions: Fall precautions Patient Profile/Admitting Diagnosis: [facility] PMHX: A-fib, diabetes type 2 (newly diagnosed), WILLIE, history of mental health issues (per patient) Social History/Home Situation: Lives at the [facility] without any stairs to manage, states that she does not walk very far but she is usually able to walk into her bathroom with assist and her rollator, does need one person to help her out of bed each morning, no family local Subjective: Pt states that she has a high fear of falling. She thinks she is going to fall forward. She is currently up in the chair. Per nursing, she was able to get to the chair via a stand pivot transfer with 2 assist. Objective: General Observation: slouched posture with head down, no acute distress, on 2 L/min via NC Mental Status: A+Ox4 Pain: mentions pain all over due to arthritis Vital Signs: stable, monitored by nursing ROM: Able to perform AROM of bilat shoulders to >90 deg Able to perform AROM of bilat hips to >90 deg - but does rotate right hip into external rotation to perform Strength: 4/5 strength during MMTs for L hip flex, L knee ext, and bilat ankle DF 3+/5 strength during MMTs for R hip flex and R knee ext Sensation: unable to feel light touch to bilat LEs Bed Mobility/Transfers: stand pivot assist to chair with 2 assist (Per nursing) sit to stand w/mod assist of 2 into RW stand to sit w/mod assist of 2 into chair Gait: not willing to perform today due to fear of falling Balance: Static Sitting: fair Dynamic Sitting: fair Static Standing: poor Dynamic Standing: poor Special Tests: Mobility Limitations Standardized Measure [facility] AM-PAC 6 clicks Basic Mobility Inpatient Short Form: Raw Score: 11 CMS Score: 72.57% Informed Consent/Education: Patient instructed in purpose of PT consult and plan of care. Assessment: Pt is currently below her baseline functional levels as she was unable to ambulate today. She has a high fear of falling which is limiting her greatly. She was only able to stand today with mod assist of 2 mostly due to this fear of falling. She is hyposensitve on her feet bilaterally which will contribute to her balance deficits and fall risk. She does seem to have the necessary strength to ambulate but she was unwilling to attempt this today. She will benefit from PT services while in the hospital. She will be able to return to the [facility] when medically cleared but will require additional assistance for mobility. Patient is assessed as a [x] Moderate 05803 complexity based on the following: History: Moderate Examination: Moderate Presentation: Moderate Decision Making: Moderate Goals: Goals X1 week 1. Supine-Sit w/min assist 2. Sit-Supine w/min assist 3. Sit-Stand w/min assist 4. Stand-Sit w/min assist 5. Bed-Chair w/min assist 6. Chair-Bed w/min assist 7. Gait - ambulate 10 ft w/RW and CGA Plan of Care/Treatment Plan: 1-2x/day, 7 days/week x 1 week. Plan of care has been reviewed with the [employer] providing the service under Physical Therapy direction. Initiate Physical Therapy intervention for strengthening, bed mobility, transfers, gait, stairs, balance training, use of assistive device. DISCHARGE RECOMMENDATIONS: Discharge back to the [facility] with PT services when medically cleared TREATMENT CODE/TIME: Mod Francisca ([id number]) x1 - 31 min
[2024-11-24] MEDS: Polyethylene Glycol 3350 17 GM PACKET PO (11:09)
--- NOTE | 2024-11-24 12:51 | PT.INTREAT ---
PT Notes Visit Reasons: [facility] Inpatient Physical Therapy Treatment Note Date: 11/24/24 Precautions: Fall precautions. Standard. Fearful of falling. Activity as tolerated. Subjective: Wanted to go back to bed but is fearful of falling. NATHANAEL Feng came in and needed help to ensure safety of patient. Stated that her R leg gets stuck easy and is anxious about moving it to transfer to bed. Objective: General Observation: Patient on bedside recliner with NATHANAEL Feng, fatigued and wanting to transfer back to bed. Mental Status: A+Ox4 Pain: Generalized pain Vital Signs: Closely monitored by nursing Bed Mobility/Transfers: Moderate cueing provided for use of B hands as needed for support, movement sequence, AD management, and posture to reduce fall risk and minimize pain report. Positioned bedside recliner close to foot of bed to faciliate easier pivoting towards the bed. Sit to stand minimal assist of 2 pulling on head bed rail and pushing on R armrest of recliner Stand pivot to bed minimal assist of 2 using FWW Stand to sit contact guard assist of 2 Sit to supine moderate assist of 2 with PT supporting upper body and SURVEY COMPILER Tavares both LEs Gait: Took two side steps 7 and a pivot towards bed while holding onto bariatric FWW. Unwilling to stand again to be cleaned and unwilling to do anything else as she was too exhausted. Balance: Static Sitting: Fair Dynamic Sitting: Fair Static Standing: Poor Dynamic Standing: Unable Assessment: Patient demonstrates functional mobility decline requiring the assistance of 2 people for safe transfers. Patient is admitted under acute level of care for type II DM with hyperosmolar hyperglycemia, psuedohyponatremia, hyperkalemia, diastolic heart failure, and PAF. Plan of Care/Treatment Plan: 1-2x/day, 7 days/week x 1 week. Plan of care has been reviewed with the ASIAN ART CURATOR providing the service under Physical Therapy direction. Initiate Physical Therapy intervention for strengthening, bed mobility, transfers, gait, stairs, balance training, use of assistive device. DISCHARGE RECOMMENDATIONS: Discharge back to the [facility] with PT services when medically cleared TREATMENT CODE/TIME: 46141 x 29 minutes for 2 units (12:51-13:20).
--- NOTE | 2024-11-24 13:30 | CHAPLAIN ---
Lenore was up in the chair when I visited this morning. She was recently moved out to Med/Surg from the ICU and said she is feeling betters. She was very pleasant and easily engaged in conversation. Lenore lives at the [facility] and hopes to return soon. She talked about some of the activities at the [facility] that she's involved in. She's originally from [place] and also lived in [place] before moving to [place].
[2024-11-24] MEDS: Acetaminophen 325 MG TAB 650 MG PO (14:42)
[2024-11-24] MEDS: tiZANidine 4 MG TABLET PO (14:43)
--- NOTE | 2024-11-24 16:12 | W.PALLCONSUL ---
Date of service: 11/24/24 Time of Service: 16:14 History of Present Illness Narrative: Lenroe was seen for Palliative consultation. She is a resident of the [facility]. She has a guardian, Gracie Geiger. Gracie is planning to go to court to change Lenore's code status because Lenore has been expressing that she prefers to be DNR/DNI. Palliative was consulted to discuss GOC and review CODE status. Lenore is clear that she wishes to be a DNR/DNI. When questioned what this means, she states, If I , don't try to bring me back. She also states, I am not getting any younger, I am going to at some point. She reports that she is feeling better. She is sitting up, talkative. Assessment and Plan Assessment and plan (1) Type 2 diabetes mellitus with hyperosmolar hyperglycemic state (HHS): Status: Acute Assessment and plan: Presented with blood sugar level of about 1200 Associated with hyperkalemia potassium of 6.7 and pseudohyponatremia with a sodium of 119 Was started on insulin drip in the emergency department Improving. Likely for discharge in the next 24-48 hrs. She will return to the [facility]. (2) Dysphagia: Status: Acute Assessment and plan: Has been seen by ST with recommendations. (3) Upper respiratory symptom: Status: Resolved Assessment and plan: Congested cough, improving. (4) Hyperkalemia: Status: Resolved Assessment and plan: - Secondary to hyperglycemia as noted above resolved. (5) Pseudohyponatremia: Status: Resolved Assessment and plan: - Secondary to hyperglycemia as noted above Resolved (6) Acute kidney injury superimposed on CKD: Status: Resolved Assessment and plan: WILLIE resolved, at baseline CKD stage III (7) Diastolic heart failure: Status: Acute Assessment and plan: - History of, without acute exacerbation (8) Cognitive impairment: Status: Acute Assessment and plan: She is clear about her wishes r/t CODE status. She has capacity at this time to make this decision. She clearly understands what it means to be a DNR/DNI and she is able to state this. (9) Paroxysmal A-fib: Status: Acute Assessment and plan: On Toprol XL and Eliquis (10) Palliative care patient: Status: Acute Assessment and plan: F/u at [facility]. (11) Advanced care planning/counseling discussion: Status: Acute Assessment and plan: As above, she is clear about her wishes r/t CODE status. She has capacity at this time to make this decision. She clearly understands what it means to be a DNR/DNI and she is able to state this. Her guardian is aware of this and plans to go to the court for her. F/u palliative at the [facility]. Review of Systems Narrative: Denies concerns. [facility] All Active Problems (Updated 12/01/24 @ 18:42 by Asya Salcedo NP) Advanced care planning/counseling discussion (Acute) Palliative care patient (Acute) Dysphagia (Acute) Paroxysmal A-fib (Acute) Cognitive impairment (Acute) Type 2 diabetes mellitus with hyperosmolar hyperglycemic state (HHS) (Acute) Hyperosmolar hyperglycemic state (HHS) (Acute) Chronic daily headache (Acute) Migraine (Chronic) TMJ dysfunction (Acute) Referred otalgia (Acute) Cerumen impaction (Acute) Internal derangement of right knee (Acute) DEPO MEDROL: 09/08/24; 11/05/2023; 03/22/2023; 08/24/2022; 09/22/21 Internal derangement of left knee (Acute) DEPO MEDROL 09/08/24; 06/01/24; 11/05/2023; 03/22/2023; 08/24/2022; 09/22/21 Atherosclerosis of artery of both lower extremities (Acute) Phlebitis of left posterior tibial vein (Acute) Diastolic heart failure (Acute) Discharge planning issues (Acute) DVT prophylaxis (Acute) Acute hypoxemic respiratory failure (Acute) Hypokalemia (Acute) UTI (urinary tract infection) (Acute) Pancolitis (Acute) Headache (Acute) Colitis (Acute) Hypoxemia (Acute) Acute pyelonephritis (Acute) Estrogen deficiency (Acute) CKD (chronic kidney disease), stage III (Chronic) Obstructive sleep apnea (Chronic) Does not use CPAP Osteoporosis (Chronic) Vitamin D deficiency (Acute) Prediabetes (Acute) Gout (Chronic) Venous stasis dermatitis (Acute) Cellulitis (Acute) PVD (peripheral vascular disease) (Chronic) Idiopathic gout, unspecified site (Acute) Edema (Chronic) Nail dystrophy (Acute) Physical deconditioning (Acute) Sleep apnea (Acute) BMI 45.0-49.9, adult (Acute) 07/2018 BMI 48 Acquired hypothyroidism (Acute 06/01/17) Chronic nonintractable headache (Acute 06/01/17) Essential hypertension (Chronic 06/01/17) Psoriasis (Acute 06/01/17) Recurrent major depressive disorder (Acute 06/01/17) Mixed incontinence (Chronic) Obesity (Chronic) Hypertension (Chronic) Panic disorder (Chronic) Obsessive-compulsive disorder (Chronic) Hypothyroidism (Chronic) Migraine (Chronic) Gait disturbance (Chronic) Depression (Chronic) Bilateral lower extremity edema (Chronic) Overactive bladder (Chronic) Wears adult diapers. Insomnia (Chronic) Chronic pruritus (Chronic) Medical History TMJ tenderness, bilateral Paronychia of great toe, left Toe pain, left Right leg pain IUD complication Tongue lesion Endometrial thickening on ultrasound PMB (postmenopausal bleeding) 2016. D&C for postmenopausal bleeding. Benign inactive endometrium. No recurrences. Functional urinary incontinence (06/01/17) Headache (06/01/17) Post-menopausal bleeding (02/01/17) D&C 03/10/17. Inactive endometrium. No episodes since. Atrophic vaginitis Urge incontinence Psoriasis Recurrent UTI External hemorrhoids Hematuria Dermatosis Surgical History Colonoscopy - MAC (07/12/17) Hx of dilation and curettage 2016 Social History Smoking/Tobacco Use Status: Never Smoking risk assessment performed?: Yes Alcohol Intake: current Alcohol Intake frequency: a few times a month Drug use: Never Substance use type: does not use Caregiver/Support person: Yes (Accompanies her to her office visits) Housing: shelter Number of Children: 3 current occupation: Disabled Current gender identity: female Seatbelt use: always Do you feel safe at home: Yes Do you feel safe in your relationship?: Yes Additional Social history: Unable to asses privately. Female Reproductive History Menstrual Menopause type: natural History History 5 Para 3 Hx # Term Pregnancies 3 Multiple births Hx # Pregnancies Ectopic pregnancies AB induced Hx Number of Living Children 3 AB spontaneous 2 Exam Narrative Exam Narrative: General: very pleasant, overweight female, sitting up in her hospital room. She engages in the visit. She is oriented to person, place, time. She provides accurate answers to quesitons. HEENT: Normocephalic, atraumatic, MMM Resp: respirations appear even and unlabored at rest. Abd: soft, protruberant, nontender MSK: moves all 4 extremities freely. Results Last Vital Signs Temp 36.7 C 11/24/24 11:45 Pulse 84 11/24/24 11:45 Resp 16 11/24/24 11:45 BP 113/84 11/24/24 11:45 Pulse Ox 94 11/24/24 11:45 Labs 11/26/24 06:40 11/26/24 09:07 Labs: Laboratory Results - last 24 hr 11/24/24 06:39 WBC 6.15 RBC 4.86 Hgb 13.8 Hct 42.1 MCV 87 MCH 28.4 MCHC 32.8 RDW 14.3 Plt Count 177 MPV 10.0 Immature Gran % 1.8 Neutrophils % 56.3 Lymphocytes % 30.9 Monocytes % 10.4 Eosinophils % 0.3 Basophils % 0.3 Nucleated RBC % 0.0 Absolute Neutrophils 3.46 Absolute Lymphocytes 1.90 Absolute Monocytes 0.64 Absolute Eosinophils 0.02 Absolute Basophils 0.02 Sodium 136 Potassium 3.8 Chloride 97 L Carbon Dioxide 29.6 Anion Gap 9.4 BUN 20 H Creatinine 1.4 H Est GFR (CKD-EPI 2020) 40.47 Glucose 393 H Calcium 9.5 Total Bilirubin 0.8 AST 27 ALT 22 Alkaline Phosphatase 125 H Total Protein 6.5 Albumin 3.1 L Time Spent Time Spent with Patient Time Spent(min): 58
--- NOTE | 2024-11-24 16:51 | PDOC.CMPRO ---
Date of service: 11/24/24 Time of Service: 16:51 Care Management Progress Note Progress Note Text Progress Note Text: Lenore was sitting up in the bed when CM met with her earlier today. She was very pleasant with CM. She stated that she got up with PT today, but wasn't strong enough to take any steps, but she was pleased to get out of bed. CM spoke with medical records, and they will be calling Lenore's guardian to help her set up the guardianship portal. Palliative Care also met with Lenore today to help define her goals of care. Discharge Potential Discharge Needs: PCP F/U Appt (facility provider) Anticipated Barriers to Discharge: None Identified Patient/Family Education Needs: Review discharge instructions, discuss Ask Me Three Transportation: [facility] (wheel chair van) Plan: Lenore will return to the [facility] once she is medically stable, likely within the next day or 2. She will f/u with the facility provider and continue per her plan of care. Lenore will tranpsort via [facility] wheel chair van. CM will continue to follow. Social Determinants of Health Screening Will the Patient Participate in the Screening?: Unable to obtain Do you worry about having a steady place to live?: no
--- NOTE | 2024-11-24 17:25 | W.PM.PROGNOT ---
Date of Service Date of service: 11/24/24 Time of Service: 08:00 Assessment and Plan Assessment and plan (1) Type 2 diabetes mellitus with hyperosmolar hyperglycemic state (HHS): Status: Acute Assessment and plan: - Patient had increased thirst over the last week and outpatient labs drawn that showed a blood sugar level of about 1200 - Associated with hyperkalemia potassium of 6.7 and pseudohyponatremia with a sodium of 119 - Was started on insulin drip in the emergency department - Will place patient on HHS protocol, continuing insulin drip and IV fluids with a goal to decrease blood sugar levels to the low 200s to high 100s - Will give appropriate IV fluids - Every 2 hour BMP - Every hour fingerstick Nov 22: attempted to stop insulin drip but patient's blood glucose popped to over 300. Restarted insulin drip. She is having difficulty swallowing and speech therapy will see her. Anticipating that she will have nimo TDD over 40 units of insulin per day. Nov 23: insulin drip stopped at mid-day. TDD 60-80. Gave basal insulin 30u with ACHS correctional. Likely will need basal BID insulin at discharge. Nov 24: continuing need for 60 units of insulin per day. Increasing basal. Anticipate she will have a stable regimen for discharge tomorrow (2) Dysphagia: Status: Acute Assessment and plan: Appreciate ST recommendations to prevent aspiration She is safe for soft bites diet (3) Upper respiratory symptom: Status: Resolved Assessment and plan: Wet cough, started guaifenesin, improved (4) Hyperkalemia: Status: Resolved Assessment and plan: - Secondary to hyperglycemia as noted above - Initially 6.7, repeat down to 5.1 Resolved as of November 21 evening (5) Pseudohyponatremia: Status: Resolved Assessment and plan: - Secondary to hyperglycemia as noted above - Initially 119, improved to 127 Resolved as of November 21 evening (6) Acute kidney injury superimposed on CKD: Status: Resolved Assessment and plan: WILLIE resolved, at baseline CKD stage III (7) Diastolic heart failure: Status: Acute Assessment and plan: - History of, without acute exacerbation - Reportedly was allowed to drink as much sole manohar as she wanted recently, likely worsening her blood sugar - Patient supposed to be on fluid restriction which will be increased to 1200 mL/day - Will continue home medication regimen including aspirin, torsemide 80 twice daily, spironolactone 50 twice da, Toprol XL 50 daily - Patient may need additional diuresis given IV fluids while treating for HHS as noted above ly, (8) Cognitive impairment: Status: Acute Assessment and plan: - Continue home Abilify 2 mg daily, duloxetine 60 mg daily, Topamax 25 mg twice daily, and Seroquel 25 mg at bedtime (9) Paroxysmal A-fib: Status: Acute Assessment and plan: - Continue home Toprol XL and Eliquis Subjective Subjective Interval history since last seen: Ms. Jonas is comfortable in bed. No overnight events. Exam Narrative Exam Narrative: General: This is an obese woman in no distress HEENT: Normocephalic, atraumatic CV: RRR Resp: CTAB Abd: soft, protruberant, nontender MSK: voluntary motion x4 Neuro: awake, alert to self only (at baseline), CN II-XII intact Objective Last Vital Signs Temp 36.7 C 11/24/24 11:45 Pulse 84 11/24/24 11:45 Resp 16 11/24/24 11:45 BP 113/84 11/24/24 11:45 Pulse Ox 94 11/24/24 11:45 Laboratory Results - last 24 hr 11/24/24 06:39 WBC 6.15 RBC 4.86 Hgb 13.8 Hct 42.1 MCV 87 MCH 28.4 MCHC 32.8 RDW 14.3 Plt Count 177 MPV 10.0 Immature Gran % 1.8 Neutrophils % 56.3 Lymphocytes % 30.9 Monocytes % 10.4 Eosinophils % 0.3 Basophils % 0.3 Nucleated RBC % 0.0 Absolute Neutrophils 3.46 Absolute Lymphocytes 1.90 Absolute Monocytes 0.64 Absolute Eosinophils 0.02 Absolute Basophils 0.02 Sodium 136 Potassium 3.8 Chloride 97 L Carbon Dioxide 29.6 Anion Gap 9.4 BUN 20 H Creatinine 1.4 H Est GFR (CKD-EPI 2020) 40.47 Glucose 393 H Calcium 9.5 Total Bilirubin 0.8 AST 27 ALT 22 Alkaline Phosphatase 125 H Total Protein 6.5 Albumin 3.1 L Time Spent with Patient Time Spent with Patient: 25-34 minutes Time was spent: preparing to see the patient(eg.review tests), obtaining and/or reviewing separately otained hiistory, ordering medications,tests, procedures, referring, communicating with other health career services representative, indepentently interpreting results, counseling the patient and care coordination
[2024-11-24] MEDS: traZODone 50 MG TAB 100 MG PO (19:53)
[2024-11-24] MEDS: QUEtiapine 50 MG TAB 25 MG PO (19:53)
[2024-11-25 02:56] VITALS: BP 136/83; PULSE 89; RESP 20; TEMP 35.9; O2SAT 98
[2024-11-25] MEDS: Levothyroxine 100 MCG TAB PO (05:24)
[2024-11-25] MEDS: Pantoprazole 40 MG TABCR PO (05:53)
[2024-11-25 06:41] LABS: Abs Immature Grans 0.10 10^3/uL (0.0-0.06); HCT 40.7 % (36.0-46.0); HGB 13.4 g/dL (11.2-15.7); Immature Grans % 1.6 %; MCH 28.2 pg (27.0-33.0); MCHC 32.9 % (32.0-36.0); MCV 86 fL (80-95); MPV 10.3 fL (8.0-11.0); Platelet Count 167 10^3/uL (130-400); RBC 4.76 10^6/uL (3.93-5.22); RDW 14.0 % (11.7-14.6); RDW-SD 43.4 fL; WBC 6.40 10^3/uL (4.4-10.8)
[2024-11-25 07:10] LABS: ALT 21 U/L (14-59); AST 23 U/L (15-37); Albumin 3.5 g/dL (3.4-5.0); Alkaline Phosphatase 128 U/L (46-116); Anion Gap 9.0 mmol/L (3-11); BUN 22 mg/dL (7-18); Bilirubin, Total 0.8 mg/dL (0.2-1.0); CO2 29.0 mmol/L (21.0-32.0); Calcium 9.6 mg/dL (8.5-10.1); Chloride 93 mmol/L (98-107); Estimated GFR 44.24 (mL/min/1.73m2); Glucose 462 mg/dL (74-106); Potassium 3.5 mmol/L (3.5-5.1); Sodium 131 mmol/L (136-145); Total Protein 7.0 g/dL (6.4-8.2)
[2024-11-25 07:28] VITALS: BP 126/77; PULSE 97; RESP 16; TEMP 35.8; O2SAT 99
[2024-11-25] MEDS: Aspirin E.C. 81 MG TABEC PO (08:09)
[2024-11-25] MEDS: DULoxetine 30 MG CAP 60 MG PO (08:09)
[2024-11-25] MEDS: Spironolactone 50 MG TAB PO ×2 (08:10→20:49)
[2024-11-25] MEDS: Apixaban 2.5 MG TAB PO ×2 (08:10→20:49)
[2024-11-25] MEDS: Allopurinol 100 MG TAB PO (08:10)
[2024-11-25] MEDS: Torsemide 20 MG TAB 80 MG PO ×2 (08:10→16:29)
[2024-11-25] MEDS: Metoprolol CR 50 MG TABCR PO (08:10)
[2024-11-25] MEDS: Fluticasone NASAL SPRAY 16 GM BTL NS (08:11)
[2024-11-25] MEDS: Insulin Aspart 300 UNITS/3 ML PEN SC ×3 (08:14→16:29)
--- NOTE | 2024-11-25 09:58 | PDOC.CMDIS ---
Date of service: 11/25/24 Time of Service: 09:58 LACE Index Scoring Tool Questions: Length of Stay (in days): 4 - 6 Was the patient admitted via the E.D.?: Yes Comorbidities: Liver or Renal Disease E.D. Visits: 1 Answers: Total Score: 13 Risk of Readmission: High Risk Care Management Discharge Plan Reason for Hospitalization: [facility] Discharge Plan: Lenore is being discharged back to the [facility] for resumption of long term acute care registered nurse care and skilled needs. Patient will follow up with primary care/facility providers and continue per her discharge plan of care. Patient/Family Education Needs: Review discharge instructions, and plan to follow up after discharge. Discuss ask me three. Services Needed at Discharge: Custodial Facility (The [facility]) and Transportation ([facility] w/c dimas, coordinated by DONELL) SDOH Health Related Social Needs: Health related social needs details choose not to answer this time.
--- NOTE | 2024-11-25 10:10 | PT.INTREAT ---
PT Notes Visit Reasons: [facility] Date: 11/25/24 Precautions: Fall precautions. Standard. Fearful of falling. Activity as tolerated. Subjective: Lenore continues to report that her R leg gets stuck easy and is anxious about moving it to transfer to bed. Is agreeable to doing some exercises. States she was working with PT at the [facility] doing some leg exercises in the OT with some arm exercises. Objective: General Observation: Patient on bedside recliner just finishing breakfast. Agreeable to some exercise and transfer back to bed. Mental Status: A+Ox4 Pain: Generalized discomfort reported in her feet with standing and wants to wear her shoes when transfer from sit to stand. Vital Signs: Closely monitored by nursing Bed Mobility/Transfers: Moderate cueing provided for use of B hands as needed for support, movement sequence, AD management, and posture to reduce fall risk and minimize pain report. Positioned bedside recliner close to foot of bed to faciliate easier pivoting towards the bed. Sit to stand mod assist of 1 pulling on head bed rail and pushing on R armrest of recliner Stand pivot to bed minimal assist of 1 using FWW Stand to sit contact guard assist of 1 Sit to supine moderate assist of 1 with supporting both LEs Gait: Took two side steps 7 and a pivot towards bed while holding onto bariatric FWW. Patient declines performing any walking activities. States there was a time at the [facility] where she was walking from her room to the meal room. Unwilling to stand again to be cleaned and unwilling to do anything else as she was too exhausted. Balance: Static Sitting: Fair Dynamic Sitting: Fair Static Standing: Poor Dynamic Standing: Unable Therapeutic exercise 26049: Seated chair exercises: Hip flexion 2 x 10, long arc quads 2 x 10, sitting hamstring with yellow Thera-Band 2 x 10, sitting hip abduction with yellow Thera-Band 2 x 10, seated hip adduction into pillow 1 x 10 with complaints of inner groin discomfort, seated heel raise 20. Upper extremity horizontal abduction bilateral 2 x 10 with yellow Thera-Band, tricep 2 x 10 bilateral with yellow Thera-Band bicep 2 x 10 with yellow Thera-Band. Assessment: Patient demonstrates functional mobility decline requiring mod assist x 1. Do feel would be better to utilize 2 people for transfer as patient is very unsteady on her feet. She held up well with her upper and lower extremity strengthening. She was eager to participate. Patient is admitted under acute level of care for type II DM with hyperosmolar hyperglycemia, psuedohyponatremia, hyperkalemia, diastolic heart failure, and PAF. Plan of Care/Treatment Plan: 1-2x/day, 7 days/week x 1 week. Plan of care has been reviewed with the TALENT ACQUISITION ASSOCIATE providing the service under Physical Therapy direction. Initiate Physical Therapy intervention for strengthening, bed mobility, transfers, gait, stairs, balance training, use of assistive device. DISCHARGE RECOMMENDATIONS: Discharge back to the [facility] with PT services when medically cleared TREATMENT CODE/TIME: 86841 x 20 minutes for 1 unit and therapeutic exercise 82432 for 1 unit (9:05-9:40).
[2024-11-25 11:09] VITALS: BP 137/85; PULSE 95; RESP 16; TEMP 36.8; O2SAT 95
[2024-11-25] MEDS: Insulin Glargine 300 UNITS/3 ML PEN 10 UNITS SC (11:28)
--- NOTE | 2024-11-25 14:17 | PTTR_ITS ---
PT Notes Visit Reasons: [facility] Inpatient Physical Therapy Treatment Note [facility] Date:11/25/24 Precautions: Fall precautions. Standard. Fearful of falling. Activity as tolerated. Subjective: Lenore states that she just got back into bed following lunch and does not want to perform any sit to stand transfers or attempts to ambulate. Does express interest in continuing on her strengthening particularly focusing on right lower extremity. Objective: General Observation: Patient resting in bed with HOB 30 degrees. Agreeable to some exercise. Mental Status: A+Ox4 Pain: Complains of mild hand discomfort right side when performing yellow Thera- Band tricep strengthening. Vital Signs: Closely monitored by nursing Bed Mobility/Transfers: Not performed p.m. session Gait: Not performed Balance: Static Sitting: Fair Dynamic Sitting: Fair Static Standing: Poor Dynamic Standing: Unable Therapeutic exercise [id number]: Edge of bed: Hip flexion 2 x 10, long arc quads 2 x 10, sitting hamstring with yellow Thera-Band 2 x 10, seated heel raise 20. Patient then transition to semireclined sitting for heel slides x 10 right lower extremity, quad sets bilateral x 20 with assistance to position right lower extremity into neutral to avoid excessive external rotation and abduction, short arc quads again with assistance for positioning right lower extremity 2 x 10, short arc quads left with 3 pound ankle weight 2 x 10, straight leg raise left x 10, active assisted x 10 right, . Upper extremity horizontal abduction bilateral 2 x 10 with yellow Thera-Band, tricep 2 x 10 bilateral with yellow Thera-Band bicep 2 x 10 with 3 pound dumbbell. Assessment: Needed some verbal cueing for execution of straight leg raise particular for right lower extremity. Assistance offered for positioning right lower extremity to neutral posture to avoid compensatory abduction and external rotation. Will look to continue as above and incorporate some ambulatory activities tomorrow if patient agrees. Plan of Care/Treatment Plan: 1-2x/day, 7 days/week x 1 week. Plan of care has been reviewed with the DIRECTOR OF EMPLOYEE DEVELOPMENT providing the service under Physical Therapy direction. Initiate Physical Therapy intervention for strengthening, bed mobility, transfers, gait, stairs, balance training, use of assistive device. DISCHARGE RECOMMENDATIONS: Discharge back to the [facility] with PT services when medically cleared TREATMENT CODE/TIME: Therapeutic exercise 97258 x 2 unit (13:45-14:10)
[2024-11-25 15:07] VITALS: BP 134/73; PULSE 97; RESP 16; TEMP 36.1; O2SAT 98
--- NOTE | 2024-11-25 19:07 | PGE_ITS ---
Date of Service Date of service: 11/25/24 Time of Service: 08:00 Assessment and Plan Assessment and plan (1) Type 2 diabetes mellitus with hyperosmolar hyperglycemic state (HHS): Status: Acute Assessment and plan: - Patient had increased thirst over the last week and outpatient labs drawn that showed a blood sugar level of about 1200 - Associated with hyperkalemia potassium of 6.7 and pseudohyponatremia with a sodium of 119 - Was started on insulin drip in the emergency department - Will place patient on HHS protocol, continuing insulin drip and IV fluids with a goal to decrease blood sugar levels to the low 200s to high 100s - Will give appropriate IV fluids - Every 2 hour BMP - Every hour fingerstick Nov 22: attempted to stop insulin drip but patient's blood glucose popped to over 300. Restarted insulin drip. She is having difficulty swallowing and speech therapy will see her. Anticipating that she will have nimo TDD over 40 units of insulin per day. Nov 23: insulin drip stopped at mid-day. TDD 60-80. Gave basal insulin 30u with [facility] correctional. Likely will need basal BID insulin at discharge. Nov 24: continuing need for 60 units of insulin per day. Increasing basal. Anticipate she will have a stable regimen for discharge tomorrow Nov 25: blood sugar difficult to control on sensitive sliding scale, changed to resistant. Basal insulin dose increased to 40u. (2) Dysphagia: Status: Acute Assessment and plan: Appreciate ST recommendations to prevent aspiration She is safe for soft bites diet (3) Upper respiratory symptom: Status: Resolved Assessment and plan: Wet cough, started guaifenesin, improved (4) Hyperkalemia: Status: Resolved Assessment and plan: - Secondary to hyperglycemia as noted above - Initially 6.7, repeat down to 5.1 Resolved as of November 21 evening (5) Pseudohyponatremia: Status: Resolved Assessment and plan: - Secondary to hyperglycemia as noted above - Initially 119, improved to 127 Resolved as of November 21 evening (6) Acute kidney injury superimposed on CKD: Status: Resolved Assessment and plan: WILLIE resolved, at baseline CKD stage III (7) Diastolic heart failure: Status: Acute Assessment and plan: - History of, without acute exacerbation - Reportedly was allowed to drink as much sole manohar as she wanted recently, likely worsening her blood sugar - Patient supposed to be on fluid restriction which will be increased to 1200 mL/day - Will continue home medication regimen including aspirin, torsemide 80 twice daily, spironolactone 50 twice da, Toprol XL 50 daily - Patient may need additional diuresis given IV fluids while treating for HHS as noted above ly, (8) Cognitive impairment: Status: Acute Assessment and plan: - Continue home Abilify 2 mg daily, duloxetine 60 mg daily, Topamax 25 mg twice daily, and Seroquel 25 mg at bedtime (9) Paroxysmal A-fib: Status: Acute Assessment and plan: - Continue home Toprol XL and Eliquis Subjective Subjective Interval history since last seen: Ms. Jonas is comfortable in bed. No overnight events. Exam Narrative Exam Narrative: General: This is an obese woman in no distress HEENT: Normocephalic, atraumatic CV: RRR Resp: CTAB Abd: soft, protruberant, nontender MSK: voluntary motion x4 Neuro: awake, alert to self only (at baseline), CN II-XII intact Objective Last Vital Signs Temp 36.1 C L 11/25/24 15:07 Pulse 97 H 11/25/24 15:07 Resp 16 11/25/24 15:07 BP 134/73 11/25/24 15:07 Pulse Ox 98 11/25/24 15:07 Laboratory Results - last 24 hr 11/25/24 06:30 WBC 6.40 RBC 4.76 Hgb 13.4 Hct 40.7 MCV 86 MCH 28.2 MCHC 32.9 RDW 14.0 Plt Count 167 MPV 10.3 Immature Gran % 1.6 Neutrophils % 62.9 Lymphocytes % 26.4 Monocytes % 8.8 Eosinophils % 0.0 Basophils % 0.3 Nucleated RBC % 0.0 Absolute Neutrophils 4.03 Absolute Lymphocytes 1.69 Absolute Monocytes 0.56 Absolute Eosinophils 0.00 Absolute Basophils 0.02 Sodium 131 L Potassium 3.5 Chloride 93 L Carbon Dioxide 29.0 Anion Gap 9.0 BUN 22 H Creatinine 1.3 H Est GFR (CKD-EPI 2020) 44.24 Glucose 462 H Calcium 9.6 Total Bilirubin 0.8 AST 23 ALT 21 Alkaline Phosphatase 128 H Total Protein 7.0 Albumin 3.5 Time Spent with Patient Time Spent with Patient: 25-34 minutes Time was spent: preparing to see the patient(eg.review tests), obtaining and/or reviewing separately otained hiistory, ordering medications,tests, procedures, referring, communicating with other health healthcare or medical, indepentently interpreting results, counseling the patient and care coordination
[2024-11-25 20:09] VITALS: BP 136/68; PULSE 97; RESP 24; TEMP 36; O2SAT 98
[2024-11-25] MEDS: QUEtiapine 50 MG TAB 25 MG PO (20:49)
[2024-11-25] MEDS: traZODone 50 MG TAB 100 MG PO (20:49)
[2024-11-25] MEDS: Normal Saline Flush 10 ML SYR IVP (20:57)
[2024-11-25] MEDS: Insulin Glargine 300 UNITS/3 ML PEN 45 UNITS SC (20:57)
[2024-11-25 23:05] VITALS: BP 138/78; PULSE 94; RESP 24; TEMP 36.4; O2SAT 96
[2024-11-26] VITALS (8 sets, daily range): BP systolic 100–138; BP diastolic 64–107; PULSE 90–95; RESP 16–24; TEMP 36.7–37.2; O2SAT 93–96
[2024-11-26] MEDS: Pantoprazole 40 MG TABCR PO (06:32)
[2024-11-26] MEDS: Levothyroxine 100 MCG TAB PO (06:32)
[2024-11-26 07:09] LABS: Abs Immature Grans 0.09 10^3/uL (0.0-0.06); HCT 41.5 % (36.0-46.0); HGB 13.7 g/dL (11.2-15.7); Immature Grans % 1.3 %; MCH 28.5 pg (27.0-33.0); MCHC 33.0 % (32.0-36.0); MCV 86 fL (80-95); MPV 10.4 fL (8.0-11.0); Platelet Count 187 10^3/uL (130-400); RBC 4.81 10^6/uL (3.93-5.22); RDW 14.2 % (11.7-14.6); RDW-SD 43.9 fL; WBC 6.90 10^3/uL (4.4-10.8)
[2024-11-26 07:22] LABS: ALT 21 U/L (14-59); AST 27 U/L (15-37); Albumin 3.5 g/dL (3.4-5.0); Alkaline Phosphatase 121 U/L (46-116); Anion Gap 11.1 mmol/L (3-11); BUN 21 mg/dL (7-18); Bilirubin, Total 1.0 mg/dL (0.2-1.0); CO2 28.9 mmol/L (21.0-32.0); Calcium 9.7 mg/dL (8.5-10.1); Chloride 92 mmol/L (98-107); Estimated GFR 40.47 (mL/min/1.73m2); Glucose 422 mg/dL (74-106); Potassium 3.3 mmol/L (3.5-5.1); Sodium 132 mmol/L (136-145); Total Protein 7.0 g/dL (6.4-8.2)
[2024-11-26] MEDS: Insulin Aspart 300 UNITS/3 ML PEN SC ×4 (08:12→21:02)
[2024-11-26] MEDS: Metoprolol CR 50 MG TABCR PO (08:15)
[2024-11-26] MEDS: Spironolactone 50 MG TAB PO ×2 (08:15→20:12)
[2024-11-26] MEDS: Allopurinol 100 MG TAB PO (08:15)
[2024-11-26] MEDS: Fluticasone NASAL SPRAY 16 GM BTL NS (08:17)
[2024-11-26] MEDS: Torsemide 20 MG TAB 80 MG PO ×2 (08:17→16:06)
[2024-11-26 09:45] LABS: Glucose 547 mg/dL (74-106)
[2024-11-26] MEDS: Insulin Aspart 100 UNITS/ML UNIT 20 UNITS SC (10:19)
[2024-11-26] MEDS: Apixaban 2.5 MG TAB PO ×2 (10:27→20:11)
[2024-11-26] MEDS: Aspirin E.C. 81 MG TABEC PO (10:27)
[2024-11-26] MEDS: Polyethylene Glycol 3350 17 GM PACKET PO (10:27)
--- NOTE | 2024-11-26 11:43 | PT.INTREAT ---
PT Notes Visit Reasons: [facility] Inpatient Physical Therapy Treatment Note [facility] Date: November 26, 2024 Precautions: Fall precautions. Standard. Fearful of falling. Activity as tolerated. Subjective: Patient states she had a good night last night. Has been trying to cut back on her sugar secondary to her elevated glucose levels. Agreeable for treatment. Objective: General Observation: Patient on bedside recliner just finishing breakfast. Agreeable to some exercise and transfer back to chair. Patient was finishing up with nursing who is getting her cleaned up. Nursing stated she did fairly well standing. Patient states she had some shaking in her legs but the time they were done cleaning her. Mental Status: A+Ox4 Pain: Generalized discomfort reported in her feet with standing and wants to wear her shoes when transfer from sit to stand. Vital Signs: Closely monitored by nursing Bed Mobility/Transfers: Moderate cueing provided for use of B hands as needed for support, movement sequence, AD management, and posture to reduce fall risk and minimize pain report. Sit to stand mod assist of 2 pushing on armrest verbal cues needed for this as patient tends to reach for front wheel walker. s of recliner. Stand pivot to bed minimal assist of 1 using FWW Stand to sit contact guard assist of 1 Sit to supine moderate assist of 1 with supporting both LEs Gait: A.M. session: took 5 steps with bariatric front wheel walker and contact-guard x 1 with verbal cues for right lower extremity advancement. Patient unable to continue walking secondary to fatigue and legs and had to sit down. Verbal cues for hand placement on armrest of chair from bariatric front wheel walker for transferring from stand to sit. Patient declines performing any walking activities. States there was a time at the [facility] where she was walking from her room to the meal room. P.M. session: States that she does not want to do any sitting exercises and prefers to do them in bed when she transfers from chair to bed. Patient in bedside chair. Transitions sit to stand to bariatric front wheel walker with mod assist x 2. Takes 5 steps then transitions turning to her left to position for stand to sit transfer into bed. Patient requires moderate assist for positioning legs in bed as well as performing bed mobility getting higher up towards the head of bed. Balance: Static Sitting: Fair Dynamic Sitting: Fair Static Standing: Poor Dynamic Standing: Unable AM session: Therapeutic exercise [id number]: Sitting exercises: Seated hip flexion with 3 pound ankle weights 2 x 10, long arc quads 3 pound ankle weights 2 x 10, seated hip abduction yellow Thera-Band 2 x 10, seated hip adduction 1 x 10 with 3-second hold, heel/toe rises 20. Long arc quad 3 pound ankle weights 2 x 10. Upper extremity horizontal abduction bilateral 2 x 10 with yellow Thera-Band, tricep 2 x 10 bilateral with yellow Thera-Band bicep 2 x 10 with 3 pound dumbbell. PM session: Therapeutic exercise [id number]: Bed exercises: Heel slides x 10 left and right, short swing hamstrings with use of yellow Thera-Band and bolster under knee 2 x 10 bilateral, short arc quads with 3 pound ankle weights 2 x 10 bilateral, hip abduction with yellow Thera-Band 2 x 10, ankle pumps x 20. Upper extremity horizontal abduction bilateral 2 x 10 with yellow Thera-Band, tricep 2 x 10 bilateral with yellow Thera-Band bicep 2 x 10 with 3 pound dumbbell. Assessment: Patient is admitted under acute level of care for type II DM with hyperosmolar hyperglycemia, psuedohyponatremia, hyperkalemia, diastolic heart failure, and PAF. Patient demonstrates functional mobility decline requiring mod assist x 2 for transfer sit?stand. Fatigues easily and still very weak particularly right lower extremity. She held up well with her upper and lower extremity strengthening. Plan of Care/Treatment Plan: 1-2x/day, 7 days/week x 1 week. Plan of care has been reviewed with the WASHER AND CAPPER MACHINE OPERATOR providing the service under Physical Therapy direction. Initiate Physical Therapy intervention for strengthening, bed mobility, transfers, gait, stairs, balance training, use of assistive device. DISCHARGE RECOMMENDATIONS: Discharge back to the [facility] with PT services when medically cleared TREATMENT CODE/TIME: AM Session: 55801 x 1 Therapeutic exercise [id number] (10:05-10:30). PM session: 50226 X1, therapeutic exercise 36183 X1 (14:05-1435)
[2024-11-26] MEDS: Acetaminophen 325 MG TAB 650 MG PO (16:11)
[2024-11-26] MEDS: Normal Saline Flush 10 ML SYR IVP ×2 (16:15→20:12)
[2024-11-26] MEDS: traZODone 50 MG TAB 100 MG PO (20:11)
[2024-11-26] MEDS: QUEtiapine 50 MG TAB 25 MG PO (20:11)
[2024-11-26] MEDS: Insulin Glargine 300 UNITS/3 ML PEN 60 UNITS SC (20:22)
--- NOTE | 2024-11-26 22:54 | PGE_ITS ---
Date of Service Date of service: 11/26/24 Time of Service: 08:00 Assessment and Plan Assessment and plan (1) Type 2 diabetes mellitus with hyperosmolar hyperglycemic state (HHS): Status: Acute Assessment and plan: - Patient had increased thirst over the last week and outpatient labs drawn that showed a blood sugar level of about 1200 - Associated with hyperkalemia potassium of 6.7 and pseudohyponatremia with a sodium of 119 - Was started on insulin drip in the emergency department - Will place patient on HHS protocol, continuing insulin drip and IV fluids with a goal to decrease blood sugar levels to the low 200s to high 100s - Will give appropriate IV fluids - Every 2 hour BMP - Every hour fingerstick Nov 22: attempted to stop insulin drip but patient's blood glucose popped to over 300. Restarted insulin drip. She is having difficulty swallowing and speech therapy will see her. Anticipating that she will have nimo TDD over 40 units of insulin per day. Nov 23: insulin drip stopped at mid-day. TDD 60-80. Gave basal insulin 30u with [facility] correctional. Likely will need basal BID insulin at discharge. Nov 12: continuing need for 60 units of insulin per day. Increasing basal. Anticipate she will have a stable regimen for discharge tomorrow Nov 13: blood sugar difficult to control on sensitive sliding scale, changed to resistant. Basal insulin dose increased to 40u. Nov 14: TDD 104 last 24 hours. FG 433. Ordered additional 20u correctional this morning. Basal increased to 60. Consider CT imaging if TDD continues to ride, consider pancreatic lesion. (2) Dysphagia: Status: Acute Assessment and plan: Appreciate ST recommendations to prevent aspiration She is safe for soft bites diet (3) Upper respiratory symptom: Status: Resolved Assessment and plan: Wet cough, started guaifenesin, improved (4) Hyperkalemia: Status: Resolved Assessment and plan: - Secondary to hyperglycemia as noted above - Initially 6.7, repeat down to 5.1 Resolved as of November 21 evening (5) Pseudohyponatremia: Status: Resolved Assessment and plan: - Secondary to hyperglycemia as noted above - Initially 119, improved to 127 Resolved as of November 21 evening (6) Acute kidney injury superimposed on CKD: Status: Resolved Assessment and plan: WILLIE resolved, at baseline CKD stage III (7) Diastolic heart failure: Status: Acute Assessment and plan: - History of, without acute exacerbation - Reportedly was allowed to drink as much sole manohar as she wanted recently, likely worsening her blood sugar - Patient supposed to be on fluid restriction which will be increased to 1200 mL/day - Will continue home medication regimen including aspirin, torsemide 80 twice daily, spironolactone 50 twice da, Toprol XL 50 daily - Patient may need additional diuresis given IV fluids while treating for HHS as noted above ly, (8) Cognitive impairment: Status: Acute Assessment and plan: - Continue home Abilify 2 mg daily, duloxetine 60 mg daily, Topamax 25 mg twice daily, and Seroquel 25 mg at bedtime (9) Paroxysmal A-fib: Status: Acute Assessment and plan: - Continue home Toprol XL and Eliquis Subjective Subjective Interval history since last seen: Ms. Jonas is comfortable, enjoying breakfast. No new complaints. No apparent eating/drinking of items that might explain her continuing hyperglycemia Exam Narrative Exam Narrative: General: This is an obese woman in no distress HEENT: Normocephalic, atraumatic CV: RRR Resp: CTAB Abd: soft, protruberant, nontender MSK: voluntary motion x4 Neuro: awake, alert to self only (at baseline), CN II-XII intact Objective Last Vital Signs Temp 36.7 C 11/26/24 21:35 Pulse 94 H 11/26/24 21:35 Resp 20 11/26/24 21:35 BP 123/73 11/26/24 21:35 Pulse Ox 93 11/26/24 21:35 Laboratory Results - last 24 hr 11/26/24 11/26/24 06:40 09:07 WBC 6.90 RBC 4.81 Hgb 13.7 Hct 41.5 MCV 86 MCH 28.5 MCHC 33.0 RDW 14.2 Plt Count 187 MPV 10.4 Immature Gran % 1.3 Neutrophils % 60.8 Lymphocytes % 27.1 Monocytes % 10.7 Eosinophils % 0.1 Basophils % 0.0 Nucleated RBC % 0.0 Absolute Neutrophils 4.19 Absolute Lymphocytes 1.87 Absolute Monocytes 0.74 Absolute Eosinophils 0.01 Absolute Basophils 0.00 Sodium 132 L Potassium 3.3 L Chloride 92 L Carbon Dioxide 28.9 Anion Gap 11.1 H BUN 21 H Creatinine 1.4 H Est GFR (CKD-EPI 2020) 40.47 Glucose 422 H 547 H* Calcium 9.7 Total Bilirubin 1.0 AST 27 ALT 21 Alkaline Phosphatase 121 H Total Protein 7.0 Albumin 3.5 Time Spent with Patient Time Spent with Patient: 25-34 minutes Time was spent: preparing to see the patient(eg.review tests), obtaining and/or reviewing separately otained hiistory, ordering medications,tests, procedures, referring, communicating with other health early breastfeeding care specialist, indepentently interpreting results, counseling the patient and care coordination
[2024-11-27] MEDS: Pantoprazole 40 MG TABCR PO (05:54)
[2024-11-27] MEDS: Levothyroxine 100 MCG TAB PO (05:54)
[2024-11-27] MEDS: Acetaminophen 325 MG TAB 650 MG PO (06:30)
[2024-11-27 07:47] VITALS: BP 123/76; PULSE 89; RESP 16; TEMP 36.7; O2SAT 97
[2024-11-27] MEDS: Apixaban 2.5 MG TAB PO (07:51)
[2024-11-27] MEDS: Allopurinol 100 MG TAB PO (07:51)
[2024-11-27] MEDS: Torsemide 20 MG TAB 80 MG PO (07:51)
[2024-11-27] MEDS: Aspirin E.C. 81 MG TABEC PO (07:51)
[2024-11-27] MEDS: DULoxetine 30 MG CAP 60 MG PO (07:51)
[2024-11-27] MEDS: Spironolactone 50 MG TAB PO (07:51)
[2024-11-27] MEDS: Metoprolol CR 50 MG TABCR PO (07:51)
[2024-11-27] MEDS: Insulin Aspart 300 UNITS/3 ML PEN SC ×2 (07:55→11:58)
[2024-11-27 07:57] VITALS: O2SAT 95
[2024-11-27] MEDS: Fluticasone NASAL SPRAY 16 GM BTL NS (07:58)
[2024-11-27] MEDS: Insulin Aspart 300 UNITS/3 ML PEN 10 UNITS SC ×2 (08:09→11:59)
[2024-11-27] MEDS: guaiFENesin 200 MG/10 ML CUP PO (08:13)
[2024-11-27] MEDS: Normal Saline Flush 10 ML SYR IVP (09:13)
--- NOTE | 2024-11-27 10:43 | PT.INTREAT ---
PT Notes Visit Reasons: [facility] Inpatient Physical Therapy Treatment Note [facility] Date: 11/27/2024 Precautions: Fall precautions. Standard. Fearful of falling. Activity as tolerated. wants to wear her shoes when transfer from sit to stand. Subjective: Patient states she had a good night last night. Agreeable for treatment. Objective: General Observation: Patient on bedside recliner. Mental Status: A+Ox4 Pain: Generalized discomfort reported in her feet and calves Vital Signs: Closely monitored by nursing Bed Mobility/Transfers: Moderate cueing provided for use of B hands as needed for support, movement sequence, AD management, and posture to reduce fall risk and minimize pain report. Sit to stand from recliner without cushion added mod assist of 2 pushing on armrests of recliner. verbal cues needed for this as patient tends to reach for front wheel walker. X 1 trial; min assist of 2 from recliner with 2 inch cushion added x 2 trials Stand pivot to bed minimal assist of 1 using FWW and standby assist of 1 Stand to sit contact guard assist of 1 x4 trials Balance: Static Sitting: Fair Dynamic Sitting: Fair Static Standing: Poor plus Dynamic Standing: Unable AM session: Therapeutic exercise [id number]: Sitting exercises: Seated hip flexion with 3 pound ankle weights 2 x 10, long arc quads 3 pound ankle weights 2 x 10, seated hip abduction yellow Thera-Band 2 x 10, seated hip adduction 1 x 10 with 3-second hold, heel/toe rises 20. Long arc quad 3 pound ankle weights 2 x 10. Upper extremity horizontal abduction bilateral 2 x 10 with yellow Thera-Band, tricep 2 x 10 bilateral with yellow Thera-Band bicep 2 x 10 with 3 pound dumbbell. Assessment: Patient demonstrated need for less assistance from elevated height when cushion was added to recliner. Patient remains fearful of falling and this fear limits her willingness to perform tasks that are not purposeful. Patient motivated to participate in the TherEX requiring cues to reduce speed and complete full range of motion. Anticipate patient to be discharged back to the [facility] with continued skilled PT Plan of Care/Treatment Plan: 1-2x/day, 7 days/week x 1 week. Plan of care has been reviewed with the BOLTING MACHINE OPERATOR providing the service under Physical Therapy direction. Initiate Physical Therapy intervention for strengthening, bed mobility, transfers, gait, stairs, balance training, use of assistive device. DISCHARGE RECOMMENDATIONS: Discharge back to the [facility] with PT services when medically cleared TREATMENT CODE/TIME: AM Session: [id number] x2 , [id number] /[id number].
[2024-11-27] MEDS: metFORMIN C.R. 500 MG TABCR PO (10:44)
[2024-11-27] MEDS: Empaglifozin 10 MG TAB PO (10:44)
--- NOTE | 2024-11-27 11:48 | W.PM.DS.N ---
Date of service: 11/27/24 Time of Service: 11:49 DS: Diagnosis Discharge Diagnosis (1) Type 2 diabetes mellitus with hyperosmolar hyperglycemic state (HHS): Status: Acute (2) Dysphagia: Status: Acute (3) Upper respiratory symptom: Status: Resolved (4) Hyperkalemia: Status: Resolved (5) Pseudohyponatremia: Status: Resolved (6) Acute kidney injury superimposed on CKD: Status: Resolved (7) Diastolic heart failure: Status: Acute (8) Cognitive impairment: Status: Acute (9) Paroxysmal A-fib: Status: Acute Discharge Plan Disposition Patient Disposition: Nursing Home Facility(SNF) Condition: Fair Discharge Details Reason For Visit: [facility] Admit Date/Time: 11/21/24 18:57 Admit Provider: Roberto Cade Attending Provider: Roberto Cade Primary Care Provider: Allie Gates Hospital Course Hospital Course: Belle Jonas is a 69 year old woman with history of pre-diabetes, HFpEF wiht pHTN, PAD, and CKD 3b who presented November 21 with reported blood sugar of 1000, very thirsty, consuming large amounts of sole manohar at her facility. On arrival, serum glucose 1284, lactic acidosis 2.5, anion gap 12.5, hyponatremia 119, hyperkalemia 6.4, WILLIE with creatinine 2.4 against 1.3 baseline, uric acid 8.2. She was admitted for HHS and treated with an insulin drip. Acidosis and electrolyte disturbance was corrected overnight. WILLIE resolved. She had coughing episodes while swallowing water which delayed PO intake; speech therapy evaluated her and cleared her for soft bite size diet. She was transitioned over to basal/bolus insulin, basal insulin titrated up and scheduled rapid insulin added before meals. Her blood sugar was not well controlled but she was not symptomatic and her mental status was normal, so she was discharged with further titration to be done as an outpatient. With her HFpEF and CKD along with DM, empagliflozin was started. Care should be taken around hygiene to avoid genitalurinary infections on this medication. She was given a dose of metformin, but given her GFR below 45 this was not felt to be the best option. She would benefit from a GLP-1 agent as an outpatient to improve cardiac, renal, and diabetic outcomes. Carbohydrate restricted diet would also be beneficial and regular glucose monitoring will be necessary. She was discharged back to the [facility] for ongoing care including diabetes management. She should have a BMP in 1 week to follow renal function and electrolytes. She needs a diebetic eye exam and microalbumin testing. Home Meds and New Rx's Prescriptions: New Jardiance 10 mg Tablet 10 mg PO QAM Qty: 30 0RF insulin glargine [Basaglar KwikPen U-100 Insulin] 100 unit/mL (3 mL) insulin pen 35 unit subcut BID Qty: 15 1RF Rx Instructions: cancel previous lantus/glargine insulin aspart U-100 [Novolog FlexPen U-100 Insulin] 100 unit/mL (3 mL) insulin pen 20 unit subcut TID Qty: 15 1RF Rx Instructions: give before meals, cancel other dosing Continued levothyroxine 75 mcg tablet 100 mcg PO DAILY Rx Instructions: 1 tab PO daily acetaminophen 500 mg capsule 1,000 mg PO TID topiramate 25 mg tablet 25 mg PO BID ferrous sulfate 325 mg (65 mg iron) tablet 325 mg PO DAILY metoprolol succinate 50 mg tablet extended release 24 hr 50 mg PO DAILY torsemide 20 mg tablet 80 mg PO BID trazodone 50 mg tablet 100 mg PO QHS quetiapine 50 mg tablet 25 mg PO QHS duloxetine 60 mg capsule,delayed release(DR/EC) 60 mg PO DAILY cetirizine 10 mg tablet 10 mg PO DAILY PRN aripiprazole 2 mg tablet 2 mg PO DAILY tizanidine 4 mg capsule 4 mg PO BID PRN guaifenesin 100 mg/5 mL liquid 200 mg PO Q4H PRN ondansetron 4 mg tablet,disintegrating 4 mg PO Q8H albuterol sulfate [Ventolin HFA] 90 mcg/actuation HFA aerosol inhaler 2 puff inhalation QID multivitamin [Daily Multiple] 1 EACH tablet 1 ea PO DAILY sumatriptan succinate [Imitrex] 100 MG tablet 100 mg PO DIRECTED PRNQty: 12 Rx Instructions: 1 tab PO q6h prn headache Eliquis 2.5 mg tablet 2.5 mg PO BID loratadine 10 mg tablet 10 mg PO DAILY magnesium glycinate 100 mg magnesium capsule PO aspirin [Adult Aspirin Regimen] 81 mg tablet,delayed release (DR/EC) 81 mg PO DAILY allopurinol 100 mg tablet 100 mg PO DAILY pantoprazole 40 mg tablet,delayed release (DR/EC) 40 mg PO DAILY loperamide 2 mg tablet 2 mg PO Q6H PRN potassium chloride 20 mEq packet 20 meq PO BID Qty: 100 0RF cholecalciferol (vitamin D3) [Vitamin D3] 25 mcg (1,000 unit) Tablet 2,000 unit PO DAILY sennosides-docusate sodium [Lax Stool Softener With Senna] 8.6-50 mg tablet 1 tab-cap PO BID spironolactone 50 mg tablet 50 mg PO BID Allergy Relief (loratadine) 10 mg capsule 10 mg PO DAILY calcitriol 0.25 mcg capsule 0.25 mcg PO Q OTHER DAY fluticasone propionate [24 Hour Allergy Relief] 50 mcg/actuation spray,suspension 1 spray intranasal DAILY Rx Instructions: administer into each nostril Discharge Instructions Instructions: Diabetes and diet Additional Instructions: You will need insulin before each meal and long acting insulin at least once a day You make also benefit from a weekly injectable insulin We added Jardiance (empogliflozin) which will help the sugar some but also help the heart and kidneys Drink fluids that don't contain sugar, and follow a lower carbohydrate diet. Activity:: Activity as Tolerated Equipment/Supplies:: No Equipment Needed Diet:: Carb Counting Discharge Orders Discharge Orders: Discharge Order (Routine); Ordered 11/27/24 Ordered By: Rashawn Mandujano DS: Summary Time Spent with Patient providing and/or coordinating discharge services: Greater than 30 minutes Status at Discharge Functional status at discharge: uses cane/walker Overall status at discharge: patient is back to baseline Mental Status: mental status grossly normal (baseline cognitive impairment) Speech and Movement: speech and movement normal Mood: congruent mood Affect: normal affect Quality:SDOH Health Related Social Needs: Health related social needs details choose not to answer this time. Exam Narrative Exam Narrative: General: This is an obese woman in no distress CV: RRR Resp: CTAB, normal effort Abd: soft, protruberant, nontender ext: 1+ shashank edema at ankles, warm, no cyanosis Neuro: awake, alert to self only (at baseline), CN II-XII intact Psych Mental Status: mental status grossly normal (baseline cognitive impairment) Speech and Movement: speech and movement normal Mood: congruent mood Affect: normal affect DS: Data Vitals/I&O Vitals and I&O: Vital Signs Temperature 36.7 C 11/27/24 07:47 Temperature Source Temporal Artery Scan 11/27/24 07:47 Pulse 89 11/27/24 07:47 Pulse 86 11/24/24 00:01 Respiratory Rate 16 11/27/24 07:47 Respiratory Effort Normal, Non-Labored 11/21/24 20:15 Respiratory Depth Normal 11/21/24 20:15 Respiratory Pattern Normal 11/21/24 20:15 Blood Pressure 123/76 11/27/24 07:47 Blood Pressure Mean 91 11/27/24 07:47 Blood Pressure Position Supine 11/21/24 19:47 Pulse Oximetry 95 11/27/24 07:57 Respiratory End-tidal CO2 31 11/21/24 20:01 Oxygen Delivery Method Room Air 11/27/24 07:57 Oxygen Flow Rate 0 11/27/24 07:57 Pain Level 2 11/27/24 09:04 Comment rn notified 11/26/24 11:20 Intake & Output 11/26/24 11/26/24 11/27/24 11:59 23:59 11:59 Intake Total 580 / 580 600 / 600 Balance 580 / 580 600 / 600 Intake: Oral 580 / 580 600 / 600 Other: Urine Color Yellow Yellow Yellow Urine Appearance Clear Clear Clear Urine Odor Normal Strong Strong Comment pT clean of stool at this time Pt was inc. of urine, [employer] changed brief. pericare provided PFSH All Active Problems (Updated 11/25/24 @ 19:05 by Kyle Matute MD) Dysphagia (Acute) Paroxysmal A-fib (Acute) Cognitive impairment (Acute) Type 2 diabetes mellitus with hyperosmolar hyperglycemic state (HHS) (Acute) Hyperosmolar hyperglycemic state (HHS) (Acute) Chronic daily headache (Acute) Migraine (Chronic) TMJ dysfunction (Acute) Referred otalgia (Acute) Cerumen impaction (Acute) Atherosclerosis of artery of both lower extremities (Acute) Phlebitis of left posterior tibial vein (Acute) Diastolic heart failure (Acute) Discharge planning issues (Acute) DVT prophylaxis (Acute) Acute hypoxemic respiratory failure (Acute) Hypokalemia (Acute) UTI (urinary tract infection) (Acute) Pancolitis (Acute) Headache (Acute) Colitis (Acute) Hypoxemia (Acute) Acute pyelonephritis (Acute) Estrogen deficiency (Acute) CKD (chronic kidney disease), stage III (Chronic) Osteoporosis (Chronic) Vitamin D deficiency (Acute) Prediabetes (Acute) Gout (Chronic) Venous stasis dermatitis (Acute) Cellulitis (Acute) PVD (peripheral vascular disease) (Chronic) Idiopathic gout, unspecified site (Acute) Edema (Chronic) Nail dystrophy (Acute) Internal derangement of left knee (Acute) DEPO MEDROL 09/08/24; 06/01/24; 11/05/2023; 03/22/2023; 08/24/2022; 09/22/21 Physical deconditioning (Acute) Internal derangement of right knee (Acute) DEPO MEDROL: 09/08/24; 11/05/2023; 03/22/2023; 08/24/2022; 09/22/21 Sleep apnea (Acute) BMI 45.0-49.9, adult (Acute) 07/2018 BMI 48 Obstructive sleep apnea (Chronic) Does not use CPAP Acquired hypothyroidism (Acute 06/01/17) Chronic nonintractable headache (Acute 06/01/17) Essential hypertension (Chronic 06/01/17) Psoriasis (Acute 06/01/17) Recurrent major depressive disorder (Acute 06/01/17) Mixed incontinence (Chronic) Obesity (Chronic) Hypertension (Chronic) Panic disorder (Chronic) Obsessive-compulsive disorder (Chronic) Hypothyroidism (Chronic) Migraine (Chronic) Gait disturbance (Chronic) Depression (Chronic) Bilateral lower extremity edema (Chronic) Overactive bladder (Chronic) Wears adult diapers. Insomnia (Chronic) Chronic pruritus (Chronic) Medical History TMJ tenderness, bilateral Paronychia of great toe, left Toe pain, left Internal derangement of left knee DEPO MEDROL 08/24/2022; 09/22/21 Right leg pain Internal derangement of right knee DEPO MEDROL 08/24/2022; 09/22/21 IUD complication Tongue lesion Endometrial thickening on ultrasound PMB (postmenopausal bleeding) 2016. D&C for postmenopausal bleeding. Benign inactive endometrium. No recurrences. Functional urinary incontinence (06/01/17) Headache (06/01/17) Post-menopausal bleeding (02/01/17) D&C 03/10/17. Inactive endometrium. No episodes since. Atrophic vaginitis Urge incontinence Psoriasis Recurrent UTI External hemorrhoids Hematuria Dermatosis Surgical History Colonoscopy - MAC (07/12/17) Hx of dilation and curettage 2017 Social History Smoking/Tobacco Use Status: Never Smoking risk assessment performed?: Yes Alcohol Intake: current Alcohol Intake frequency: a few times a month Drug use: Never Substance use type: does not use Caregiver/Support person: Yes (Accompanies her to her office visits) Housing: detention Number of Children: 3 current occupation: Disabled Current gender identity: female Seatbelt use: always Do you feel safe at home: Yes Do you feel safe in your relationship?: Yes Additional Social history: Unable to asses privately. Female Reproductive History Menstrual Menopause type: natural History History 5 Para 3 Hx # Term Pregnancies 3 Multiple births Hx # Pregnancies Ectopic pregnancies AB induced Hx Number of Living Children 3 AB spontaneous 2 Time Spent with Patient Time Spent with Patient: 45-69 minutes Time was spent: preparing to see the patient(eg.review tests), obtaining and/or reviewing separately otained hiistory, ordering medications,tests, procedures, referring, communicating with other health critical care nurse, indepentently interpreting results, counseling the patient and care coordination
--- NOTE | 2024-11-27 12:04 | CMDISCH_ITS ---
Date of service: 11/27/24 Time of Service: 12:07 LACE Index Scoring Tool Questions: Length of Stay (in days): 4 - 6 Was the patient admitted via the E.D.?: Yes Comorbidities: Diabetes w/o Complication and Liver or Renal Disease E.D. Visits: 1 Answers: Total Score: 13 Risk of Readmission: High Risk Care Management Discharge Plan Reason for Hospitalization: new onset insulin dependent diabetes - hyperosmolar hyperglycemic state Discharge Plan: Lenore will be discharged back to the [facility] later today. She will f/u with the facility provider and continue per her plan of care. Lenore will transport via [facility] wheel chair van as coordinated by CM. Patient/Family Education Needs: Review of discharge instructions, activity, limitations, and discuss, Ask me 3. SDOH Health Related Social Needs: Health related social needs details choose not to answ er this time.
== END 2024-11-26 15:51 | disposition skilled nursing facility (03) | DRG 638 ==
LOC: ER 18:32 → ICU 20:15 → MS 11-24 01:31
PROVIDERS: Family Medicine; Admitting Provider Family Medicine; Emergency Provider Physician Assistant; PCP Nurse Practitioner Gerontology; Responsible Provider Family Medicine; Visit Provider Family Medicine
DX: E11.00 Type 2 diabetes mellitus with hyperosmolarity without nonketotic hyperglycemic-hyperosmolar coma (NKHHC) (principal); N17.9 Acute kidney failure, unspecified; E11.22 Type 2 diabetes mellitus with diabetic chronic kidney disease; I50.30 Unspecified diastolic (congestive) heart failure; R41.89 Other symptoms and signs involving cognitive functions and awareness; I48.0 Paroxysmal atrial fibrillation; R13.10 Dysphagia, unspecified; E87.1 Hypo-osmolality and hyponatremia; I13.0 Hypertensive heart and chronic kidney disease with heart failure and stage 1 through stage 4 chronic kidney disease, or unspecified chronic kidney disease; F33.9 Major depressive disorder, recurrent, unspecified; Z68.41 Body mass index [BMI] 40.0-44.9, adult; I27.20 Pulmonary hypertension, unspecified; E66.9 Obesity, unspecified; E03.9 Hypothyroidism, unspecified; I70.203 Unspecified atherosclerosis of native arteries of extremities, bilateral legs; N18.30 Chronic kidney disease, stage 3 unspecified; E87.5 Hyperkalemia; G43.909 Migraine, unspecified, not intractable, without status migrainosus; E55.9 Vitamin D deficiency, unspecified; G47.33 Obstructive sleep apnea (adult) (pediatric); M81.0 Age-related osteoporosis without current pathological fracture; I87.2 Venous insufficiency (chronic) (peripheral); F41.0 Panic disorder [episodic paroxysmal anxiety]; N32.81 Overactive bladder; Z66 Do not resuscitate
CPT/HCPCS: 00123; 36415; 80048; 80051; 80053; 80076; 82805; 82947; 82950; 84520; 85027; 87040; 87637; 92526; 93005; 94640; 94761; 96361; 96365; 97110; 97162; 97530; 99291; 71045; 81003; 81015; 82310; 82565; 83036; 83605; 83735; 83880; 84443; 84484; 85025; 93010; 94664; 94760; 99223; 99231; 99232; 99239; J1815; J3490

== ENCOUNTER 2024-12-04 18:15 | Outpatient (REF) | payer MEDICARE, MEDICAID, SELFPAY ==
[2024-12-04 19:47] LABS: Abs Immature Grans 0.06 10^3/uL (0.0-0.06); HCT 41.0 % (36.0-46.0); HGB 13.1 g/dL (11.2-15.7); Immature Grans % 1.1 %; MCH 29.4 pg (27.0-33.0); MCHC 32.0 % (32.0-36.0); MCV 92 fL (80-95); MPV 10.1 fL (8.0-11.0); Platelet Count 223 10^3/uL (130-400); RBC 4.45 10^6/uL (3.93-5.22); RDW 15.2 % (11.7-14.6); RDW-SD 50.7 fL; WBC 5.50 10^3/uL (4.4-10.8)
[2024-12-04 20:19] LABS: ALT 40 U/L (14-59); AST 31 U/L (15-37); Albumin 3.6 g/dL (3.4-5.0); Alkaline Phosphatase 111 U/L (46-116); Anion Gap 9.0 mmol/L (3-11); BUN 25 mg/dL (7-18); Bilirubin, Total 0.7 mg/dL (0.2-1.0); CO2 29.0 mmol/L (21.0-32.0); Calcium 9.8 mg/dL (8.5-10.1); Chloride 97 mmol/L (98-107); Estimated GFR 34.48 (mL/min/1.73m2); Ferritin 109 ng/mL (8-252); Glucose 231 mg/dL (74-106); Potassium 4.3 mmol/L (3.5-5.1); Sodium 135 mmol/L (136-145); Total Protein 6.6 g/dL (6.4-8.2)
[2024-12-05 16:07] LABS: Iron 160 ug/dL (50-170); Total Iron Binding Capacity 339 ug/dL (250-450); Transferrin Sat 47 % (15-50)
== END 2024-12-04 18:16 | disposition home or self-care (01) ==
LOC: LBN 18:15
PROVIDERS: PCP Nurse Practitioner Gerontology; Visit Provider Nurse Practitioner Gerontology
DX: D63.1 Anemia in chronic kidney disease (principal); E87.8 Other disorders of electrolyte and fluid balance, not elsewhere classified
CPT/HCPCS: 80053; 82728; 83540; 83550; 85025

== ENCOUNTER 2024-12-25 21:04 | Outpatient (REF) | payer MEDICARE, MEDICAID, SELFPAY ==
[2024-12-25 18:38] LABS: Abs Immature Grans 0.03 10^3/uL (0.0-0.06); HCT 42.1 % (36.0-46.0); HGB 13.3 g/dL (11.2-15.7); Immature Grans % 0.5 %; MCH 28.9 pg (27.0-33.0); MCHC 31.6 % (32.0-36.0); MCV 92 fL (80-95); MPV 9.7 fL (8.0-11.0); Platelet Count 256 10^3/uL (130-400); RBC 4.60 10^6/uL (3.93-5.22); RDW 13.9 % (11.7-14.6); RDW-SD 47.1 fL; WBC 6.62 10^3/uL (4.4-10.8)
[2024-12-25 19:02] LABS: ALT 25 U/L (14-59); AST 20 U/L (15-37); Albumin 3.5 g/dL (3.4-5.0); Alkaline Phosphatase 102 U/L (46-116); Anion Gap 12.1 mmol/L (3-11); BUN 26 mg/dL (7-18); Bilirubin, Total 0.6 mg/dL (0.2-1.0); CO2 27.9 mmol/L (21.0-32.0); Calcium 9.5 mg/dL (8.5-10.1); Chloride 99 mmol/L (98-107); Estimated GFR 37.26 (mL/min/1.73m2); Glucose 217 mg/dL (74-106); Magnesium 2.5 mg/dL (1.8-2.4); Potassium 4.0 mmol/L (3.5-5.1); Sodium 139 mmol/L (136-145); TSH (W/Ref FT4) 3.03 uIU/mL (0.36-3.74); Total Protein 6.6 g/dL (6.4-8.2)
[2024-12-25 19:12] LABS: Hemoglobin A1C 8.1 % (<5.7)
== END 2024-12-25 21:05 | disposition home or self-care (01) ==
LOC: LBN 21:04
PROVIDERS: PCP Nurse Practitioner Gerontology; Visit Provider Nurse Practitioner Gerontology
DX: E11.00 Type 2 diabetes mellitus with hyperosmolarity without nonketotic hyperglycemic-hyperosmolar coma (NKHHC) (principal); E87.8 Other disorders of electrolyte and fluid balance, not elsewhere classified
CPT/HCPCS: 80053; 83036; 83735; 84443; 85025

== ENCOUNTER → 2025-01-12 11:06 | Outpatient (BNVA) | payer MEDICARE, MEDICAID, SELFPAY | PROVIDERS: PCP Legal Medicine; Referring Provider Nurse Practitioner Gerontology; Visit Provider Physician Assistant | DX: M23.91 Unspecified internal derangement of right knee (principal); M23.92 Unspecified internal derangement of left knee | CPT/HCPCS: 20610; J1010 ==

== ENCOUNTER 2025-02-12 21:14 | Outpatient (REF) | payer MEDICARE, MEDICAID, SELFPAY ==
[2025-02-12 19:04] LABS: ALT 24 U/L (10-49); AST 21 U/L (<34); Albumin 4.5 g/dL (3.2-5.0); Alkaline Phosphatase 95 U/L (46-116); Anion Gap 10.2 mmol/L (3-11); BUN 30 mg/dL (9-23); Bilirubin, Total 0.50 mg/dL (0.2-1.2); CO2 27.8 mmol/L (20.0-31.0); Calcium 10.1 mg/dL (8.3-10.6); Chloride 100 mmol/L (98-107); Glucose 86 mg/dL (74-106); Potassium 4.1 mmol/L (3.5-5.1); Sodium 138 mmol/L (136-145); Total Protein 7.2 g/dL (5.7-8.2)
== END 2025-02-12 21:15 | disposition home or self-care (01) ==
LOC: LBN 21:14
PROVIDERS: PCP Legal Medicine; Visit Provider Nurse Practitioner Gerontology
DX: I50.22 Chronic systolic (congestive) heart failure (principal); E87.8 Other disorders of electrolyte and fluid balance, not elsewhere classified
CPT/HCPCS: 80053; 83880